=== PATIENT | female | born 1955 | race Two or more races ===

== ENCOUNTER 2016-11-02 00:50 | Inpatient (IN) | payer MEDICARE ==
[~2016-11-02] VITALS: Ht 157.5 cm; Wt 78.9 kg
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
[2016-11-02] MEDS ORDERED: MAGNESIUM HYDROXIDE 30 ML UDC PO PRN (03:00)
[2016-11-02] MEDS ORDERED: ACETAMINOPHEN 325 MG TABLET PO PRN (03:00)
[2016-11-02] MEDS ORDERED: TEMAZEPAM 7.5 MG CAPSULE PO PRN (03:00)
[2016-11-02] MEDS ORDERED: LORAZEPAM 0.5 MG TABLET PO PRN (03:00)
[2016-11-02] MEDS ORDERED: MAG HYDROX/AL HYDROX/SIMETH 30 ML UDC PO PRN (03:00)
[2016-11-02 03:45] VITALS: BP 105/84
[2016-11-02 04:28] VITALS: BP 105/84
[2016-11-02] MEDS ORDERED: FENO160T PO (04:47)
[2016-11-02] MEDS ORDERED: ESCI20TA PO (04:47)
[2016-11-02] MEDS ORDERED: LEVO100T9 PO (04:47)
[2016-11-02] MEDS ORDERED: HALO2TAB PO (04:47)
--- NOTE | 2016-11-02 06:13 | NUR ---
GPS RN: CALLED ARABELLA KNOTT [phone] TO INFORM THE ADMISSION. OF ARABELLA KNOTT ANSWERED THE PHONE. ASKED IF THE PATIENT HAS ANY MEDICAL PROBLEMS THAT HEALTH CARE TEAM NEEDS TO KNOW, RESPONDER ANSWERED, "YOU NEED TO CALL MY REGARDING THAT."
[2016-11-02 08:00] VITALS: BP 112/83
[2016-11-02 08:25] LABS: ALBUMIN 3.7 g/dL (3.4-5.0); BILIRUBIN,TOTAL 0.6 mg/dL (0.2-1.0); CALCIUM, SERUM 9.1 mg/dL (8.5-10.1); CREATININE 1.2 mg/dL (0.6-1.3); POTASSIUM 3.6 mmol/L (3.5-5.1); TOTAL PROTEIN, SERUM 7.1 g/dL (6.4-8.2)
[2016-11-02] MEDS ORDERED: Z GUARD REMEDY 2 OZ OINT TP SCH (09:00)
--- NOTE | 2016-11-02 09:31 | NUR ---
[id number]: NOTIFIED DR. MONTE ABOUT LAB RESULTS FOR 11/02/16: ANION GAP= 19, BUN=33, ALKALINE PHOSPHATASE= 41. NO NEW ORDERS GIVEN AT THIS TIME.
[2016-11-02 16:00] VITALS: BP 108/82
[2016-11-02 22:28] VITALS: BP 108/88
[2016-11-02] MEDS: HALOPERIDOL 5 MG TABLET PO SCH (22:51)
[2016-11-03 08:18] VITALS: BP 125/78
[2016-11-03] MEDS ORDERED: HALOPERIDOL DECANOATE IM 100 MG/ML AMPUL IM ONE (09:00)
[2016-11-03] MEDS: FENOFIBRATE NANOCRYS (145 MG) 145 MG TABLET PO SCH (09:09)
[2016-11-03] MEDS: ESCITALOPRAM OXALATE (10 MG) 10 MG TABLET PO SCH (09:09)
[2016-11-03] MEDS: HALOPERIDOL 5 MG TABLET PO SCH ×3 (09:10→17:08)
[2016-11-03] MEDS: LEVOTHYROXINE SODIUM 100 MCG TABLET PO SCH (09:10)
--- NOTE | 2016-11-03 15:51 | NUR ---
SW attempted several times a day to see the patient for psychosocial assessment, but pt. continues to be asleep ( or pretends to be asleep ) and despite attempts to wake her up, refuses to speak or open her eyes. SW will follow up
[2016-11-03 16:34] VITALS: BP 103/76
[2016-11-03 20:00] VITALS: BP 120/69
[2016-11-04] MEDS: LEVOTHYROXINE SODIUM 100 MCG TABLET PO SCH (07:30)
[2016-11-04 08:00] VITALS: BP 116/74
--- NOTE | 2016-11-04 08:23 | NUR ---
WOUND CARE CONSULT PATIENT SEEN AND SKIN INTEGRITY ASSESSMENT DONE. PATIENT WITH AMAURI AT 11. PATIENT NOT MOVING OR SPEAKING OR OPENING EYES. NOT EATING PER NURSING. PLEASE SEE SOLUTIONS DEVELOPER ASSESSMENT IN PCS FOR TODAY. RECOMMEND TURNING SCHED Q 2 HOURS AND BILATERAL HEEL FLOATING. RECOMMEND USE OF Z GUARD FOR SKIN/MOISTURE MANAGEMENT. PATIENT ON FOAM/GEL PRESSURE REDUCTING MATTRESS AT THIS TIME. ALL SKIN MANAGEMENT DISCUSSED WITH NURSING AT THIS TIME. MD IN AGREEMENT WITH PLAN OF CARE. Addendum: 11/04/16 at 0825 by СВЕТЛАНА KAMU Amended: Links added. Addendum: 11/04/16 at 0844 by СВЕТЛАНА KAMU SOLUTIONS DEVELOPER ADDENDUM RECOMMEND PODIATRY CONSULT FOR THE LEFT HEEL CALLUS/DTI AND LEFT 3RD NAIL BED.
[2016-11-04] MEDS: HALOPERIDOL 5 MG TABLET PO SCH ×2 (09:00→17:00)
[2016-11-04] MEDS: ESCITALOPRAM OXALATE (10 MG) 10 MG TABLET PO SCH (09:00)
[2016-11-04] MEDS: FENOFIBRATE NANOCRYS (145 MG) 145 MG TABLET PO SCH (09:00)
--- NOTE | 2016-11-04 11:33 | NUR ---
Initial discharge plan: pt. is catatonic and does not speak when asked questions and does not open her eyes. Appears that pt. may need placement. VIANEY left a voicemail for Sonu, contact center associate for pt. [phone] and he has not returned the call. vianey will follow up with MD and pt. again and will help form safe and proper discharge.
[2016-11-04 16:00] VITALS: BP 139/76
--- NOTE | 2016-11-04 16:08 | NUR ---
NOTIFIED DR. MONTE THAT PT. ATE 10% FOR BREAKFAST AND NOT EATING LUNCH AND NOT DRINKING. DIAPER IS DRY SINCE MORNING, BLADDER SCAN DONE AND RETAINING 693 ML OF URINE. V/S TAKEN: BP 139/96, NE 109, RR 18, TEMP 98.6, OXYGEN SAT 94%. ORDERED STRAIGHT CATH NOW AND BLADDER SCAN Q SHIFT AND STRAIGHT CATH PRN Q SHIFT IF RETAINING URINE >300.
--- NOTE | 2016-11-04 16:52 | NUR ---
STRAIGHT CATH DONE ASEPTICALLY WITH 500 CC URINE OUTPUT OF YELLOW COLOR URINE. PT. TOLERATED WELL. WILL CONTINUE TO MONITOR .
--- NOTE | 2016-11-04 19:50 | NUR ---
GPS/RN NOTE: PATIENT RESTING IN BED, NO RESPONSE WHEN ENGAGED, RESPIRATION EVEN, BREATHING PATTERN NON-LABORED, NO ACUTE DISTRESS NOTED.
[2016-11-04 20:00] VITALS: BP 137/76
--- NOTE | 2016-11-05 07:15 | NUR ---
GPS/RN NOTE: BLADDER SCAN DONE, 555 ML URINE NOTED. IN AND OUT CATH DONE, OBTAINED 400 ML CLOUDY, CONCENTRATED URINE, SPECIMEN SENT FOR URINALYSIS
[2016-11-05] MEDS: LEVOTHYROXINE SODIUM 100 MCG TABLET PO SCH (07:30)
[2016-11-05 08:00] VITALS: BP 138/69
[2016-11-05] MEDS: HALOPERIDOL 5 MG TABLET PO SCH ×2 (09:00→16:55)
[2016-11-05] MEDS: ESCITALOPRAM OXALATE (10 MG) 10 MG TABLET PO SCH (09:00)
[2016-11-05] MEDS: FENOFIBRATE NANOCRYS (145 MG) 145 MG TABLET PO SCH (09:00)
--- NOTE | 2016-11-05 09:01 | NUR ---
GPS/RN PT IS RESTING COMFORTABLY IN THE BED WITH RESPIRATION EVEN UNLABORED, VSS , DOES NOT RESPOND TO NURSES. REFUSED TO EAT IN AM. NO MEDS GIVEN, AWARE
[2016-11-05] MEDS ORDERED: IV NS 0.9% 1,000 ML BAG IV ONE (13:00)
[2016-11-05] MEDS ORDERED: IV SET PRIMARY PUMP SET 1 EA INFUS.SET MC ONE (15:08)
[2016-11-05] MEDS ORDERED: IV NS 0.9% 1,000 ML ONE (15:09)
[2016-11-05 16:00] VITALS: BP 108/82
--- NOTE | 2016-11-05 16:56 | NUR ---
GPS/RN IVF INFUSING WELL. NO ACUTE DISTRESS NOTED. US SAMPLE COLLECTED AND LAB CALLED FOR PRINTING PRESS OPERATOR.PT TRANSFERRED TO ROOM 218 AND OBSERVED BY THE SITTER FOR SAFETY.
[2016-11-05 17:54] LABS: APPEARANCE,URINE CLEAR (CLEAR); BILIRUBIN,URINE 1+ (NEGATIVE); BLOOD, URINE TRACE Ery/uL (NEGATIVE); COLOR,URINE YELLOW (YELLOW); KETONES,URINE TRACE (NEGATIVE); LEUKOCYTE ESTERASE ,URINE NEGATIVE (NEGATIVE); NITRITE, URINE NEGATIVE (NEGATIVE); PROTEIN,URINE TRACE mg/dl (NEGATIVE); UGLUCOSE NEGATIVE (NEGATIVE)
[2016-11-05 18:16] LABS: CALCIUM, SERUM 8.7 mg/dL (8.5-10.1); POTASSIUM 3.6 mmol/L (3.5-5.1)
[2016-11-05 19:12] LABS: BASOPHILS % (AUTO) 0.1 % (0.0-2.0); EOSINOPHILS # (AUTO) 0.1 /CMM (0.0-0.7); EOSINOPHILS % (AUTO) 1.2 % (0.0-6.0); HEMATOCRIT 41 % (33-45); HEMOGLOBIN 13.5 g/dL (11.5-14.8); LYMPHOCYTES # (AUTO) 1.4 /CMM (0.8-4.8); LYMPHOCYTES % (AUTO) 14.6 % (20.0-44.0); MEAN CORPUSCULAR HEMOGLOBIN 30 PG (26.0-33.0); MEAN CORPUSCULAR HGB CONC 33 g/dl (31.0-36.0); MEAN CORPUSCULAR VOLUME 89 fL (82-100); MONOCYTES # (AUTO) 0.9 /CMM (0.1-1.30); MONOCYTES % (AUTO) 9.9 % (2.0-12.0); NEUTROPHILS % (AUTO) 74.2 % (43.0-81.0); PLATELET COUNT (AUTO) 228 /CMM (150-450); RDW COEFFICIENT OF VARIATION 13.5 (11.5-15.0); RED BLOOD CELL COUNT(AUTO) 4.55 MIL/uL (4.0-5.2); WHITE BLOOD COUNT (AUTO) 9.5 K/uL (4.3-11.0)
--- NOTE | 2016-11-05 19:18 | NUR ---
GPS/RN ENDORSED TO PRESCHOOL TEACHER AIDE AIME TO REPORT TO MD WITH UNUSUAL LAB FINDINGS.
[2016-11-05 19:24] LABS: BACTERIA,URINE None seen /HPF (None Seen); RBC,URINE NONE SEEN /HPF (0-2); SQUAMOUS EPITHELIAL CELL,UR Few /HPF (None Seen); WBC,URINE 0-2 /HPF (0-3)
--- NOTE | 2016-11-05 19:30 | NUR ---
GPS/DEPUTY CHIEF MAGISTRATE; RECEIVED PT IN BED SUPINE POSITION SLEEPING. BREATHING NON LABORED AND EVEN. IVF ON PROGRESS ON LT HAND OF NS AT 75 ML/ HOUR NO SIGNS OF INFILTRATION. SITTER PRESENT IN THE ROOM. CONTINUE TO MONITOR. BED ON LOWER POSITION AND LOCKED FOR SAFETY.
[2016-11-05 20:00] VITALS: BP 111/89
[2016-11-05 21:15] VITALS: BP 129/75
--- NOTE | 2016-11-06 07:00 | NUR ---
SLEPT FOR 10 HOURS. FC INTACT WITH CLEAR YELLOW URINE WITH 250 ML OUTPUT. WILL ENDORSE TO THE DAY SHIFT NURSE.
[2016-11-06] MEDS: LEVOTHYROXINE SODIUM 100 MCG TABLET PO SCH (07:30)
[2016-11-06] MEDS: HALOPERIDOL 5 MG TABLET PO SCH (08:34)
[2016-11-06] MEDS: FENOFIBRATE NANOCRYS (145 MG) 145 MG TABLET PO SCH (08:35)
[2016-11-06] MEDS: ESCITALOPRAM OXALATE (10 MG) 10 MG TABLET PO SCH (08:35)
--- NOTE | 2016-11-06 10:13 | NUR ---
GPS RN NOTE: PATIENT LYING IN BED WITH HER EYES CLOSED 1:1 SITTER AT THE SIDE FOR SAFETY WITH GANNON CATH IN PLACED,PT CATATONIC AND NON VERBAL WHEN ENGAGED, PT BREATHING EVEN NON LABORED VS STABLE, TURNED REPOSITION Q 2 HR , PT CLEAN AND Z GUARD APPLIED. PT REFUSING TO EAT AND DRINK REFUSED MEDICATIONS, EXPLAIN RISK AND BENEFIT PT NON REACTING KEEPING HER EYES CLOSED FOR ALL TIME WILL CONTINUE MONITORING
[2016-11-06] MEDS ORDERED: IV NS 0.9% 1,000 ML BAG IV ONE (14:30)
[2016-11-06] MEDS ORDERED: IV D5/ 0.9% NACL 1,000 ML IV PRN (14:30)
[2016-11-06] MEDS ORDERED: PANTOPRAZOLE 40 MG VIAL IV SCH (14:30)
--- NOTE | 2016-11-06 14:35 | NUR ---
GPS RN NOTE: CALLED DR SOTELO REGARDING PT D/C TO TELE PER N.P CAREY MESSAGE LEFT TO CALL BACK
--- NOTE | 2016-11-06 15:52 | NUR ---
GPS RN NOTE: DUE TO FAST TRANSFER PER DR PATINO START IV FLUIDS IN TELE
--- NOTE | 2016-11-06 15:53 | NUR ---
GPS DIRECTOR WORKERS COMPENSATION NOTE: PATIENT DISCHARGE FROM GPS AND TRANSFER TO TELE ROOM 202 PER Asha DEE PT DX ACUTE INCREPHALOPATHY WITH CATATONIA DR SOTELO NOTIFIED WITH CONTINUE HOLD AND D/C PSYCH MEDICATIONS,CAREY T.O. ORDER NPO FOR NOW. MEDICATIONS RECONCILIATION,EXIT CARE, BELONGINGS DONE , SKIN CHECKED AND PICTURES PLACED IN THE CHART
[2016-11-06] MEDS ORDERED: [UNRECOGNIZED DRUG - CODE] IV (16:52)
[2016-11-06] MEDS ORDERED: FENO145T20 PO (16:52)
[2016-11-06] MEDS ORDERED: ALLA266C2 TP (16:52)
[2016-11-06] MEDS ORDERED: PANT40VI IV (16:52)
[2016-11-06] MEDS ORDERED: MAGN400O6 PO (16:52)
[2016-11-06] MEDS ORDERED: ACET-868 PO (16:52)
[2016-11-06] MEDS ORDERED: MAG30ORA PO (16:52)
[2016-11-07] MEDS ORDERED: ESCITALOPRAM OXALATE (10 MG) 10 MG TABLET PO SCH (09:00)
== END 2016-11-06 15:53 | disposition short-term general hospital (02) | DRG 885 ==
LOC: GPS 02:26
PROVIDERS: ADMIT Psychiatry & Neurology Psychiatry; ATTEND Nurse Practitioner Acute Care
DX: F20.0 Paranoid schizophrenia (principal); Z73.6 Limitation of activities due to disability; E03.9 Hypothyroidism, unspecified; E78.5 Hyperlipidemia, unspecified; F32.9 Major depressive disorder, single episode, unspecified; K21.9 Gastro-esophageal reflux disease without esophagitis; F29 Unspecified psychosis not due to a substance or known physiological condition; E86.0 Dehydration; R79.89 Other specified abnormal findings of blood chemistry
CPT/HCPCS: 36415; 70450-TC; 80048-TC; 80053-TC; 80061-TC; 81000-TC; 85025-TC; 87081-TC; 97001-TC; 97530-TC; C9113; J1631; J7030

== ENCOUNTER 2016-11-06 15:58 | Inpatient (IN) | payer MEDICARE ==
[~2016-11-06] VITALS: Ht 157.5 cm; Wt 69.4 kg
[~2016-11-06 15:58] MED LIST: ESCI20TA PO; FENO160T PO; HALO2TAB PO; LEVO100T9 PO
[2016-11-06] MEDS ORDERED: [UNRECOGNIZED DRUG - CODE] IV (16:52)
[2016-11-06] MEDS ORDERED: MAG30ORA PO (16:52)
[2016-11-06] MEDS ORDERED: FENO145T20 PO (16:52)
[2016-11-06] MEDS ORDERED: ACET-868 PO (16:52)
[2016-11-06] MEDS ORDERED: PANT40VI IV (16:52)
[2016-11-06] MEDS ORDERED: MAGN400O6 PO (16:52)
[2016-11-06] MEDS ORDERED: ALLA266C2 TP (16:52)
[2016-11-06 17:00] VITALS: BP 133/87
--- NOTE | 2016-11-06 17:00 | NUR ---
MS RN NOTES PATIENT BROUGHT IN PATIENT VIA WHEELCHAIR FROM GPS UNIT FOR ADMISSION. SAFELY TRANSFERRED PATIENT TO BED, MADE COMFORTABLE, V/S TAKEN AND RECORDED. ON ROOM AIR, BREATHING EVEN AND NON LABORED. EYES CLOSED, RESPONSIVE TO TACTILE STIMULI, NON VERBAL. NOTIFIED DR. MAYURI LUKE FOR ADMISSION. PATIENT IS ON 5250 HOLD, 1:1 SITTER AT THE BED SIDE.
--- NOTE | 2016-11-06 17:40 | NUR ---
PATIENT IS SEEN BY DR. MESSINA, CT HEAD RESULTED, PER MD, TRANSFER PATIENT TO TELEMETRY UNIT.
[2016-11-06] MEDS ORDERED: IV NS 0.9% 1,000 ML IV PRN (17:41)
[2016-11-06] MEDS ORDERED: MAG HYDROX/AL HYDROX/SIMETH 30 ML UDC PO PRN (18:00)
[2016-11-06] MEDS ORDERED: BLOOD SUGAR DIAGNOSTIC 1 EACH STRIP IN SCH (18:00)
[2016-11-06] MEDS ORDERED: MAGNESIUM HYDROXIDE 30 ML UDC PO PRN (18:00)
[2016-11-06] MEDS ORDERED: NACL IV PRN (18:00)
[2016-11-06] MEDS ORDERED: ACETAMINOPHEN 325 MG TABLET PO PRN (18:00)
[2016-11-06] MEDS ORDERED: Z GUARD REMEDY 2 OZ OINT TP PRN (18:00)
[2016-11-06] MEDS ORDERED: D5 IV PRN (18:00)
--- NOTE | 2016-11-06 18:00 | NUR ---
ECO CARDIO THERAPY AIDE AT BEDSIDE, PT INDORSED TO NEXT SHIFT FOR HENRY
--- NOTE | 2016-11-06 18:00 | NUR ---
REPORT GIVEN TO INDU MEIER FOR CONTINUITY OF CARE.
[2016-11-06 18:22] LABS: BASOPHILS % (AUTO) 0.1 % (0.0-2.0); EOSINOPHILS % (AUTO) 0.7 % (0.0-6.0); HEMATOCRIT 37 % (33-45); HEMOGLOBIN 12.5 g/dL (11.5-14.8); MEAN CORPUSCULAR HEMOGLOBIN 30 PG (26.0-33.0); MEAN CORPUSCULAR HGB CONC 34 g/dl (31.0-36.0); MEAN CORPUSCULAR VOLUME 89 fL (82-100); NEUTROPHILS % (AUTO) 74.2 % (43.0-81.0); PLATELET COUNT (AUTO) 204 /CMM (150-450); RDW COEFFICIENT OF VARIATION 13.6 (11.5-15.0); RED BLOOD CELL COUNT(AUTO) 4.19 MIL/uL (4.0-5.2); WHITE BLOOD COUNT (AUTO) 9.1 K/uL (4.3-11.0)
[2016-11-06 18:23] LABS: EOSINOPHILS # (AUTO) 0.1 /CMM (0.0-0.7); LYMPHOCYTES # (AUTO) 1.4 /CMM (0.8-4.8); MONOCYTES # (AUTO) 0.9 /CMM (0.1-1.30); NEUTROPHILS # (AUTO) 6.7 /CMM (1.8-8.9)
[2016-11-06 18:35] LABS: CALCIUM, SERUM 8.5 mg/dL (8.5-10.1); CREATININE 0.9 mg/dL (0.6-1.3); POTASSIUM 3.7 mmol/L (3.5-5.1)
[2016-11-06] MEDS ORDERED: IV SET PRIMARY PUMP SET 1 EA INFUS.SET MC ONE (18:35)
--- NOTE | 2016-11-06 18:40 | NUR ---
RECEIVED PT FOR MS2, VIA BED WITH EYES CLOSED, RESPONSIVE TO TACTILE STIMULI, NON VERBAL, NO SOB OR DISTRESS NOTED, NO S/S OF PAIN , SITTER AT BEDSIDE FOR SAFETY, WILL MONITOR AND INDORSE PT TO NEXT SHIFT FOR ADMISSION.
[2016-11-06 18:45] VITALS: BP 135/80
[2016-11-06 18:50] LABS: ALBUMIN 3.2 g/dL (3.4-5.0); BILIRUBIN,TOTAL 0.7 mg/dL (0.2-1.0); MAGNESIUM 1.9 mg/dL (1.8-2.4); TOTAL PROTEIN, SERUM 6.5 g/dL (6.4-8.2)
[2016-11-06 18:51] LABS: THYROID STIMULATING HORMONE 10.027 uIU/mL (0.358-3.74)
[2016-11-06 18:53] LABS: INR 1.08 (0.87-1.13); PROTHROMBIN TIME 11.6 SECS (9.5-12.7)
--- NOTE | 2016-11-06 19:45 | NUR ---
RN OPENING NOTES RECEIVED REPORT FROM DAYSHIFT INDU MEIER. Pt WAS A LATE ADMIT TO THE FLOOR. FOUND Pt ASLEEP IN BED, WAS TOLD FROM INDU MEIER THAT Pt CAME FROM GPS AND IS CURRENTLY ON A 5250 HOLD. Pt WITH 1:1 SITTER AT BEDSIDE. NO S/S OF ACUTE DISTRESS OR SOB NOTED. EQUAL CHEST RISE AND FALL. Pt IS BEING NON-RESPONSIVE TO HER NAME BEING CALLED. WAS TOLD FROM INDU MEIER THAT SHE DOES NOT OPEN HER EYES; EVEN WHEN TRYING TO OPEN HER EYELIDS, SHE KEEPS THEM CLOSED FORCEFULLY. BUT WAS SEEN SCRATCHING HER HEAD. IV ACCESS ON [facility] #22G. IVF NS @80ML/HR. SAFETY MEASURES IN PLACE. BED LOW, LOCKED, HOB ELEVATED, & SIDE RAILS UP. WILL CONTINUE TO MONITOR Pt THROUGHOUT THE NIGHT FOR SAFETY.
[2016-11-06 20:00] VITALS: BP 144/72
[2016-11-06] MEDS: BLOOD SUGAR DIAGNOSTIC 1 EACH STRIP IN SCH (21:23)
[2016-11-06] MEDS: HEPARIN SODIUM, PORCINE 5000 UNITS/1 ML VIAL SQ SCH (21:24)
[2016-11-06] MEDS: SIMVASTATIN 10 MG TABLET PO SCH (21:25)
[2016-11-06] MEDS: ACETAMINOPHEN 325 MG TABLET PO SCH (21:25)
[2016-11-06] MEDS: IV D5/ 0.9% NACL 1,000 ML IV PRN (21:36)
[2016-11-06 22:00] VITALS: BP 144/72
--- NOTE | 2016-11-06 22:00 | NUR ---
BG 76 NO INSULIN COVERAGE NEEDED.
--- NOTE | 2016-11-06 22:00 | NUR ---
RN NOTES DID NOT ADMINISTER 2200 TYLENOL 650MG AND ZOCOR 10MG MED. Pt WAS BEING UNRESPONSIVE AND SEEMED TO INTENTIONALLY NOT WAKE UP AND OPEN HER EYES. TRIED TO OPEN Pt's EYELIDS BUT Pt SEEMED TO BE FORCEFULLY KEEPING THEM SHUT. ALL VS ARE NORMAL AND TELE READING SR. Pt IS WITH SITTER.
[2016-11-07] VITALS (8 sets, daily range): BP systolic 68–134; BP diastolic 60–86
[2016-11-07] MEDS: HEPARIN SODIUM, PORCINE 5000 UNITS/1 ML VIAL SQ SCH ×3 (05:00→21:44)
--- NOTE | 2016-11-07 06:30 | NUR ---
BG 111. NO INSULIN COVERAGE NEEDED.
--- NOTE | 2016-11-07 06:45 | NUR ---
RN CLOSING NOTES NO SIGNIFICANT CHANGES DURING THE SHIFT. ALL NEEDS MET AND ATTENDED TO. SAFETY MEASURES IN PLACE. WILL ENDORSE TO DAYSHIFT RN FOR Pt's HENRY.
[2016-11-07] MEDS: BLOOD SUGAR DIAGNOSTIC 1 EACH STRIP IN SCH ×4 (06:54→21:45)
[2016-11-07 07:14] LABS: BASOPHILS % (AUTO) 0.2 % (0.0-2.0); EOSINOPHILS # (AUTO) 0.1 /CMM (0.0-0.7); EOSINOPHILS % (AUTO) 1.5 % (0.0-6.0); HEMATOCRIT 35 % (33-45); LYMPHOCYTES # (AUTO) 1.6 /CMM (0.8-4.8); LYMPHOCYTES % (AUTO) 20.4 % (20.0-44.0); MEAN CORPUSCULAR HEMOGLOBIN 31 PG (26.0-33.0); MEAN CORPUSCULAR HGB CONC 34 g/dl (31.0-36.0); MEAN CORPUSCULAR VOLUME 89 fL (82-100); MONOCYTES # (AUTO) 0.9 /CMM (0.1-1.30); MONOCYTES % (AUTO) 11.2 % (2.0-12.0); NEUTROPHILS # (AUTO) 5.2 /CMM (1.8-8.9); NEUTROPHILS % (AUTO) 66.7 % (43.0-81.0); PLATELET COUNT (AUTO) 191 /CMM (150-450); RDW COEFFICIENT OF VARIATION 13.2 (11.5-15.0); RED BLOOD CELL COUNT(AUTO) 3.93 MIL/uL (4.0-5.2); WHITE BLOOD COUNT (AUTO) 7.9 K/uL (4.3-11.0)
--- NOTE | 2016-11-07 07:15 | NUR ---
installment account checker initial notes Received patient in bed, sitter at bedside, asleep, head of bed elevated. No SOB or distress noted. On room air and tolerated well. On tele monitor SB heart rate of 57. No signs and symptoms of pain or discomfort noted. IV intact and patent with IVF infusing well. Moore in placed attached to drainage bag. Kept patient clean and comfortable in bed, call light with in patient reach, will continue to monitor accordingly.
[2016-11-07] MEDS ORDERED: PANTOPRAZOLE 40 MG TABLET.DR PO SCH (07:30)
[2016-11-07] MEDS ORDERED: LEVOTHYROXINE SODIUM 100 MCG TABLET PO SCH (07:30)
[2016-11-07 07:58] LABS: CALCIUM, SERUM 8.2 mg/dL (8.5-10.1); CREATININE 0.9 mg/dL (0.6-1.3); POTASSIUM 3.2 mmol/L (3.5-5.1)
[2016-11-07 08:11] LABS: INR 1.06 (0.87-1.13); PROTHROMBIN TIME 11.4 SECS (9.5-12.7)
[2016-11-07] MEDS: FENOFIBRATE NANOCRYS (145 MG) 145 MG TABLET PO SCH (08:27)
[2016-11-07] MEDS: PANTOPRAZOLE 40 MG VIAL IV SCH (08:27)
[2016-11-07] MEDS: ASPIRIN EC 325 MG TABLET.DR PO SCH (08:28)
[2016-11-07 09:50] LABS: APPEARANCE,URINE SL CLOUDY (CLEAR); BILIRUBIN,URINE 1+ (NEGATIVE); BLOOD, URINE 3+ Ery/uL (NEGATIVE); COLOR,URINE YELLOW (YELLOW); KETONES,URINE TRACE (NEGATIVE); LEUKOCYTE ESTERASE ,URINE NEGATIVE (NEGATIVE); NITRITE, URINE NEGATIVE (NEGATIVE); PROTEIN,URINE 1+ mg/dl (NEGATIVE); UGLUCOSE NEGATIVE (NEGATIVE)
[2016-11-07] MEDS ORDERED: IV NS 0.9% 1,000 ML ONE (09:50)
[2016-11-07] MEDS ORDERED: IV SET PRIMARY PUMP SET 1 EA INFUS.SET MC ONE ×2 (09:53→12:14)
[2016-11-07] MEDS ORDERED: SECONDARY IV SET 1 EA INFUS.SET MC ONE (09:55)
[2016-11-07] MEDS: POTASSIUM CL. PREMIX PERIPHER. 50 ML IV SCH ×4 (09:59→13:44)
[2016-11-07] MEDS: IV D5/ 0.9% NACL 1,000 ML IV PRN (09:59)
[2016-11-07] MEDS ORDERED: IV NS 0.9% 500 ML IV ONE (10:00)
[2016-11-07] MEDS ORDERED: IV NS 0.9% 500 ML BAG IV ONE (10:00)
[2016-11-07] MEDS ORDERED: LEVOTHYROXINE INJ 500 MCG VIAL IV SCH (10:30)
[2016-11-07 10:36] LABS: BACTERIA,URINE Rare /HPF (None Seen); RBC,URINE 21-50 /HPF (0-2); WBC,URINE 0-2 /HPF (0-3)
[2016-11-07 10:37] LABS: SQUAMOUS EPITHELIAL CELL,UR Rare /HPF (None Seen)
[2016-11-07 10:49] LABS: SALICYLATE 2.3 mg/dL (2.8-20.0)
--- NOTE | 2016-11-07 11:41 | NUR ---
sales agent financial report service notes Dwight HYDRAULIC DREDGE OPERATOR came seen and examined the patient and ordered UA with CS, physician consult with Dr. Ovalles. All orders carried out and noted. Will continue to monitor accordingly
[2016-11-07 16:14] LABS: APPEARANCE,URINE SL CLOUDY (CLEAR); BILIRUBIN,URINE 1+ (NEGATIVE); BLOOD, URINE 3+ Ery/uL (NEGATIVE); COLOR,URINE YELLOW (YELLOW); KETONES,URINE TRACE (NEGATIVE); LEUKOCYTE ESTERASE ,URINE NEGATIVE (NEGATIVE); NITRITE, URINE NEGATIVE (NEGATIVE); PROTEIN,URINE NEGATIVE (NEGATIVE); UGLUCOSE NEGATIVE (NEGATIVE)
[2016-11-07 16:30] LABS: BACTERIA,URINE Few /HPF (None Seen); SQUAMOUS EPITHELIAL CELL,UR Few /HPF (None Seen)
[2016-11-07 16:32] LABS: YEAST,URINE Rare /HPF (None Seen)
--- NOTE | 2016-11-07 19:15 | NUR ---
television repairman closing notes All needs provided, attended, and anticipated. Kept patient clean and comfortable in bed, call light with in patient reach, will continue to monitor accordingly. Endorsed to next shift RN to continue care. SR heart rate of 62.
--- NOTE | 2016-11-07 19:45 | NUR ---
RN OPENING NOTES RECEIVED REPORT FROM [facility] RENEA WOOD. Pt IS ON 5250 HOLD. Pt IS NON-VERBAL, BUT MOVES AND REACTS TO PAIN/STIMULI. WITH SITTER AT BEDSIDE. ON TELE SR 60'S. NO S/S OF ACUTE DISTRESS OR SOB NOTED. EQUAL CHEST RISE AND FALL. IV ACCESS ON AND #22G IVF D5NS@75ML/HR. SAFETY MEASURES IN PLACE. BED LOW, LOCKED, HOB ELEVATED, SIDE RAILS UP. WILL CONTINUE TO MONITOR Pt THROUGHOUT THE SHIFT.
[2016-11-07] MEDS: ACETAMINOPHEN 325 MG TABLET PO SCH (21:54)
[2016-11-07] MEDS: SIMVASTATIN 10 MG TABLET PO SCH (21:55)
--- NOTE | 2016-11-07 22:00 | NUR ---
BG 91. NO INSULIN COVERAGE NEEDED. WILL CONTINUE TO MONITOR Pt's LEVELS.
--- NOTE | 2016-11-07 22:00 | NUR ---
RN NOTES UNABLE TO GIVE PO MEDS @2200 (TYLENOL & ZOCOR) DUE TO Pt'S CONDITION. Pt IS NON-VERBAL AND NOT RESPONDING TO QUESTIONS. Pt WILL NOT OPEN EYES AND FORCEFULLY KEEPS MOUTH SHOUT.
[2016-11-08] VITALS (8 sets, daily range): BP systolic 113–153; BP diastolic 58–74
[2016-11-08] MEDS: HEPARIN SODIUM, PORCINE 5000 UNITS/1 ML VIAL SQ SCH (06:09)
--- NOTE | 2016-11-08 06:30 | NUR ---
BG 107. NO INSULIN COVERAGE NEEDED.
[2016-11-08] MEDS: BLOOD SUGAR DIAGNOSTIC 1 EACH STRIP IN SCH (06:41)
--- NOTE | 2016-11-08 06:53 | NUR ---
RN CLOSING NOTES NO SIGNIFICANT CHANGES DURING THE NIGHT. NO S/S OF ACUTE DISTRESS OR SOB. SITTER AT BEDSIDE. ALL NEEDS MET AND ATTENDED TO. SAFETY MEASURES CARRIED OUT. TELE READING SR 60's. WILL ENDORSE TO DAYSHIFT RN FOR Pt's HENRY.
[2016-11-08] MEDS: IV D5/ 0.9% NACL 1,000 ML IV PRN (07:07)
--- NOTE | 2016-11-08 07:16 | NUR ---
chief telephone operator initial notes Received patient in bed, asleep, head of bed elevated, no SOB or distress noted, on room air and tolerated well. IV intact and patent with IVF infusing well. Moore in placed attached to drainage bag. Patient react to pain. Sitter at bedside for constant monitoring. On tele monitor SB heart rate of 57 no pain or discomfort noted. Kept patient clean and comfortable in bed, call light with in patient reach, will continue to monitor accordingly.
[2016-11-08] MEDS: LEVOTHYROXINE INJ 100 MCG VIAL IV SCH (08:50)
[2016-11-08] MEDS: ASPIRIN EC 325 MG TABLET.DR PO SCH (08:50)
[2016-11-08] MEDS: PANTOPRAZOLE 40 MG VIAL IV SCH (08:50)
[2016-11-08] MEDS: FENOFIBRATE NANOCRYS (145 MG) 145 MG TABLET PO SCH (08:51)
[2016-11-08 09:31] LABS: BASOPHILS % (AUTO) 0.3 % (0.0-2.0); EOSINOPHILS # (AUTO) 0.2 /CMM (0.0-0.7); EOSINOPHILS % (AUTO) 2.1 % (0.0-6.0); HEMATOCRIT 36 % (33-45); HEMOGLOBIN 12.1 g/dL (11.5-14.8); LYMPHOCYTES # (AUTO) 1.9 /CMM (0.8-4.8); LYMPHOCYTES % (AUTO) 20.8 % (20.0-44.0); MEAN CORPUSCULAR HEMOGLOBIN 30 PG (26.0-33.0); MEAN CORPUSCULAR HGB CONC 34 g/dl (31.0-36.0); MEAN CORPUSCULAR VOLUME 89 fL (82-100); MONOCYTES # (AUTO) 0.9 /CMM (0.1-1.30); MONOCYTES % (AUTO) 9.5 % (2.0-12.0); NEUTROPHILS # (AUTO) 6.2 /CMM (1.8-8.9); NEUTROPHILS % (AUTO) 67.3 % (43.0-81.0); PLATELET COUNT (AUTO) 197 /CMM (150-450); RDW COEFFICIENT OF VARIATION 13.4 (11.5-15.0); RED BLOOD CELL COUNT(AUTO) 4.02 MIL/uL (4.0-5.2); WHITE BLOOD COUNT (AUTO) 9.2 K/uL (4.3-11.0)
[2016-11-08 09:48] LABS: CALCIUM, SERUM 8.1 mg/dL (8.5-10.1); CREATININE 0.8 mg/dL (0.6-1.3); POTASSIUM 3.4 mmol/L (3.5-5.1)
--- NOTE | 2016-11-08 11:34 | NUR ---
EFRAIN received a call from Sonu, friend of the patient, , who verified pt's address. Pt. lives at [address] [place] [address]. Per Sonu, pt was doing very well a month ago, she visited her cousin in [place] and was doing great, but after not taking her medications (Haldol) she started to decompensate. Per Sonu, pt will be able to return home if she is back to her usual self, which she described as being able to take care of herself with some help from her as a friend. She mentioned that pt. has two sons, but they are not involved and have no contact with the patient due to her long history of psychiatric issues. Per Sonu, pt. hears voices and when psychiatrically unstable goes into catatonia and does not speak with anyone as she thinks everyone is against her. She is involved, so if any more information is needed, she asks to be contacted.
[2016-11-08] MEDS: Potassium Chloride 20 MEQ in IV NS 0.9% 1,000 ML IV PRN (13:58)
[2016-11-08] MEDS ORDERED: FEE PK DOSING 1 MIN EA MC ONE (17:17)
[2016-11-08 17:38] LABS: ABG BASE EXCESS -1.1 mmol/L; ABG OXYGEN SATURATION 95.8 % (92.0-98.5); ABG PCO2 31.3 mmHg (35.0-45.0); ABG PH 7.462 (7.350-7.450); ABG PO2 81.6 mmHg (75.0-100.0); AaDO2 30.7 mmHg; COHb 0.8 % (0.5-1.5); MetHb 0.8 % (0.0-1.5); O2Hb 94.3 % (94.0-97.0); SITE, ABG Left Radial; VENT MODE, BG ROOM AIR
[2016-11-08] MEDS ORDERED: SECONDARY IV SET 1 EA INFUS.SET MC ONE (18:12)
[2016-11-08] MEDS: VANCOMYCIN 1 GM in IV D5W 250 ML IV SCH (18:16)
--- NOTE | 2016-11-08 19:23 | NUR ---
poultry barn manager closing notes All needs provided, attended, and anticipated. kept patient clean and comfortable in bed, call light with in patient reach, will continue to monitor accordingly. Endorsed to next shift RN to continue care. Sitter at bedside for constant monitoring. On tele monitor SB heart rate of 57. No facial grimace or discomfort noted.
--- NOTE | 2016-11-08 19:30 | NUR ---
DIRECTOR GLOBAL SALES OPENING NOTES: PATIENT IN BED, ASLEEP, NON VERBAL. AROUSABLE TO PAINFUL STIMULI. PIV OVER L HAND G 22 INTACT AND INFUSING WELL WITH NS 1L+20 MEQS KCL RUNNING AT 70 ML/HR. GANNON CATHETER IN PLACE DRAINING CLEAR YELLOW URINE. PROVIDED FOR COMFORT AND SAFETY. HOB ELEVATED, BED IN LOWEST AND LOCKED POSITION, SIDERAILS UP X3. SITTER AT BEDSIDE. WILL CONT TO MONITOR.
[2016-11-09] VITALS: BP 150/71
--- NOTE | 2016-11-09 00:30 | NUR ---
RN NOTES: PATIENT APPEARS ASLEEP. PLACE COOL COMPRESS ON PATIENT'S FOREHEAD AND TRIED TO ELICIT RESPONSE FROM HER. PATIENT YELLED "LEAVE ME ALONE!" WITHOUT OPENING EYES. THEN PATIENT WENT BACK TO CATATONIC STATE. WILL CONT TO MONITOR.
[2016-11-09] MEDS ORDERED: IV PREMIX NS +20MEQ KCL 1 L IV ONE (02:57)
[2016-11-09 04:00] VITALS: BP 139/77
[2016-11-09] MEDS: VANCOMYCIN 1 GM in IV D5W 250 ML IV SCH ×2 (06:00→17:14)
[2016-11-09] MEDS: Potassium Chloride 20 MEQ in IV NS 0.9% 1,000 ML IV PRN (06:02)
--- NOTE | 2016-11-09 06:44 | NUR ---
BOILER HOUSE INSPECTOR CLOSING NOTES: PATIENT IN BED, STILL CATATONIC, RESPONDS TO TOUCH, ON ROOM AIR, BREATHING EVEN AND UNLABORED. ON TELE MONITORING WITH SINUS RHYTHM AT 70S WITH BBB.BREATHING EVEN AND UNLABORED. GANNON CATHETER IN PLACE, DRAINING CLEAR YELLOW URINE, DRAINED TOTAL OF 1100 CC THROUGH SHIFT. PIV OVER L HAND G22 INTACT AND PATENT, INFUSING WELL WITH IVF OF NS 1 L + 20 MEQS KCL RUNNING AT 70 ML/HR. PROVIDED FOR COMFORT AND SAFETY. NO ACUTE CHANGE IN CONDITION NOTED THROUGH SHIFT. WILL ENDORSE TO AM RN FOR HENRY.
--- NOTE | 2016-11-09 07:00 | NUR ---
CLERICAL ASSIGNER INITIAL NOTE REPORT RECEIVED AT THE BEDSIDE. PATIENT IS SLEEPING NO SOB OR DISTRESS NOTED AT THIS TIME. PATIENT DOES NOT APPEAR TO BE IN PAIN, NO FACIAL GRIMACE NOTED. PATIENT RESPONDS ONLY TO STERNAL RUB BY WITHDRAWING FROM PAIN. HEART RATE IS SR 77 ON THE MONITOR. BED IN A LOW POSITION, SITTER AT THE BEDSIDE. WILL CONTINUE TO MONITOR.
[2016-11-09] MEDS: LEVOTHYROXINE INJ 100 MCG VIAL IV SCH ×2 (07:30→08:20)
[2016-11-09 08:00] VITALS: BP 127/81
[2016-11-09] MEDS: PANTOPRAZOLE 40 MG VIAL IV SCH ×2 (08:20→08:52)
--- NOTE | 2016-11-09 08:20 | NUR ---
RN NOTES WHEN IT WAS EXPLAINED TO THE PATIENT THAT SYNTHROID AND PROTONIX WERE TO BE GIVEN THE PATIENT STATED, "MY STOMACH AND MY THYROID ARE FINE, I WISH TO REFUSE THE MEDICATIONS." EXPLAINED THE IMPORTANCE OF THE MEDICATIONS TO THE PATIENT, BUT THE PATIENT STILL REFUSES. PATIENT IS ALSO REFUSING TO TURN AT THIS TIME. WILL ATTEMPT AGAIN LATER.
[2016-11-09 08:21] LABS: BASOPHILS % (AUTO) 0.2 % (0.0-2.0); EOSINOPHILS # (AUTO) 0.1 /CMM (0.0-0.7); EOSINOPHILS % (AUTO) 0.9 % (0.0-6.0); HEMATOCRIT 38 % (33-45); LYMPHOCYTES # (AUTO) 1.3 /CMM (0.8-4.8); LYMPHOCYTES % (AUTO) 13.7 % (20.0-44.0); MEAN CORPUSCULAR HEMOGLOBIN 30 PG (26.0-33.0); MEAN CORPUSCULAR HGB CONC 34 g/dl (31.0-36.0); MEAN CORPUSCULAR VOLUME 88 fL (82-100); MONOCYTES % (AUTO) 9.9 % (2.0-12.0); NEUTROPHILS # (AUTO) 7.2 /CMM (1.8-8.9); NEUTROPHILS % (AUTO) 75.3 % (43.0-81.0); PLATELET COUNT (AUTO) 216 /CMM (150-450); RDW COEFFICIENT OF VARIATION 12.8 (11.5-15.0); WHITE BLOOD COUNT (AUTO) 9.6 K/uL (4.3-11.0)
[2016-11-09 08:52] LABS: ALBUMIN 3.1 g/dL (3.4-5.0); BILIRUBIN,TOTAL 0.9 mg/dL (0.2-1.0); CALCIUM, SERUM 8.3 mg/dL (8.5-10.1); CREATININE 0.7 mg/dL (0.6-1.3); MAGNESIUM 1.3 mg/dL (1.8-2.4); PHOSPHORUS 2.5 mg/dL (2.5-4.9); TOTAL PROTEIN, SERUM 6.5 g/dL (6.4-8.2)
[2016-11-09] MEDS ORDERED: SECONDARY IV SET 1 EA INFUS.SET MC ONE ×2 (09:44→22:02)
[2016-11-09] MEDS: Magnesium 1GM/D5W 100ML PREMIX 100 ML IV SCH ×2 (09:49→11:20)
[2016-11-09] MEDS ORDERED: IV SET PRIMARY PUMP SET 1 EA INFUS.SET MC ONE ×2 (10:16→20:03)
[2016-11-09] MEDS: POTASSIUM CL. PREMIX PERIPHER. 50 ML IV SCH ×6 (10:22→20:12)
--- NOTE | 2016-11-09 10:59 | NUR ---
RN NOTES RECEIVED A CALL FROM CHEMO POSEY, THAT DR WARE ORDERED A DISCONTINUE TO THE PATIENT'S 5250 HOLD. PLACED AN ORDER IN THE COMPUTER TO DC THE HOLD. PATIENT WILL STILL HAVE A SITTER SHE IS ALTERED AND ATTEMPTING TO REMOVE IV LINES. PATIENT HAS MULTIPLE MAGNESIUM AND POTASSIUM DOSES WELL ANTIBIOTICS TO DELIVER TODAY.
--- NOTE | 2016-11-09 11:21 | NUR ---
RN NOTES SLOWED POTASSIUM INFUSION BETWEEN 20-30ML PER HOUR ALONG WITH NS PATIENT IS COMPLAINING OF PAIN WITH THE INFUSION. NEXT POTASSIUM INFUSIONS ARE LATE FOR THIS REASON.
[2016-11-09 13:50] VITALS: BP 130/76
--- NOTE | 2016-11-09 19:09 | NUR ---
MS RN CLOSING NOTES PATIENT IS RESTING COMFORTABLY IN BED. NOW RESPONDING TO VERBAL COMMANDS. NO SOB OR DISTRESS NOTED AT THIS TIME. PATIENT DENIES PAIN. BED IN A LOW POSITION, SITTER IS AT THE BEDSIDE. WILL ENDORSE FOR HENRY.
[2016-11-09 20:00] VITALS: BP 100/67
--- NOTE | 2016-11-09 20:00 | NUR ---
MS CONDITIONING ROOM WORKER INITIAL NOTES RECEIVED REPORT FROM AM NURSE JERAMY. SHE'S IN BED WITH POTASSIUM IVP BAG STILL INFUSING ON HER LEFT HAND NO REDNESS NOTED . PT CALMED AND QUIET AT THIS TIME. NOT IN ANY DISCOMFORT NOTED. KEPT HER WARM AND COMFORTABLE AT ALL TIMES. WILL CONTINUE TO MONITOR. PLACE CALL LIGHT AT REACH.
[2016-11-09] MEDS: AMPICILLIN 1 GM in IV NS 0.9% 50 ML IV SCH (22:08)
--- NOTE | 2016-11-10 | NUR ---
DUNGEON MASTER/NOTES PT RESTING AT THIS TIME NOT IN ANY ACUTE DISTRESS NOTED, SLEPT AT THIS TIME. IVF STILL INFUSING ON HER LEFT HAND. KEPT HER WARM AND COMFORTABLE AT ALL TIMES. WILL CONTINUE TO MONITOR.
[2016-11-10] MEDS: Potassium Chloride 20 MEQ in IV NS 0.9% 1,000 ML IV PRN (01:12)
[2016-11-10] MEDS: AMPICILLIN 1 GM in IV NS 0.9% 50 ML IV SCH ×2 (05:13→13:22)
[2016-11-10 06:58] LABS: CALCIUM, SERUM 8.2 mg/dL (8.5-10.1); CREATININE 0.8 mg/dL (0.6-1.3); POTASSIUM 3.6 mmol/L (3.5-5.1)
--- NOTE | 2016-11-10 07:21 | NUR ---
SUPERVISOR BLOOD DONOR RECRUITERS/CLOSING NOTES PT AWAKE AT THIS TIME WITH IVF STILL INFUSING , ALL DUE MEDS GIVEN AND ALL NEEDS MET. NO AGITATION NOTED ALL NIGHT. CALMED AND QUIET.ENDORSE TO AM NURSE FOR CONTINUITY OF CARE. PLACE CALL LIGHT AT REACH.
[2016-11-10 08:00] VITALS: BP 126/61
--- NOTE | 2016-11-10 08:00 | NUR ---
AM RN NOTES RECEIVED PT IN STABLE CONDITION, AWAKE, NO SOB OR DISTRESS NOTED, NO PAIN OR DISCOMFORT, WILL MONITOR.
[2016-11-10] MEDS: LEVOTHYROXINE INJ 100 MCG VIAL IV SCH (08:57)
[2016-11-10] MEDS: PANTOPRAZOLE 40 MG VIAL IV SCH (08:58)
--- NOTE | 2016-11-10 19:30 | NUR ---
PT IN STABLE CONDITION, EXIT CARE DONE, REPORT GIVEN TO [facility], PROJECT MANAGEMENT ANALYST TIME AT 1999, PT INDORSED TO NEXT SHIFT.
--- NOTE | 2016-11-10 19:45 | NUR ---
RN NOTE RECEIVED REPORT. PT RESTING IN BED WITH EYES CLOSED. EYE OPENING TO NAME CALL. TO BE DISCHARGED TO [facility] PER ENDORSING RN. AMBULANCE ARRIVED TO TRANSPORT PT. ALL PAPER WORK COMPLETE. PT IN NO DISTRESS AT THIS TIME, IV D/C'ED. LEFT WITH ALL BELONGINGS IN STABLE CONDITION.
[2016-11-10 20:00] VITALS: BP 107/66
== END 2016-11-10 20:15 | DRG 92 ==
LOC: TELE2 15:58 → MEDSG2 16:51 → TELE 18:15 → MED 11-09 21:49
PROVIDERS: ADMIT Internal Medicine; ATTEND Internal Medicine
DX: G92 Toxic encephalopathy (principal); N39.0 Urinary tract infection, site not specified; I38 Endocarditis, valve unspecified; F20.0 Paranoid schizophrenia; T43.4X5A Adverse effect of butyrophenone and thiothixene neuroleptics, initial encounter; B95.2 Enterococcus as the cause of diseases classified elsewhere; Y92.238 Other place in hospital as the place of occurrence of the external cause; E87.6 Hypokalemia; Z86.73 Personal history of transient ischemic attack (TIA), and cerebral infarction without residual deficits; E03.9 Hypothyroidism, unspecified; E78.5 Hyperlipidemia, unspecified; Z91.14 Patient's other noncompliance with medication regimen; E83.42 Hypomagnesemia; F44.2 Dissociative stupor; F06.1 Catatonic disorder due to known physiological condition; R79.89 Other specified abnormal findings of blood chemistry; F32.9 Major depressive disorder, single episode, unspecified
CPT/HCPCS: 36415; 36600; 71010-TC; 80048-TC; 80053-TC; 80061-TC; 80202-TC; 80305; 81000-TC; 82140-TC; 82550-TC; 82728-TC; 82803-TC; 82962-TC; 83540-TC; 83735-TC; 83880; 84100-TC; 84439-TC; 84443-TC; 84484-TC; 85025-TC; 85652-TC; 85730-TC; 87081-TC; 87086-TC; 87186-TC; 92611-TC; 93307-TC; 95819-TC; 97001-TC; 97116-TC; 97530-TC; A4216; C9113; G0480; J0290; J1644; J3370; J3475; J3480; J3490; J7030; J7040; J7042; J7060; Z7610

== ENCOUNTER 2017-01-14 21:04 | Inpatient (IN) | payer MEDICARE, MEDICAID ==
[~2017-01-14] VITALS: Ht 172.7 cm; Wt 65.3 kg
[~2017-01-14 21:04] MED LIST changes: +ACET-868 PO; +ALLA266C2 TP; -ESCI20TA PO; +FENO145T20 PO; -FENO160T PO; -HALO2TAB PO; +MAG30ORA PO; +MAGN400O6 PO; +PANT40VI IV; +[UNRECOGNIZED DRUG - CODE] IV
--- NOTE | 2017-01-14 21:15 | NUR ---
TO BED 2 A 61 YO FEMALE BB AMBULANCE; PER EMS PT I REFUSING TO TAKE MEDICATIONS WITH POOR ORAL INTAKE X5 DAYS. PATIENT IS AAOX2, NOTED WITH PERIODS OF CONFUSION. VSS, NAD NOTED, NONDIAPHORETIC. AWAITING FOR ER MD KEITH.
--- NOTE | 2017-01-14 21:36 | NUR ---
MOULDER OPERATOR AT BEDSIDE TO DRAW BLOOD.
[2017-01-14 21:54] LABS: BASOPHILS % (AUTO) 0.3 % (0.0-2.0); EOSINOPHILS % (AUTO) 0.5 % (0.0-6.0); HEMATOCRIT 44 % (33-45); HEMOGLOBIN 14.6 g/dL (11.5-14.8); LYMPHOCYTES # (AUTO) 1.4 /CMM (0.8-4.8); LYMPHOCYTES % (AUTO) 17.9 % (20.0-44.0); MEAN CORPUSCULAR HEMOGLOBIN 30 PG (26.0-33.0); MEAN CORPUSCULAR HGB CONC 33 g/dl (31.0-36.0); MEAN CORPUSCULAR VOLUME 89 fL (82-100); MONOCYTES # (AUTO) 0.7 /CMM (0.1-1.30); MONOCYTES % (AUTO) 8.3 % (2.0-12.0); NEUTROPHILS # (AUTO) 5.7 /CMM (1.8-8.9); PLATELET COUNT (AUTO) 288 /CMM (150-450); RDW COEFFICIENT OF VARIATION 13.8 (11.5-15.0); RED BLOOD CELL COUNT(AUTO) 4.94 MIL/uL (4.0-5.2); WHITE BLOOD COUNT (AUTO) 7.9 K/uL (4.3-11.0)
[2017-01-14 21:56] LABS: APPEARANCE,URINE CLOUDY (CLEAR); BILIRUBIN,URINE 2+ (NEGATIVE); BLOOD, URINE TRACE-INTA Ery/uL (NEGATIVE); COLOR,URINE YELLOW (YELLOW); KETONES,URINE 3+ (NEGATIVE); LEUKOCYTE ESTERASE ,URINE NEGATIVE (NEGATIVE); NITRITE, URINE NEGATIVE (NEGATIVE); PROTEIN,URINE 1+ mg/dl (NEGATIVE); UGLUCOSE NEGATIVE (NEGATIVE)
[2017-01-14 21:56] LABS: CALCIUM, SERUM 9.2 mg/dL (8.5-10.1); CARBON DIOXIDE 15 mmol/L (21-32); CHLORIDE 100 mmol/L (98-107); CREATININE 1.2 mg/dL (0.6-1.3); GLUCOSE 85 mg/dL (74-106); POTASSIUM 3.4 mmol/L (3.5-5.1); SODIUM SERUM 139 mmol/L (136-145); UREA NITROGEN, BLOOD 25 mg/dL (7-18)
[2017-01-14 22:02] LABS: ALANINE AMINOTRANSFERASE 20 U/L (12-78); ALBUMIN 4.2 g/dL (3.4-5.0); ALCOHOL, BLOOD < 3 mg/dL (0-0); ALKALINE PHOSPHATASE 76 U/L (46-116); ASPARTATE AMINOTRANSFERASE 19 U/L (15-37); BILIRUBIN,DIRECT 0.2 mg/dL (0.0-0.2); BILIRUBIN,TOTAL 1.1 mg/dL (0.2-1.0); SALICYLATE 2.8 mg/dL (2.8-20.0); TOTAL PROTEIN, SERUM 7.9 g/dL (6.4-8.2)
[2017-01-14 22:03] LABS: BACTERIA,URINE Few /HPF (None Seen)
[2017-01-14 22:04] LABS: SQUAMOUS EPITHELIAL CELL,UR Moderate /HPF (None Seen)
[2017-01-14 22:10] LABS: ACETAMINOPHEN 0 ug/ml (10-30)
[2017-01-14] MEDS ORDERED: CEFTRIAXONE 1 G in IV D5W 50 ML IV ONE (22:30)
[2017-01-14] MEDS ORDERED: POTASSIUM CHLORIDE 20 MEQ TAB.PRT.SR PO ONE ×2 (22:30→22:37)
[2017-01-14] MEDS ORDERED: IV NS 0.9% 1,000 ML BAG IV ONE (22:30)
[2017-01-14] MEDS ORDERED: CEFTRIAXONE 1GM BAG (ER ONLY) 50 ML IV ONE (22:37)
--- NOTE | 2017-01-14 22:51 | NUR ---
started a saline lock on the lac g20.
[2017-01-14 23:31] LABS: THYROID STIMULATING HORMONE 9.622 uIU/mL (0.358-3.74)
--- NOTE | 2017-01-14 23:45 | NUR ---
patient refused kcl 20meq and said, "I dont want to take any pill cause that will make me choke." Patient refused to take any po food at this time as well.
--- NOTE | 2017-01-14 23:56 | NUR ---
Report given to Gayle MEIER for admission and aston.
--- NOTE | 2017-01-15 00:13 | NUR ---
Transferred patient to 3rd floor [facility], no incident noted.
[2017-01-15 00:16] VITALS: BP 117/57
[2017-01-15 00:20] VITALS: BP 117/57
--- NOTE | 2017-01-15 01:15 | NUR ---
RN OPENING NOTES RECEIVED PATIENT IN THE FLOOR VIA CAITLINRVINNY FROM [place]ilah AT 0016 VIA ACLS PROTOCOL , A/O X 1, TOLERATING ROOM AIR 02 SAT AT 98% RESPIRATION EVEN AND UNLABORED, NO S/S OF DISTRESS. HEAD TO TOE ASSESSMENT IS DONE SKIN IS INTACT, SAFETY PRECAUTIONS IN PLACE, BED LOW LOCKED, CALL LIGHT IN REACH. WILL CONTINUE TO MONITOR. KEPT CLEAN AND DRY AND COMFORTABLE.
[2017-01-15] MEDS ORDERED: Z GUARD REMEDY 2 OZ OINT TP PRN (02:30)
[2017-01-15] MEDS ORDERED: MAG HYDROX/AL HYDROX/SIMETH 30 ML UDC PO PRN (02:30)
[2017-01-15] MEDS ORDERED: ACETAMINOPHEN 325 MG TABLET PO PRN (02:30)
[2017-01-15] MEDS ORDERED: MAGNESIUM HYDROXIDE 30 ML UDC PO PRN (02:30)
[2017-01-15] MEDS ORDERED: HYDROCODONE/APAP 5/325MG 1 EACH TABLET PO PRN (02:30)
[2017-01-15] MEDS ORDERED: ONDANSETRON HCL/PF 4 MG/2 ML VIAL IVP PRN (02:30)
[2017-01-15] MEDS: IV NS 0.9% 1,000 ML IV PRN (03:36)
--- NOTE | 2017-01-15 06:29 | NUR ---
MS RN CLOSING NOTES PATIENT COMFORTABLY ASLEEP AND EASILY AWAKEN, HEAD OF BED ELEVATED FOR BETTER LUNG EXPANSION. TOLERATING ROOM AIR 02 SAT 98% IV SITE NO S/S OF INFILTRATED, RESPIRATIONS EVEN AND UNLABORED. NO S/S OF ACUTE DISTRESS, NO SOB, SKIN WARM AND DRY TO TOUCH, AFEBRILE, ALL NURSING CARE NEEDS PROVIDED AND RENDERED, NEEDS ATTENDED AND ANTICIPATED, KEPT CLEAN AND DRY AND COMFORTABLE, GOOD SKIN CARE PROVIDED. FREQUENT VISUAL CHECK DONE FOR SAFETY EVERY 2 HOURS. SAFE HAZARD FREE ENVIRONMENT PROVIDED. CALL LIGHT WITHIN EASY TO REACH, ON LOW BED AT ALL TIMES TO ENSURE SAFETY, WILL ENDORSE TO THE NEXT SHIFT CONTINUE PLAN OF CARE.
[2017-01-15] MEDS: PANTOPRAZOLE 40 MG TABLET.DR PO SCH (07:30)
[2017-01-15] MEDS: LEVOTHYROXINE SODIUM 100 MCG TABLET PO SCH (07:30)
--- NOTE | 2017-01-15 07:30 | NUR ---
MS RN NOTES RECEIVED REPORT WITH PATIENT RESTING COMFORTABLY IN BED. NO S/S OF SOB OR DISTRESS NOTED. A/OX1. IV IS PATENT AND INTACT. BED IN LOWEST, LOCKED POSITION. CALL LIGHT WITHIN REACH. WILL CONTINUE TO MONITOR THROUGHOUT SHIFT.
[2017-01-15 08:00] VITALS: BP 130/64
--- NOTE | 2017-01-15 08:56 | NUR ---
MS RN NOTES PATIENT REFUSING TO TAKE MEDICATIONS. PATIENT STATES THAT SHE WILL CHOKE ON THEM. PATIENT REFUSING ANY ORAL INTAKE SUCH FOOD AND WATER.
[2017-01-15] MEDS: FENOFIBRATE NANOCRYS (145 MG) 145 MG TABLET PO SCH (08:59)
[2017-01-15] MEDS ORDERED: PANTOPRAZOLE 40 MG VIAL IV SCH (09:00)
[2017-01-15] MEDS: POTASSIUM CL. PREMIX PERIPHER. 50 ML IV SCH ×2 (09:55→12:40)
[2017-01-15] MEDS: ENOXAPARIN SODIUM 40 MG/0.4 ML DISP.SYRIN SQ SCH (10:06)
[2017-01-15] MEDS: HALOPERIDOL 1 MG TABLET PO SCH ×2 (10:30→17:00)
[2017-01-15 16:00] VITALS: BP 114/50
--- NOTE | 2017-01-15 19:05 | NUR ---
MS RN NOTES PATIENT IS A/OX2. NO S/S OF SOB OR DISTRESS. ALL PATIENT NEEDS HAVE BEEN MET. IV IS PATENT AND INTACT. CALL LIGHT WITHIN REACH. BED IS IN LOWEST, LOCKED POSITION. WILL ENDORSE TO PM SHIFT.
--- NOTE | 2017-01-15 19:20 | NUR ---
MS/RN OPENING NOTES PT AWAKE, RESTING COMFORTABLY IN BED. A/OX2. ON ROOM AIR, NO SOB OR S/S OF RESPIRATORY DISTRESS NOTED. DENIES PAIN AT THIS TIME. IV TO LAC PATENT AND INTACT RUNNING IVF ORDERED. BED IN LOW/LOCKED POSITION WITH CALL LIGHT IN REACH. SIDE RAILS UPX2. BED ALARM ON FOR SAFETY. WILL CONTINUE TO MONITOR
[2017-01-15 20:00] VITALS: BP 110/69
[2017-01-15 20:25] VITALS: BP 110/69
[2017-01-15] MEDS: CEFTRIAXONE 1 G in IV D5W 50 ML IV SCH (21:40)
[2017-01-15] MEDS: MIRTAZAPINE 15 MG TABLET PO SCH (21:43)
--- NOTE | 2017-01-15 21:44 | NUR ---
MS/RN NOTES PT REFUSED SCHEDULED REMERON. INFORMED PT THAT WE COULD CRUSH MEDICATION WITH A SMALL AMOUNT OF APPLESAUCE AND EXPLAINED RISKS/BENEFITS TO MEDICATION. PT STRONGLY REFUSED AND SAID THAT SHE CANNOT TAKE ANYTHING BY MOUTH. ENCOURAGED STAFF TO CONTACT HER PRIMARY DOCTOR
[2017-01-16] MEDS: IV NS 0.9% 1,000 ML IV PRN ×2 (02:57→17:20)
--- NOTE | 2017-01-16 06:59 | NUR ---
MS/RN CLOSING NOTES PT ASLEEP, EASILY AROUSABLE TO NAME/TOUCH. ON ROOM AIR, NO SOB OR DISTRESS NOTED. BREATHING EVEN AND UNLABORED. NO COMPLAINTS OF PAIN AT THIS TIME. IV TO LAC PATENT AND INTACT RUNNING IVF ORDERED. NO S/S OF INFILTRATION NOTED. ENCOURAGED PO INTAKE PERIODICALLY THROUGHOUT SHIFT HOWEVER PT CONTINUED TO ADAMANTLY REFUSED. BED REMAINS IN LOW/LOCKED POSITION, CALL LIGHT IN REACH. SIDE RAILS UPX3 AND BED ALARM ON FOR SAFETY. TURNED/REPOSITIONED Q2H, EXTREMITIES OFFLOADED. WILL ENDORSE TO AM SHIFT HENRY.
--- NOTE | 2017-01-16 07:25 | NUR ---
leather goods ii assembler Initial Notes: Received patient resting in bed. Patient alert oriented X3. Non-labored breathing noted. Patient on 2 L nasal cannula. No signs of distress. Heart rate 51, bradycardia. IV patent and intact. Call light within reach. Will continue to monitor.
[2017-01-16 08:00] VITALS: BP 120/54
[2017-01-16] MEDS: ENOXAPARIN SODIUM 40 MG/0.4 ML DISP.SYRIN SQ SCH (08:47)
[2017-01-16] MEDS: LEVOTHYROXINE SODIUM 100 MCG TABLET PO SCH (08:48)
[2017-01-16] MEDS: HALOPERIDOL 1 MG TABLET PO SCH ×2 (08:48→17:00)
[2017-01-16] MEDS: FENOFIBRATE NANOCRYS (145 MG) 145 MG TABLET PO SCH (08:48)
[2017-01-16] MEDS: PANTOPRAZOLE 40 MG TABLET.DR PO SCH (08:48)
--- NOTE | 2017-01-16 09:27 | NUR ---
telephonic rn notes Dr. England on site and informed regarding patient refusing medication and food and made aware. Per MD he will talk to Dr. Dawson psych doctor. Will continue to monitor accordingly.
[2017-01-16 16:00] VITALS: BP 117/52
--- NOTE | 2017-01-16 17:21 | NUR ---
MS RN Notes: Haldol not administered. Patient refused. aware
--- NOTE | 2017-01-16 19:20 | NUR ---
ms rn closing notes All needs provided, attended, and anticipated. kept patient clean and comfortable in bed, call light with in patient reach, Endorsed to next shift RN to continue care.
--- NOTE | 2017-01-16 19:31 | NUR ---
ms/rn opening notes patient in bed, alertx2. able to respond and verbalize needs. Verbalize needs but requiring more interaction as patient withdrawn.Has good eye contact. no s/s of discomfort. inform to use call lights for assistance.Provide fluids. on iv fluids at 75cc/hr.resting comfortably. skin intact and dry. willl continue to monitor.
[2017-01-16 20:00] VITALS: BP 118/66
--- NOTE | 2017-01-16 21:00 | NUR ---
MS/RN NOTES MD CONTACTED AND INFORMED REGARDING PATIENT REFUSAL TO EAT AND LAST LAB DRAWN 01/14/17. MD ORDER TO RECHECK BLOOD SUGAR AND IF PATIENT REFUSED TO HAVE LAB BE DRAWN STAT. PATIENT REFUSES AND NON COOPERATIVE. WILL HAVE LAB DRAW BLOOD. AND WILL INFORM MD REGARDING LATEST LAB RESULT.
--- NOTE | 2017-01-16 21:10 | NUR ---
ms/rn notes patient was able to have blood drawn. able to inform the need and verbalized understanding.
[2017-01-16] MEDS: CEFTRIAXONE 1 G in IV D5W 50 ML IV SCH (21:31)
[2017-01-16 21:36] LABS: CALCIUM, SERUM 8.2 mg/dL (8.5-10.1); CREATININE 0.9 mg/dL (0.6-1.3)
[2017-01-16] MEDS: MIRTAZAPINE 15 MG TABLET PO SCH (21:36)
--- NOTE | 2017-01-16 21:42 | NUR ---
ms/rn notes patient refuse to have po med Remeron and verbalize"I do not need it" but able to have iv atb .will monitor for any s/s adverse reaction.
--- NOTE | 2017-01-16 21:49 | NUR ---
ms/rn notes stat lab BMP result communicated to md with potassium level 3.0L and Glucose level at 53L.will f/u new md order.
[2017-01-16] MEDS ORDERED: IV D5/ 0.9% NACL 1,000 ML IV PRN (22:30)
[2017-01-16] MEDS ORDERED: DEXTROSE 50%-WATER 50 ML DISP.SYRIN IV PRN (22:30)
[2017-01-16] MEDS ORDERED: INSULIN REGULAR, HUMAN 100 UNIT/ML 3 ML VIAL SQ PRN (22:30)
--- NOTE | 2017-01-16 22:33 | NUR ---
ms/rn notes new order received to replace potassium due to 3.0L with 4bags, to start D5NS 1000ml at 75ml/hr.and give dextrose injection
[2017-01-16] MEDS ORDERED: POTASSIUM CL. PREMIX PERIPHER. 200 ML ONE (22:42)
[2017-01-16] MEDS ORDERED: DEXTROSE 50%-WATER 50 ML DISP.SYRIN ONE (22:42)
[2017-01-16] MEDS: POTASSIUM CL. PREMIX PERIPHER. 50 ML IV SCH (22:55)
[2017-01-17] MEDS: BLOOD SUGAR DIAGNOSTIC 1 EACH STRIP IN SCH ×3 (00:03→12:00)
[2017-01-17] MEDS: POTASSIUM CL. PREMIX PERIPHER. 50 ML IV SCH ×3 (00:18→02:26)
--- NOTE | 2017-01-17 06:08 | NUR ---
Ms/RN closing notes Patient awake, able to cooperate w/care, blood sugar check and lab drawn, no s/s of discomfort. Have good eye contact. Potassium replaced iv, no s/s of adverse effect.Able to ambulate w/ walker and assist from chair to bed.on d5 1/2NS iv fluids. latest blood test at 96. Refuse to take po meds and meals. INform and educate importance of proper nutrition. will endorse to am rn regarding continuity of care.
[2017-01-17 06:33] LABS: BASOPHILS % (AUTO) 0.5 % (0.0-2.0); EOSINOPHILS # (AUTO) 0.3 /CMM (0.0-0.7); EOSINOPHILS % (AUTO) 5.2 % (0.0-6.0); HEMATOCRIT 38 % (33-45); HEMOGLOBIN 12.8 g/dL (11.5-14.8); LYMPHOCYTES # (AUTO) 1.9 /CMM (0.8-4.8); MEAN CORPUSCULAR HEMOGLOBIN 30 PG (26.0-33.0); MEAN CORPUSCULAR HGB CONC 34 g/dl (31.0-36.0); MEAN CORPUSCULAR VOLUME 89 fL (82-100); MONOCYTES # (AUTO) 0.6 /CMM (0.1-1.30); MONOCYTES % (AUTO) 10.1 % (2.0-12.0); NEUTROPHILS # (AUTO) 2.9 /CMM (1.8-8.9); NEUTROPHILS % (AUTO) 51.2 % (43.0-81.0); PLATELET COUNT (AUTO) 210 /CMM (150-450); RDW COEFFICIENT OF VARIATION 13.5 (11.5-15.0); RED BLOOD CELL COUNT(AUTO) 4.24 MIL/uL (4.0-5.2); WHITE BLOOD COUNT (AUTO) 5.7 K/uL (4.3-11.0)
[2017-01-17 06:43] LABS: CALCIUM, SERUM 8.2 mg/dL (8.5-10.1); CREATININE 0.9 mg/dL (0.6-1.3); MAGNESIUM 1.4 mg/dL (1.8-2.4); POTASSIUM 3.4 mmol/L (3.5-5.1)
--- NOTE | 2017-01-17 07:14 | NUR ---
ms rn initial notes Received patient in bed, asleep, head of bed elevated, no SOB or distress noted, on room air and tolerated well. Patient is refusing meds and food as endorsed by overnight cashier nurse. IV intact and patent with IVF infusing well. BRP. Kept patient clean and comfortable in bed, call light with in patient reach, will continue to monitor accordingly.
[2017-01-17] MEDS: PANTOPRAZOLE 40 MG TABLET.DR PO SCH (07:49)
[2017-01-17] MEDS: LEVOTHYROXINE SODIUM 100 MCG TABLET PO SCH (07:49)
[2017-01-17 08:00] VITALS: BP_SYST 121; BP_SYST 154; BP_DIAS 51; BP_DIAS 61
[2017-01-17] MEDS: HALOPERIDOL 1 MG TABLET PO SCH (08:29)
[2017-01-17] MEDS: FENOFIBRATE NANOCRYS (145 MG) 145 MG TABLET PO SCH (08:29)
[2017-01-17] MEDS: ENOXAPARIN SODIUM 40 MG/0.4 ML DISP.SYRIN SQ SCH (08:30)
[2017-01-17] MEDS ORDERED: CEFT1FRO2 IV ×2 (10:48→18:33)
[2017-01-17] MEDS ORDERED: HALO1TAB5 PO (10:53)
[2017-01-17] MEDS ORDERED: MIRT15TA PO ×2 (10:53→18:12)
[2017-01-17] MEDS ORDERED: Sodium Phosphate 7.5 MMOL in IV D5W 100 ML IV ONE (11:00)
[2017-01-17] MEDS ORDERED: POTASSIUM PHOSPHATE MM 5 MMOL in IV D5W 100 ML IV SCH (11:00)
[2017-01-17] MEDS: Magnesium 1GM/D5W 100ML PREMIX 100 ML IV SCH ×4 (11:16→14:39)
--- NOTE | 2017-01-17 12:00 | NUR ---
ms rn notes Blood sugar checked 92 no coverage given. Will continue to monitor accordingly.
[2017-01-17 15:56] VITALS: BP 121/61
--- NOTE | 2017-01-17 17:30 | NUR ---
MS discharge notes discharge instructions given to GPS RN. IV intact and patent, kept as MD ordered. Patient is unable to sign discharge paper and belonging list. Co signed by other RN. Patient discharge to GPS via wheelchair accompanied by RN assigned. No complaint of pain or discomfort noted. Flu vaccine not given due to out of season and pneumonia vaccine is not given due to <65 years old. Skin is intact. Vital signs checked and recorded. MD and charge nurse aware.
[2017-01-17] MEDS ORDERED: HALO2TAB7 PO (18:12)
[2017-01-17] MEDS ORDERED: ENOX40DI SQ (18:12)
[2017-01-17] MEDS ORDERED: ONDA4VIA30 IV (18:12)
[2017-01-17] MEDS ORDERED: HYDR-552 PO (18:12)
[2017-01-17] MEDS ORDERED: PANT40TA2 PO (18:12)
[2017-01-17] MEDS ORDERED: [UNRECOGNIZED DRUG - CODE] IV (18:29)
[2017-01-17] MEDS ORDERED: BLOO-668 IN (18:36)
== END 2017-01-17 17:04 | DRG 682 ==
LOC: ER 21:06 → MED 23:56
PROVIDERS: ADMIT Internal Medicine; ATTEND Internal Medicine
DX: N17.0 Acute kidney failure with tubular necrosis (principal); G92 Toxic encephalopathy; N39.0 Urinary tract infection, site not specified; E46 Unspecified protein-calorie malnutrition; E86.0 Dehydration; E03.9 Hypothyroidism, unspecified; E87.6 Hypokalemia; F32.9 Major depressive disorder, single episode, unspecified; F41.9 Anxiety disorder, unspecified; Z79.899 Other long term (current) drug therapy; Z86.73 Personal history of transient ischemic attack (TIA), and cerebral infarction without residual deficits; Z87.440 Personal history of urinary (tract) infections; F25.9 Schizoaffective disorder, unspecified; F06.8 Other specified mental disorders due to known physiological condition; E83.39 Other disorders of phosphorus metabolism
CPT/HCPCS: 36415; 80048-TC; 80076-TC; 80305; 81000-TC; 82962-TC; 83735-TC; 84100-TC; 84439-TC; 84443-TC; 84484-TC; 85025-TC; 87081-TC; 87086-TC; 92611-TC; 97001-TC; A4606; A9563; G0480; J0696; J1650; J1815; J3475; J3480; J3490; J7030; J7042; J7060; Z7610

== ENCOUNTER 2017-01-17 17:41 | Inpatient (IN) | payer MEDICARE, MEDICAID ==
[~2017-01-17] VITALS: Ht 162.6 cm; Wt 67.1 kg
[~2017-01-17 17:41] MED LIST changes: +CEFT1FRO2 IV; +HALO1TAB5 PO; +MIRT15TA PO
[2017-01-17] MEDS ORDERED: PANT40TA2 PO (18:12)
[2017-01-17] MEDS ORDERED: HALO2TAB7 PO (18:12)
[2017-01-17] MEDS ORDERED: MIRT15TA PO (18:12)
[2017-01-17] MEDS ORDERED: ONDA4VIA30 IV (18:12)
[2017-01-17] MEDS ORDERED: HYDR-552 PO (18:12)
[2017-01-17] MEDS ORDERED: ENOX40DI SQ (18:12)
[2017-01-17] MEDS ORDERED: [UNRECOGNIZED DRUG - CODE] IV (18:29)
[2017-01-17] MEDS ORDERED: MAGNESIUM HYDROXIDE 30 ML UDC PO PRN ×2 (18:30→20:00)
[2017-01-17] MEDS ORDERED: clonazePAM 0.5 MG TABLET PO PRN (18:30)
[2017-01-17] MEDS ORDERED: MAG HYDROX/AL HYDROX/SIMETH 30 ML UDC PO PRN ×2 (18:30→20:00)
[2017-01-17] MEDS ORDERED: TEMAZEPAM 7.5 MG CAPSULE PO PRN (18:30)
[2017-01-17] MEDS ORDERED: ACETAMINOPHEN 325 MG TABLET PO PRN ×2 (18:30→20:00)
[2017-01-17] MEDS ORDERED: CEFT1FRO2 IV (18:33)
[2017-01-17] MEDS ORDERED: BLOO-668 IN (18:36)
--- NOTE | 2017-01-17 19:08 | NUR ---
PACKAGE CRIMPER DR. PRESTON WAS CALLED FOR CLERIFICATION OF MEDICATIONS AND NEW ORDERS. AWAITING FOR CALL BACK.
[2017-01-17] MEDS ORDERED: IV D5/ 0.9% NACL 1,000 ML IV ONE (19:30)
--- NOTE | 2017-01-17 19:30 | NUR ---
GPS RN INITIAL NURSING NOTES: RECEIVED PATIENT FROM THE CARE OF RENEA ARNDT. PER RN, PATIENT CAME WITH IVF ON RIGHT FOREARM IV CATH G22 WITH IVF FLOWING- D5 NS 1L AT 75CC/HR. SITE CHECKED. NO REDNESS, NO PHLEBITIS, NO INFECTION NOTED ON SITE, INFUSING WELL. MED RECONCILIATION FAXED TO PHARMACY. YRIS RN, SPOKE WITH DR. PRESTON FOR MED RECONCILIATION. PATIENT HAS AN IVF WHILE AT THE LOCKED UNIT, SITTER PROVIDED PATIENT HAS AN IV WHICH IS CONSIDERED A CONTRABAND. 1:1 SITTER IN CLOSE PROXIMITY WITH PATIENT WHILE PATIENT IS ON IV. PER DR. PRESTON, PATIENT WILL BE ON IVF FOR ONE MORE BAG OF D5 NS 1L AND WILL CHECK LABS IN THE MORNING. PATIENT IS ON 5150 HOLD FOR DTS AND GD. UPON FACE TO FACE ASSESSMENT, PATIENT APPEARS UNKEMPT, CONFUSED AT TIMES. ALERT AND ORIENTED X2-3. REALITY ORIENTATION DONE. RE-ORIENTED TO UNIT, STAFF DOCTORS AND CARE PLAN TO BE USED. 1999- SPOKE WITH PHARMACY PERSONNEL, [facility], REGARDING PATIENT'S MED RECON- PATIENT HAS AN IV DOSE OF ROCEPHIN 1GM DUE AT 2200. 2229- INFORMED PATIENT THAT BLOOD GLUCOSE LEVEL WILL BE CHECKED AROUND MIDNIGHT. PER PATIENT SHE IS NOT DIABETIC AND SHE WAS NEVER CHECKED FOR BLOOD GLUCOSE AT . RE-CHECKED PATIENTS OLD LAB RESULTS HGB A1C -5.2 ACCUCHECK-92MG/DL. 2254- SPOKE WITH DR. PRESTON AND RELAYED THE PATIENTS CONCERN. PER DR. PRESTON, BLOOD GLUCOSE LEVEL TO BE CHECKED AT MIDNIGHT FOR BASELINE PURPOSES UNLESS OTHERWISE PATIENT WILL REFUSED. WILL CARRY OUT ORDERS FOR PATIENT.
[2017-01-17] MEDS ORDERED: ONDANSETRON HCL/PF 4 MG/2 ML VIAL IV PRN (20:00)
[2017-01-17] MEDS ORDERED: HYDROCODONE/APAP 5/325MG 1 EACH TABLET PO PRN (20:00)
[2017-01-17] MEDS ORDERED: D5 IV SCH (20:00)
[2017-01-17] MEDS ORDERED: NACL IV SCH (20:00)
[2017-01-17 20:02] VITALS: BP 109/54
[2017-01-17] MEDS ORDERED: CEFTRIAXONE 1 G in IV D5W 50 ML IV SCH (22:00)
[2017-01-18] MEDS: BLOOD SUGAR DIAGNOSTIC 1 EACH STRIP IN SCH ×3 (00:31→06:57)
[2017-01-18] MEDS: LEVOTHYROXINE SODIUM 100 MCG TABLET PO SCH (07:30)
[2017-01-18] MEDS: PANTOPRAZOLE 40 MG TABLET.DR PO SCH (07:30)
[2017-01-18 07:46] LABS: ALBUMIN 3.4 g/dL (3.4-5.0); BILIRUBIN,TOTAL 0.5 mg/dL (0.2-1.0); CALCIUM, SERUM 8.1 mg/dL (8.5-10.1); CREATININE 0.9 mg/dL (0.6-1.3); POTASSIUM 2.9 mmol/L (3.5-5.1); TOTAL PROTEIN, SERUM 6.6 g/dL (6.4-8.2)
[2017-01-18 08:00] VITALS: BP 152/85
[2017-01-18] MEDS: ENOXAPARIN SODIUM 40 MG/0.4 ML DISP.SYRIN SQ SCH (08:25)
[2017-01-18] MEDS: FENOFIBRATE NANOCRYS (145 MG) 145 MG TABLET PO SCH (08:25)
[2017-01-18] MEDS ORDERED: Medication Not On Formulary EA (Ceftriaxone Na/Dextrose,Iso (Ceftriaxone 1 Gm Piggyback) IV SCH (09:00)
[2017-01-18] MEDS: HALOPERIDOL 5 MG TABLET PO SCH ×2 (11:00→16:41)
[2017-01-18] MEDS: POTASSIUM CHLORIDE 10 MEQ TABLET.SA PO SCH ×2 (12:00→13:12)
--- NOTE | 2017-01-18 12:12 | NUR ---
PRECISION LENS GENERATOR PT REFUSING PO POTASSIUM CHLORIDE, PO MEDS AND FOOD MD MARSH AWARE ABOUT THIS SINCE MORNING THAT THE PT REFUSES ALL PO MEDS AND FOOD.
[2017-01-18] MEDS ORDERED: Potassium Chloride 60 MEQ in IV D5W 1,000 ML IV ONE (14:00)
[2017-01-18 16:00] VITALS: BP 115/65
[2017-01-18 20:16] VITALS: BP 113/50
[2017-01-18] MEDS: MIRTAZAPINE 15 MG TABLET PO SCH (22:00)
--- NOTE | 2017-01-18 23:03 | NUR ---
GPS RN NOTES PATIENT REFUSED TO TAKE HS MEDICATION MIRTAZAPINE. MEDICATION OFFERED 3X. EXPLAINED MEDICATION BENEFITS TO PATIENT. PATIENT STILL REFUSED.
[2017-01-19] MEDS: PANTOPRAZOLE 40 MG TABLET.DR PO SCH (07:30)
[2017-01-19] MEDS: LEVOTHYROXINE SODIUM 100 MCG TABLET PO SCH (07:30)
[2017-01-19 08:00] VITALS: BP 99/71
[2017-01-19] MEDS: ENOXAPARIN SODIUM 40 MG/0.4 ML DISP.SYRIN SQ SCH (09:00)
[2017-01-19] MEDS: HALOPERIDOL 5 MG TABLET PO SCH ×2 (09:00→16:56)
[2017-01-19] MEDS: FENOFIBRATE NANOCRYS (145 MG) 145 MG TABLET PO SCH (09:00)
--- NOTE | 2017-01-19 12:45 | NUR ---
GPS RN NOTE: RECEIVED PATIENT RESTING IN BED AND EASILY AWAKEN BY NAME. PT IS ISOLATIVE, SUSPICIOUS OF CARE PLAN AND HAS A FLAT AFFECT. REFUSED TO HAVE RFA G22 CHECKED. 1:1 SITTER AT BEDSIDE FOR SAFETY. DENIES PAIN. DENIES SI/HI AT THIS TIME. WILL CONT TO MONITOR FOR SAFETY AND BEHAVIOR.
--- NOTE | 2017-01-19 13:12 | NUR ---
GPS RN NOTE: PT REFUSED LABS. PER CHARTER BUS DRIVER, WILL RETURN LATER FOR ANOTHER ATTEMPT. WILL CONT TO MONITOR.
--- NOTE | 2017-01-19 13:55 | NUR ---
GPS RN NOTE: PER RESIDENTIAL SUPERVISOR, ELECTRIC MOTOR ASSEMBLER AND TESTER PARKER INFORMED OF REFUSAL OF REPEAT LABS AND WILL PUT ORDER FOR IV FLUIDS. WILL CONT TO MONITOR.
--- NOTE | 2017-01-19 14:50 | NUR ---
GPS RN NOTE: PATIENT REFUSED MRSA SWAB. EDUCATED PATIENT OF MRSA SWAB, BUT PATIENT STILL REFUSED. PER PATIENT, "I DON'T NEED THAT." WILL CONT TO MONITOR.
--- NOTE | 2017-01-19 15:27 | NUR ---
GPS RN NOTE: CENTRAL SUPPLY CONTACTED FOR IV D5 1/2 NS 1000ML BAG WITH IV PUMP.
[2017-01-19] MEDS ORDERED: IV D5/0.45 NACL 1,000 ML IV PRN (15:30)
--- NOTE | 2017-01-19 15:31 | NUR ---
Initial discharge plan: Pt. is a resident at [facility] [address] [place] [address] and will return back per September from admission. EFRAIN will follow up with Sonu Stanton, , Nitesh [phone] and will discuss discharge plan. SW will help arrange for a safe and proper discharge.
[2017-01-19 16:00] VITALS: BP 120/62
--- NOTE | 2017-01-19 16:56 | NUR ---
GPS RN NOTE: PATIENT REFUSED HALDOL 2MG PO TAB. EDUCATED PT ON RISKS AND BENEFITS, BUT PT STILL REFUSED. 1:1 SITTER AT BEDSIDE. WILL CONT TO MONITOR FOR SAFETY AND BEHAVIOR.
--- NOTE | 2017-01-19 19:31 | NUR ---
GPS RN NOTE: PATIENT REFUSED LAB DRAW. EDUCATED PATIENT ON PURPOSE, BUT PATIENT STILL REFUSED. PER PULP REFINER OPERATOR, WILL RETURN TOMORROW MORNING FOR ANOTHER ATTEMPT.
--- NOTE | 2017-01-19 19:44 | NUR ---
RN GPS NOTES PT RESTING COMFORTABLY IN BED. NO ACUTE CHANGES DURING SHIFT. IV D5 1/2NS RUNNING ON RFA. ALL NEEDS ATTENDED TO. WILL ENDORSE TO TREASURY ASSOCIATE NURSE FOR HENRY.
[2017-01-19 20:00] VITALS: BP 123/50
[2017-01-19] MEDS: MIRTAZAPINE 15 MG TABLET PO SCH (21:10)
--- NOTE | 2017-01-19 21:11 | NUR ---
GPS/MANAGER STONE NOTES: PT. REFUSED HS MIRTAZAPINE 15MG PO ORDERED. OFFERED 3X. EXPLAINED RISK AND BENEFITS. PT. STILL REFUSED. WILL CONTINUE TO MONITOR.
[2017-01-20] MEDS: LEVOTHYROXINE SODIUM 100 MCG TABLET PO SCH (07:30)
[2017-01-20] MEDS: PANTOPRAZOLE 40 MG TABLET.DR PO SCH (07:30)
[2017-01-20 08:00] VITALS: BP 118/65
[2017-01-20] MEDS: HALOPERIDOL 5 MG TABLET PO SCH ×2 (08:10→16:35)
[2017-01-20] MEDS: FENOFIBRATE NANOCRYS (145 MG) 145 MG TABLET PO SCH (08:10)
[2017-01-20] MEDS: ENOXAPARIN SODIUM 40 MG/0.4 ML DISP.SYRIN SQ SCH (08:11)
--- NOTE | 2017-01-20 08:11 | NUR ---
RN GPS FLOAT NOTES PT. REFUSED ALL MORNING MEDICATIONS. MEDICATION EDUCATION WAS PROVIDED TO PT. RISKS AND BENEFITS OF EACH MEDICATION WAS DISCUSSED WITH PT. SITTER AT BEDSIDE WITNESSED PT.S REFUSAL.
[2017-01-20] MEDS ORDERED: IV D5/0.45 NACL 1,000 ML IV PRN (16:00)
[2017-01-20 20:43] VITALS: BP 121/73
[2017-01-20] MEDS: MIRTAZAPINE 15 MG TABLET PO SCH (22:00)
--- NOTE | 2017-01-21 06:57 | NUR ---
RN NOTES PATIENT RESTING IN BED. NO SIGNS OF DISTRESS OR DISCOMFORT. IV ACCESS IN RFA WITH D5 1/2 NS INFUSING, PATENT AND INTACT, NO SIGNS OF REDNESS OR INFILTRATION. NO SIGNIFICANT CHANGES THROUGH THE NIGHT. WILL ENDORSE TO AM SHIFT HENRY. Addendum: 01/21/17 at 0658 by AMERICA CANDELARIO RN SITTER AT BEDSIDE
[2017-01-21] MEDS: LEVOTHYROXINE SODIUM 100 MCG TABLET PO SCH (07:30)
[2017-01-21] MEDS: PANTOPRAZOLE 40 MG TABLET.DR PO SCH (07:30)
[2017-01-21] MEDS: FENOFIBRATE NANOCRYS (145 MG) 145 MG TABLET PO SCH (08:30)
[2017-01-21] MEDS: ENOXAPARIN SODIUM 40 MG/0.4 ML DISP.SYRIN SQ SCH (08:30)
[2017-01-21] MEDS: HALOPERIDOL 5 MG TABLET PO SCH ×2 (08:30→17:00)
--- NOTE | 2017-01-21 08:31 | NUR ---
PT. REFUSED ALL AM MEDS.IV STILL INFUSING.SITTER AT BEDSIDE.
--- NOTE | 2017-01-21 15:50 | NUR ---
DR. ZHENG, IN TO SEE PT.MADE AWARE PT. NOT EATING,TAKING FLUIDS,TO HAVE IV FLUID.
[2017-01-21 16:00] VITALS: BP 108/56
[2017-01-21] MEDS: IV D5/0.45 NACL 1,000 ML IV PRN (16:00)
--- NOTE | 2017-01-21 16:00 | NUR ---
IV FLUID HUNG,SITTER AGAIN AT BEDSIDE.
--- NOTE | 2017-01-21 17:14 | NUR ---
REFUSED EVENING HALDOL,STATES SHE DOES NOT CARE WHAT MED IS FOR.
--- NOTE | 2017-01-21 18:08 | NUR ---
IV CONTINUES TO INFUSE,PT. STILL REFUSING FOOD AND FLUIDS.
[2017-01-21 20:00] VITALS: BP 130/91
[2017-01-21] MEDS: MIRTAZAPINE 15 MG TABLET PO SCH (22:00)
[2017-01-22] MEDS: LEVOTHYROXINE SODIUM 100 MCG TABLET PO SCH (07:30)
[2017-01-22] MEDS: PANTOPRAZOLE 40 MG TABLET.DR PO SCH (07:30)
[2017-01-22 08:00] VITALS: BP 132/75
[2017-01-22] MEDS: HALOPERIDOL 5 MG TABLET PO SCH ×2 (08:46→17:00)
[2017-01-22] MEDS: FENOFIBRATE NANOCRYS (145 MG) 145 MG TABLET PO SCH (08:47)
[2017-01-22] MEDS: ENOXAPARIN SODIUM 40 MG/0.4 ML DISP.SYRIN SQ SCH (09:00)
--- NOTE | 2017-01-22 09:00 | NUR ---
patient a/o x1/2, lying in the bed, refused medication, and breakfast, patient state, " i do not needed, ask dr Wine". hep lock on right forearm, intact, 1;1 sitter next to the bed for safety, continued monitoring.
[2017-01-22] MEDS ORDERED: IV D5/0.45 NACL 1,000 ML IV ONE (15:00)
[2017-01-22 16:00] VITALS: BP 118/66
[2017-01-22] MEDS: IV D5/0.45 NACL 1,000 ML IV PRN (16:32)
[2017-01-22] MEDS: BOOST PLUS FOOD-CHOCLATE 237 ML BOX PO SCH (17:00)
[2017-01-22 20:04] VITALS: BP 122/42
[2017-01-22] MEDS: MIRTAZAPINE 15 MG TABLET PO SCH (22:00)
--- NOTE | 2017-01-23 00:20 | NUR ---
Pt has been selectively mute, with flat affect, refusing care, & unmotivated. Her mood is depressed. She refused her noc po meds last night.
[2017-01-23] MEDS: PANTOPRAZOLE 40 MG TABLET.DR PO SCH (07:30)
[2017-01-23] MEDS: LEVOTHYROXINE SODIUM 100 MCG TABLET PO SCH (07:30)
[2017-01-23 08:00] VITALS: BP 96/47
[2017-01-23] MEDS: BOOST PLUS FOOD-CHOCLATE 237 ML BOX PO SCH (08:00)
[2017-01-23] MEDS: FENOFIBRATE NANOCRYS (145 MG) 145 MG TABLET PO SCH (09:00)
[2017-01-23] MEDS: ENOXAPARIN SODIUM 40 MG/0.4 ML DISP.SYRIN SQ SCH (09:00)
[2017-01-23] MEDS: HALOPERIDOL 5 MG TABLET PO SCH (09:00)
[2017-01-23 16:00] VITALS: BP 131/68
[2017-01-23] MEDS ORDERED: IV D5/0.45 NACL 1,000 ML IV ONE (16:00)
--- NOTE | 2017-01-23 16:56 | NUR ---
DISCHARGE NOTES PATIENT D/C AT THIS TIME WITH 5250 HOLD, GOING MED SURGE UNIT FOR FAILURE TO THRIVE CONTINUATION OF CARE. PATIENT A/O X2/3, REFUSED MEDICATION, REFUSED CARE, AND RESISTANCE TO CARE. PT ON IV RIGHT FOREARM D5 1/2 NS 1000 ML @60 ML/HR. PATIENT DENIED SI/HI/AVH AT THIS TIME . MED RECONCILIATION, AND DISCHARGE ORDER REVIEWED AND EXPLAINED TO . NO RESPIRATORY DISTRESS. PT AMBULATORY, CONTINENT. REPORT GIVEN MED/SURGE RENEA ARZOLA. RN VERBALIZED UNDERSTANDING. BELONGING RETURNED BACK TO THE PATIENT. ESCORTED PATIENT TO THE ROOM 309 BED B. FAMILY NOTIFIED NAME ARABELLA PHONE #[phone].
== END 2017-01-23 16:30 | disposition short-term general hospital (02) | DRG 885 ==
LOC: GPS 17:41
PROVIDERS: ADMIT Psychiatry & Neurology Psychiatry; ATTEND Psychiatry & Neurology Psychiatry
DX: F25.1 Schizoaffective disorder, depressive type (principal); N17.0 Acute kidney failure with tubular necrosis; N39.0 Urinary tract infection, site not specified; E03.9 Hypothyroidism, unspecified; E87.6 Hypokalemia; F94.0 Selective mutism; Z86.73 Personal history of transient ischemic attack (TIA), and cerebral infarction without residual deficits; Z98.890 Other specified postprocedural states
CPT/HCPCS: 36415; 80048-TC; 80053-TC; 80061-TC; 82565-TC; 82962-TC; J0696; J1650; J3480; J3490; J7042; J7060; J7070; Z7610

== ENCOUNTER 2017-01-23 16:28 | Inpatient (IN) | payer MEDICARE, MEDICAID ==
[~2017-01-23] VITALS: Ht 162.6 cm; Wt 66.7 kg
[~2017-01-23 16:28] MED LIST changes: +BLOO-668 IN; +ENOX40DI SQ; -HALO1TAB5 PO; +HYDR-552 PO; -MIRT15TA PO; +ONDA4VIA30 IV; +PANT40TA2 PO; -PANT40VI IV
--- NOTE | 2017-01-23 17:00 | NUR ---
RN MS NOTES PATIENT ARRIVED ON A GURNEY, ABLE TO AMBULATE FROM GURNEY TO BED. NO APPARENT DISTRESS NOTED. PATIENT A/OX 2/3, VERBALLY RESPONSIVE, PATIENT IS SELECTIVE MUTE. ONLY RESPONDS TO CERTAIN QUESTIONS. PATIENT DENIES PAIN, RESPIRATIONS EVEN AND UNLABORED, DENIES SOB, VITALS STABLE. SKIN CLEAR AND INTACT. IV ON RFA PATENT AND INTACT. PATIENT ORIENTED TO ROOM AND UNIT, ALL NEEDS MET, CALL LIGHT WITHIN REACH. AWAITING ADMISSION ORDERS.
--- NOTE | 2017-01-23 17:51 | NUR ---
RN MS NOTES PATIENT REFUSED TO ANSWER ANY QUESTIONS.
[2017-01-23 17:52] VITALS: BP 126/71
[2017-01-23] MEDS ORDERED: MAGNESIUM HYDROXIDE 30 ML UDC PO PRN (18:30)
[2017-01-23] MEDS ORDERED: ONDANSETRON HCL/PF 4 MG/2 ML VIAL IVP PRN (18:30)
[2017-01-23] MEDS ORDERED: HYDROCODONE/APAP 5/325MG 1 EACH TABLET PO PRN (18:30)
[2017-01-23] MEDS ORDERED: ACETAMINOPHEN 325 MG TABLET PO PRN (18:30)
[2017-01-23] MEDS ORDERED: MAG HYDROX/AL HYDROX/SIMETH 30 ML UDC PO PRN (18:30)
[2017-01-23] MEDS ORDERED: Z GUARD REMEDY 2 OZ OINT TP PRN (18:30)
[2017-01-23] MEDS: IV D5/0.45 NACL 1,000 ML IV PRN (18:52)
--- NOTE | 2017-01-23 18:59 | NUR ---
RN MS CLOSING NOTES PATIENT IN BED,A/0 X2-3 IN NO APPARENT DISTRESS. PATIENT DENIES PAIN DENIES SOB. PATIENT IS REFUSING CARE, REFUSED LABS MD AWARE. IV LINE ON RIGHT FOREARM PATENT AND INTACT. ALL NEEDS MET, CALL LIGHT WITHIN REACH. WILL ENDORSE CARE TO PM SHIFT.
--- NOTE | 2017-01-23 19:15 | NUR ---
RN NOTES RECEIVED PT AWAKE, NO SOB, NOT IN DISTRESS, ON ROOM AIR AND TOLERATED WELL. SPOKE TO THE PT AND ASKS QUESTIONS, PT JUST STARING, NO ANSWER RECEIVED, FLAT AFFECT. IV ACCESS ON RIGHT FORE ARM PATENT AND INTACT WITH ONGOING IV FLUIDS INFUSING WELL, NO SIGNS OF INFILTRATE NOTED. KEPT COMFORTABLE AND ATTENDED. SITTER AT BEDSIDE. WILL CONTINUE TO MONITOR PT.
--- NOTE | 2017-01-23 20:15 | NUR ---
JAVA ANDROID DEVELOPER/INITIAL NOTES RECEIVED REPORT FROM ANOTHER NURSE OMA FOR CONTINUITY OF CARE. PT SEEN IN BED RESTING WITH EYES CLOSED BUT AROUSES TO TOUCH, OPEN HER EYES ONLY NOT TALKING BUT CALMED AND NO AGITATED NOTED. IVF D61/2 NS AT 60ML/HR INFUSING, BREATHING EVEN AND NON-LABORED SKIN WARM AND DRY TO TOUCH. KEPT HER WARM AND COMFORTABLE AT ALL TIMES. ON 5150HOLD. WILL CONTINUE TO MONITOR.
[2017-01-23 20:58] VITALS: BP 120/60
[2017-01-23] MEDS: Z GUARD REMEDY 2 OZ OINT TP SCH (21:00)
--- NOTE | 2017-01-24 00:20 | NUR ---
MS LAND LAW EXAMINER NOTES PT BACK TO BED AFTER USING THE RESTROOM, SPOKE TO HER REGARDING BLOOD SUGAR CHECKED SHE STATES"NO" EVEN I EXPLAINED TO HER WHY NEEDS TO CHECKED HER BLOOD SUGAR , OFFERED ALSO SOMETHING TO EAT BUT SHES STILL SAYING "NO, I'M NOT HUNGRY. NO SIGNS OF HYPO/HYPER GLYCEMIA NOTED. WILL CONTINUE CLOSELY MONITORING.
[2017-01-24] MEDS: BLOOD SUGAR DIAGNOSTIC 1 EACH STRIP IN SCH ×4 (06:00→17:19)
[2017-01-24] MEDS: IV D5/0.45 NACL 1,000 ML IV PRN ×2 (06:41→23:45)
--- NOTE | 2017-01-24 06:45 | NUR ---
MS COUNTER INTELLIGENCE AGENT NOTES PT WOKE UP AND SPOKE TO HER REGARDING HER BLOOD TEST , BLOOD SUGAR CHECKED . AFTER I EXPLAINED TO HER IN SIMPLE WORD SHE STILL INSISTING AND SAYING " I HAVE THE RIGHT TO REFUSED". THEN NOTICED SHE SEEMS SO MAD . SHE BACK TO BED BUT LET ME TO RE-CONNECT HER IVF D51/2 NS AT 60ML/HR. NO SIGNS OF ANY DISCOMFORT NOTED. REFUSED TO HAVE SPONGE BATH BUT SHE ONLY WANTS TO CHANGED HER GOWN. KEPT HER WARM AND COMFORTABLE AT ALL TIMES. WILL CONTINUE TO MONITOR.
--- NOTE | 2017-01-24 07:26 | NUR ---
MS RAG BALER CLOSING NOTES PT REMAIN IN BED RESTING WITH EYES CLOSED BUT AROUSES TO TOUCH AND TO HER NAME. IVF STILL INFUSING. NO SIGNS OF ANY ACUTE DISTRESS NOTED. SITTER AT THE BEDSIDE. ENDORSE TO AM NURSE CARO FOR CONTINUITY OF CARE.
[2017-01-24] MEDS: LEVOTHYROXINE SODIUM 100 MCG TABLET PO SCH (07:30)
[2017-01-24] MEDS: PANTOPRAZOLE 40 MG TABLET.DR PO SCH (07:30)
--- NOTE | 2017-01-24 07:30 | NUR ---
MS RN AM NOTES PT IN BED, EYES CLOSED, RESPONDS TO NAME AND TOUCH, SITTER AT BEDSIDE, AO X 2, ON 5250 EXP 02/06/17. ON RA, NAD NO SOB, DENIES ANY PAIN, D5 1/2 NS AT 60 ML/HR INFUSING WELL TO RFA G22. SITE CLEAR. AMBULATORY WITH ASSIST,REGULAR DIET, SKIN WARM AND DRY TO TOUCH. BED LOW LOCKED, SAFETY MEASURES IN PLACE, CALL IGHT WITHIN REACH. WILL CONTINUE TO MONITOR.
[2017-01-24 08:00] VITALS: BP 117/69
[2017-01-24 08:07] VITALS: BP 117/68
[2017-01-24] MEDS: FENOFIBRATE NANOCRYS (145 MG) 145 MG TABLET PO SCH (08:34)
[2017-01-24] MEDS: Z GUARD REMEDY 2 OZ OINT TP SCH ×2 (08:36→17:18)
--- NOTE | 2017-01-24 09:30 | NUR ---
MS RN NOTES REFUSED ALL MEDICATIONS. "JUST WRITE DOWN, I DONT WANT TO TAKE ANYTHING."
--- NOTE | 2017-01-24 11:07 | NUR ---
MS RN NOTES ACCUCHECK REFUSED.
[2017-01-24 12:21] LABS: BASOPHILS % (AUTO) 0.5 % (0.0-2.0); EOSINOPHILS # (AUTO) 0.3 /CMM (0.0-0.7); HEMATOCRIT 43 % (33-45); HEMOGLOBIN 14.4 g/dL (11.5-14.8); LYMPHOCYTES # (AUTO) 1.7 /CMM (0.8-4.8); MEAN CORPUSCULAR HEMOGLOBIN 30 PG (26.0-33.0); MEAN CORPUSCULAR HGB CONC 33 g/dl (31.0-36.0); MEAN CORPUSCULAR VOLUME 89 fL (82-100); MONOCYTES # (AUTO) 0.6 /CMM (0.1-1.30); MONOCYTES % (AUTO) 9.1 % (2.0-12.0); NEUTROPHILS # (AUTO) 3.8 /CMM (1.8-8.9); NEUTROPHILS % (AUTO) 59.4 % (43.0-81.0); PLATELET COUNT (AUTO) 191 /CMM (150-450); RDW COEFFICIENT OF VARIATION 13.8 (11.5-15.0); WHITE BLOOD COUNT (AUTO) 6.4 K/uL (4.3-11.0)
[2017-01-24 12:58] LABS: CALCIUM, SERUM 8.7 mg/dL (8.5-10.1); CREATININE 0.8 mg/dL (0.6-1.3); MAGNESIUM 1.6 mg/dL (1.8-2.4); PHOSPHORUS 3.6 mg/dL (2.5-4.9)
[2017-01-24 13:13] LABS: THYROID STIMULATING HORMONE 28.435 uIU/mL (0.358-3.74)
[2017-01-24] MEDS: ENOXAPARIN SODIUM 40 MG/0.4 ML DISP.SYRIN SQ SCH (13:19)
[2017-01-24] MEDS ORDERED: OLANZAPINE 10 MG VIAL IM ONE (14:30)
[2017-01-24] MEDS ORDERED: OLANZAPINE 10 MG VIAL IM SCH (15:00)
[2017-01-24 16:00] VITALS: BP 127/52
[2017-01-24 16:02] VITALS: BP 127/52
--- NOTE | 2017-01-24 17:19 | NUR ---
MS RN NOTES ACCUCHECK REFUSED.
[2017-01-24 18:00] VITALS: BP 127/52
--- NOTE | 2017-01-24 18:55 | NUR ---
MS RN NOTES PATIENT RESTING, SITTER AT BEDSIDE. NOT IN ANY DISTRESS, NO OTHER SIGNIFICANT CHANGE IN CONDITION. WILL ENDORSE TO NEXT SHIFT FOR HENRY.
--- NOTE | 2017-01-24 19:30 | NUR ---
MS HAND CANDLE MOLDER INITIAL NOTES PT SEEN IN BED RESTING AT THIS TIME BUT WITH EYES CLOSED, BUT AROUSES TO TOUCH, DENIES ANY PAIN OR ANY DISCOMFORT.IVF STILL INFUSING ON HER RIGHT FOREARM PATENT AND INTACT. BREATHING EVEN AND NON-LABORED AND NO SOB NOTED. KEPT HER WARM AND COMFORTABLE AT ALL TIMES. PT STILL ON HOLD 5250 02/06/17. SITTER AT THE BEDSIDE FOR SAFETY.
[2017-01-24 20:00] VITALS: BP 126/53
[2017-01-25] MEDS: BLOOD SUGAR DIAGNOSTIC 1 EACH STRIP IN SCH ×4 (06:00→18:00)
[2017-01-25] MEDS: PANTOPRAZOLE 40 MG TABLET.DR PO SCH (07:30)
[2017-01-25] MEDS: LEVOTHYROXINE INJ 100 MCG VIAL IV SCH (07:30)
[2017-01-25] MEDS: LEVOTHYROXINE SODIUM 100 MCG TABLET PO SCH (07:30)
--- NOTE | 2017-01-25 07:30 | NUR ---
MS RN Notes; - Received patient on bed , easily aroused , verbally responsive , stated : "why do you wake me up" ; explained that a physical assessment needs to be done & offered breakfast , but patient answered " No, I don't eat nor drink anything here, noted IV infusing & had the IV site at right FA , . Allowed patient to rest , sitter at bedside taking vital signs, with patient quiet .
--- NOTE | 2017-01-25 07:45 | NUR ---
PSYCHIATRIC CLINICAL NURSE SPECIALIST/CLOSING NOTES PT REMAINS IN BED WITHOUT ANY ACUTE DISTRESS NOTED, STILL REFUSING HER BLOOD SUGAR CHECKED EVEN I EXPLAINED TO HER WHY WE NEED IT AND THE PURPOSE OF IT. SHE ALWAYS STATED"I DON'T CARE , I HAVE THE RIGHT TO REFUSED". CALMED AND QUIET LAST NIGHT. IVF STILL INFUSING ON HER LEFT FOREARM NO REDNESS NOTED . SITTER AT THE BEDSIDE. ENDORSE TO AM NURSE.
[2017-01-25 07:59] VITALS: BP 105/49
[2017-01-25] MEDS: OLANZAPINE 10 MG VIAL IM SCH ×2 (09:00→17:00)
[2017-01-25] MEDS: FENOFIBRATE NANOCRYS (145 MG) 145 MG TABLET PO SCH (09:00)
[2017-01-25] MEDS: Z GUARD REMEDY 2 OZ OINT TP SCH ×2 (09:00→17:00)
[2017-01-25] MEDS: ENOXAPARIN SODIUM 40 MG/0.4 ML DISP.SYRIN SQ SCH (09:00)
[2017-01-25] MEDS: OLANZAPINE 5 MG/TAB.RAPDIS PO SCH ×2 (10:00→17:00)
--- NOTE | 2017-01-25 11:36 | NUR ---
MS RN Notes - - patient refused accucheck when asked , patient answered " I am not diabetic, I don't need that". Patient refused too re: coming lunch n 30 mins. , but patient answered " No , I will not eat."
[2017-01-25 12:26] LABS: BASOPHILS % (AUTO) 0.5 % (0.0-2.0); EOSINOPHILS # (AUTO) 0.3 /CMM (0.0-0.7); EOSINOPHILS % (AUTO) 5.3 % (0.0-6.0); HEMATOCRIT 42 % (33-45); HEMOGLOBIN 14.3 g/dL (11.5-14.8); LYMPHOCYTES # (AUTO) 1.9 /CMM (0.8-4.8); LYMPHOCYTES % (AUTO) 33.8 % (20.0-44.0); MEAN CORPUSCULAR HEMOGLOBIN 30 PG (26.0-33.0); MEAN CORPUSCULAR HGB CONC 34 g/dl (31.0-36.0); MEAN CORPUSCULAR VOLUME 88 fL (82-100); MONOCYTES # (AUTO) 0.6 /CMM (0.1-1.30); MONOCYTES % (AUTO) 10.8 % (2.0-12.0); NEUTROPHILS # (AUTO) 2.8 /CMM (1.8-8.9); NEUTROPHILS % (AUTO) 49.6 % (43.0-81.0); PLATELET COUNT (AUTO) 186 /CMM (150-450); RDW COEFFICIENT OF VARIATION 13.7 (11.5-15.0); RED BLOOD CELL COUNT(AUTO) 4.77 MIL/uL (4.0-5.2); WHITE BLOOD COUNT (AUTO) 5.7 K/uL (4.3-11.0)
[2017-01-25 12:44] LABS: CALCIUM, SERUM 8.7 mg/dL (8.5-10.1); CREATININE 0.8 mg/dL (0.6-1.3); MAGNESIUM 1.5 mg/dL (1.8-2.4); PHOSPHORUS 3.8 mg/dL (2.5-4.9); POTASSIUM 3.6 mmol/L (3.5-5.1)
--- NOTE | 2017-01-25 18:34 | NUR ---
ms rn patient on bed, no distress noted, still refusing care,everything that was due was no done at all, patient sometimes verbally abusive.md and charge nurse is aware.
--- NOTE | 2017-01-25 19:18 | NUR ---
MS RN NOTES: - PATIENT REMAINED ALERT, VERBALLY RESPONSIVE BUT REFUSING TO TAKE DINNER & MEDS, BUT PATIENT VERY CAREFUL OF IV SITE, IV PATENT, SITTER AT BEDSIDE.
--- NOTE | 2017-01-25 19:20 | NUR ---
MS/RN NOTES RECEIVED PT. LYING IN BED. AWAKE, ALERT AND ORIENTED X2. BREATHING EVEN AND UNLABORED ON ROOM AIR. NO SOB, RESPIRATORY DISTRESS OR COMPLAINTS OF PAIN NOTED AT THIS TIME. PT. WITH RIGHT FOREARM 22 GAUGE PERIPHERAL IV PRESENT, PATENT AND INTACT ADMINISTERING TO PT. D5 1/2 NS @ 60 ML/HR. PT. WITH 1:1 SITTER PRESENT AT BEDSIDE. BED IN LOWEST POSITION, CALL LIGHT WITHIN REACH, WILL CONTINUE TO MONITOR.
[2017-01-25 20:00] VITALS: BP 105/58
[2017-01-25] MEDS: IV D5/0.45 NACL 1,000 ML IV PRN (21:06)
[2017-01-26] MEDS: BLOOD SUGAR DIAGNOSTIC 1 EACH STRIP IN SCH ×5 (06:00→23:53)
--- NOTE | 2017-01-26 06:50 | NUR ---
MS/RN NOTES PT. IS LYING IN BED RESTING. BREATHING EVEN AND UNLABORED ON ROOM AIR. NO SOB, RESPIRATORY DISTRESS OR COMPLAINTS OF PAIN NOTED AT THIS TIME. PT. WITH RIGHT FOREARM 22 GAUGE PERIPHERAL IV PRESENT, PATENT AND INTACT ADMINISTERING TO PT. D5 1/2 NS @ 60 ML/HR. PT. WITH 1:1 SITTER PRESENT AT BEDSIDE. ALL PT. NEEDS MET. PT. IS NONCOMPLIANT AND REFUSED ALL DUE MEDICATIONS. EDUCATED PT. ON IMPORTANCE OF CHECKING HER BLOOD SUGAR LEVELS AND ADMINISTERING INSULIN COVERAGE NEEDED. PT. CONTINUES TO REFUSE. BED IN LOWEST POSITION, CALL LIGHT WITHIN REACH, WILL ENDORSE TO DAYSHIFT NURSE FOR CONTINUITY OF CARE.
[2017-01-26 07:04] VITALS: BP 105/58
--- NOTE | 2017-01-26 07:21 | NUR ---
MS RN OPENING NOTES RECEIVED PT ASLEEP IN BED, EASILY AWAKENS. 1:1 SITTER AT BEDSIDE. A/O X2, NO COMPLAINTS OF PAIN OR DISCOMFORTS VOICED AT THIS TIME. ON ROOM AIR, BREATHING EVEN AND UNLABORED ON ROOM AIR. IV ACCESS ON RIGHT FA G#22 PATENT AND INTACT WITH D5 1/2 NS @ 60 ML/HR INFUSING. BED IN LOWEST POSITION AND LOCKED, CALL LIGHT WITHIN REACH. WILL MAINTAIN ALL SAFETY MEASURES AND WILL CONTINUE TO MONITOR PT ACCORDINGLY.
[2017-01-26] MEDS: PANTOPRAZOLE 40 MG TABLET.DR PO SCH (07:30)
[2017-01-26] MEDS: LEVOTHYROXINE SODIUM 100 MCG TABLET PO SCH (07:30)
[2017-01-26 08:00] VITALS: BP 132/69
[2017-01-26] MEDS: LEVOTHYROXINE INJ 100 MCG VIAL IV SCH (08:10)
[2017-01-26] MEDS: ENOXAPARIN SODIUM 40 MG/0.4 ML DISP.SYRIN SQ SCH (08:47)
[2017-01-26] MEDS: FENOFIBRATE NANOCRYS (145 MG) 145 MG TABLET PO SCH (08:47)
[2017-01-26] MEDS: OLANZAPINE 5 MG/TAB.RAPDIS PO SCH ×2 (08:47→17:00)
[2017-01-26] MEDS: Z GUARD REMEDY 2 OZ OINT TP SCH ×2 (08:48→17:30)
[2017-01-26] MEDS: OLANZAPINE 10 MG VIAL IM SCH ×2 (09:00→17:00)
--- NOTE | 2017-01-26 09:28 | NUR ---
RN NOTES PATIENT REFUSED ALL P.O., IM AND SUB-Q MEDS THIS MORNING DESPITE ENCOURAGEMENT AND EXPLAINING THE BENEFITS OF TAKING THEM. WILL CONTINUE TO MONITOR.
--- NOTE | 2017-01-26 11:34 | NUR ---
RN NOTES PATIENT SEEN BY PSYCHIATRIST DOCTOR DEEPAK AND ORDERED 5250 HOLD DISCONTINUED, WILL CONTINUE TO MONITOR.
--- NOTE | 2017-01-26 12:11 | NUR ---
RN NOTES PT REFUSED BLOOD SUGAR MONITORING AND REFUSED MEDS. PARVIN PERALES MADE AWARE. WILL CONTINUE TO MONITOR.
[2017-01-26] MEDS: IV D5/0.45 NACL 1,000 ML IV PRN (14:03)
--- NOTE | 2017-01-26 15:57 | NUR ---
RN NOTES PATIENT REFUSED TO EAT AT BREAKFAST AND LUNCH DESPITE ENCOURAGEMENT. WATER WAS OFFERED AND DRANK ABOUT 200CC THIS AFTERNOON. URINE SPECIMEN COLLECTED FOR URINALYSIS PROFILE AND CALLED LAB TO PICK -IT UP. WILL CONTINUE TO MONITOR..
[2017-01-26 16:00] VITALS: BP 114/65
--- NOTE | 2017-01-26 18:47 | NUR ---
MS RN CLOSING NOTES PATIENT RESTING IN BED AT MODERATE HIGH BACKREST. A/O X2-3, REFUSED MOST OF HER MEDS TODAY DESPITE EXPLAINING THE BENEFITS OF TAKING THEM. MORAL SUPPORT GIVEN. ON ROOM AIR, BREATHING EVEN AND UNLABORED WITH NO SOB NOTED. IVF OF D5 1/2 NS @ 60 ML/HR INFUSING WELL TO RIGHT FA, NO S/S OF INFILTRATION NOTED. KEPT BED IN LOWEST POSITION AND LOCKED, CALL LIGHT WITHIN REACH. ALL SAFETY MEASURES MAINTAINED. WILL ENDORSED TO GROCERY ASSOCIATE NURSE FOR HENRY.
--- NOTE | 2017-01-26 19:43 | NUR ---
ms/rn opening notes Patient tin bed, resting in bed, can open eyes. Received report from am rn regarding plan of care.On IV d5 1/2 ns @ 60cc/hr patent. Bed alarm on. will continue to monitor.
[2017-01-26 20:00] VITALS: BP 127/56
[2017-01-26 20:24] LABS: APPEARANCE,URINE CLEAR (CLEAR); BILIRUBIN,URINE NEGATIVE (NEGATIVE); BLOOD, URINE NEGATIVE Ery/uL (NEGATIVE); COLOR,URINE YELLOW (YELLOW); KETONES,URINE TRACE (NEGATIVE); LEUKOCYTE ESTERASE ,URINE 1+ (NEGATIVE); NITRITE, URINE NEGATIVE (NEGATIVE); PH,URINE 6.5 (5.0-8.0); PROTEIN,URINE NEGATIVE (NEGATIVE); UGLUCOSE NEGATIVE (NEGATIVE); UROBILINOGEN,URINE 0.2 EU/dL (0.2)
[2017-01-26 20:31] LABS: BACTERIA,URINE Few /HPF (None Seen); RBC,URINE 0-2 /HPF (0-2); SQUAMOUS EPITHELIAL CELL,UR Moderate /HPF (None Seen)
--- NOTE | 2017-01-26 23:54 | NUR ---
ms/rn notes patient refused to have blood sugar check informed the pros and cons
[2017-01-27] MEDS: IV D5/0.45 NACL 1,000 ML IV PRN ×2 (02:34→17:32)
[2017-01-27] MEDS: BLOOD SUGAR DIAGNOSTIC 1 EACH STRIP IN SCH ×3 (05:18→18:00)
--- NOTE | 2017-01-27 06:53 | NUR ---
ms/rn closing notes Patient in bed, alert, oriented x2. Able to sleep 6 to 7 hours during the night. No pain reported and observed. Iv running and check for patency. No infiltration. Offered fluids Patient refused to have blood sugar check but allowed blood draw. will continue to monitor. Patient assisted to bathroom. Bed in lock position. Will endorse to am rn for continuity of care.
--- NOTE | 2017-01-27 07:13 | NUR ---
MS RN OPENING NOTES PATIENT RECEIVED AWAKE IN BED IN NO ACUTE SIGNS OF DISTRESS. A/O X2, NO COMPLAINTS OF PAIN OR DISCOMFORTS VOICED AT THIS TIME. ON ROOM AIR, BREATHING EVEN AND UNLABORED. PERIPHERAL IV ON RIGHT FA G#22 PATENT AND INTACT WITH D5 1/2 NS @ 60 ML/HR INFUSING. BED IN LOWEST POSITION AND LOCKED, CALL LIGHT WITHIN REACH WITH SIDE-RAILS UP X2. WILL MAINTAIN ALL SAFETY MEASURES AND WILL CONTINUE TO MONITOR PT ACCORDINGLY.
[2017-01-27] MEDS: LEVOTHYROXINE SODIUM 100 MCG TABLET PO SCH (07:30)
[2017-01-27] MEDS: PANTOPRAZOLE 40 MG TABLET.DR PO SCH (07:30)
[2017-01-27 08:00] VITALS: BP 147/68
[2017-01-27] MEDS: LEVOTHYROXINE INJ 100 MCG VIAL IV SCH (08:43)
[2017-01-27] MEDS: FENOFIBRATE NANOCRYS (145 MG) 145 MG TABLET PO SCH (08:47)
[2017-01-27] MEDS: Z GUARD REMEDY 2 OZ OINT TP SCH ×2 (08:48→17:29)
[2017-01-27] MEDS: OLANZAPINE 5 MG/TAB.RAPDIS PO SCH ×2 (08:49→17:00)
[2017-01-27] MEDS: OLANZAPINE 10 MG VIAL IM SCH ×2 (08:50→17:00)
[2017-01-27] MEDS: ENOXAPARIN SODIUM 40 MG/0.4 ML DISP.SYRIN SQ SCH (08:50)
--- NOTE | 2017-01-27 08:51 | NUR ---
RN NOTES PATIENT ONLY ALLOWED SYNTHROID IV TO BE GIVEN AND REFUSED ALL P.O. MEDS, ZYPREXA IM AN LOVENOX SUB Q THIS MORNING, STATED I DON'T WANT IT AND I HAVE THE RIGHT TO REFUSED. WILL CONTINUE TO MONITOR.
--- NOTE | 2017-01-27 09:01 | NUR ---
RN NOTES CALLED AND SPOKE TO PT'S MOTHER NORMAN REGARDING CONSENT FOR PEG INSERTION AND SAID THAT SHE HADN'T SPOKEN TO PT FOR 4-5 YRS AND THAT PT CAN DECIDE ON HERSELF. ENERGY CONSERVATION TECHNICIAN ANGELLA MADE AWARE AND SAID THAT SHE WILL CALL PT'S MOTHER.
--- NOTE | 2017-01-27 09:39 | NUR ---
RN NOTES PATIENT REFUSED BLOOD WORKS TO BE TAKEN THIS MORNING. BLOOD TECH SAID THAT SHE CAME ALSO EARLY THIS MORNING FROM PREVIOUS SHIFT TO DO IT BUT PT REFUSED. PARVIN PERALES MADE AWARE. WILL CONTINUE TO MONITOR.
[2017-01-27] MEDS: CEFTRIAXONE 1 G in IV D5W 50 ML IV SCH (10:36)
[2017-01-27 16:00] VITALS: BP 137/66
--- NOTE | 2017-01-27 18:30 | NUR ---
MS RN CLOSING NOTES PATIENT AWAKE AND RESTING IN BED. A/O X2-3, DIDN'T ANYTHING AT ALL TODAY DESPITE ENCOURAGEMENT BUT DRINKING WATER IN SMALL AMOUNTS. MORAL SUPPORT GIVEN. ON ROOM AIR, BREATHING EVEN AND UNLABORED WITH NO SOB NOTED. IVF OF D5 1/2 NS @ 60 ML/HR INFUSING WELL TO RIGHT FA, NO S/S OF INFILTRATION NOTED. KEPT BED IN LOWEST POSITION AND LOCKED, CALL LIGHT WITHIN REACH. ALL SAFETY MEASURES MAINTAINED. WILL ENDORSED TO LUCERNE FARMER NURSE FOR HENRY.
--- NOTE | 2017-01-27 19:30 | NUR ---
MSRN FULLY AWAKE, IV SITE WITH REDNESS, PER PATIENT , IS HURTING. REMOVE HL, RESTARTED 22 GAUGE BY OUTGOING RN ON LEFT WRIST WITH GOOD BLOOD RETURN. PRESENT IVF CONTINUED.
[2017-01-27 20:00] VITALS: BP 121/75
--- NOTE | 2017-01-27 21:35 | NUR ---
MSRN RESTING QUIETLY NO NEEDS MADE. CLOSELY WATCHED.
--- NOTE | 2017-01-28 00:11 | NUR ---
MSRN REFUSED ACCUCHECKS OF THIS TIME.
[2017-01-28] MEDS: BLOOD SUGAR DIAGNOSTIC 1 EACH STRIP IN SCH ×4 (06:00→17:26)
--- NOTE | 2017-01-28 06:23 | NUR ---
MSRN REFUSED ACCUCHECK AGAIN THIS TME.
--- NOTE | 2017-01-28 06:30 | NUR ---
MSRN NO ORAL INTAKE, NO URINE OUTPUT. REFUSED TO GET OOB AND WHEN ASKED PATIENT DID NOT OPEN HER EYES. PATIENT JUST NODDS. REFUSED ANYTHING DONE TO HER.PRESENT IVF INFUSING WELL.
--- NOTE | 2017-01-28 07:20 | NUR ---
MS RN INITIAL NOTES REPORT RECEIVED AT THE BEDSIDE. PATIENT IS RESTING COMFORTABLY IN BED. NO SOB OR DISTRESS NOTED AT THIS TIME. PATIENT DENIES PAIN AT THIS TIME, NO FACIAL GRIMACE NOTED. INFORMED PATIENT THAT I WOULD BE COMING BACK WITH MEDICATIONS SHORTLY AND PATIENT STATES "ONLY IV MEDICATION, NOTHING ELSE. EXPLAINED THE IMPORTANCE OF THE REST OF THE PATIENT'S MEDICATIONS, BUT THE PATIENT REPLIES, "I DON'T WANT THEM." BED IN A LOW POSITION, IV FLUIDS INFUSING WELL, CALL LIGHT WITHIN PATIENT REACH. WILL CONTINUE TO MONITOR.
[2017-01-28] MEDS: PANTOPRAZOLE 40 MG TABLET.DR PO SCH (07:30)
[2017-01-28] MEDS: LEVOTHYROXINE SODIUM 100 MCG TABLET PO SCH (07:30)
[2017-01-28 08:00] VITALS: BP 113/65
--- NOTE | 2017-01-28 08:05 | NUR ---
RN NOTES AGAIN INFORMED PATIENT OF MEDICATIONS THAT ARE DUE TO GIVE. PATIENT STATES "NOPE". WILL ADMIN IV SYNTHROID ORDERED AND HOLD ORAL AND IM MEDICATIONS.
[2017-01-28] MEDS: FENOFIBRATE NANOCRYS (145 MG) 145 MG TABLET PO SCH (08:10)
[2017-01-28] MEDS: OLANZAPINE 10 MG VIAL IM SCH ×2 (08:10→16:07)
[2017-01-28] MEDS: OLANZAPINE 5 MG/TAB.RAPDIS PO SCH (08:10)
[2017-01-28] MEDS: LEVOTHYROXINE INJ 100 MCG VIAL IV SCH (08:10)
[2017-01-28] MEDS: ENOXAPARIN SODIUM 40 MG/0.4 ML DISP.SYRIN SQ SCH (08:10)
[2017-01-28] MEDS: Z GUARD REMEDY 2 OZ OINT TP SCH ×2 (08:11→16:08)
[2017-01-28] MEDS: IV D5/0.45 NACL 1,000 ML IV PRN (10:16)
[2017-01-28] MEDS: CEFTRIAXONE 1 G in IV D5W 50 ML IV SCH (10:16)
[2017-01-28 16:00] VITALS: BP 119/74
--- NOTE | 2017-01-28 16:24 | NUR ---
RN NOTES WAS ABLE TO CONVINCE PATIENT TO TAKE IM ZYPREXA. INFORMED PATIENT THAT SHE WILL BE GETTING THE INJECTION TWICE A DAY. PATIENT STATES "I STILL DO NOT WANT PILLS OR FINGER POKES." WILL CONTINUE TO MONITOR.
--- NOTE | 2017-01-28 18:59 | NUR ---
MS RN CLOSING NOTES NO SIGNIFICANT CHANGES IN PATIENT CONDITION. PATIENT REMAINS IN BED AND DENIES PAIN. BED IN A LOW POSITION, CALL LIGHT WITHIN PATIENT REACH, SITTER IS AT THE BEDSIDE. WILL ENDORSE FOR HENRY.
--- NOTE | 2017-01-28 19:35 | NUR ---
MS RN NOTE RECEIVED PATIENT FROM DAY SHIFT, SLEEPING AT THIS TIME. NO S/S OF RESPIRATORY DISTRESS OR FACIAL GRIMACE NOTED. IV ON LEFT WRIST IS PATENT AND INTACT, FLUID IS RUNNING. SRX2, BED IN LOW POSITION, CALL LIGHT WITHIN REACH, WILL CONTINUE TO MONITOR PATIENT.
[2017-01-28 20:00] VITALS: BP 119/50
[2017-01-29] MEDS: IV D5/0.45 NACL 1,000 ML IV PRN (03:27)
[2017-01-29] MEDS: BLOOD SUGAR DIAGNOSTIC 1 EACH STRIP IN SCH ×3 (06:00→11:57)
--- NOTE | 2017-01-29 06:44 | NUR ---
MS RN NOTE PATIENT IS SLEEPING IN BED, BREATHING NON-LABORED, NO S/S OF FACIAL GRIMACE NOTED. IV ON LEFT WRIST IS PATENT AND INTACT, FLUID IS RUNNING. WILL ENDORSE TO DAY SHIFT NURSE FOR HENRY.
--- NOTE | 2017-01-29 07:22 | NUR ---
RN OPEN NOTES RECEIVED REPORT FROM SUCTION DREDGE DUMPING SUPERVISOR NURSE. WILL CONTINUE TO MONITOR AND ASSESS PATIENT THROUGH OUT MY SHIFT
[2017-01-29] MEDS: PANTOPRAZOLE 40 MG TABLET.DR PO SCH (07:30)
[2017-01-29] MEDS: LEVOTHYROXINE SODIUM 100 MCG TABLET PO SCH (07:30)
[2017-01-29] MEDS: LEVOTHYROXINE INJ 100 MCG VIAL IV SCH (08:17)
[2017-01-29] MEDS: FENOFIBRATE NANOCRYS (145 MG) 145 MG TABLET PO SCH (08:18)
[2017-01-29] MEDS: Z GUARD REMEDY 2 OZ OINT TP SCH (08:18)
[2017-01-29] MEDS: OLANZAPINE 10 MG VIAL IM SCH (08:22)
[2017-01-29] MEDS: ENOXAPARIN SODIUM 40 MG/0.4 ML DISP.SYRIN SQ SCH (08:26)
[2017-01-29 08:34] VITALS: BP 110/54
[2017-01-29] MEDS: CEFTRIAXONE 1 G in IV D5W 50 ML IV SCH (11:02)
[2017-01-29] MEDS ORDERED: OLAN10VI IM (11:31)
--- NOTE | 2017-01-29 14:10 | NUR ---
RUBBER STAMP MAKER NOTES PATIENT'S DISCHARGE ORDER RECEIVED AND CARRIED OUT. PATIENT IS ALERT AND ORIENTED TO NAME AND PLACE WITH PERIOD OF CONFUSION. PATIENT REFUSED TO SIGNS DISCHARGE PAPERWORK OR BELONGING FORM; TWO RN SIGNED. NO SIGNS AND SYMPTOMS OF DISTRESS DURING DISCHARGE. DENIED PAIN. SKIN IS INTACT. IV SITE REMOVED. ID BAND REMOVED. PATIENT IS UNABLE TO COMPREHEND DISCHARGE INFORMATION; GAVE REPORT TO RENEA SADLER AT [facility] REGARDING PATIENT MEDICATIONS AND DISCHARGE INFORMATION. PATIENT WAS TRANSPORTED TO [facility] VIA AMBULANCE AND TWO crop adjuster.
== END 2017-01-29 14:15 | DRG 640 ==
LOC: MED 16:28
PROVIDERS: ADMIT Nurse Practitioner Acute Care; ATTEND Nurse Practitioner Acute Care
DX: R62.7 Adult failure to thrive (principal); G93.40 Encephalopathy, unspecified; F25.0 Schizoaffective disorder, bipolar type; F25.9 Schizoaffective disorder, unspecified; F29 Unspecified psychosis not due to a substance or known physiological condition; F03.90 Unspecified dementia, unspecified severity, without behavioral disturbance, psychotic disturbance, mood disturbance, and anxiety; E87.6 Hypokalemia; E86.0 Dehydration; E03.9 Hypothyroidism, unspecified; F41.9 Anxiety disorder, unspecified; F94.0 Selective mutism; Z79.899 Other long term (current) drug therapy; Z86.73 Personal history of transient ischemic attack (TIA), and cerebral infarction without residual deficits; Z87.440 Personal history of urinary (tract) infections; Z91.14 Patient's other noncompliance with medication regimen; Z91.19 Patient's noncompliance with other medical treatment and regimen; F32.9 Major depressive disorder, single episode, unspecified
CPT/HCPCS: 36415; 80048-TC; 80061-TC; 81000-TC; 83735-TC; 84100-TC; 84443-TC; 85025-TC; 87086-TC; J0696; J1650; J3490; J7060; Z7610

== ENCOUNTER 2017-02-02 12:25 | Inpatient (IN) | payer MEDICARE, MEDICAID ==
[~2017-02-02] VITALS: Ht 160 cm; Wt 64.4 kg
[~2017-02-02 12:25] MED LIST changes: -CEFT1FRO2 IV; -HYDR-552 PO; -MAG30ORA PO; -MAGN400O6 PO; +OLAN10VI IM
--- NOTE | 2017-02-02 12:30 | NUR ---
PATIENT BIB EMT FROM SNF D/T POOR ORAL INTAKE X 4 DAYS AND REFUSAL OF CARE. PATIENT IS BREATHING EVEN AND UNLABORED ON ROOM AIR. NO SOB. NO DISTRESS. PATIENT HAS IV ON LEFT HAND, 20 G. SAFETY AND COMFORT MEASURES IN PLACE. AWAITING MD ORDERS.
[2017-02-02] MEDS ORDERED: IV NS 0.9% 1,000 ML BAG IV ONE ×2 (13:00→15:00)
--- NOTE | 2017-02-02 13:00 | NUR ---
PATIENT REFUSING BLOOD DRAW AT THIS TIME. ALSO REFUSING EKG. MADE AWARE.
--- NOTE | 2017-02-02 13:05 | NUR ---
MD AT BEDSIDE TALKING TO PATIENT, NOW ABLE TO PERFORM EKG AND ALLOWING BLOOD DRAW.
--- NOTE | 2017-02-02 13:08 | NUR ---
BLOOD DRAWN AND SENT TO LAB.
--- NOTE | 2017-02-02 13:14 | NUR ---
DISTRICT MANAGER PRIMARY CARE SALES AT BEDSIDE.
--- NOTE | 2017-02-02 13:20 | NUR ---
DR ZACH SANDHU PAGED AT [phone] CM, PCP ACCORDING TO PATIENT
[2017-02-02 13:21] LABS: BASOPHILS # (AUTO) 0.1 /CMM (0.0-0.2); BASOPHILS % (AUTO) 1.7 % (0.0-2.0); EOSINOPHILS # (AUTO) 0.2 /CMM (0.0-0.7); EOSINOPHILS % (AUTO) 4.3 % (0.0-6.0); HEMATOCRIT 40 % (33-45); HEMOGLOBIN 13.4 g/dL (11.5-14.8); LYMPHOCYTES # (AUTO) 1.6 /CMM (0.8-4.8); LYMPHOCYTES % (AUTO) 39.2 % (20.0-44.0); MEAN CORPUSCULAR HEMOGLOBIN 29 PG (26.0-33.0); MEAN CORPUSCULAR HGB CONC 34 g/dl (31.0-36.0); MEAN CORPUSCULAR VOLUME 87 fL (82-100); MONOCYTES # (AUTO) 0.3 /CMM (0.1-1.30); MONOCYTES % (AUTO) 7.6 % (2.0-12.0); NEUTROPHILS # (AUTO) 1.8 /CMM (1.8-8.9); NEUTROPHILS % (AUTO) 47.2 % (43.0-81.0); PLATELET COUNT (AUTO) 178 /CMM (150-450); RDW COEFFICIENT OF VARIATION 12.6 (11.5-15.0); RED BLOOD CELL COUNT(AUTO) 4.55 MIL/uL (4.0-5.2)
[2017-02-02] MEDS ORDERED: MAGN400O6 PO (13:22)
[2017-02-02] MEDS ORDERED: BISA10SU8 RC (13:22)
[2017-02-02] MEDS ORDERED: DOCU-25 PO (13:22)
[2017-02-02] MEDS ORDERED: NA P133E RC (13:22)
[2017-02-02] MEDS ORDERED: BLOO-668 IN (13:22)
[2017-02-02 13:26] LABS: CALCIUM, SERUM 8.7 mg/dL (8.5-10.1); CARBON DIOXIDE 27 mmol/L (21-32); CHLORIDE 109 mmol/L (98-107); CREATININE 0.9 mg/dL (0.6-1.3); GLUCOSE 90 mg/dL (74-106); SODIUM SERUM 145 mmol/L (136-145); UREA NITROGEN, BLOOD 2 mg/dL (7-18)
[2017-02-02 13:31] LABS: INR 1.11 (0.87-1.13); PROTHROMBIN TIME 11.6 SECS (9.5-12.7)
[2017-02-02 13:32] LABS: ALANINE AMINOTRANSFERASE 10 U/L (12-78); ALBUMIN 3.3 g/dL (3.4-5.0); ALKALINE PHOSPHATASE 63 U/L (46-116); ASPARTATE AMINOTRANSFERASE 22 U/L (15-37); BILIRUBIN,DIRECT 0.2 mg/dL (0.0-0.2); BILIRUBIN,TOTAL 0.9 mg/dL (0.2-1.0); LIPASE 149 U/L (73-393); TOTAL PROTEIN, SERUM 6.4 g/dL (6.4-8.2)
[2017-02-02 13:35] LABS: TROPONIN I < 0.017 ng/mL (0.00-0.056)
--- NOTE | 2017-02-02 13:35 | NUR ---
URINE OBTAINED AND SENT TO LAB.
[2017-02-02 13:36] LABS: APPEARANCE,URINE Clear (CLEAR); BILIRUBIN,URINE Negative (NEGATIVE); BLOOD, URINE Negative Ery/uL (NEGATIVE); COLOR,URINE Yellow (YELLOW); KETONES,URINE Negative (NEGATIVE); LEUKOCYTE ESTERASE ,URINE Negative (NEGATIVE); NITRITE, URINE Negative (NEGATIVE); PROTEIN,URINE Negative (NEGATIVE); UGLUCOSE Negative (NEGATIVE); UROBILINOGEN,URINE 0.2 EU/dL (0.2)
[2017-02-02] MEDS ORDERED: POTASSIUM CHLORIDE 20 MEQ TAB.PRT.SR PO ONE (14:00)
[2017-02-02] MEDS ORDERED: HALOPERIDOL LACTATE INJ 5 MG/ML VIAL ONE (14:21)
[2017-02-02] MEDS ORDERED: POTASSIUM CL. PREMIX PERIPHER. 50 ML ONE ×2 (14:21→15:04)
[2017-02-02] MEDS ORDERED: HALOPERIDOL LACTATE INJ 5 MG/ML VIAL IV ONE (14:30)
[2017-02-02] MEDS ORDERED: POTASSIUM CHLORIDE 10 MEQ/50 ML PREMIXED IVPB FOR PERIPHERAL LINE IV ONE (14:30)
--- NOTE | 2017-02-02 14:35 | NUR ---
REPORT GIVEN TO RENEA GRIGGS FOR ADMISSION.
--- NOTE | 2017-02-02 15:06 | NUR ---
SECOND BAG OF POTASSIUM STARTED.
[2017-02-02] MEDS ORDERED: ACETAMINOPHEN 325 MG TABLET PO PRN (15:30)
[2017-02-02] MEDS ORDERED: NACL IV SCH (15:30)
[2017-02-02] MEDS ORDERED: MAG HYDROX/AL HYDROX/SIMETH 30 ML UDC PO PRN (15:30)
[2017-02-02] MEDS ORDERED: Z GUARD REMEDY 2 OZ OINT TP PRN (15:30)
[2017-02-02] MEDS ORDERED: ZOLPIDEM TARTRATE 5 MG TABLET PO PRN (15:30)
[2017-02-02] MEDS ORDERED: NA PHOS,M-B/NA PHOS,DI-BA 1 EA ENEMA RC PRN (15:30)
[2017-02-02] MEDS ORDERED: ONDANSETRON HCL/PF 4 MG/2 ML VIAL IVP PRN (15:30)
[2017-02-02] MEDS ORDERED: MAGNESIUM HYDROXIDE 30 ML UDC PO PRN ×2 (15:30)
[2017-02-02] MEDS ORDERED: BISACODYL SUPP (10 MG) 10 MG/SUPP.RECT SUPP.RECT RC PRN (15:30)
[2017-02-02] MEDS ORDERED: HYDROCODONE/APAP 5/325MG 1 EACH TABLET PO PRN (15:30)
[2017-02-02] MEDS ORDERED: D5 IV SCH (15:30)
--- NOTE | 2017-02-02 16:13 | NUR ---
PATIENT TRANSPORTED TO [facility] BY EMT VIA STRETCHER FOR ADMISSION. RNINDU TO PROVIDE HENRY.
--- NOTE | 2017-02-02 16:30 | NUR ---
[facility] SURGE RN: ADMISSION NOTE PT TRANSFERRED FROM ER TO [facility] ROOM 324-1. ALERT AND ORIENTED X3. NO DISTRESS NOTED. NO SOB NOTED. VS STABLE. UPON ASSESSMENT, PT SKIN INTACT. IV SITE ON LEFT HAND #20 VENECIA RUNNING NS AT 75ML/HR. CHANGE OF ORDER TO D5 NS RUNNING AT 75ML/HR. SITE PATENT, NO REDNESS, NO INFILTRATION NOTED. ORIENTED TO ROOM AND CALL LIGHT. FALL PRECAUTIONS IN PLACE. CALL LIGHT WITHIN REACH. RESTING COMFORTABLY IN BED.
[2017-02-02] MEDS: IV D5/ 0.9% NACL 1,000 ML IV PRN (16:35)
[2017-02-02] MEDS: OLANZAPINE 10 MG VIAL IM SCH (16:39)
[2017-02-02] MEDS: DOCUSATE SODIUM 100 MG CAPSULE PO SCH (16:39)
--- NOTE | 2017-02-02 17:38 | NUR ---
CHIQUITA DE LEÓN RN: NOTE EXAMINED BY DR. HEIN. ACCORDING TO PT, SHE IS UNABLE TO SWALLOW. DR. HEIN ORDERED NPO UNTIL ST EVALUATION.
--- NOTE | 2017-02-02 18:42 | NUR ---
MED SURGE RN: CLOSING NOTE PT ALERT AND ORIENTED X3. REFUSED EVENING MEDICATIONS. ALL RISKS AND BENEFITS EXPLAINED. PT NEW ORDER OF NPO DUE TO STATING INABILITY TO SWALLOW. CAUSING POOR NUTRITIONAL INTAKE. ST EVALUATION ORDERED. IV IN LEFT HAND RUNNING D5 NS AT 75ML/HR. SITE CLEAR AND PATENT. PT CALMLY SLEEPING IN BED, COOPERATIVE AND NOT COMPLAINING. RESTING COMFORTABLY IN BED. CALL LIGHT WITHIN REACH.
--- NOTE | 2017-02-02 19:15 | NUR ---
MS/RN OPENING NOTES PT AWAKE, RESTING COMFORTABLY IN BED. A/OX3, ON RA, BREATHING EVEN AND UNLABORED. NO S/S OF DISTRESS, BREATHING EVEN AND UNLABORED. DENIES PAIN. IV TO LEFT HAND RUNNING IVF ORDERED. BED IN LOW/LOCKED POSITION WITH CALL LIGHT IN REACH. SIDE RAILS UPX3 AND BED ALARM ON. WILL CONTINUE TO MONITOR
[2017-02-02 20:00] VITALS: BP 134/62
[2017-02-02] MEDS: BLOOD SUGAR DIAGNOSTIC 1 EACH STRIP IN SCH (23:05)
--- NOTE | 2017-02-02 23:15 | NUR ---
MS/RN NOTES BLOOD SUGAR=91. NO SLIDING SCALE ORDERED. IV RUNNING D5NS@ 75 ML/HR. MRSA SPECIMEN COLLECTED AND PLACED IN THE FRIDGE
--- NOTE | 2017-02-02 23:24 | NUR ---
MS/RN NOTES PT REFUSED LAB DRAW. EDUCATED PT AND PT INSISTED THAT SHE DOES NOT WANT ANYMORE BLOOD DRAWN FROM HER. SHE SAID SHE ALREADY GAVE 6 TUBES WORTH OF BLOOD EARLIER TODAY. PT BECAME AGITATED AND STARTED RAISING HER VOICE. GLASS TECHNICIAN AWARE.
[2017-02-03] MEDS: IV D5/ 0.9% NACL 1,000 ML IV PRN ×2 (06:57→20:33)
[2017-02-03] MEDS: PANTOPRAZOLE 40 MG TABLET.DR PO SCH (07:30)
[2017-02-03] MEDS: LEVOTHYROXINE SODIUM 100 MCG TABLET PO SCH (07:30)
--- NOTE | 2017-02-03 07:30 | NUR ---
RN MS NOTES PT IN BED, ASLEEP, EASY TO AROUSE, ALERT, NO SIGN OF PAIN OR DISTRESS, IV FLUIDS INFUSING WELL, CALL LIGHT WITHIN REACH, SAFETY PRECAUTIONS OBSERVED.
--- NOTE | 2017-02-03 07:40 | NUR ---
MS/RN CLOSING NOTES PT ASLEEP, EASILY AROUSABLE TO NAME/TOUCH. ON RA, BREATHING EVEN AND UNLABORED. NO S/S OF DISTRESS OR PAIN NOTED. A/OX2, PARANOID. IV TO LEFT HAND RUNNING IVF ORDERED. MADE PT COMFORTABLE DURING SHIFT. ALL NEEDS MET AND ATTENDED. REORIENTED PT PRN AND PROVIDED EMOTIONAL SUPPORT. BED IN LOW/LOCKED POSITION WITH CALL LIGHT IN REACH. SIDE RAILS UPX2. ENDORSED TO AM SHIFT HENRY.
[2017-02-03 08:00] VITALS: BP 108/59
[2017-02-03] MEDS: OLANZAPINE 10 MG VIAL IM SCH ×2 (09:00→17:00)
[2017-02-03] MEDS: FENOFIBRATE NANOCRYS (145 MG) 145 MG TABLET PO SCH (09:00)
[2017-02-03] MEDS: DOCUSATE SODIUM 100 MG CAPSULE PO SCH ×2 (09:00→17:00)
[2017-02-03] MEDS: ENOXAPARIN SODIUM 40 MG/0.4 ML DISP.SYRIN SQ SCH (09:00)
--- NOTE | 2017-02-03 09:52 | NUR ---
RN MS NOTES PT SEEN BY DR. PRESTON, PT ASLEEP, EASY TO AROUSE, REFUSING TO SPEAK WITH THE DOCTOR OR NURSE, PT REFUSED BLOOD DRAW THIS MORNING, AWARE.
--- NOTE | 2017-02-03 13:41 | NUR ---
RN MS NOTES PT IN BED, ASLEEP, EASY TO AROUSE, IV FLUIDS INFUSING WELL, CALL LIGHT WITHIN REACH, SAFETY PRECAUTIONS OBSERVED.
[2017-02-03 16:00] VITALS: BP 123/68
--- NOTE | 2017-02-03 18:33 | NUR ---
RN MS NOTES PT IN BED, ASLEEP, EASY TO AROUSE, ALERT AND VERBALLY RESPONSIVE, NO COMPLAINT OF PAIN, IV FLUIDS INFUSING WELL, PT REFUSED ZYPREXA IM, PM CARE RENDERED, ASSISTED TO BATHROOM NEEDED, KEPT WARM AND COMFORTABLE IN BED, SAFETY PRECAUTIONS OBSERVED, ALL NEEDS ATTENDED.
[2017-02-03 20:00] VITALS: BP 122/57
--- NOTE | 2017-02-03 20:00 | NUR ---
ms/rn opening notes Patient hob elevated, family at bedside, observe participating w/ game of scrabble. In good mood and able to smile. Received endorsement form am rn regarding continuity of care and will monitor and provide care. Safety measures provided. bed in lock position. Will continue to monitor. No s/s of discomfort.
[2017-02-03] MEDS: BLOOD SUGAR DIAGNOSTIC 1 EACH STRIP IN SCH (21:15)
--- NOTE | 2017-02-03 21:16 | NUR ---
ms/rn notes Patient refuse to have blood sugar check, will monitor for any hypo/hyperglycemia. d5 ns being infused. Patient alertm, oriented. skin warm to touch.
--- NOTE | 2017-02-04 06:40 | NUR ---
ms/rn closing notes Patient resting in bed. Able to sleep 5-6 hours. Iv reinserted and patent on left arm. Iv fluids running. refuse to have blood sugar check and refuse to take food. Call lights within reach. Bed in lock position. will endorse to am rn for aston.
[2017-02-04] MEDS: PANTOPRAZOLE 40 MG TABLET.DR PO SCH (07:30)
[2017-02-04] MEDS: LEVOTHYROXINE SODIUM 100 MCG TABLET PO SCH (07:30)
--- NOTE | 2017-02-04 07:30 | NUR ---
RN NOTES RECEIVED PATIENT IN BED RESTING, RESPIRATIONS EVEN AND UNLABORED, NO ACUTE DISTRESS, NO SOB,. IV SITE INTACT AND PATENT. BED IN LOW POSITION, LOCKED, SIDERAILS UP X2, CALL LIGHT WITHIN REACH. WILL CONTINUE TO MONITOR ACCORDINGLY.
[2017-02-04 08:00] VITALS: BP_SYST 147; BP_SYST 152; BP_SYST 154; BP_DIAS 76; BP_DIAS 79; BP_DIAS 81
[2017-02-04] MEDS: DOCUSATE SODIUM 100 MG CAPSULE PO SCH ×2 (08:56→17:00)
[2017-02-04] MEDS: OLANZAPINE 10 MG VIAL IM SCH ×2 (08:56→17:00)
[2017-02-04] MEDS: FENOFIBRATE NANOCRYS (145 MG) 145 MG TABLET PO SCH (08:57)
[2017-02-04] MEDS: ENOXAPARIN SODIUM 40 MG/0.4 ML DISP.SYRIN SQ SCH (08:59)
--- NOTE | 2017-02-04 09:28 | NUR ---
RN NOTES PATIENT REFUSED AM MD LACY AWARE. WILL MONITOR ACCORDINGLY.
--- NOTE | 2017-02-04 11:00 | NUR ---
RN NOTES PATIENT REFUSED BLOOD DRAW, AWARE
--- NOTE | 2017-02-04 11:29 | NUR ---
RN NOTES MD, ONCOLOGY PHYSICIAN ASSISTANT, CAD ADMINISTRATOR TALKED TO THE PATIENT REGARDING NUTRITION AND DIET, PATIENT AGREED TO EAT. WILL CONTINUE TO MONITOR ACCORDINGLY.
--- NOTE | 2017-02-04 12:30 | NUR ---
RN NOTES PATIENT ATE 60% OF HER LUNCH. WILL CONTINUE TO MONITOR ACCORDINGLY
[2017-02-04 16:00] VITALS: BP 115/59
[2017-02-04] MEDS: IV D5/ 0.9% NACL 1,000 ML IV PRN (16:56)
--- NOTE | 2017-02-04 18:25 | NUR ---
RN NOTES CALLED [facility] AND GAVE REPORT TO RENEA HERNANDEZ, REQUESTED NOT TO DC IV SITE.
--- NOTE | 2017-02-04 18:26 | NUR ---
RN NOTES PATIENT ATE 70% DINNER. AWAITING FOR DISCHARGE
--- NOTE | 2017-02-04 19:06 | NUR ---
RN NOTES DISCHARGE PATIENT IN STABLE CONDITION ACCOMPANIED BY 2 SALES REPRESENTATIVE ADVERTISING VIA DANYELLE. DISCHARGE INSTRUCTION/EXITCARE DONE. DISCHARGE PAPERWORK GIVEN TO SALES REPRESENTATIVE ADVERTISING.
== END 2017-02-04 19:00 | DRG 640 ==
LOC: ER 12:27 → MED 13:50
PROVIDERS: ADMIT Family Medicine; ATTEND Family Medicine
DX: R62.7 Adult failure to thrive (principal); G93.40 Encephalopathy, unspecified; E87.2 Acidosis; E44.1 Mild protein-calorie malnutrition; F25.9 Schizoaffective disorder, unspecified; R13.10 Dysphagia, unspecified; E78.5 Hyperlipidemia, unspecified; E87.6 Hypokalemia; Z91.14 Patient's other noncompliance with medication regimen; Z87.891 Personal history of nicotine dependence; Z86.73 Personal history of transient ischemic attack (TIA), and cerebral infarction without residual deficits; Z79.899 Other long term (current) drug therapy; K59.00 Constipation, unspecified; F41.9 Anxiety disorder, unspecified; F32.9 Major depressive disorder, single episode, unspecified; E03.9 Hypothyroidism, unspecified; F22 Delusional disorders
CPT/HCPCS: 36415; 71010-TC; 80048-TC; 80076-TC; 81000-TC; 82962-TC; 83605-TC; 83690-TC; 84484-TC; 85025-TC; 85730-TC; 86850-TC; 87081-TC; A4606; A6402; J1630; J1650; J3480; J3490; J7030; J7042; Z7610

== ENCOUNTER 2017-07-07 15:42 | Inpatient (IN) | payer MEDICARE, OTHER ==
[~2017-07-07] VITALS: Ht 152.4 cm; Wt 66.7 kg
[~2017-07-07 15:42] MED LIST changes: +BISA10SU8 RC; +DOCU-141 PO; +MAGN400O6 PO; +NA P133E RC; -ONDA4VIA30 IV
[2017-07-07 16:53] LABS: BASOPHILS % (AUTO) 0.4 % (0.0-2.0); EOSINOPHILS # (AUTO) 0.2 /CMM (0.0-0.7); EOSINOPHILS % (AUTO) 2.1 % (0.0-6.0); HEMATOCRIT 38 % (33-45); HEMOGLOBIN 12.8 g/dL (11.5-14.8); LYMPHOCYTES # (AUTO) 1.7 /CMM (0.8-4.8); LYMPHOCYTES % (AUTO) 20.9 % (20.0-44.0); MEAN CORPUSCULAR HEMOGLOBIN 29 PG (26.0-33.0); MEAN CORPUSCULAR HGB CONC 34 g/dl (31.0-36.0); MEAN CORPUSCULAR VOLUME 86 fL (82-100); MONOCYTES # (AUTO) 0.7 /CMM (0.1-1.30); MONOCYTES % (AUTO) 8.3 % (2.0-12.0); NEUTROPHILS # (AUTO) 5.4 /CMM (1.8-8.9); NEUTROPHILS % (AUTO) 68.3 % (43.0-81.0); PLATELET COUNT (AUTO) 226 /CMM (150-450); RDW COEFFICIENT OF VARIATION 14.8 (11.5-15.0); RED BLOOD CELL COUNT(AUTO) 4.36 MIL/uL (4.0-5.2); WHITE BLOOD COUNT (AUTO) 7.9 K/uL (4.3-11.0)
[2017-07-07] MEDS ORDERED: MIRT7.5T10 PO (16:57)
[2017-07-07] MEDS ORDERED: LIOT25TA2 PO (16:57)
[2017-07-07] MEDS ORDERED: RISP0.5T8 SL (16:57)
[2017-07-07 17:06] LABS: CALCIUM, SERUM 8.3 mg/dL (8.5-10.1); CARBON DIOXIDE 28 mmol/L (21-32); CHLORIDE 106 mmol/L (98-107); CREATININE 1.1 mg/dL (0.6-1.3); GLUCOSE 85 mg/dL (74-106); POTASSIUM 3.2 mmol/L (3.5-5.1); SODIUM SERUM 146 mmol/L (136-145); UREA NITROGEN, BLOOD 27 mg/dL (7-18)
[2017-07-07 17:12] LABS: ALANINE AMINOTRANSFERASE 12 U/L (12-78); ALBUMIN 3.1 g/dL (3.4-5.0); ALKALINE PHOSPHATASE 61 U/L (46-116); ASPARTATE AMINOTRANSFERASE 14 U/L (15-37); BILIRUBIN,DIRECT 0.1 mg/dL (0.0-0.2); BILIRUBIN,TOTAL 0.8 mg/dL (0.2-1.0); TOTAL PROTEIN, SERUM 6.7 g/dL (6.4-8.2)
[2017-07-07 17:13] LABS: ACETAMINOPHEN 0 ug/ml (10-30); SALICYLATE 1.3 mg/dL (2.8-20.0)
[2017-07-07 17:51] LABS: ALCOHOL, BLOOD < 3 mg/dL (0-0)
--- NOTE | 2017-07-07 17:56 | NUR ---
PINKY CALLED ETA 1HR.
[2017-07-07] MEDS ORDERED: IV NS 0.9% 1,000 ML BAG IV ONE (18:00)
[2017-07-07] MEDS ORDERED: POTASSIUM CHLORIDE 20 MEQ TAB.PRT.SR PO ONE ×2 (18:00→18:10)
[2017-07-07 18:24] LABS: APPEARANCE,URINE Clear (CLEAR); BILIRUBIN,URINE MODERATE (NEGATIVE); BLOOD, URINE Negative Ery/uL (NEGATIVE); COLOR,URINE Dark (YELLOW); KETONES,URINE 15 (NEGATIVE); LEUKOCYTE ESTERASE ,URINE Negative (NEGATIVE); NITRITE, URINE Negative (NEGATIVE); PH,URINE 5.5 (5.0-8.0); PROTEIN,URINE Trace mg/dl (NEGATIVE); UGLUCOSE Negative (NEGATIVE); UROBILINOGEN,URINE 0.2 EU/dL (0.2)
[2017-07-07 18:35] LABS: BACTERIA,URINE Rare /HPF (None Seen); RBC,URINE 0-2 /HPF (0-2); SQUAMOUS EPITHELIAL CELL,UR Few /HPF (None Seen); WBC,URINE 0-2 /HPF (0-3)
--- NOTE | 2017-07-07 19:15 | NUR ---
RECEIVED REPORT FROM RENEA JULIO FOR HENRY.
--- NOTE | 2017-07-07 19:33 | NUR ---
BED 213B
--- NOTE | 2017-07-07 19:38 | NUR ---
REPORT GIVEN TO RENEA GRIMALDO FOR MIRYAM FRANKLIN 213
--- NOTE | 2017-07-07 19:57 | NUR ---
DR. MATTSON SPEAKING TO DR. PARKINSON REGARDING ADMISSION
--- NOTE | 2017-07-07 20:05 | NUR ---
PT TRANSFERRED VIA D[facility]ELLE [facility]
[2017-07-07] MEDS ORDERED: BISACODYL SUPP (10 MG) 10 MG/SUPP.RECT SUPP.RECT RC PRN (20:30)
[2017-07-07] MEDS ORDERED: ACETAMINOPHEN 325 MG TABLET PO PRN ×2 (20:30→21:00)
[2017-07-07] MEDS ORDERED: Z GUARD REMEDY 2 OZ OINT TP PRN (20:30)
--- NOTE | 2017-07-07 20:30 | NUR ---
ADMISSION NOTES ADMITTED THIS 62 Y/O FEMALE PATIENT ADMITTED FROM ER. PT CAME FROM [facility] . PT IS ON 5150 HOLD FOR GD. PER HOLD PT HAS BEEN REFUSING TO EAT, REFUSING ALL HER MEDICATION, REFUSING TREATMENT. PT IS DELUSIONAL PATIENT THINK SHE DON'T HAVE STOMACH AND SHE DON'T HAVE COLON. REFUSING TO TAKE A SHOWER. PT HAS PREVIOUS INPATIENT PSYCHIATRIC TREATMENT IN THE PAST. HISTORY OF SCHIZOPRENIA. UPON FACE TO FACE ASSESSMENT PATIENT IS A&OX2-3, UNCOOPERATIVE, IRRITABLE, EASILY AGITATED, PARANOID. V/S WNL. NO COMPLAIN OF PAIN/DISCOMFORT. NO ACUTE DISTRESS NOTED. MEDICAL HX OF CVA, DM, MUSCLE WEAKNESS, HYPOTHYROIDISM, HYPERLIPIDEMIA. PSYCH DX OF SCHIZOPRENIA, ANXIETY. AWARE AND NOTIFIED OF THE ADMISSION. PT REFUSED SKIN/BODY ASSESSMENT. ALL NEEDS ATTENDED AND ANTICIPATED. BED IN LOW AND LOCKED POSITION. SIDERAILS UPX2. CALL CASTILLO WITHIN REACH. WILL CONTINUE TO MONITOR FOR SAFETY AND BEHAVIOR [id number].
[2017-07-07] MEDS ORDERED: TEMAZEPAM 7.5 MG CAPSULE PO PRN (21:00)
[2017-07-07] MEDS ORDERED: LORAZEPAM 0.5 MG TABLET PO PRN (21:00)
[2017-07-07] MEDS ORDERED: MAGNESIUM HYDROXIDE 30 ML UDC PO PRN (21:00)
[2017-07-07] MEDS ORDERED: MAG HYDROX/AL HYDROX/SIMETH 30 ML UDC PO PRN (21:00)
[2017-07-08 00:32] VITALS: BP 131/70
--- NOTE | 2017-07-08 06:15 | NUR ---
PAGED DR. PARKINSON FOR MED RECON. AWAITING TO CALLBACK. WILL ENDORSE TO NEXT SHIFT NURSE FOR FOLLOW UP.
[2017-07-08 06:35] LABS: BASOPHILS % (AUTO) 0.4 % (0.0-2.0); EOSINOPHILS # (AUTO) 0.2 /CMM (0.0-0.7); EOSINOPHILS % (AUTO) 2.5 % (0.0-6.0); HEMATOCRIT 34 % (33-45); HEMOGLOBIN 11.8 g/dL (11.5-14.8); LYMPHOCYTES # (AUTO) 1.5 /CMM (0.8-4.8); LYMPHOCYTES % (AUTO) 22.4 % (20.0-44.0); MEAN CORPUSCULAR HEMOGLOBIN 30 PG (26.0-33.0); MEAN CORPUSCULAR HGB CONC 35 g/dl (31.0-36.0); MEAN CORPUSCULAR VOLUME 86 fL (82-100); MONOCYTES # (AUTO) 0.6 /CMM (0.1-1.30); NEUTROPHILS # (AUTO) 4.4 /CMM (1.8-8.9); NEUTROPHILS % (AUTO) 65.7 % (43.0-81.0); PLATELET COUNT (AUTO) 190 /CMM (150-450); RDW COEFFICIENT OF VARIATION 14.9 (11.5-15.0); RED BLOOD CELL COUNT(AUTO) 3.97 MIL/uL (4.0-5.2); WHITE BLOOD COUNT (AUTO) 6.7 K/uL (4.3-11.0)
[2017-07-08 06:45] LABS: ALBUMIN 2.7 g/dL (3.4-5.0); BILIRUBIN,TOTAL 0.8 mg/dL (0.2-1.0); CALCIUM, SERUM 8.3 mg/dL (8.5-10.1); CREATININE 0.8 mg/dL (0.6-1.3); POTASSIUM 2.9 mmol/L (3.5-5.1); TOTAL PROTEIN, SERUM 5.9 g/dL (6.4-8.2)
[2017-07-08 06:46] LABS: CHOLESTEROL 146 mg/dL (<200); HDL CHOLESTEROL 34 mg/dL (40-60); LDL 99 mg/dL (0-99); TRIGLYCERIDES 77 mg/dL (30-150)
[2017-07-08] MEDS: LEVOTHYROXINE SODIUM 100 MCG TABLET PO SCH (07:31)
[2017-07-08] MEDS: PANTOPRAZOLE 40 MG TABLET.DR PO SCH (07:31)
[2017-07-08 08:00] VITALS: BP 113/58
[2017-07-08] MEDS: FENOFIBRATE NANOCRYS (145 MG) 145 MG TABLET PO SCH (09:28)
[2017-07-08] MEDS: DOCUSATE SODIUM 100 MG CAPSULE PO SCH ×2 (09:28→16:34)
[2017-07-08] MEDS: POTASSIUM CHLORIDE 20 MEQ TAB.PRT.SR PO SCH ×3 (10:14→12:31)
[2017-07-08] MEDS ORDERED: POTASSIUM CHLORIDE 20 MEQ TAB.PRT.SR PO ONE (16:00)
[2017-07-08 16:29] VITALS: BP 115/55
[2017-07-08 20:00] VITALS: BP 132/66
--- NOTE | 2017-07-08 20:20 | NUR ---
REPORT GIVEN TO RN NOVEM FOR CONTINUITY OF CARE.
[2017-07-08] MEDS: risperiDONE-M 0.5 MG TAB.RAPDIS PO SCH (20:47)
[2017-07-09 07:21] LABS: BASOPHILS % (AUTO) 0.4 % (0.0-2.0); EOSINOPHILS # (AUTO) 0.1 /CMM (0.0-0.7); EOSINOPHILS % (AUTO) 2.1 % (0.0-6.0); HEMATOCRIT 36 % (33-45); HEMOGLOBIN 12.2 g/dL (11.5-14.8); LYMPHOCYTES # (AUTO) 1.2 /CMM (0.8-4.8); LYMPHOCYTES % (AUTO) 20.3 % (20.0-44.0); MEAN CORPUSCULAR HEMOGLOBIN 30 PG (26.0-33.0); MEAN CORPUSCULAR HGB CONC 34 g/dl (31.0-36.0); MEAN CORPUSCULAR VOLUME 86 fL (82-100); MONOCYTES # (AUTO) 0.6 /CMM (0.1-1.30); MONOCYTES % (AUTO) 9.8 % (2.0-12.0); NEUTROPHILS # (AUTO) 4.1 /CMM (1.8-8.9); NEUTROPHILS % (AUTO) 67.4 % (43.0-81.0); PLATELET COUNT (AUTO) 206 /CMM (150-450); RDW COEFFICIENT OF VARIATION 14.8 (11.5-15.0); RED BLOOD CELL COUNT(AUTO) 4.14 MIL/uL (4.0-5.2); WHITE BLOOD COUNT (AUTO) 6.1 K/uL (4.3-11.0)
[2017-07-09] MEDS: LEVOTHYROXINE SODIUM 100 MCG TABLET PO SCH (07:30)
[2017-07-09] MEDS: PANTOPRAZOLE 40 MG TABLET.DR PO SCH (07:30)
[2017-07-09 07:31] LABS: CREATININE 0.9 mg/dL (0.6-1.3); MAGNESIUM 1.7 mg/dL (1.8-2.4); PHOSPHORUS 3.3 mg/dL (2.5-4.9); POTASSIUM 3.6 mmol/L (3.5-5.1)
[2017-07-09 07:44] LABS: IRON, SERUM 44 ug/dl (50-175); TOTAL IRON BINDING CAPACITY 228 ug/dl (250-450)
[2017-07-09 08:00] VITALS: BP 108/51
[2017-07-09] MEDS: FENOFIBRATE NANOCRYS (145 MG) 145 MG TABLET PO SCH (09:00)
[2017-07-09] MEDS: risperiDONE-M 0.5 MG TAB.RAPDIS PO SCH ×3 (09:00→16:32)
[2017-07-09] MEDS: DOCUSATE SODIUM 100 MG CAPSULE PO SCH ×2 (09:00→16:32)
[2017-07-09] MEDS ORDERED: MAGNESIUM OXIDE 400 MG TABLET PO ONE (10:00)
[2017-07-09 16:01] VITALS: BP 101/67
[2017-07-09 19:49] VITALS: BP 99/48
--- NOTE | 2017-07-10 02:10 | NUR ---
Pt has been withdrawn, isolative, anxious, paranoid, easily irritable on approach, & refusing care.
[2017-07-10] MEDS: LEVOTHYROXINE SODIUM 100 MCG TABLET PO SCH (07:30)
[2017-07-10] MEDS: PANTOPRAZOLE 40 MG TABLET.DR PO SCH (07:30)
[2017-07-10 08:00] VITALS: BP 101/51
[2017-07-10] MEDS: DOCUSATE SODIUM 100 MG CAPSULE PO SCH ×2 (09:00→16:51)
[2017-07-10] MEDS: risperiDONE-M 0.5 MG TAB.RAPDIS PO SCH ×3 (09:00→16:51)
[2017-07-10] MEDS: FENOFIBRATE NANOCRYS (145 MG) 145 MG TABLET PO SCH (09:00)
--- NOTE | 2017-07-10 12:51 | NUR ---
SW attempted to complete pts assessment on this date however pt was pretending to be asleep. SW called out pts name several times, at which time pt yelled asking SW to leave the room. Pt was non cooperative and unwilling to complete assessment. SW will attempt to complete assessment later on in the day. In addition, EFRAIN spoke to Refugio from [facility] who agreed that pt can return to the facility once she is ready for discharge. EFRAIN will follow up to ensure pt is properly and safely discharged.
--- NOTE | 2017-07-10 15:11 | NUR ---
Initial Discharge Plan: [facility] [address] [place] [address] . EFRAIN spoke to Julia from [facility] who agreed that pt can return to facility once she is ready to discharge. EFRAIN attempted to contact pts daughter, Deb at however voicemail recording stated the following, "the number you are trying to call is not reachable [phone]." EFRAIN also contacted next of kin, found on the face sheet, Nitesh Lorenz however was unable to speak to him. SW left a detailed message asking for a callback. EFRAIN will follow up to ensure pt is safely and properly discharged.
[2017-07-10 16:00] VITALS: BP 100/61
--- NOTE | 2017-07-10 16:49 | NUR ---
GPS/RN PATIENT REFUSED ALL MEDICATION THROUGHOUT SHIFT, OFFERED X 3 EACH TIME HOWEVER PATIENT ADAMANTLY REFUSED EACH TIME AND BECAME EXTREMELY AGITATED UPON APPROACH.
[2017-07-10 20:08] VITALS: BP 99/46
[2017-07-10] MEDS ORDERED: HALOPERIDOL LACTATE 10 MG/5 ML UDC PO SCH (22:00)
[2017-07-11] MEDS: LEVOTHYROXINE SODIUM 100 MCG TABLET PO SCH (07:30)
[2017-07-11] MEDS: PANTOPRAZOLE 40 MG TABLET.DR PO SCH (07:30)
[2017-07-11 08:00] VITALS: BP 124/56
[2017-07-11] MEDS: DOCUSATE SODIUM 100 MG CAPSULE PO SCH ×2 (08:24→16:36)
[2017-07-11] MEDS: FENOFIBRATE NANOCRYS (145 MG) 145 MG TABLET PO SCH (08:24)
[2017-07-11 10:24] LABS: CALCIUM, SERUM 8.5 mg/dL (8.5-10.1); CREATININE 0.9 mg/dL (0.6-1.3); POTASSIUM 3.3 mmol/L (3.5-5.1)
[2017-07-11] MEDS ORDERED: POTASSIUM CHLORIDE 20 MEQ TAB.PRT.SR PO ONE (12:00)
--- NOTE | 2017-07-11 13:50 | NUR ---
GPS/RN PATIENT ADAMANTLY REFUSED K-DUR 40 MEQ X 3, EXPLAINED RISKS AND BENEFITS, CONTINUES TO REFUSE, WILL CONTINUE TO ENCOURAGE TO COMPLY WITH MD REGIMEN.
[2017-07-11] MEDS: HALOPERIDOL LACTATE 10 MG/5 ML UDC PO SCH ×2 (14:00→21:19)
--- NOTE | 2017-07-11 14:28 | NUR ---
GPS/RN PATIENT ADAMANTLY REFUSED HALDOL LACTATE 5 MG, EXPLAINED RISKS AND BENEFITS, CONTINUES TO REFUSE, WILL CONTINUE TO ENCOURAGE TO COMPLY WITH MD REGIMEN.
[2017-07-11 16:00] VITALS: BP 103/50
[2017-07-11 20:01] VITALS: BP 118/67
--- NOTE | 2017-07-11 21:19 | NUR ---
GPS/RN NOTES PATIENT REFUSED HALDOL LACTATE 5 ML, EXPLAINED RISKS AND BENEFITS, CONTINUES TO REFUSE, WILL CONTINUE TO ENCOURAGE TO COMPLY WITH MD REGIMEN.
--- NOTE | 2017-07-11 21:22 | NUR ---
GPS/RN NOTES PATIENT REFUSED HALDOL LACTATE 5 MG, EXPLAINED RISKS AND BENEFITS, CONTINUES TO REFUSE, WILL CONTINUE TO ENCOURAGE TO COMPLY WITH MD REGIMEN.
--- NOTE | 2017-07-12 06:51 | NUR ---
GPS/RN NOTES PATIENT REFUSED AM LABS, EXPLAINED RISKS AND BENEFITS, CONTINUES TO REFUSE, WILL CONTINUE TO ENCOURAGE TO COMPLY WITH MD REGIMEN.
[2017-07-12] MEDS: LEVOTHYROXINE SODIUM 100 MCG TABLET PO SCH (07:30)
[2017-07-12] MEDS: PANTOPRAZOLE 40 MG TABLET.DR PO SCH (07:30)
[2017-07-12] MEDS: FENOFIBRATE NANOCRYS (145 MG) 145 MG TABLET PO SCH (09:00)
[2017-07-12] MEDS: DOCUSATE SODIUM 100 MG CAPSULE PO SCH ×2 (09:00→17:00)
[2017-07-12 11:23] VITALS: BP 94/61
[2017-07-12] MEDS ORDERED: HALOPERIDOL DECANOATE IM 100 MG/ML AMPUL IM ONE (12:30)
--- NOTE | 2017-07-12 13:28 | NUR ---
RN NOTE:PATIENT SEEN BY WITH NEW ORDER HALDOL DECANOATE IM 50MG GIVEN AT 1328 PATIENT TOLERATED WELL VS AT 1428 BP 130/80,P 80 ,R 18 ,TEMP 98.6 ,NO SOB WILL CONTINUE TO MONITOR .
[2017-07-12 16:00] VITALS: BP 104/60
[2017-07-12 20:56] VITALS: BP 125/65
[2017-07-12] MEDS: HALOPERIDOL LACTATE 10 MG/5 ML UDC PO SCH (21:23)
[2017-07-13] MEDS: LEVOTHYROXINE SODIUM 100 MCG TABLET PO SCH (07:30)
[2017-07-13] MEDS: PANTOPRAZOLE 40 MG TABLET.DR PO SCH (07:30)
[2017-07-13 08:24] VITALS: BP 110/70
[2017-07-13] MEDS: DOCUSATE SODIUM 100 MG CAPSULE PO SCH ×2 (08:31→17:00)
[2017-07-13] MEDS: FENOFIBRATE NANOCRYS (145 MG) 145 MG TABLET PO SCH (08:31)
[2017-07-13 15:09] LABS: CALCIUM, SERUM 8.4 mg/dL (8.5-10.1); CREATININE 0.8 mg/dL (0.6-1.3)
[2017-07-13 15:39] LABS: POTASSIUM 3.6 mmol/L (3.5-5.1)
[2017-07-13 16:43] VITALS: BP 108/60
[2017-07-13 19:50] VITALS: BP 131/74
[2017-07-13 20:00] VITALS: BP 131/74
[2017-07-13] MEDS: HALOPERIDOL LACTATE 10 MG/5 ML UDC PO SCH (21:02)
--- NOTE | 2017-07-13 21:02 | NUR ---
GPS/CHAIN TENDER NOTES: PT. REFUSED HS HALOPERIDOL 5MG PO ORDERED. OFFERED 3X. EXPLAINED RISK AND BENEFITS. PT. STILL REFUSED.
[2017-07-14] MEDS: PANTOPRAZOLE 40 MG TABLET.DR PO SCH (07:30)
[2017-07-14] MEDS: LEVOTHYROXINE SODIUM 100 MCG TABLET PO SCH (07:30)
[2017-07-14 08:00] VITALS: BP 112/58
[2017-07-14] MEDS: DOCUSATE SODIUM 100 MG CAPSULE PO SCH ×2 (08:49→17:00)
[2017-07-14] MEDS: FENOFIBRATE NANOCRYS (145 MG) 145 MG TABLET PO SCH (08:49)
--- NOTE | 2017-07-14 09:00 | NUR ---
GPS/RN pt refused am meds offered x3.
--- NOTE | 2017-07-14 10:28 | NUR ---
Discharge Planning: SW faxed an updated inquiry (face sheet, medical H&P, P&P, and medication list) to [facility], [address] [place] [address]. [place] [address]; and fax # to update the facility on pts progress. SW will follow up to ensure pt is safely and properly discharged.
[2017-07-14 15:42] VITALS: BP 111/84
[2017-07-14 20:00] VITALS: BP 138/90
[2017-07-14] MEDS: HALOPERIDOL LACTATE 10 MG/5 ML UDC PO SCH (22:00)
--- NOTE | 2017-07-14 22:21 | NUR ---
GPS RN NOTE: PATIENT REFUSED HALDOL, OFFERED X 3 ATTEMPTS, EXPLAINED THE RISK AND BENEFITS, PATIENT STILL REFUSED. WILL CONTINUE TO MONITOR
[2017-07-15] MEDS: PANTOPRAZOLE 40 MG TABLET.DR PO SCH (07:30)
[2017-07-15] MEDS: LEVOTHYROXINE SODIUM 100 MCG TABLET PO SCH (07:30)
[2017-07-15 08:25] VITALS: BP 100/63
[2017-07-15] MEDS: FENOFIBRATE NANOCRYS (145 MG) 145 MG TABLET PO SCH (09:00)
[2017-07-15] MEDS: DOCUSATE SODIUM 100 MG CAPSULE PO SCH ×2 (09:00→17:00)
--- NOTE | 2017-07-15 10:00 | NUR ---
GPS/RN PT REFUSED ALL AM MEDS OFFERED X3. DR SOTELO WHO IS COVERING TODAY FOR DR WARE MADE AWARE
[2017-07-15 16:00] VITALS: BP_SYST 108; BP_SYST 180; BP_DIAS 46; BP_DIAS 87
[2017-07-15 20:00] VITALS: BP 101/64
[2017-07-15] MEDS: HALOPERIDOL LACTATE 10 MG/5 ML UDC PO SCH (22:00)
--- NOTE | 2017-07-15 22:00 | NUR ---
GPS RN NOTE: PATIENT REFUSED HALDOL, OFFERED X 3 ATTEMPTS, EXPLAINED THE RISK AND BENEFITS, PATIENT STILL REFUSED. WILL CONTINUE TO MONITOR
[2017-07-16] MEDS: LEVOTHYROXINE SODIUM 100 MCG TABLET PO SCH (07:30)
[2017-07-16] MEDS: PANTOPRAZOLE 40 MG TABLET.DR PO SCH (07:30)
[2017-07-16] MEDS: FENOFIBRATE NANOCRYS (145 MG) 145 MG TABLET PO SCH (09:00)
[2017-07-16] MEDS: DOCUSATE SODIUM 100 MG CAPSULE PO SCH ×2 (09:00→17:00)
--- NOTE | 2017-07-16 10:15 | NUR ---
GPS/RN-NOTES PATIENT STRONGLY REFUSED ALL 0800 AND 0900AM MEDICATIONS DESPITE EXPLANATIONS RISK AND BENEFITS.PATIENT GETS ANGRY WITH THE COSTUME SHOP COORDINATOR. ORDERED X3 STILL REFUSED.
[2017-07-16 16:00] VITALS: BP 98/65
[2017-07-16 20:07] VITALS: BP 110/57
[2017-07-16] MEDS: HALOPERIDOL LACTATE 10 MG/5 ML UDC PO SCH (22:00)
[2017-07-17] MEDS: PANTOPRAZOLE 40 MG TABLET.DR PO SCH (07:30)
[2017-07-17] MEDS: LEVOTHYROXINE SODIUM 100 MCG TABLET PO SCH (07:30)
[2017-07-17 08:00] VITALS: BP 106/67
[2017-07-17] MEDS: FENOFIBRATE NANOCRYS (145 MG) 145 MG TABLET PO SCH (08:18)
[2017-07-17] MEDS: DOCUSATE SODIUM 100 MG CAPSULE PO SCH (08:18)
--- NOTE | 2017-07-17 08:30 | NUR ---
RN NOTE PATIENT REFUSED 0730 AND 0900 MEDICATIONS. EXPLAINED RISK AND BENEFITS x3. PATIENT STILL REFUSED MEDICATIONS AND SAID " I DONT WANT THEM".
--- NOTE | 2017-07-17 15:00 | NUR ---
CABLE TELEVISION PROGRAM DIRECTOR NOTE PATIENT IS ALERT AND ORIENTED x1-2. NO FACIAL GRIMACING NOTED FOR PAIN. ALL BELONGINGS TAKEN WITH PATIENT UPON DISCHARGE. PATIENT REFUSED ALL MEDICATIONS TODAY. ALL DISCHARGE INSTRUCTIONS GIVEN TO RN BEATER TENDER AT [facility], [place] . ALL NURSING CARE INSTRUCTIONS RECEIVED BACK FROM RN. ALL MEDICATIONS GIVEN TO RN AT [facility]. LEFT VIA AMBULANCE WITH TWO BARROW WORKER HELPER. Addendum: 07/17/17 at 1655 by YESSY DALY RN PATIENT IS 62 YEAR OLD FEMALE DISCHSRGE TO [facility] IN STABLE CONDITION. COMPLIANT WITH MEDICATIONS, COOPERATIVE WITH TREATMENT PLANS. PATIENT DENIES SI/HI AND INSTRUCTED TO GO TO NEAREST ER IF DEVELOPING SI/HI. BEHAVIOR IMPROVED, PSYCHIATRIC TX PLANS MET, MEDICAL TX PLANNS DEFFERED FOR CONTINUAL MONITORING.. EDUCATED PATIENT ABOUT AFTER CARE PLAN (EXIT CARE) AND COPY PROVIDED. RETURNED PERSONAL BELONGINGS TO PATIENT. -MEDICATIONS RECONCILED WITH /DR. WARE -REPORT GIVEN TO RENEA NOBLES BEATER TENDER AT [facility] FOR CONTINUITY OF CARE -PT REFUSED TO SIGN DISCHARGED PAPERWORK -WOUND PICTURES WERE REFUSED BY PATIENT. PATIENT LEFT THE UNIT AT 1500 VIA AMBULANCE
[2017-08-02] MEDS ORDERED: HALOPERIDOL DECANOATE IM 100 MG/ML AMPUL IM ONE (09:00)
== END 2017-07-17 16:59 | DRG 885 ==
LOC: ER 15:43 → GPS 19:41
PROVIDERS: ADMIT Psychiatry & Neurology Psychiatry; ATTEND Psychiatry & Neurology Psychiatry
DX: F20.9 Schizophrenia, unspecified (principal); F01.50 Vascular dementia, unspecified severity, without behavioral disturbance, psychotic disturbance, mood disturbance, and anxiety; N17.0 Acute kidney failure with tubular necrosis; E87.0 Hyperosmolality and hypernatremia; E44.0 Moderate protein-calorie malnutrition; E11.9 Type 2 diabetes mellitus without complications; E86.0 Dehydration; F32.9 Major depressive disorder, single episode, unspecified; K21.9 Gastro-esophageal reflux disease without esophagitis; R62.7 Adult failure to thrive; Z87.891 Personal history of nicotine dependence; E03.9 Hypothyroidism, unspecified; F41.9 Anxiety disorder, unspecified; E87.6 Hypokalemia; Z79.899 Other long term (current) drug therapy; Z73.6 Limitation of activities due to disability
CPT/HCPCS: 36415; 80048-TC; 80053-TC; 80061-TC; 80076-TC; 80305; 81000-TC; 82746; 83540-TC; 83735-TC; 84100-TC; 84443-TC; 85025-TC; 87081-TC; A4606; G0480; J1631; J7030; Z7610

== ENCOUNTER 2017-10-22 14:58 | Inpatient (IN) | payer MEDICARE, OTHER ==
[~2017-10-22] VITALS: Ht 152.4 cm; Wt 64.9 kg
[~2017-10-22 14:58] MED LIST changes: -BLOO-668 IN; -ENOX40DI SQ; -FENO145T20 PO; +FENO145T35 PO; +LIOT25TA2 PO; -NA P133E RC; -OLAN10VI IM; -[UNRECOGNIZED DRUG - CODE] IV
--- NOTE | 2017-10-22 15:16 | NUR ---
received patient to ed bed 13. Pt was bb private ambulance from [facility] for psych evaluation for increased agiattion. Pt is a/ox3. slightly agitated but can be redirected attention. No aggressive behavior at this time. NAD vss rr even and unlabored. pending er md evaluation
[2017-10-22 15:47] LABS: CALCIUM, SERUM 8.9 mg/dL (8.5-10.1); CARBON DIOXIDE 27 mmol/L (21-32); CHLORIDE 105 mmol/L (98-107); CREATININE 1.3 mg/dL (0.6-1.3); GLUCOSE 97 mg/dL (74-106); SODIUM SERUM 140 mmol/L (136-145); UREA NITROGEN, BLOOD 23 mg/dL (7-18)
--- NOTE | 2017-10-22 15:52 | NUR ---
PATIENT ASSIGNED TO [facility] 213 ONCE MEDICALLY CLEARED AND EVALAUTED ADMITTING PSYCH DR WARE AND HOSPITALIST WILL BE ADULT BASIC EDUCATION TEACHER PANEL
[2017-10-22 15:53] LABS: ALANINE AMINOTRANSFERASE 17 U/L (12-78); ALBUMIN 3.6 g/dL (3.4-5.0); ALKALINE PHOSPHATASE 63 U/L (46-116); ASPARTATE AMINOTRANSFERASE 18 U/L (15-37); BILIRUBIN,DIRECT 0.1 mg/dL (0.0-0.2); BILIRUBIN,TOTAL 0.9 mg/dL (0.2-1.0); TOTAL PROTEIN, SERUM 7.3 g/dL (6.4-8.2)
[2017-10-22 15:54] LABS: ACETAMINOPHEN 0 ug/ml (10-30); ALCOHOL, BLOOD < 3 mg/dL (0-0); SALICYLATE 0.4 mg/dL (2.8-20.0)
[2017-10-22 15:56] LABS: BASOPHILS # (AUTO) 0.1 /CMM (0.0-0.2); BASOPHILS % (AUTO) 0.9 % (0.0-2.0); EOSINOPHILS % (AUTO) 4.1 % (0.0-6.0); HEMATOCRIT 38 % (33-45); LYMPHOCYTES # (AUTO) 1.7 /CMM (0.8-4.8); LYMPHOCYTES % (AUTO) 28.3 % (20.0-44.0); MEAN CORPUSCULAR HGB CONC 34 g/dl (31.0-36.0); MEAN CORPUSCULAR VOLUME 87 fL (82-100); MONOCYTES # (AUTO) 0.6 /CMM (0.1-1.30); MONOCYTES % (AUTO) 9.5 % (2.0-12.0); NEUTROPHILS # (AUTO) 3.4 /CMM (1.8-8.9); NEUTROPHILS % (AUTO) 57.2 % (43.0-81.0); PLATELET COUNT (AUTO) 209 /CMM (150-450); RDW COEFFICIENT OF VARIATION 14.6 (11.5-15.0); WHITE BLOOD COUNT (AUTO) 5.9 K/uL (4.3-11.0)
[2017-10-22] MEDS ORDERED: ASPI-1152 PO (15:57)
[2017-10-22] MEDS ORDERED: NA P133E RC (15:57)
[2017-10-22 16:13] LABS: APPEARANCE,URINE Clear (CLEAR); BILIRUBIN,URINE Negative (NEGATIVE); BLOOD, URINE Negative Ery/uL (NEGATIVE); COLOR,URINE Yellow (YELLOW); KETONES,URINE Negative (NEGATIVE); LEUKOCYTE ESTERASE ,URINE Negative (NEGATIVE); NITRITE, URINE Negative (NEGATIVE); PROTEIN,URINE Negative (NEGATIVE); UGLUCOSE Negative (NEGATIVE); UROBILINOGEN,URINE 0.2 EU/dL (0.2)
--- NOTE | 2017-10-22 16:58 | NUR ---
CALLED [facility] FOR PSYCH EVAL
--- NOTE | 2017-10-22 18:35 | NUR ---
PER ARIEL PT PLACED ON 5150 HOLD FOR GD AND DANGER TO OTHERS.
--- NOTE | 2017-10-22 19:19 | NUR ---
REPORT RECEIVED FROM RENEA CHRISTIAN FOR HENRY.
--- NOTE | 2017-10-22 19:29 | NUR ---
REPORT GIVEN TO DANUTA MEIER FOR CONT OF CARE
[2017-10-22] MEDS ORDERED: BISACODYL SUPP (10 MG) 10 MG/SUPP.RECT SUPP.RECT RC PRN (19:30)
[2017-10-22] MEDS ORDERED: MAGNESIUM HYDROXIDE 30 ML UDC PO PRN ×2 (19:30→20:30)
[2017-10-22] MEDS ORDERED: ACETAMINOPHEN 325 MG TABLET PO PRN ×2 (19:30→20:30)
[2017-10-22] MEDS ORDERED: NA PHOS,M-B/NA PHOS,DI-BA 1 EA ENEMA RC PRN (19:30)
[2017-10-22 20:22] VITALS: BP 148/68
[2017-10-22] MEDS ORDERED: MAG HYDROX/AL HYDROX/SIMETH 30 ML UDC PO PRN (20:30)
[2017-10-22] MEDS ORDERED: HALO100A2 IM (21:03)
[2017-10-22 22:19] VITALS: BP 135/78
--- NOTE | 2017-10-22 23:21 | NUR ---
ADMISSION NOTES ADMITTED THIS 62 Y/O FEMALE PATIENT ADMIT FROM [facility] ER/ , PT. INTIALLY CAME FROM [facility]. PT IS ON 5150 HOLD FOR GD ,DTO , PER HOLD PT. IS AGRESSIVE ,INCREASED AGITATION, THREATING STAFF AND ROOM MATES, YELLING SCREAMING ,NON COMPLIANT WITH MEDS , UPON FACE TO FACE ASSESSMENT PATIENT IS A&O X2,3 AGRESSIVE UNCOOPERTIVE, DISORGNIZED , PT. IS POOR HISTORIAN, POOR INSIGHT ,POOR JUDGEMENT , V/S WNL, NO ACUTE DISTRESS NOTED, PT. REFUSED TO SIGN ALL ADMISSION PAPERS AND REFUSED TO TAKE PICTURES FOR CHART,PT. REFUESED SKIN ASSESSMENT PER PT. MY SKIN IS INTACT, AWARE AND NOTIFIED OF THE ADMISSION, ENCOURAGED PT. VERBALIZED ANY FEELING CONCERN TO STAFF, ORIENT TO UNIT POLICY, WILL CONTINUE TO MONITOR FOR Q15 SAFETY AND BEHAVIOR.
--- NOTE | 2017-10-22 23:38 | NUR ---
RN GPS NOTES PT. REFUSED TO CHECK BLOOD SUGAR FOR ADMISSION PROCESS , PT.WAS UNCOOPERATIVE AND PT.STATED MY BLOOD SUGAR IS NORMAL IDONT WANT CHECK IT. ENCOURAGED EXPLAIN RISKS AND BENEFITS , STILL REFUSED.
[2017-10-23] MEDS: LEVOTHYROXINE SODIUM 100 MCG TABLET PO SCH (07:30)
[2017-10-23] MEDS: PANTOPRAZOLE 40 MG TABLET.DR PO SCH (07:30)
[2017-10-23] MEDS: DOCUSATE SODIUM 100 MG CAPSULE PO SCH ×2 (08:57→17:00)
[2017-10-23] MEDS: FENOFIBRATE NANOCRYS (145 MG) 145 MG TABLET PO SCH (08:57)
[2017-10-23] MEDS: ASPIRIN EC 81 MG TABLET.DR PO SCH (08:57)
[2017-10-23 09:05] VITALS: BP 123/56
[2017-10-23] MEDS ORDERED: HALOPERIDOL DECANOATE IM 100 MG/ML AMPUL IM ONE (15:30)
[2017-10-23 16:00] VITALS: BP 120/69
[2017-10-23] MEDS: OLANZAPINE 5 MG/TAB.RAPDIS PO SCH (17:00)
[2017-10-23 19:56] VITALS: BP 121/62
[2017-10-23 20:00] VITALS: BP 121/62
[2017-10-24] MEDS: PANTOPRAZOLE 40 MG TABLET.DR PO SCH (07:30)
[2017-10-24] MEDS: LEVOTHYROXINE SODIUM 100 MCG TABLET PO SCH (07:30)
[2017-10-24 08:17] VITALS: BP 101/66
[2017-10-24] MEDS: OLANZAPINE 5 MG/TAB.RAPDIS PO SCH ×2 (09:00→17:05)
[2017-10-24] MEDS: ASPIRIN EC 81 MG TABLET.DR PO SCH (09:00)
[2017-10-24] MEDS: FENOFIBRATE NANOCRYS (145 MG) 145 MG TABLET PO SCH (09:00)
[2017-10-24] MEDS: DOCUSATE SODIUM 100 MG CAPSULE PO SCH ×2 (09:00→17:00)
[2017-10-24 16:00] VITALS: BP 108/55
[2017-10-24 20:09] VITALS: BP 106/58
[2017-10-25 07:21] LABS: BASOPHILS % (AUTO) 0.5 % (0.0-2.0); EOSINOPHILS % (AUTO) 4.1 % (0.0-6.0); HEMATOCRIT 38 % (33-45); LYMPHOCYTES # (AUTO) 2.2 /CMM (0.8-4.8); LYMPHOCYTES % (AUTO) 33.5 % (20.0-44.0); MEAN CORPUSCULAR HGB CONC 34 g/dl (31.0-36.0); MEAN CORPUSCULAR VOLUME 87 fL (82-100); MONOCYTES # (AUTO) 0.6 /CMM (0.1-1.30); MONOCYTES % (AUTO) 9.7 % (2.0-12.0); NEUTROPHILS # (AUTO) 3.4 /CMM (1.8-8.9); NEUTROPHILS % (AUTO) 52.2 % (43.0-81.0); PLATELET COUNT (AUTO) 201 /CMM (150-450); RDW COEFFICIENT OF VARIATION 14.5 (11.5-15.0); RED BLOOD CELL COUNT(AUTO) 4.33 MIL/uL (4.0-5.2); WHITE BLOOD COUNT (AUTO) 6.6 K/uL (4.3-11.0)
[2017-10-25 07:47] LABS: ALBUMIN 3.4 g/dL (3.4-5.0); BILIRUBIN,TOTAL 0.6 mg/dL (0.2-1.0); CALCIUM, SERUM 8.9 mg/dL (8.5-10.1); CREATININE 1.1 mg/dL (0.6-1.3); POTASSIUM 3.7 mmol/L (3.5-5.1); TOTAL PROTEIN, SERUM 6.9 g/dL (6.4-8.2)
[2017-10-25 07:54] LABS: THYROID STIMULATING HORMONE 62.088 uIU/mL (0.358-3.74)
[2017-10-25 08:00] VITALS: BP 100/50
[2017-10-25] MEDS: LEVOTHYROXINE SODIUM 100 MCG TABLET PO SCH (08:29)
[2017-10-25] MEDS: DOCUSATE SODIUM 100 MG CAPSULE PO SCH ×2 (08:29→16:49)
[2017-10-25] MEDS: PANTOPRAZOLE 40 MG TABLET.DR PO SCH (08:29)
[2017-10-25] MEDS: FENOFIBRATE NANOCRYS (145 MG) 145 MG TABLET PO SCH (08:29)
[2017-10-25] MEDS: OLANZAPINE 5 MG/TAB.RAPDIS PO SCH ×2 (08:29→16:48)
[2017-10-25] MEDS: ASPIRIN EC 81 MG TABLET.DR PO SCH (08:30)
[2017-10-25] MEDS: LORAZEPAM 0.5 MG TABLET PO PRN (09:09)
--- NOTE | 2017-10-25 14:09 | NUR ---
Initial Discharge Plan: Pt resides at [address] [facility]. [facility] [address]; , [facility]. SW contacted facility to inquire about pts return however was unable to reach anyone. SW will follow up to ensue pt is safely and appropriately discharged.
[2017-10-25 16:00] VITALS: BP 99/55
[2017-10-25 20:21] VITALS: BP 104/75
[2017-10-25] MEDS: TEMAZEPAM 7.5 MG CAPSULE PO PRN (21:49)
[2017-10-26 08:00] VITALS: BP 93/60
[2017-10-26] MEDS: FENOFIBRATE NANOCRYS (145 MG) 145 MG TABLET PO SCH (08:11)
[2017-10-26] MEDS: LEVOTHYROXINE SODIUM 100 MCG TABLET PO SCH (08:11)
[2017-10-26] MEDS: PANTOPRAZOLE 40 MG TABLET.DR PO SCH (08:11)
[2017-10-26] MEDS: ASPIRIN EC 81 MG TABLET.DR PO SCH (08:11)
[2017-10-26] MEDS: DOCUSATE SODIUM 100 MG CAPSULE PO SCH ×2 (08:12→16:25)
[2017-10-26] MEDS: OLANZAPINE 5 MG/TAB.RAPDIS PO SCH ×2 (08:12→16:25)
[2017-10-26 16:00] VITALS: BP 97/67
--- NOTE | 2017-10-26 16:27 | NUR ---
GPS/RN PATIENT REFUSED ZYPREXA 5 MG X 3, EXPLAINED RISKS AND BENEFITS, WILL CONTINUE TO ENCOURAGE TO COMPLY WITH MD REGIMEN. Addendum: 10/26/17 at 1628 by ADELAIDA LUTHER RN REFUSED 0900 DOSE
[2017-10-26 20:00] VITALS: BP 118/70
[2017-10-26] MEDS: TEMAZEPAM 7.5 MG CAPSULE PO PRN (22:07)
[2017-10-27] MEDS: OLANZAPINE 5 MG/TAB.RAPDIS PO SCH ×2 (08:45→17:15)
[2017-10-27] MEDS: PANTOPRAZOLE 40 MG TABLET.DR PO SCH (08:45)
[2017-10-27] MEDS: ASPIRIN EC 81 MG TABLET.DR PO SCH (08:45)
[2017-10-27] MEDS: FENOFIBRATE NANOCRYS (145 MG) 145 MG TABLET PO SCH (08:45)
[2017-10-27] MEDS: LEVOTHYROXINE SODIUM 100 MCG TABLET PO SCH (08:45)
[2017-10-27] MEDS: DOCUSATE SODIUM 100 MG CAPSULE PO SCH ×2 (08:55→17:00)
[2017-10-27 15:42] VITALS: BP 102/58
[2017-10-27 20:00] VITALS: BP 106/58
[2017-10-28 07:14] LABS: CREATININE 1.1 mg/dL (0.6-1.3); POTASSIUM 3.6 mmol/L (3.5-5.1)
[2017-10-28 07:27] LABS: THYROID STIMULATING HORMONE 31.141 uIU/mL (0.358-3.74)
[2017-10-28 08:00] VITALS: BP 126/68
[2017-10-28] MEDS: LEVOTHYROXINE SODIUM 100 MCG TABLET PO SCH (08:55)
[2017-10-28] MEDS: OLANZAPINE 5 MG/TAB.RAPDIS PO SCH ×2 (08:55→17:19)
[2017-10-28] MEDS: PANTOPRAZOLE 40 MG TABLET.DR PO SCH (08:55)
[2017-10-28] MEDS: FENOFIBRATE NANOCRYS (145 MG) 145 MG TABLET PO SCH (08:55)
[2017-10-28] MEDS: ASPIRIN EC 81 MG TABLET.DR PO SCH (08:55)
[2017-10-28] MEDS: DOCUSATE SODIUM 100 MG CAPSULE PO SCH ×2 (08:59→17:00)
[2017-10-28 16:06] VITALS: BP 100/58
--- NOTE | 2017-10-28 17:27 | NUR ---
GPS/RN PT TOOK ZYPREXA PO BID TODAY, HOWEVER PT REFUSED HALDOL DECANOATE INJECTABLE TODAY X3. EXPLAINED THE BENEFITS BUT PT REFUSED ANYWAY. PT STATES: " I WILL TAKE THIS FROM REAL PSYCHIATRIST, NOT THE FAKE ONE..."
[2017-10-28 20:00] VITALS: BP 136/57
--- NOTE | 2017-10-28 21:00 | NUR ---
GPS RN NOTE: ATTEMPTED TO OFFER THE HALOPERIDOL DECANOATE 50MG IM ORDERED. PATIENT NOTED TO BE AGREEABLE AND COOPERATIVE. HALOPERIDOL DECANOATE 50MG IM GIVEN ORDERED. NO COMPLICATION NOTED. PATIENT TOLERATED THE PROCEDURE. WILL CONTINUE TO MONITOR [id number] FOR SAFETY
[2017-10-28] MEDS: TEMAZEPAM 7.5 MG CAPSULE PO PRN (22:05)
[2017-10-28] MEDS: LORAZEPAM 0.5 MG TABLET PO PRN (23:23)
[2017-10-29 08:00] VITALS: BP 130/68
[2017-10-29] MEDS: PANTOPRAZOLE 40 MG TABLET.DR PO SCH (08:30)
[2017-10-29] MEDS: OLANZAPINE 5 MG/TAB.RAPDIS PO SCH ×2 (08:30→16:19)
[2017-10-29] MEDS: LEVOTHYROXINE SODIUM 100 MCG TABLET PO SCH (08:31)
[2017-10-29] MEDS: ASPIRIN EC 81 MG TABLET.DR PO SCH (08:31)
[2017-10-29] MEDS: FENOFIBRATE NANOCRYS (145 MG) 145 MG TABLET PO SCH (08:31)
[2017-10-29] MEDS: DOCUSATE SODIUM 100 MG CAPSULE PO SCH ×2 (08:32→16:19)
[2017-10-29 16:17] VITALS: BP 121/66
[2017-10-29 20:03] VITALS: BP 136/71
--- NOTE | 2017-10-29 23:00 | NUR ---
GPS RN NOTE, PATIENT HAS HALDOL DECANOATE 50MG IM ONCE ORDERED FOR 11/06/17 @0900. PATIENT RECEIVED ONE DOSE ON 10/28/17 @ 2100. PATIENT RECEIVES HALDOL DECANOATE 50MG IM EVERY TWO WEEKS AND PATIENTS HALDOL DECANOATE 50 MG IM ONCE ORDER IS STILL ACTIVE FOR 11/06/17 @0900. PAGED DR WARE AND INFORMED HIM OF FINDINGS. DR WARE GAVE NO NEW ORDERS AT THIS TIME AND SAID, " KEEP IT THE WAY IT IS ". ALL ORDERS NOTED AND CARRIED OUT WILL CONTINUE TO MONITOR THIS PATIENT.
[2017-10-30 08:00] VITALS: BP 104/58
[2017-10-30] MEDS: DOCUSATE SODIUM 100 MG CAPSULE PO SCH ×2 (08:48→16:35)
[2017-10-30] MEDS: OLANZAPINE 5 MG/TAB.RAPDIS PO SCH ×2 (08:48→16:36)
[2017-10-30] MEDS: PANTOPRAZOLE 40 MG TABLET.DR PO SCH (08:48)
[2017-10-30] MEDS: LEVOTHYROXINE SODIUM 100 MCG TABLET PO SCH (08:49)
[2017-10-30] MEDS: ASPIRIN EC 81 MG TABLET.DR PO SCH (08:49)
[2017-10-30] MEDS: FENOFIBRATE NANOCRYS (145 MG) 145 MG TABLET PO SCH (08:49)
--- NOTE | 2017-10-30 14:13 | NUR ---
SW [facility]25/2017[facility] [address] [address] [address] [place] [address]; and fax # agreeing to accept pt back to the facility once she is ready to discharge.
[2017-10-30 16:00] VITALS: BP 111/71
[2017-10-30 19:32] VITALS: BP 94/35
[2017-10-31 08:00] VITALS: BP 112/57
[2017-10-31] MEDS: DOCUSATE SODIUM 100 MG CAPSULE PO SCH ×2 (09:00→17:00)
[2017-10-31] MEDS: ASPIRIN EC 81 MG TABLET.DR PO SCH (09:09)
[2017-10-31] MEDS: OLANZAPINE 5 MG/TAB.RAPDIS PO SCH ×2 (09:10→17:13)
[2017-10-31] MEDS: LEVOTHYROXINE SODIUM 100 MCG TABLET PO SCH (09:10)
[2017-10-31] MEDS: FENOFIBRATE NANOCRYS (145 MG) 145 MG TABLET PO SCH (09:10)
[2017-10-31] MEDS: PANTOPRAZOLE 40 MG TABLET.DR PO SCH (09:12)
[2017-10-31 16:00] VITALS: BP 102/64
--- NOTE | 2017-10-31 19:25 | NUR ---
GPS/RN OPENING NOTES PATIENT ABLE TO VERBALIZE NEEDS REQUESTED FOR A SANDWICH, WILL MONITOR AND MONITOR BEHAVIOR AND ON FINGER STICK AT 2200. AMBULATORY AND WALKING STEADILY, FOR SUPERVISION AND ENDORSE RECEIVED PATIENT ABLE TO COOPERATE AND COMPLIANT TO MEDICATION REGIMEN.
[2017-10-31 20:00] VITALS: BP 118/60
--- NOTE | 2017-10-31 23:29 | NUR ---
COOPERATIVEW TO CARE Addendum: 10/31/17 at 2331 by VIKTOR LIANG RN Amended: Links added.
[2017-11-01 08:00] VITALS: BP 106/53
[2017-11-01] MEDS: LEVOTHYROXINE SODIUM 100 MCG TABLET PO SCH (09:08)
[2017-11-01] MEDS: ASPIRIN EC 81 MG TABLET.DR PO SCH (09:08)
[2017-11-01] MEDS: OLANZAPINE 5 MG/TAB.RAPDIS PO SCH ×2 (09:08→17:07)
[2017-11-01] MEDS: FENOFIBRATE NANOCRYS (145 MG) 145 MG TABLET PO SCH (09:08)
[2017-11-01] MEDS: DOCUSATE SODIUM 100 MG CAPSULE PO SCH ×2 (09:08→17:00)
[2017-11-01] MEDS: PANTOPRAZOLE 40 MG TABLET.DR PO SCH (09:08)
--- NOTE | 2017-11-01 14:16 | NUR ---
EFRAIN contacted Julia from [facility], [address] [address] [place] [address]; to confirm that pt would be discharging tomorrow. SW will make arrangements to ensure pt is safely discharged and notify appropriate family/friends.
[2017-11-01 16:00] VITALS: BP 95/52
[2017-11-01 21:28] VITALS: BP 118/78
[2017-11-02 08:00] VITALS: BP 116/59
[2017-11-02] MEDS: ASPIRIN EC 81 MG TABLET.DR PO SCH (08:34)
[2017-11-02] MEDS: PANTOPRAZOLE 40 MG TABLET.DR PO SCH (08:34)
[2017-11-02] MEDS: DOCUSATE SODIUM 100 MG CAPSULE PO SCH ×2 (08:34→16:35)
[2017-11-02] MEDS: LEVOTHYROXINE SODIUM 100 MCG TABLET PO SCH (08:34)
[2017-11-02] MEDS: OLANZAPINE 5 MG/TAB.RAPDIS PO SCH ×2 (08:34→16:33)
[2017-11-02] MEDS: FENOFIBRATE NANOCRYS (145 MG) 145 MG TABLET PO SCH (08:34)
[2017-11-02 16:00] VITALS: BP 129/76
--- NOTE | 2017-11-02 19:30 | NUR ---
GPS RN NOTE, RECEIVED PATIENT AWAKE AND IN BED, NO S/S OR COMPLAINTS OF PAIN AT THIS TIME. PATIENT DISPLAYING NO S/S OF APPARENT DISTRESS AT THIS TIME. PATIENT BREATHING IS UNLABORED WITH EQUAL RISE AND FALL OF THE CHEST. PATIENT ALERT AND ORIENTED X 3 WITH A SPO2 95%. PATIENT IS MED COMPLIANT, DISORGANIZED, CALM, COOPERATIVE, ANXIOUS AT TIMES, GUARDED, NEEDS REORIENTATION. PATIENT DENIES SUICIDE IDEATIONS AND HOMICIDAL IDEATIONS AT THIS TIME. PATIENT ASSISTED WITH TURNING AND REPOSITIONING Q2HR AND PRN FOR COMFORT AND CIRCULATION. PATIENT HAS NO NEEDS AT THIS TIME. PATIENT EDUCATED ON THE USE OF THE CALL CASTILLO. PATIENT BED SIDE RAILS UP X2 FOR SAFETY, BED IS LOCKED AND LOW WILL CONTINUE TO MONITOR AND MAINTAIN AND MAINTAIN SAFETY.
[2017-11-02 20:00] VITALS: BP 124/73
[2017-11-03 08:00] VITALS: BP 106/63
--- NOTE | 2017-11-03 08:00 | NUR ---
RN-CO: DR WARE ORDERED TO DISCONTINUE HOLD AND DISCHARGE PATIENT, NOTED.
[2017-11-03] MEDS: FENOFIBRATE NANOCRYS (145 MG) 145 MG TABLET PO SCH (08:34)
[2017-11-03] MEDS: PANTOPRAZOLE 40 MG TABLET.DR PO SCH (08:34)
[2017-11-03] MEDS: LEVOTHYROXINE SODIUM 100 MCG TABLET PO SCH (08:34)
[2017-11-03] MEDS: ASPIRIN EC 81 MG TABLET.DR PO SCH (08:34)
[2017-11-03] MEDS: DOCUSATE SODIUM 100 MG CAPSULE PO SCH (08:35)
[2017-11-03] MEDS: OLANZAPINE 5 MG/TAB.RAPDIS PO SCH (08:35)
--- NOTE | 2017-11-03 11:30 | NUR ---
EFRAIN contacted Kelechi Boyd, pts daughter at and was not able to leave a message; voicemail message stated the following, # is not reachable.
--- NOTE | 2017-11-03 11:34 | NUR ---
DISCHARGE NOTE: Patient will discharge to [facility], [address] [address] [place] [address]; and fax # via ambulance (trip # [id number]) at 11:00 am. Pt has been notified and is in agreement. SW contacted Kelechi Boyd, pts daughter at and was not able to leave a message; voicemail message stated the following, # is not reachable. Pt denied suicidal/homicidal ideations and denied visual/auditory hallucinations. Pt will be under the medical care of Tube Cutter Dr. Sabino Farrell Address: [address] [place] [address] [id number] Rhett Awad [phone] [address]. The multidisciplinary exitcare form was done, printed, signed, and given to the patient.
--- NOTE | 2017-11-03 13:00 | NUR ---
GPS/RN PT DISCHARGE TO [facility] WITH REPORT GIVEN TO YOUNG MEIER. NO SI OR HI AT THE TIME OF D/C. AMBULATORY, VSS, MEDS COMPLIANT. REFUSED TO SIGN D/C PAPERWORK. PROPERTY RETURNED. LEFT TO [facility] VIA AMBULANCE.
[2017-11-06] MEDS ORDERED: HALOPERIDOL DECANOATE IM 100 MG/ML AMPUL IM ONE (09:30)
== END 2017-11-03 13:00 | DRG 885 ==
LOC: ER 15:03 → GPS 19:18
PROVIDERS: ADMIT Psychiatry & Neurology Psychiatry; ATTEND Internal Medicine
DX: F20.0 Paranoid schizophrenia (principal); N17.0 Acute kidney failure with tubular necrosis; E03.9 Hypothyroidism, unspecified; K21.9 Gastro-esophageal reflux disease without esophagitis; E11.9 Type 2 diabetes mellitus without complications; Z91.14 Patient's other noncompliance with medication regimen; F41.9 Anxiety disorder, unspecified; F32.9 Major depressive disorder, single episode, unspecified; Z86.73 Personal history of transient ischemic attack (TIA), and cerebral infarction without residual deficits; Z87.891 Personal history of nicotine dependence
CPT/HCPCS: 36415; 80048-TC; 80053-TC; 80061-TC; 80076-TC; 80305; 81000-TC; 84443-TC; 85025-TC; 87081-TC; A4606; G0480; J1631; Z7610

== ENCOUNTER 2018-07-30 12:33 | Inpatient (IN) | payer MEDICARE, OTHER ==
[~2018-07-30] VITALS: Ht 177.8 cm; Wt 61.7 kg
[~2018-07-30 12:33] MED LIST changes: -ALLA266C2 TP; +ASPI-1152 PO; -LIOT25TA2 PO; +NA P133E RC
[2018-07-30] MEDS ORDERED: BLOO-668 IN (12:58)
[2018-07-30] MEDS ORDERED: OLAN5TAB3 PO (12:58)
[2018-07-30] MEDS ORDERED: HALO50AM2 IM (12:58)
[2018-07-30] MEDS ORDERED: IV NS 0.9% 500 ML BAG IV ONE (13:00)
[2018-07-30 13:13] LABS: BASOPHILS % (AUTO) 0.4 % (0.0-2.0); EOSINOPHILS % (AUTO) 1.2 % (0.0-6.0); HEMATOCRIT 49 % (33-45); HEMOGLOBIN 16.5 g/dL (11.5-14.8); LYMPHOCYTES # (AUTO) 2.3 /CMM (0.8-4.8); LYMPHOCYTES % (AUTO) 23.5 % (20.0-44.0); MEAN CORPUSCULAR HGB CONC 34 g/dl (31.0-36.0); MEAN CORPUSCULAR VOLUME 93 fL (82-100); MONOCYTES # (AUTO) 0.8 /CMM (0.1-1.30); MONOCYTES % (AUTO) 7.8 % (2.0-12.0); NEUTROPHILS # (AUTO) 6.7 /CMM (1.8-8.9); NEUTROPHILS % (AUTO) 67.1 % (43.0-81.0); PLATELET COUNT (AUTO) 309 /CMM (150-450); RED BLOOD CELL COUNT(AUTO) 5.31 MIL/uL (4.0-5.2); WHITE BLOOD COUNT (AUTO) 9.9 K/uL (4.3-11.0)
[2018-07-30 13:16] LABS: APPEARANCE,URINE Clear (CLEAR); BILIRUBIN,URINE SMALL (NEGATIVE); BLOOD, URINE Trace-intact Ery/uL (NEGATIVE); COLOR,URINE Yellow (YELLOW); KETONES,URINE 15 (NEGATIVE); LEUKOCYTE ESTERASE ,URINE Trace (NEGATIVE); NITRITE, URINE Positive (NEGATIVE); PROTEIN,URINE Trace mg/dl (NEGATIVE); UGLUCOSE Negative (NEGATIVE)
[2018-07-30 13:23] LABS: CALCIUM, SERUM 9.8 mg/dL (8.5-10.1); CARBON DIOXIDE 23 mmol/L (21-32); CHLORIDE 103 mmol/L (98-107); CREATININE 1.1 mg/dL (0.6-1.3); GLUCOSE 111 mg/dL (74-106); POTASSIUM 3.5 mmol/L (3.5-5.1); SODIUM SERUM 141 mmol/L (136-145); UREA NITROGEN, BLOOD 23 mg/dL (7-18)
[2018-07-30] MEDS ORDERED: PIPERACILLIN /TAZOBACTAM 3.375 G in IV D5W 50 ML IV ONE (13:30)
[2018-07-30 13:36] LABS: ALBUMIN 4.4 g/dL (3.4-5.0); ALKALINE PHOSPHATASE 77 U/L (46-116); ASPARTATE AMINOTRANSFERASE 18 U/L (15-37); BILIRUBIN,DIRECT 0.2 mg/dL (0.0-0.2); BILIRUBIN,TOTAL 1.4 mg/dL (0.2-1.0); TOTAL PROTEIN, SERUM 8.4 g/dL (6.4-8.2)
--- NOTE | 2018-07-30 13:41 | NUR ---
ANGELIQUE BATISTA [phone] WILL COME AFTER LUNCH
--- NOTE | 2018-07-30 13:45 | NUR ---
patient presented to the ER d/t refusing medication. on room air, breathing evenly and unlabored. connected tot he monitor and pulse ox. kept comfortable. will continue to monitor accordingly.
[2018-07-30 13:56] LABS: ALANINE AMINOTRANSFERASE 14 U/L (12-78)
[2018-07-30 14:13] LABS: BACTERIA,URINE Many /HPF (None Seen); SQUAMOUS EPITHELIAL CELL,UR Few /HPF (None Seen)
[2018-07-30] MEDS ORDERED: MAGNESIUM HYDROXIDE 30 ML UDC PO PRN ×2 (15:30)
[2018-07-30] MEDS ORDERED: Z GUARD REMEDY 2 OZ OINT TP PRN (15:30)
[2018-07-30] MEDS ORDERED: MAG HYDROX/AL HYDROX/SIMETH 30 ML UDC PO PRN (15:30)
[2018-07-30] MEDS ORDERED: ZOLPIDEM TARTRATE 5 MG TABLET PO PRN (15:30)
[2018-07-30] MEDS ORDERED: ONDANSETRON HCL/PF 4 MG/2 ML VIAL IVP PRN (15:30)
[2018-07-30] MEDS ORDERED: BISACODYL SUPP (10 MG) 10 MG/SUPP.RECT SUPP.RECT RC PRN (15:30)
[2018-07-30] MEDS ORDERED: HYDROCODONE/APAP 5/325MG 1 EACH TABLET PO PRN (15:30)
[2018-07-30] MEDS ORDERED: ACETAMINOPHEN 325 MG TABLET PO PRN ×2 (15:30)
[2018-07-30] MEDS ORDERED: NA PHOS,M-B/NA PHOS,DI-BA 1 EA ENEMA RC PRN (15:30)
--- NOTE | 2018-07-30 16:50 | NUR ---
transferred patient via gurney to room 311 in no apparent distress noted.
[2018-07-30 17:00] VITALS: BP 139/85
--- NOTE | 2018-07-30 17:00 | NUR ---
MS EXTENSION SERVICE AGENT NOTE PT ARRIVED TO [place] UNIT VIA GURNEY IN STABLE CONDITION ACCOMPANIED BY ER STAFF. PT IS A/O X3, AFEBRILE. RESPIRATIONS ARE EVEN AND UNLABORED, NOT IN ANY ACUTE DISTRESS NOTED. PT DENIES ANY PAIN AT THIS TIME. NO C/O CHEST PAIN, N/V, SOB. PUPILS ARE REACTIVE TO LIGHT, BILATERAL HAND SHOVEL ENGINEER ARE STRONG AND EQUAL. PT NOTED WITH RED EYES WITH SWOLLEN EYELIDS, MORE PROMINENT ON RIGHT. PT ALSO NOTED WITH REDNESS TO BUE. DR. WELDON MADE AWARE. ABDOMEN IS SOFT AND NONDISTENDED, BOWEL SOUNDS ARE PRESENT IN ALL QUADRANTS UPON AUSCULTATION. PT ABLE TO HAVE A BM ONCE IN ROOM. IV SITE TO RAC INTACT, NO INFILTRATION NOTED. STARTED PT ON IV FLUIDS AND ABX ONCE AVAILABLE. PT IS CURRENTLY ON A HOLD WITH A 1:1 SITTER. SAFETY MEASURES ARE IN PLACE. INSTRUCTED PT TO USE CALL LIGHT WHEN ASSISTANCE IS NEEDED, CALL LIGHT IS LEFT WITHIN REACH. WILL MONITOR THROUGHOUT SHIFT FOR CONTINUITY OF CARE.
[2018-07-30] MEDS: IV NS 0.9% 1,000 ML IV PRN (17:40)
[2018-07-30] MEDS: OLANZAPINE 5 MG TABLET PO SCH (17:40)
[2018-07-30] MEDS: DOCUSATE SODIUM 100 MG CAPSULE PO SCH (17:40)
[2018-07-30] MEDS: CEFTRIAXONE 1 G in IV D5W 50 ML IV SCH (17:50)
--- NOTE | 2018-07-30 18:32 | NUR ---
MS RN CLOSING NOTES DUE MEDS GIVEN, NEEDS ANTICIPATED. PT REMAINS A/O X3, AFEBRILE. RESPIRATIONS ARE EVEN AND UNLABORED, NOT IN ANY ACUTE DISTRESS NOTED. DENIES ANY PAIN AT THIS TIME, NO C/O SOB, N/V. IV SITE TO RAC INTACT, NO INFILTRATION NOTED. DRESSING KEPT CLEAN AND DRY. IV FLUIDS RUNNING AND TOLERATING WELL. PT IS COOPERATIVE AND COMPLIANT AT THIS TIME. SAFETY MEASURES ARE IN PLACE. REMINDED PT TO USE CALL LIGHT WHEN ASSISTANCE IS NEEDED. CALL LIGHT IS LEFT WITHIN REACH. WILL ENDORSE TO NEXT SHIFT FOR CONTINUITY OF CARE.
[2018-07-30 20:00] VITALS: BP 128/70
[2018-07-30 20:39] VITALS: BP 128/70
--- NOTE | 2018-07-30 21:04 | NUR ---
RECIEVED AWAKE AND SMILING. SITTER AT THE BEDSIDE
--- NOTE | 2018-07-31 05:36 | NUR ---
ENDING NOTES : EYES OPEN WHEN SPOKEN TO [facility] CONTACT. ASSISTED UP TO THE BATHROOM X3 TOTAL VOID 800ML THIS 12 HOURS. WILL DRINK WHEN OFFERED FLUIDS, NOT REACHING FOR A DRINK INDEPENDENTLY. SWALLOW W/O PROBLEMS ASPIRATION PRECAUTIONS TAKEN . WILL SPEAK AT TIMES CLEARLY. SITTER AT THE BEDSIDE
[2018-07-31] MEDS: IV NS 0.9% 1,000 ML IV PRN (06:12)
[2018-07-31] MEDS: BLOOD SUGAR DIAGNOSTIC 1 EACH STRIP IN SCH (06:38)
--- NOTE | 2018-07-31 07:40 | NUR ---
ms rn received on bed, awake,alert,oriented x2,not in any form of distress, respirations even and unlabored,no sob noted, lungs are clear,abdomen soft,positive bowel sounds, denies pain at this time, will monitor patient.
[2018-07-31 08:00] VITALS: BP 120/67
[2018-07-31 08:12] LABS: BASOPHILS % (AUTO) 0.4 % (0.0-2.0); HEMATOCRIT 40 % (33-45); HEMOGLOBIN 13.8 g/dL (11.5-14.8); LYMPHOCYTES # (AUTO) 1.6 /CMM (0.8-4.8); LYMPHOCYTES % (AUTO) 28.7 % (20.0-44.0); MEAN CORPUSCULAR HGB CONC 34 g/dl (31.0-36.0); MEAN CORPUSCULAR VOLUME 90 fL (82-100); MONOCYTES # (AUTO) 0.6 /CMM (0.1-1.30); MONOCYTES % (AUTO) 11.3 % (2.0-12.0); NEUTROPHILS # (AUTO) 3.1 /CMM (1.8-8.9); NEUTROPHILS % (AUTO) 56.6 % (43.0-81.0); PLATELET COUNT (AUTO) 202 /CMM (150-450); RED BLOOD CELL COUNT(AUTO) 4.47 MIL/uL (4.0-5.2); WHITE BLOOD COUNT (AUTO) 5.5 K/uL (4.3-11.0)
[2018-07-31 08:36] LABS: CALCIUM, SERUM 8.6 mg/dL (8.5-10.1); CREATININE 0.8 mg/dL (0.6-1.3); MAGNESIUM 1.7 mg/dL (1.8-2.4); PHOSPHORUS 3.9 mg/dL (2.5-4.9); POTASSIUM 3.4 mmol/L (3.5-5.1)
[2018-07-31 08:42] LABS: THYROID STIMULATING HORMONE 57.115 uIU/mL (0.358-3.74)
--- NOTE | 2018-07-31 09:20 | NUR ---
ms idnh breakfast served,due meds given,tolerated well.
[2018-07-31] MEDS: OLANZAPINE 5 MG TABLET PO SCH ×2 (09:49→17:20)
[2018-07-31] MEDS: ASPIRIN EC 81 MG TABLET.DR PO SCH (09:50)
[2018-07-31] MEDS: DOCUSATE SODIUM 100 MG CAPSULE PO SCH ×2 (09:50→17:20)
[2018-07-31] MEDS: FENOFIBRATE NANOCRYS (145 MG) 145 MG TABLET PO SCH (09:50)
[2018-07-31] MEDS: PANTOPRAZOLE 40 MG TABLET.DR PO SCH (09:51)
--- NOTE | 2018-07-31 10:00 | NUR ---
ms fabrizio was seen by edgardo grewal w/ orders made and carried out.
[2018-07-31] MEDS ORDERED: POTASSIUM CHLORIDE 20 MEQ TAB.PRT.SR PO SCH (11:30)
[2018-07-31] MEDS: Magnesium 1GM/D5W 100ML PREMIX 100 ML IV SCH ×2 (12:00→12:52)
[2018-07-31 16:00] VITALS: BP 114/50
[2018-07-31] MEDS: CEFTRIAXONE 1 G in IV D5W 50 ML IV SCH (17:20)
--- NOTE | 2018-07-31 17:43 | NUR ---
ms rn on bed, no distress noted,all needs attended.
--- NOTE | 2018-07-31 19:45 | NUR ---
ms rn received on bed, awake,alert,oriented x2,not in any form of distress, respirations even and unlabored,no sob noted, lungs are clear,abdomen soft,positive bowel sounds, denies pain at this time, will monitor patient. RN NOTES RECEIVED ASLEEP IN BED, NO SIGNS OF ACUTE DISTRESS NOTED, ASPIRATION PRECAUTION MAINTAINED, ALL SAFETY MEASURES IN PLACED, SITTER AT BEDSIDE. WILL MONITOR ACCORDINGLY.
[2018-07-31 20:00] VITALS: BP 102/55
[2018-07-31 23:00] VITALS: BP 102/55
--- NOTE | 2018-08-01 02:23 | NUR ---
RN NOTES FAXED PATIENT'S FACE SHEET TO [facility], [facility] CHARGE NURSE AWARE TO BE ADMITTED TO [facility].
--- NOTE | 2018-08-01 07:22 | NUR ---
MS RN OPENING NOTE RECEIVED PT LAYING IN BED. PT IS ALERT AND ORIENTED X1-2. NO ACUTE DISTRESS NOTED AT THIS TIME. BREATHING IS EVEN AND UNLABORED ON ROOM AIR. PT DENIES SI AND VISUAL/AUDITORY HALLUCINATIONS AT THIS TIME. RIGHT AC #20G IV IS INFUSING NS @NS @ 75ML/HR WITHOUT REDNESS OR SWELLING. ASPIRATION PRECAUTIONS MAINTAINED. ALL NEEDS ATTENDED TO. PT IS ON A 5150 HOLD THAT EXPIRES 08/02/18 WITH PLANS FOR TRANSFER FOR GPS LATER TODAY. 1:1 SITTER NOTED AT THE BEDSIDE FOR SAFETY. BED IS LOCKED AND IN LOWEST POSITION, SIDE RAILS UP X2, CALL LIGHT AND POSSESSIONS WITHIN REACH.
[2018-08-01] MEDS: BLOOD SUGAR DIAGNOSTIC 1 EACH STRIP IN SCH (07:25)
--- NOTE | 2018-08-01 07:30 | NUR ---
RN NOTES ALL NEEDS ATTENDED AND MET, ENDORSED FOR CONTINUITY OF CARE.
[2018-08-01 08:17] LABS: CALCIUM, SERUM 8.6 mg/dL (8.5-10.1); MAGNESIUM 2.3 mg/dL (1.8-2.4); POTASSIUM 4.1 mmol/L (3.5-5.1)
[2018-08-01] MEDS: PANTOPRAZOLE 40 MG TABLET.DR PO SCH (08:22)
[2018-08-01] MEDS: OLANZAPINE 5 MG TABLET PO SCH ×2 (08:22→17:52)
[2018-08-01] MEDS: DOCUSATE SODIUM 100 MG CAPSULE PO SCH ×3 (08:22→17:52)
[2018-08-01] MEDS: ASPIRIN EC 81 MG TABLET.DR PO SCH (08:22)
[2018-08-01] MEDS: FENOFIBRATE NANOCRYS (145 MG) 145 MG TABLET PO SCH (08:22)
--- NOTE | 2018-08-01 10:15 | NUR ---
MS RN NOTE INFORMED PJ PERALES NP REGARDING PT URINE CX POSITIVE FOR E.COLI ESBL. PER MACEY PT IS NO LONGER GOING TO GPS AND SHE WILL REVIEW ABX. INFORMED CHARGE NURSE KAMERON REGARDING URINE CX RESULT AND WILL INITIATE CONTACT PRECAUTIONS PER PROTOCOL.
[2018-08-01] MEDS: IV NS 0.9% 1,000 ML IV PRN (10:21)
[2018-08-01] MEDS ORDERED: MEROPENEM 500 MG in IV NS 0.9% 50 ML IV ONE (12:00)
[2018-08-01 16:00] VITALS: BP 100/55
--- NOTE | 2018-08-01 18:35 | NUR ---
MS RN CLOSING NOTE PT LAYING IN BED. PT IS ALERT AND ORIENTED X1-2. NO ACUTE DISTRESS NOTED AT THIS TIME. BREATHING IS EVEN AND UNLABORED ON ROOM AIR. PT DENIES SI AND VISUAL/AUDITORY HALLUCINATIONS AT THIS TIME. RIGHT AC #20G IV IS INFUSING NS @NS @ 75ML/HR WITHOUT REDNESS OR SWELLING. ASPIRATION AND CONTACT PRECAUTIONS MAINTAINED. ADLS PROVIDED AND PT ASSISTED TO TURN AND REPOSITION Q2H FOR THE DURATION OF THE SHIFT. ALL NEEDS ATTENDED TO. 1:1 SITTER NOTED AT THE BEDSIDE FOR SAFETY. BED IS LOCKED AND IN LOWEST POSITION, SIDE RAILS UP X2, CALL LIGHT AND POSSESSIONS WITHIN REACH. WILL ENDORSE TO GROUP DYNAMICS INSTRUCTOR NURSE FOR CONTINUITY OF CARE.
--- NOTE | 2018-08-01 19:45 | NUR ---
MS RN NOTES RECEIVED ON BED A/O X1-2,BREATHING REGULAR,NOT IN ANY FORM OF DISTRESS.ISOLATION PRECAUTION FOR ESBL URINE.CONFUSED WITH SITTER AT BEDSIDE.IVF NS AT 75ML/HR RATE IN PROGRESS ON RIGHT AC VIA IV PUMP.INSTRUCTED TO TURN FORM SIDE TO SIDE TO AVOID REDNESS ON BUTTOCKS AREA.CALL LIGHT IN REACH,NEEDS ANTICIPATED.
[2018-08-01 20:00] VITALS: BP 124/54
--- NOTE | 2018-08-02 02:00 | NUR ---
MS RN NOTES SLEEPING,KEPT WARM AND COMFORTABLE.
[2018-08-02] MEDS: IV NS 0.9% 1,000 ML IV PRN (03:09)
--- NOTE | 2018-08-02 05:30 | NUR ---
MS RN NOTES REFUSED BLOOD SUGAR CHECK,CLAIMED SHE'S NOT DIABETIC
[2018-08-02] MEDS: BLOOD SUGAR DIAGNOSTIC 1 EACH STRIP IN SCH (06:38)
[2018-08-02 07:30] LABS: BASOPHILS % (AUTO) 0.5 % (0.0-2.0); EOSINOPHILS % (AUTO) 3.8 % (0.0-6.0); HEMATOCRIT 33 % (33-45); HEMOGLOBIN 11.5 g/dL (11.5-14.8); LYMPHOCYTES % (AUTO) 19.8 % (20.0-44.0); MEAN CORPUSCULAR HGB CONC 35 g/dl (31.0-36.0); MEAN CORPUSCULAR VOLUME 90 fL (82-100); MONOCYTES # (AUTO) 0.5 /CMM (0.1-1.30); MONOCYTES % (AUTO) 9.7 % (2.0-12.0); NEUTROPHILS # (AUTO) 3.4 /CMM (1.8-8.9); NEUTROPHILS % (AUTO) 66.2 % (43.0-81.0); PLATELET COUNT (AUTO) 163 /CMM (150-450); RED BLOOD CELL COUNT(AUTO) 3.67 MIL/uL (4.0-5.2); WHITE BLOOD COUNT (AUTO) 5.2 K/uL (4.3-11.0)
--- NOTE | 2018-08-02 07:30 | NUR ---
RN NOTES RECEIVED PATIENT IN BED SLEEPING, AROUSABLE TO VERBAL STIMULI, ALERT AND ORIENTED 1-2, ABLE TO MAKE NEEDS KNOW, DENIES ANY PAIN AT THIS TIME. ON ROOM AIR, NO SOB NOTED. WITH IV LINE ON THE RAC G 20: IN PLACE AND INTACT, PATENT ON FLUSHING. WITH NS AT 75ML/HR RATE. . PATIENT ABLE TO MOVE ABOUT IN BED. SAFETY MEASURES OBSERVED AND MAINTAINED. CALL LIGHT PLACED WITHIN EASY REACH, WILL ANTICIPATE NEEDS AND MONITOR PATIENT CLOSELY.
[2018-08-02 07:37] LABS: CALCIUM, SERUM 8.6 mg/dL (8.5-10.1); CREATININE 1.1 mg/dL (0.6-1.3); MAGNESIUM 1.8 mg/dL (1.8-2.4); PHOSPHORUS 4.3 mg/dL (2.5-4.9); POTASSIUM 3.9 mmol/L (3.5-5.1)
[2018-08-02 08:00] VITALS: BP_SYST 111; BP_SYST 119; BP_DIAS 54; BP_DIAS 61
[2018-08-02] MEDS: PANTOPRAZOLE 40 MG TABLET.DR PO SCH (08:43)
[2018-08-02] MEDS: DOCUSATE SODIUM 100 MG CAPSULE PO SCH ×2 (08:43→16:37)
[2018-08-02] MEDS: ASPIRIN EC 81 MG TABLET.DR PO SCH (08:43)
[2018-08-02] MEDS: FENOFIBRATE NANOCRYS (145 MG) 145 MG TABLET PO SCH (08:43)
[2018-08-02] MEDS: OLANZAPINE 5 MG TABLET PO SCH ×2 (08:43→16:37)
[2018-08-02] MEDS ORDERED: MERO500V IV (09:51)
--- NOTE | 2018-08-02 12:00 | NUR ---
RN NOTES [facility]. SPOKE TO RENEA NOBLES.
[2018-08-02] MEDS: MEROPENEM 500 MG in IV NS 0.9% 100 ML IV SCH ×4 (12:04→23:58)
--- NOTE | 2018-08-02 13:30 | NUR ---
RN NOTES PATIENT REFUSED TO GO TO [facility] DESPITE ARRANGEMENTS. TRANSPORT TEAM AT BEDSIDE AT THIS TIME. "ALL THEY HAVE THERE ARE CRAPS AND SHITS. THE ONLY THING THEY HAVE THERE IS MEDICINE FOR YOUR POOP". PATIENT GIVEN TIME TO TALKED TO SIGNIFICANT OTHER. PRESIDENT CEO & FOUNDER INFORMED AND IS AT BEDSIDE TOO. BUT FAILED TO PERSUADE PATIENT TO BE DISCHARGE.
--- NOTE | 2018-08-02 14:30 | NUR ---
RN NOTES PER CHARGE NURSE, SHE CALLED [facility]. OBTAINED PHONE NUMBER TO PAGE DR. SOTELO IN HOPE TO OF TRANSFERRING PATIENT TO [facility]. AWAITING RESPONSE
--- NOTE | 2018-08-02 15:20 | NUR ---
RN NOTES CALLED DR RAMÍREZ AND INFORMED ABOUT DR SOTELO. PER DR. RAMÍREZ, " I CANNOT DO ANYTHING ABOUT IT. I DONT KNOW THE PATIENT YOU SHOULD CALL DR. SOTELO.
[2018-08-02 16:00] VITALS: BP 146/54
[2018-08-02 16:49] VITALS: BP 146/54
--- NOTE | 2018-08-02 19:32 | NUR ---
RN NOTES PATIENT ENDORSED FOR CONTINUITY OF CARE. ALL NURSING NEEDS ATTENDED AND MET. SAFETY MEASURES IN PLACE AT ALL TIMES. CALL LIGHT WITHIN REACH AT ALL TIMES
--- NOTE | 2018-08-02 19:45 | NUR ---
MS RN NOTES RECEIVED ON BED SLEEPING,AROUSABLE TO VERBAL STIMULI,BREATHING REGULAR,NOT IN ANY FORM OF DISTRESS.ISOLATION PRECAUTION FOR ESBL URINE.IVF NS AT 75 ML/HR RATE IN PROGRESS VIA IV PUMP ON RIGHT AC,SITE PATENT.CALL LIGHT IN REACH,NEEDS ANTICIPATED.
[2018-08-02 20:00] VITALS: BP 116/68
[2018-08-03] MEDS: IV NS 0.9% 1,000 ML IV PRN
--- NOTE | 2018-08-03 01:00 | NUR ---
MS RN NOTES IV SITE LEAKING,NEW SALINE LOCK PLACE ON RIGHT HAND #22,SAME IVF INFUSING AT THIS TIME.
--- NOTE | 2018-08-03 06:17 | NUR ---
MS RN NOTES NO SIGNIFICANT CHANGE IN STATUS.ABLE TO AMBULATE,,IVF INFUSING,IN NO ACUTE DISTRESS.WILL ENDORSE TO DAY NURSE FOR HENRY
[2018-08-03] MEDS: BLOOD SUGAR DIAGNOSTIC 1 EACH STRIP IN SCH (06:41)
[2018-08-03 08:00] VITALS: BP 133/58
--- NOTE | 2018-08-03 08:00 | NUR ---
m/s resident care associate: initial assessment received pt in bed awake, a/ox2-3; easily gets irritated and agitated, but no aggression noted. reality orientation provided prn. pt still refuses to go to snf. pt for d'c planning. will continue to monitor.
[2018-08-03] MEDS: PANTOPRAZOLE 40 MG TABLET.DR PO SCH (08:21)
[2018-08-03] MEDS: ASPIRIN EC 81 MG TABLET.DR PO SCH (08:21)
[2018-08-03] MEDS: FENOFIBRATE NANOCRYS (145 MG) 145 MG TABLET PO SCH (08:21)
[2018-08-03] MEDS: DOCUSATE SODIUM 100 MG CAPSULE PO SCH (08:21)
[2018-08-03] MEDS: OLANZAPINE 5 MG TABLET PO SCH (08:22)
[2018-08-03] MEDS ORDERED: LEVO500T75 PO ×2 (09:27→15:16)
[2018-08-03] MEDS ORDERED: LEVO25TA7 PO (09:31)
--- NOTE | 2018-08-03 09:45 | NUR ---
m/s entry operator: md visit seen and examined by henna (acnp) with order to discharge pt to gps. order acknowledged. cn aware. dr. esposito notified and made aware, stated, "let dr. barr know and she will write the hold and will be covering me today."
--- NOTE | 2018-08-03 09:58 | NUR ---
m/s bakery manager: notes dr. barr (psychiatrist) notified and made aware re: gps admission per dr. esposito, and will be here in a couple of hours and to let the intake know as stated. intake notified and made aware.
--- NOTE | 2018-08-03 10:27 | NUR ---
m/s weathercaster: notes bella (intake) called and informed that crisis team already saw her and the psychiatrist need to put her on hold. dr. barr made aware.
--- NOTE | 2018-08-03 12:45 | NUR ---
m/s informatics coordinator: psych f/u seen by dr. barr and place pt on 14 day hold. pt verbally aggressive to dr. barr when explaining to her about treatment plan. will continue to monitor.
[2018-08-03] MEDS: MEROPENEM 500 MG in IV NS 0.9% 100 ML IV SCH (12:49)
--- NOTE | 2018-08-03 12:53 | NUR ---
m/s solid state tester: notes place a call sara [phone] (family), but no answer, voice mail is not set up yet.
[2018-08-03] MEDS ORDERED: OLANZAPINE 5 MG TABLET PO SCH (13:00)
--- NOTE | 2018-08-03 13:30 | NUR ---
m/s digital communications manager: notes pt refused skin photos and assessment, stated, "it was done yesterday." pt easily agitated and irritated. 1:1 intervention provided prn. will continue to monitor.
--- NOTE | 2018-08-03 13:52 | NUR ---
m/s concrete carpenter: notes report given to mehreen (rn) for continuity of care.
--- NOTE | 2018-08-03 14:00 | NUR ---
m/s entry level project engineer: notes pt unable to sign d'c instructions due to cognitive impairment. 2 license staff signed all d'c papers. admitting notified re: admission to gps and faxed all necessary papers.
--- NOTE | 2018-08-03 14:39 | NUR ---
m/s records management manager: notes place a call sara [phone] (daughter), but no answer, voice mail is not set up yet.
--- NOTE | 2018-08-03 14:40 | NUR ---
m/s saddle stitcher: notes h/l removed with tip intact with no bleeding, no redness, and no swelling noted.
--- NOTE | 2018-08-03 14:45 | NUR ---
m/s business services sales agent: discharged discharged to gps via w/c with all d'c papers and belongings in stable condition.
[2018-08-03] MEDS ORDERED: LEVO25TA9 PO (15:16)
[2018-08-03] MEDS ORDERED: ZOLP5TAB8 PO (15:16)
[2018-08-03] MEDS ORDERED: HYDR-4384 PO (15:16)
[2018-08-03] MEDS ORDERED: ALLA266C2 TP (15:16)
[2018-08-03] MEDS ORDERED: MAG30ORA PO (15:16)
[2018-08-03] MEDS ORDERED: ONDA4TAB5 PO (15:16)
== END 2018-08-03 14:53 | DRG 689 ==
LOC: ER 12:48 → MED 16:16
PROVIDERS: ATTEND Nurse Practitioner Acute Care
DX: N39.0 Urinary tract infection, site not specified (principal); G93.41 Metabolic encephalopathy; E87.2 Acidosis; R62.7 Adult failure to thrive; E03.9 Hypothyroidism, unspecified; E11.9 Type 2 diabetes mellitus without complications; E87.6 Hypokalemia; F41.9 Anxiety disorder, unspecified; Z86.73 Personal history of transient ischemic attack (TIA), and cerebral infarction without residual deficits; Z87.891 Personal history of nicotine dependence; F31.9 Bipolar disorder, unspecified; F25.9 Schizoaffective disorder, unspecified; R53.1 Weakness; B96.20 Unspecified Escherichia coli [E. coli] as the cause of diseases classified elsewhere; Z16.12 Extended spectrum beta lactamase (ESBL) resistance; F29 Unspecified psychosis not due to a substance or known physiological condition
CPT/HCPCS: 36415; 71045-TC; 80048-TC; 80061-TC; 80076-TC; 81000-TC; 82962-TC; 83605-TC; 83735-TC; 84100-TC; 84439-TC; 84443-TC; 84484-TC; 85025-TC; 85730-TC; 87040-TC; 87081-TC; 87086-TC; 87186-TC; A4216; G0378; J0696; J2185; J2543; J3475; J7030; J7040; J7050; J7060

== ENCOUNTER 2018-08-03 14:20 | Inpatient (IN) | payer MEDICARE, OTHER ==
[~2018-08-03] VITALS: Ht 152.4 cm; Wt 64.4 kg
[~2018-08-03 14:20] MED LIST changes: +BISA10SU11 RC; -BISA10SU8 RC; +BLOO-668 IN; +HALO50AM2 IM; -LEVO100T9 PO; +LEVO25TA7 PO; +LEVO500T75 PO; +MERO500V IV; +OLAN5TAB3 PO
[2018-08-03] MEDS ORDERED: MAGNESIUM HYDROXIDE 30 ML UDC PO PRN ×2 (15:00→16:30)
[2018-08-03] MEDS ORDERED: MAG HYDROX/AL HYDROX/SIMETH 30 ML UDC PO PRN ×2 (15:00→16:30)
[2018-08-03] MEDS ORDERED: TEMAZEPAM 7.5 MG CAPSULE PO PRN (15:00)
[2018-08-03] MEDS ORDERED: LORAZEPAM 0.5 MG TABLET PO PRN (15:00)
[2018-08-03] MEDS ORDERED: ACETAMINOPHEN 325 MG TABLET PO PRN ×2 (15:00→16:30)
[2018-08-03] MEDS ORDERED: LEVO25TA9 PO (15:16)
[2018-08-03] MEDS ORDERED: ALLA266C2 TP (15:16)
[2018-08-03] MEDS ORDERED: ZOLP5TAB8 PO (15:16)
[2018-08-03] MEDS ORDERED: HYDR-4384 PO (15:16)
[2018-08-03] MEDS ORDERED: LEVO500T75 PO (15:16)
[2018-08-03] MEDS ORDERED: MAG30ORA PO (15:16)
[2018-08-03] MEDS ORDERED: ONDA4TAB5 PO (15:16)
--- NOTE | 2018-08-03 15:30 | NUR ---
GPS/RN RECEIVED PT DIRECT ADMISSION FROM [facility] ON 075 . ADMITTING ORDERS FROM DR ZHENG RECEIVED AND CARRIED OUT, LENNY MEDICAL CASH POSTER MADE AWARE OF ADMISSION. PT IS POOR HISTORIAN AND REFUSED TO PROVIDE INFORMATION. INFO TAKEN FROM MEDICAL RECORDS. VSS NO ACUTE DISTRESS NOTED. SKIN NOTED CLEAR ON ADMISSION. PT REFUSED MRSN NARES SWAB AND SIGN ADMITTING PAPERWORK.
[2018-08-03 16:00] VITALS: BP 114/49
[2018-08-03] MEDS ORDERED: NA PHOS,M-B/NA PHOS,DI-BA 1 EA ENEMA RC PRN (16:30)
[2018-08-03] MEDS ORDERED: BISACODYL SUPP (10 MG) 10 MG/SUPP.RECT SUPP.RECT RC PRN (16:30)
[2018-08-03] MEDS ORDERED: HYDROCODONE/APAP 5/325MG 1 EACH TABLET PO PRN (16:30)
[2018-08-03] MEDS ORDERED: Z GUARD REMEDY 2 OZ OINT TP PRN (16:30)
[2018-08-03] MEDS ORDERED: ONDANSETRON 4 MG TAB.RAPDIS PO PRN (17:30)
[2018-08-03] MEDS: DOCUSATE SODIUM 100 MG CAPSULE PO SCH (18:13)
[2018-08-03] MEDS: LEVOFLOXACIN (500MG) 500 MG TABLET PO SCH (18:13)
--- NOTE | 2018-08-03 19:50 | NUR ---
RN OPENING NOTES RECEIVED REPORT FROM DAYSHIFT RN. FOUND Pt ASLEEP, RESTING IN BED. NO S/S OF ACUTE DISTRESS OR SOB NOTED. RESPIRATIONS EVEN AND UNLABORED. SAFETY MEASURES IN PLACE. BED LOW, LOCKED, HOB SLIGHTLY ELEVATED, & SIDE RAILS UP. WILL CONTINUE TO MONITOR Pt's CONDITION AND SAFETY THROUGHOUT THE NIGHT.
--- NOTE | 2018-08-03 19:51 | NUR ---
RN NOTES PER DAYSHIFT RN REPORT Pt REFUSED MRSA SWAB UPON ADMISSION.
[2018-08-03 20:00] VITALS: BP 115/76
[2018-08-03 21:00] VITALS: BP 115/76
--- NOTE | 2018-08-04 05:36 | NUR ---
PT REFUSED AM LAB BLOOD DRAW
[2018-08-04] MEDS: PANTOPRAZOLE 40 MG TABLET.DR PO SCH ×2 (07:30→09:43)
[2018-08-04] MEDS: BLOOD SUGAR DIAGNOSTIC 1 EACH STRIP IN SCH (07:30)
[2018-08-04] MEDS: LEVOTHYROXINE SODIUM 25 MCG TABLET PO SCH ×2 (07:30→09:43)
--- NOTE | 2018-08-04 07:34 | NUR ---
RN LUCIANO NOTES NO SIGNIFICANT CHANGES IN Pt's CONDITION. Pt REMAINS STABLE PER BASELINE. NO S/S OF ACUTE DISTRESS OR SOB NOTED DURING THE NIGHT. ALL NEEDS MET AND ATTENDED. SAFETY MEASURES IN PLACE. ENDORSED TO RENEA RAIN FOR Pt's HENRY.
[2018-08-04 08:00] VITALS: BP 119/63
[2018-08-04] MEDS: DOCUSATE SODIUM 100 MG CAPSULE PO SCH ×4 (09:00→17:02)
[2018-08-04] MEDS: ASPIRIN EC 81 MG TABLET.DR PO SCH ×2 (09:00→09:43)
[2018-08-04] MEDS: FENOFIBRATE NANOCRYS (145 MG) 145 MG TABLET PO SCH ×2 (09:00→09:43)
--- NOTE | 2018-08-04 10:44 | NUR ---
refused am meds as well as accu-check.
--- NOTE | 2018-08-04 12:27 | NUR ---
refusing am labs x2.
--- NOTE | 2018-08-04 15:30 | NUR ---
no change in status.
[2018-08-04] MEDS: OLANZAPINE 2.5 MG TABLET PO SCH ×2 (15:52→20:25)
[2018-08-04 16:00] VITALS: BP 116/65
[2018-08-04 16:24] LABS: ALBUMIN 3.2 g/dL (3.4-5.0); BILIRUBIN,TOTAL 0.5 mg/dL (0.2-1.0); CALCIUM, SERUM 8.7 mg/dL (8.5-10.1); CREATININE 1.2 mg/dL (0.6-1.3); POTASSIUM 3.8 mmol/L (3.5-5.1); TOTAL PROTEIN, SERUM 6.2 g/dL (6.4-8.2)
[2018-08-04 16:25] LABS: CHOLESTEROL 148 mg/dL (<200); HDL CHOLESTEROL 41 mg/dL (40-60); LDL 98 mg/dL (0-99); TRIGLYCERIDES 65 mg/dL (30-150)
[2018-08-04] MEDS: LEVOFLOXACIN (500MG) 500 MG TABLET PO SCH (17:02)
[2018-08-04 20:00] VITALS: BP 110/71
[2018-08-05] MEDS: PANTOPRAZOLE 40 MG TABLET.DR PO SCH (07:30)
[2018-08-05] MEDS: BLOOD SUGAR DIAGNOSTIC 1 EACH STRIP IN SCH (07:30)
[2018-08-05] MEDS: LEVOTHYROXINE SODIUM 25 MCG TABLET PO SCH (07:30)
[2018-08-05 08:00] VITALS: BP 117/55
[2018-08-05] MEDS: OLANZAPINE 2.5 MG TABLET PO SCH ×3 (08:00→20:53)
[2018-08-05] MEDS: DOCUSATE SODIUM 100 MG CAPSULE PO SCH ×2 (09:00→17:00)
[2018-08-05] MEDS: FENOFIBRATE NANOCRYS (145 MG) 145 MG TABLET PO SCH (09:00)
[2018-08-05] MEDS: ASPIRIN EC 81 MG TABLET.DR PO SCH (09:00)
[2018-08-05 16:00] VITALS: BP 100/64
[2018-08-05] MEDS: LEVOFLOXACIN (500MG) 500 MG TABLET PO SCH (18:16)
--- NOTE | 2018-08-05 19:30 | NUR ---
GPS RN NOTE, RECEIVED PATIENT AWAKE AND IN BED NO S/S OR COMPLAINTS OF PAIN AT THIS TIME. PATIENT IS DISPLAYING NO S/S OF APPARENT DISTRESS AT THIS TIME. PATIENT BREATHING IS UNLABORED WITH EQUAL RISE AND FALL OF THE CHEST. PATIENT IS ALERT AND ORIENTED X 1-2 ON ROOM AIR WITH A SPO2 OF 94%. PATIENT IS MED SELECTIVE, DISORGANIZED, DEPRESSED, COOPERATIVE, CONFUSED AT TIME, AND NEEDS REORIENTATION. PATIENT DENIES SUICIDE AND HOMICIDAL IDEATIONS AT THIS TIME. PATIENT ASSISTED WITH TURNING AND REPOSITIONING Q2HR AND PRN FOR COMFORT AND CIRCULATION. PATIENT HAS NO NEEDS AT THIS TIME. PATIENT EDUCATED ON THE USE OF THE CALL CASTILLO. PATIENT BED SIDE RAILS ARE UP X 2 FOR SAFETY, BED IS LOCKED AND LOW. WILL CONTINUE TO MONITOR AND MAINTAIN SAFETY Q15 MIN WITH THE HELP OF STAFF.
[2018-08-05 20:28] VITALS: BP 99/55
[2018-08-05] MEDS ORDERED: OLANZAPINE 2.5 MG TABLET PO SCH (22:00)
[2018-08-06] MEDS: PANTOPRAZOLE 40 MG TABLET.DR PO SCH (07:30)
[2018-08-06] MEDS: LEVOTHYROXINE SODIUM 25 MCG TABLET PO SCH (07:30)
[2018-08-06] MEDS: BLOOD SUGAR DIAGNOSTIC 1 EACH STRIP IN SCH (07:30)
[2018-08-06 08:00] VITALS: BP 116/52
[2018-08-06] MEDS: OLANZAPINE 2.5 MG TABLET PO SCH ×3 (08:00→20:09)
[2018-08-06] MEDS: FENOFIBRATE NANOCRYS (145 MG) 145 MG TABLET PO SCH (09:16)
[2018-08-06] MEDS: ASPIRIN EC 81 MG TABLET.DR PO SCH (09:16)
[2018-08-06] MEDS: DOCUSATE SODIUM 100 MG CAPSULE PO SCH ×2 (09:16→18:47)
--- NOTE | 2018-08-06 14:18 | NUR ---
SW called the pt's daughter, Deb ([phone]), was unable to leave a message on her voicemail because her voicemail is full.
--- NOTE | 2018-08-06 14:19 | NUR ---
SW called the pt's mother, Jessica ([phone]), and left a message on her voicemail stating that the SW would like to discuss the pt's discharge plan and treatment.
--- NOTE | 2018-08-06 14:20 | NUR ---
Initial Discharge Plan: Pt currently resides at [facility] located at [address] [place] [address]; ([phone]). Per pt, she is unsure about her discharge plan at this moment. EFRAIN contacted Julia ([phone]) from [facility] who stated that the pt can return. EFRAIN will work with the pt and the MD regarding appropriate discharge planning. EFRAIN will form a safe and proper discharge.
[2018-08-06 16:00] VITALS: BP 112/67
[2018-08-06] MEDS: LEVOFLOXACIN (500MG) 500 MG TABLET PO SCH (18:47)
[2018-08-06 20:12] VITALS: BP 118/72
[2018-08-07] MEDS: BLOOD SUGAR DIAGNOSTIC 1 EACH STRIP IN SCH (07:30)
[2018-08-07 08:00] VITALS: BP 124/64
[2018-08-07] MEDS: OLANZAPINE 2.5 MG TABLET PO SCH ×3 (08:36→19:45)
[2018-08-07] MEDS: PANTOPRAZOLE 40 MG TABLET.DR PO SCH (08:36)
[2018-08-07] MEDS: LEVOTHYROXINE SODIUM 25 MCG TABLET PO SCH (08:37)
[2018-08-07] MEDS: FENOFIBRATE NANOCRYS (145 MG) 145 MG TABLET PO SCH (08:37)
[2018-08-07] MEDS: ASPIRIN EC 81 MG TABLET.DR PO SCH (08:37)
[2018-08-07] MEDS: DOCUSATE SODIUM 100 MG CAPSULE PO SCH ×2 (08:42→17:00)
[2018-08-07 16:00] VITALS: BP 111/60
[2018-08-07] MEDS: LEVOFLOXACIN (500MG) 500 MG TABLET PO SCH (17:50)
[2018-08-07 21:54] VITALS: BP 104/51
[2018-08-08] MEDS: LEVOTHYROXINE SODIUM 25 MCG TABLET PO SCH (07:30)
[2018-08-08] MEDS: PANTOPRAZOLE 40 MG TABLET.DR PO SCH (07:30)
[2018-08-08 08:00] VITALS: BP 123/65
[2018-08-08] MEDS: ASPIRIN EC 81 MG TABLET.DR PO SCH (09:00)
[2018-08-08] MEDS: DOCUSATE SODIUM 100 MG CAPSULE PO SCH ×2 (09:00→17:28)
[2018-08-08] MEDS: FENOFIBRATE NANOCRYS (145 MG) 145 MG TABLET PO SCH (09:00)
[2018-08-08] MEDS: OLANZAPINE 2.5 MG TABLET PO SCH ×3 (10:07→17:28)
[2018-08-08 16:00] VITALS: BP 111/56
[2018-08-08] MEDS: LEVOFLOXACIN (500MG) 500 MG TABLET PO SCH (17:28)
--- NOTE | 2018-08-08 19:30 | NUR ---
RECIEVED PATIENT ALERT AND AMBULATING AROUND. ACKNOWLEDGED ME WHEN I INTRODUCED MYSELF. STEADY GAIT. PATIENT IS DISPLAYING NO S/S OF APPARENT DISTRESS AT THIS TIME. PATIENT'S BREATHING IS UNLABORED WITH EQUAL RISE AND FALL OF THE CHEST,
[2018-08-08 20:23] VITALS: BP 103/51
[2018-08-08] MEDS: OLANZAPINE 10 MG TABLET PO SCH (21:15)
--- NOTE | 2018-08-09 05:01 | NUR ---
ENDING NOTES: WAS IN BED ABOUT 8PM SLEPT ON HER STOMACH. COOPERATIVE ABOUT TAKING HER MEDICATIONS. SWALLOWS W/O PROBLEMS.REMINS IN CONTACT ISOLATION D/T ESBL OF THE URINE. GOOD HYGEINE AND HAND WASHING I INSTRUCCTED THE PATIENT ON. NO AGGRESSIVE BEHAVIOR SEEN.
[2018-08-09 08:00] VITALS: BP 110/69
[2018-08-09] MEDS: ASPIRIN EC 81 MG TABLET.DR PO SCH (08:16)
[2018-08-09] MEDS: DOCUSATE SODIUM 100 MG CAPSULE PO SCH ×3 (08:16→16:39)
[2018-08-09] MEDS: LEVOTHYROXINE SODIUM 25 MCG TABLET PO SCH (08:16)
[2018-08-09] MEDS: FENOFIBRATE NANOCRYS (145 MG) 145 MG TABLET PO SCH (08:16)
[2018-08-09] MEDS: OLANZAPINE 2.5 MG TABLET PO SCH ×3 (08:17→16:37)
[2018-08-09] MEDS: PANTOPRAZOLE 40 MG TABLET.DR PO SCH (08:17)
[2018-08-09 16:00] VITALS: BP 108/64
[2018-08-09] MEDS: LEVOFLOXACIN (500MG) 500 MG TABLET PO SCH (17:22)
[2018-08-09 20:00] VITALS: BP 109/52
[2018-08-09] MEDS: OLANZAPINE 10 MG TABLET PO SCH ×2 (22:00→22:44)
[2018-08-10 08:00] VITALS: BP 106/64
[2018-08-10] MEDS: OLANZAPINE 2.5 MG TABLET PO SCH ×2 (09:12→12:45)
[2018-08-10] MEDS: ASPIRIN EC 81 MG TABLET.DR PO SCH (09:12)
[2018-08-10] MEDS: LEVOTHYROXINE SODIUM 25 MCG TABLET PO SCH (09:12)
[2018-08-10] MEDS: PANTOPRAZOLE 40 MG TABLET.DR PO SCH (09:12)
[2018-08-10] MEDS: FENOFIBRATE NANOCRYS (145 MG) 145 MG TABLET PO SCH (09:12)
[2018-08-10] MEDS: DOCUSATE SODIUM 100 MG CAPSULE PO SCH ×2 (09:12→17:01)
--- NOTE | 2018-08-10 11:23 | NUR ---
GPS/RN-NOTES RECEIVED T.O ORDER FROM AUGUSTINA RICK TO D/C LEVAQUIN AND ISOLATION ,AND DO URINE CULTURE. NOTED AND CARRIED OUT.
--- NOTE | 2018-08-10 11:35 | NUR ---
EFRAIN contacted Julia ([phone]) from [facility] and verified that the pt is allowed to return. Julia stated that the pt can return when she is stable.
[2018-08-10 16:00] VITALS: BP 100/59
[2018-08-10 20:00] VITALS: BP 108/67
--- NOTE | 2018-08-10 20:00 | NUR ---
GPS RN NOTES RECEIVED PTS IN BED AWAKE AND RESPONSIVE ABLE TO MAKE NEEDS KNOWN , V/S STABLE AFEBRILE , DUE MEDS GIVEN ORDERED ALL NEEDS ATTENDED TOO NO HENRY NOTED AT THIS TIME KEPT PTS CLEAN DRY AND COMFORTABLE,WILL CONTINUE TO MONITOR PTS.
[2018-08-10] MEDS: OLANZAPINE 5 MG TABLET PO SCH (21:32)
[2018-08-11 08:00] VITALS: BP_SYST 127; BP_SYST 99; BP_DIAS 63; BP_DIAS 72
[2018-08-11] MEDS: OLANZAPINE 2.5 MG TABLET PO SCH ×3 (08:00→14:04)
[2018-08-11] MEDS: LEVOTHYROXINE SODIUM 25 MCG TABLET PO SCH (09:28)
[2018-08-11] MEDS: ASPIRIN EC 81 MG TABLET.DR PO SCH (09:28)
[2018-08-11] MEDS: PANTOPRAZOLE 40 MG TABLET.DR PO SCH (09:28)
[2018-08-11] MEDS: FENOFIBRATE NANOCRYS (145 MG) 145 MG TABLET PO SCH (09:28)
[2018-08-11] MEDS: DOCUSATE SODIUM 100 MG CAPSULE PO SCH ×3 (09:28→17:39)
--- NOTE | 2018-08-11 09:30 | NUR ---
becca held due low bp 99/63,heart rate 72.
[2018-08-11 13:30] VITALS: BP 100/63
--- NOTE | 2018-08-11 14:00 | NUR ---
afternoon zyprexa given as bp up,now 100/63.
[2018-08-11 16:00] VITALS: BP 100/52
[2018-08-11 20:00] VITALS: BP 113/61
[2018-08-11] MEDS: OLANZAPINE 5 MG TABLET PO SCH (21:24)
[2018-08-12 08:00] VITALS: BP 100/53
--- NOTE | 2018-08-12 08:45 | NUR ---
PT REFUSING ALL MEDICATIONS AND LABS STATING 'HER DR WOULD NOT PRESCRIBE THAT'. UNRESPONSIVE TO EDUCATION AND ENCOURAGEMENT. WILL NOT ENGAGE FURTHER WITH STAFF AT THIS TIME
[2018-08-12 10:30] LABS: BASOPHILS # (AUTO) 0.1 /CMM (0.0-0.2); EOSINOPHILS % (AUTO) 4.6 % (0.0-6.0); HEMATOCRIT 33 % (33-45); HEMOGLOBIN 11.3 g/dL (11.5-14.8); LYMPHOCYTES # (AUTO) 1.4 /CMM (0.8-4.8); LYMPHOCYTES % (AUTO) 25.7 % (20.0-44.0); MEAN CORPUSCULAR HGB CONC 35 g/dl (31.0-36.0); MEAN CORPUSCULAR VOLUME 90 fL (82-100); MONOCYTES # (AUTO) 0.5 /CMM (0.1-1.30); MONOCYTES % (AUTO) 9.6 % (2.0-12.0); NEUTROPHILS # (AUTO) 3.2 /CMM (1.8-8.9); NEUTROPHILS % (AUTO) 59.1 % (43.0-81.0); PLATELET COUNT (AUTO) 190 /CMM (150-450); RED BLOOD CELL COUNT(AUTO) 3.61 MIL/uL (4.0-5.2); WHITE BLOOD COUNT (AUTO) 5.4 K/uL (4.3-11.0)
--- NOTE | 2018-08-12 10:43 | NUR ---
PT REMAINS REFUSING ALL MEDICATIONS AND LABS AND IS UNRESPONSIVE TO EDUCATION AND ENCOURAGEMENT. AGAIN WILL NOT ENGAGE FURTHER WITH STAFF AT THIS TIME
[2018-08-12 10:47] LABS: CALCIUM, SERUM 8.6 mg/dL (8.5-10.1); CREATININE 1.2 mg/dL (0.6-1.3); MAGNESIUM 1.8 mg/dL (1.8-2.4); PHOSPHORUS 3.6 mg/dL (2.5-4.9)
[2018-08-12] MEDS: ASPIRIN EC 81 MG TABLET.DR PO SCH (10:57)
[2018-08-12] MEDS: DOCUSATE SODIUM 100 MG CAPSULE PO SCH ×2 (10:57→16:05)
[2018-08-12] MEDS: FENOFIBRATE NANOCRYS (145 MG) 145 MG TABLET PO SCH (10:57)
[2018-08-12] MEDS: PANTOPRAZOLE 40 MG TABLET.DR PO SCH (10:57)
[2018-08-12] MEDS: OLANZAPINE 2.5 MG TABLET PO SCH ×2 (10:57→12:29)
[2018-08-12] MEDS: LEVOTHYROXINE SODIUM 25 MCG TABLET PO SCH (10:57)
[2018-08-12 16:00] VITALS: BP 111/63
[2018-08-12 20:00] VITALS: BP 97/63
[2018-08-12] MEDS: OLANZAPINE 5 MG TABLET PO SCH (21:12)
[2018-08-13 07:06] LABS: APPEARANCE,URINE CLEAR (CLEAR); BILIRUBIN,URINE NEGATIVE (NEGATIVE); BLOOD, URINE NEGATIVE Ery/uL (NEGATIVE); COLOR,URINE YELLOW (YELLOW); KETONES,URINE NEGATIVE (NEGATIVE); LEUKOCYTE ESTERASE ,URINE TRACE (NEGATIVE); NITRITE, URINE NEGATIVE (NEGATIVE); PROTEIN,URINE NEGATIVE (NEGATIVE); UGLUCOSE NEGATIVE (NEGATIVE); UROBILINOGEN,URINE 0.2 EU/dL (0.2)
[2018-08-13 07:11] LABS: BACTERIA,URINE Few /HPF (None Seen); RBC,URINE 0-2 /HPF (0-2); SQUAMOUS EPITHELIAL CELL,UR Few /HPF (None Seen); WBC,URINE 21-50 /HPF (0-3)
[2018-08-13 08:00] VITALS: BP 134/70
[2018-08-13] MEDS: PANTOPRAZOLE 40 MG TABLET.DR PO SCH (09:36)
[2018-08-13] MEDS: ASPIRIN EC 81 MG TABLET.DR PO SCH (09:37)
[2018-08-13] MEDS: FENOFIBRATE NANOCRYS (145 MG) 145 MG TABLET PO SCH (09:37)
[2018-08-13] MEDS: OLANZAPINE 2.5 MG TABLET PO SCH ×2 (09:37→13:42)
[2018-08-13] MEDS: LEVOTHYROXINE SODIUM 25 MCG TABLET PO SCH (09:37)
[2018-08-13] MEDS: DOCUSATE SODIUM 100 MG CAPSULE PO SCH ×2 (09:37→16:31)
--- NOTE | 2018-08-13 13:10 | NUR ---
EFRAIN contacted Julia ([phone]) from [facility] and informed her that the pt will be returning to [facility] the following day on the condition that she does not refuse her medications.
[2018-08-13 16:00] VITALS: BP 128/54
[2018-08-13 20:16] VITALS: BP 102/72
[2018-08-13] MEDS ORDERED: OLANZAPINE 5 MG TABLET PO SCH (22:00)
--- NOTE | 2018-08-13 22:34 | NUR ---
gps rn notes: patient refused her zyprexa medication, per patient, "my doctor is payam, and that medication is too much for me!" patient advised that her psych dr is dr esposito. but patient still refuse. will continue to encourage patient.
[2018-08-14 08:00] VITALS: BP 113/59
[2018-08-14] MEDS: PANTOPRAZOLE 40 MG TABLET.DR PO SCH (08:24)
[2018-08-14] MEDS: FENOFIBRATE NANOCRYS (145 MG) 145 MG TABLET PO SCH (08:24)
[2018-08-14] MEDS: OLANZAPINE 2.5 MG TABLET PO SCH ×2 (08:24→13:14)
[2018-08-14] MEDS: ASPIRIN EC 81 MG TABLET.DR PO SCH (08:24)
[2018-08-14] MEDS: LEVOTHYROXINE SODIUM 25 MCG TABLET PO SCH (08:24)
[2018-08-14] MEDS: DOCUSATE SODIUM 100 MG CAPSULE PO SCH (08:24)
--- NOTE | 2018-08-14 10:00 | NUR ---
EFRAIN contacted Julia ([phone]) from [facility] and informed her that the pt will be discharged today back to their facility.
--- NOTE | 2018-08-14 10:11 | NUR ---
EFRAIN called the pt's mother, Jessica ([phone]), and informed her that the pt is being discharged back to [facility] today and that the pt has shown improvement since being admitted.
--- NOTE | 2018-08-14 14:22 | NUR ---
GPS VANSTONE MACHINE OPERATOR NOTE: PT [facility]CHARGE TO [facility] AT [address] [address] [facility] , [place] [address], PT IN STABLE CONDITION NO S/S DISTRESS NOTED , DENIES SI/HI, CALM COOPERATIVE. DR NORM Metzger. DC HOLD DC TO SNF. DR YOUNG SEEN AND EXAMINE THE PT WITH NEW MEDICATION BACTRIM 400 MG PO BID X5 DAYS , SKIN CLEAN AND INTACT, PT REFUSED TO SIGN DISCHARGE PAPERS, EXIT CARE DONE PRINTED GIVEN TO PT.
--- NOTE | 2018-08-14 15:43 | NUR ---
Discharge Note: Pt was discharged to [facility] ([facility]) located at [address] [place] [address]; ([phone]). Pt was transported via [facility] (Trip #[id number]) at 1:30PM. SW informed the pt�s mother, Jessica ([phone]), of this discharge. Upon discharge, the pt appeared to be in a depressed mood and presented with a flat affect. Pt appeared to be apathetic and was not cooperative. Pt denied both suicidal and homicidal ideation as well as auditory and visual hallucinations. Pt will continue to be under the care of his psychiatrist, Dr. Awad, located at [address] [place] [address]; and his swedish masseuse, Dr. Hunt, located at [address], [address] [place] [address]; .
== END 2018-08-14 14:30 | DRG 885 ==
LOC: GPS 14:20
PROVIDERS: ADMIT Psychiatry & Neurology Psychiatry; ATTEND Psychiatry & Neurology Psychiatry
DX: F29 Unspecified psychosis not due to a substance or known physiological condition (principal); G93.41 Metabolic encephalopathy; N39.0 Urinary tract infection, site not specified; F31.9 Bipolar disorder, unspecified; F20.9 Schizophrenia, unspecified; E11.9 Type 2 diabetes mellitus without complications; R62.7 Adult failure to thrive; F41.9 Anxiety disorder, unspecified; E03.9 Hypothyroidism, unspecified; Z86.73 Personal history of transient ischemic attack (TIA), and cerebral infarction without residual deficits; Z87.891 Personal history of nicotine dependence
CPT/HCPCS: 36415; 80048-TC; 80053-TC; 80061-TC; 81000-TC; 82962-TC; 83735-TC; 84100-TC; 85025-TC; 87086-TC

== ENCOUNTER 2019-02-02 20:01 | Inpatient (IN) | payer MEDICARE, OTHER ==
[~2019-02-02 20:01] MED LIST changes: +ALLA266C2 TP; -HALO50AM2 IM; +HYDR-4384 PO; -LEVO25TA7 PO; +LEVO25TA9 PO; +MAG30ORA PO; -MERO500V IV; -OLAN5TAB3 PO; +ONDA4TAB5 PO
[2019-02-02] MEDS ORDERED: CEPHALEXIN MONOHYDRATE 500 MG CAPSULE PO ONE ×2 (22:08→22:30)
[2019-02-02] MEDS ORDERED: ACETAMINOPHEN 325 MG TABLET PO PRN (23:30)
[2019-02-02] MEDS ORDERED: BLOOD SUGAR DIAGNOSTIC 1 EACH STRIP IN ONE (23:30)
[2019-02-02] MEDS ORDERED: LORAZEPAM 0.5 MG TABLET PO PRN (23:30)
[2019-02-02] MEDS ORDERED: MAG HYDROX/AL HYDROX/SIMETH 30 ML UDC PO PRN (23:30)
[2019-02-02] MEDS ORDERED: TEMAZEPAM 7.5 MG CAPSULE PO PRN (23:30)
[2019-02-02] MEDS ORDERED: MAGNESIUM HYDROXIDE 30 ML UDC PO PRN (23:30)
[2019-02-03] MEDS ORDERED: OLAN10TA3 PO (07:25)
[2019-02-03] MEDS ORDERED: OLAN5TAB3 PO (07:25)
[2019-02-03] MEDS ORDERED: BISACODYL SUPP (10 MG) 10 MG/SUPP.RECT SUPP.RECT RC PRN (10:30)
[2019-02-03] MEDS ORDERED: NA PHOS,M-B/NA PHOS,DI-BA 1 EA ENEMA RC PRN (10:30)
[2019-02-03] MEDS ORDERED: Z GUARD REMEDY 2 OZ OINT TP PRN (10:30)
[2019-02-03] MEDS ORDERED: MAGNESIUM HYDROXIDE 30 ML UDC PO PRN (10:30)
[2019-02-03] MEDS ORDERED: HYDROCODONE/APAP 5/325MG 1 EACH TABLET PO PRN (10:30)
[2019-02-03] MEDS ORDERED: POTASSIUM CHLORIDE 20 MEQ TAB.PRT.SR PO SCH (10:30)
[2019-02-03] MEDS: DOCUSATE SODIUM 100 MG CAPSULE PO SCH (16:24)
[2019-02-03] MEDS: CEPHALEXIN MONOHYDRATE 500 MG CAPSULE PO SCH (20:53)
[2019-02-04] MEDS: LEVOTHYROXINE SODIUM 25 MCG TABLET PO SCH (07:30)
[2019-02-04] MEDS: DOCUSATE SODIUM 100 MG CAPSULE PO SCH ×2 (09:00→17:00)
[2019-02-04] MEDS: CEPHALEXIN MONOHYDRATE 500 MG CAPSULE PO SCH ×2 (09:00→21:27)
[2019-02-04] MEDS: OLANZAPINE 5 MG/TAB.RAPDIS PO SCH ×2 (09:00→17:00)
[2019-02-04] MEDS: ASPIRIN EC 81 MG TABLET.DR PO SCH (09:00)
[2019-02-04] MEDS: DIVALPROEX SODIUM 250 MG TABLET.DR PO SCH ×3 (09:00→21:27)
[2019-02-04] MEDS: FENOFIBRATE NANOCRYS (145 MG) 145 MG TABLET PO SCH (09:00)
[2019-02-04] MEDS ORDERED: risperiDONE 1 MG TABLET PO SCH (21:00)
[2019-02-05] MEDS: LEVOTHYROXINE SODIUM 25 MCG TABLET PO SCH (07:30)
[2019-02-05] MEDS: DIVALPROEX SODIUM 250 MG TABLET.DR PO SCH ×3 (08:46→21:00)
[2019-02-05] MEDS: CEPHALEXIN MONOHYDRATE 500 MG CAPSULE PO SCH ×2 (08:46→20:11)
[2019-02-05] MEDS: ASPIRIN EC 81 MG TABLET.DR PO SCH (08:50)
[2019-02-05] MEDS: FENOFIBRATE NANOCRYS (145 MG) 145 MG TABLET PO SCH (08:50)
[2019-02-05] MEDS: DOCUSATE SODIUM 100 MG CAPSULE PO SCH ×2 (08:50→17:00)
[2019-02-05] MEDS: OLANZAPINE 5 MG/TAB.RAPDIS PO SCH ×2 (08:50→17:00)
[2019-02-06] MEDS: LEVOTHYROXINE SODIUM 25 MCG TABLET PO SCH (07:30)
[2019-02-06] MEDS: FENOFIBRATE NANOCRYS (145 MG) 145 MG TABLET PO SCH (08:15)
[2019-02-06] MEDS: ASPIRIN EC 81 MG TABLET.DR PO SCH (08:15)
[2019-02-06] MEDS: DOCUSATE SODIUM 100 MG CAPSULE PO SCH ×2 (08:16→16:10)
[2019-02-06] MEDS: CEPHALEXIN MONOHYDRATE 500 MG CAPSULE PO SCH (08:16)
[2019-02-06] MEDS: OLANZAPINE 5 MG/TAB.RAPDIS PO SCH ×2 (08:16→16:10)
[2019-02-06] MEDS: DIVALPROEX SODIUM 250 MG TABLET.DR PO SCH ×3 (08:16→19:54)
[2019-02-07] MEDS: LEVOTHYROXINE SODIUM 25 MCG TABLET PO SCH (07:30)
[2019-02-07] MEDS: DOCUSATE SODIUM 100 MG CAPSULE PO SCH ×2 (09:00→17:00)
[2019-02-07] MEDS: ASPIRIN EC 81 MG TABLET.DR PO SCH (09:00)
[2019-02-07] MEDS: OLANZAPINE 5 MG/TAB.RAPDIS PO SCH ×2 (09:00→17:00)
[2019-02-07] MEDS: FENOFIBRATE NANOCRYS (145 MG) 145 MG TABLET PO SCH (09:00)
[2019-02-07] MEDS: DIVALPROEX SODIUM 250 MG TABLET.DR PO SCH ×3 (09:00→21:00)
[2019-02-07] MEDS ORDERED: POTASSIUM CHLORIDE 20 MEQ TAB.PRT.SR PO ONE (17:30)
[2019-02-08] MEDS: LEVOTHYROXINE SODIUM 25 MCG TABLET PO SCH ×2 (07:30→07:54)
[2019-02-08] MEDS: DOCUSATE SODIUM 100 MG CAPSULE PO SCH ×2 (09:00→16:24)
[2019-02-08] MEDS: OLANZAPINE 5 MG/TAB.RAPDIS PO SCH (09:00)
[2019-02-08] MEDS: FENOFIBRATE NANOCRYS (145 MG) 145 MG TABLET PO SCH (09:00)
[2019-02-08] MEDS: ASPIRIN EC 81 MG TABLET.DR PO SCH (09:00)
[2019-02-08] MEDS: DIVALPROEX SODIUM 250 MG TABLET.DR PO SCH ×2 (09:00→13:00)
[2019-02-08] MEDS ORDERED: HALOPERIDOL DECANOATE IM 100 MG/ML AMPUL IM ONE (16:00)
[2019-02-09] MEDS: LEVOTHYROXINE SODIUM 25 MCG TABLET PO SCH (07:30)
[2019-02-09] MEDS: FENOFIBRATE NANOCRYS (145 MG) 145 MG TABLET PO SCH (07:43)
[2019-02-09] MEDS: ASPIRIN EC 81 MG TABLET.DR PO SCH (07:43)
[2019-02-09] MEDS: DOCUSATE SODIUM 100 MG CAPSULE PO SCH ×2 (07:43→16:36)
[2019-02-10] MEDS: LEVOTHYROXINE SODIUM 25 MCG TABLET PO SCH (07:30)
[2019-02-10] MEDS: FENOFIBRATE NANOCRYS (145 MG) 145 MG TABLET PO SCH (09:00)
[2019-02-10] MEDS: ASPIRIN EC 81 MG TABLET.DR PO SCH (09:00)
[2019-02-10] MEDS: DOCUSATE SODIUM 100 MG CAPSULE PO SCH ×2 (09:00→17:00)
[2019-02-11] MEDS: LEVOTHYROXINE SODIUM 25 MCG TABLET PO SCH (07:30)
[2019-02-11] MEDS: ASPIRIN EC 81 MG TABLET.DR PO SCH (09:00)
[2019-02-11] MEDS: DOCUSATE SODIUM 100 MG CAPSULE PO SCH ×2 (09:00→17:00)
[2019-02-11] MEDS: FENOFIBRATE NANOCRYS (145 MG) 145 MG TABLET PO SCH (09:00)
[2019-02-12] MEDS: LEVOTHYROXINE SODIUM 25 MCG TABLET PO SCH (07:30)
[2019-02-12] MEDS: DOCUSATE SODIUM 100 MG CAPSULE PO SCH (08:45)
[2019-02-12] MEDS: FENOFIBRATE NANOCRYS (145 MG) 145 MG TABLET PO SCH (08:45)
[2019-02-12] MEDS: ASPIRIN EC 81 MG TABLET.DR PO SCH (08:45)
[2019-03-03] MEDS ORDERED: HALOPERIDOL DECANOATE IM 100 MG/ML AMPUL IM SCH (09:00)
== END 2019-02-12 15:00 | DRG 885 ==
DX: F20.9 Schizophrenia, unspecified (principal); F29 Unspecified psychosis not due to a substance or known physiological condition; F41.9 Anxiety disorder, unspecified; F32.9 Major depressive disorder, single episode, unspecified; E03.9 Hypothyroidism, unspecified; Z86.73 Personal history of transient ischemic attack (TIA), and cerebral infarction without residual deficits; Z91.14 Patient's other noncompliance with medication regimen; E11.9 Type 2 diabetes mellitus without complications; Z87.891 Personal history of nicotine dependence; E86.0 Dehydration; R79.89 Other specified abnormal findings of blood chemistry; E87.6 Hypokalemia; E78.5 Hyperlipidemia, unspecified

== ENCOUNTER 2020-10-17 20:20 | Inpatient (IN) | payer MEDICARE, OTHER ==
[~2020-10-17] VITALS: Ht 157.5 cm; Wt 63.5 kg
[~2020-10-17 20:20] MED LIST changes: -ALLA266C2 TP; -ASPI-1152 PO; -BLOO-668 IN; +CLON0.5T PO; -DOCU-141 PO; -FENO145T35 PO; +HALO100A2 IM; -HYDR-4384 PO; -LEVO25TA9 PO; -LEVO500T75 PO; -MAG30ORA PO; -ONDA4TAB5 PO; -PANT40TA2 PO
--- NOTE | 2020-10-17 20:25 | NUR ---
Pt BIBPA for psych eval. Pt is alert and orientedX2. Respiration is normal. No SOB. Pt denies any pain or discomfort. Pt skin is intact. Pt is attached to monitor and pulse ox. Give a warm blanlet and call light.
[2020-10-17] MEDS ORDERED: HALOPERIDOL LACTATE INJ 5 MG/ML VIAL IM ONE (20:30)
[2020-10-17] MEDS ORDERED: HALOPERIDOL LACTATE INJ 5 MG/ML VIAL ONE (20:35)
[2020-10-17 20:47] LABS: BASOPHILS % (AUTO) 0.4 % (0.0-2.0); EOSINOPHILS % (AUTO) 4.6 % (0.0-6.0); HEMATOCRIT 38 % (33-45); HEMOGLOBIN 12.5 g/dL (11.5-14.8); LYMPHOCYTES % (AUTO) 34.4 % (20.0-44.0); MEAN CORPUSCULAR HGB CONC 33 g/dl (31.0-36.0); MEAN CORPUSCULAR VOLUME 93 fL (82-100); MONOCYTES # (AUTO) 0.6 /CMM (0.1-1.30); MONOCYTES % (AUTO) 10.7 % (2.0-12.0); NEUTROPHILS # (AUTO) 2.9 /CMM (1.8-8.9); NEUTROPHILS % (AUTO) 49.9 % (43.0-81.0); PLATELET COUNT (AUTO) 192 /CMM (150-450); RED BLOOD CELL COUNT(AUTO) 4.08 MIL/uL (4.0-5.2); WHITE BLOOD COUNT (AUTO) 5.8 K/uL (4.3-11.0)
[2020-10-17 20:55] LABS: CALCIUM, SERUM 8.9 mg/dL (8.5-10.1); CARBON DIOXIDE 25 mmol/L (21-32); CHLORIDE 108 mmol/L (98-107); CREATININE 0.9 mg/dL (0.6-1.3); GLUCOSE 101 mg/dL (74-106); POTASSIUM 3.5 mmol/L (3.5-5.1); SODIUM SERUM 141 mmol/L (136-145); UREA NITROGEN, BLOOD 36 mg/dL (7-18)
--- NOTE | 2020-10-17 20:55 | NUR ---
Called lab to get covid rapid test.
[2020-10-17] MEDS ORDERED: IV NS 0.9% 1,000 ML BAG IV ONE (21:00)
[2020-10-17 21:01] LABS: ACETAMINOPHEN 0 ug/ml (10-30); ALANINE AMINOTRANSFERASE 14 U/L (12-78); ALBUMIN 3.5 g/dL (3.4-5.0); ALCOHOL, BLOOD < 3 mg/dL (0-0); ALKALINE PHOSPHATASE 93 U/L (46-116); ASPARTATE AMINOTRANSFERASE 15 U/L (15-37); BILIRUBIN,DIRECT 0.1 mg/dL (0.0-0.2); BILIRUBIN,TOTAL 0.4 mg/dL (0.2-1.0); TOTAL PROTEIN, SERUM 6.9 g/dL (6.4-8.2)
--- NOTE | 2020-10-17 21:09 | NUR ---
CALLED [facility] ETA 1 HOUR
--- NOTE | 2020-10-17 21:35 | NUR ---
Sent johnathon farnsworth to lab.
--- NOTE | 2020-10-17 22:18 | NUR ---
COVID NEGATIVE PER LAB
--- NOTE | 2020-10-17 22:20 | NUR ---
Jovanna at the bedside for psych eval.
--- NOTE | 2020-10-17 22:50 | NUR ---
Sent urine specimen to lab.
--- NOTE | 2020-10-17 23:10 | NUR ---
Gave report to GPS nurse Linda RN.
--- NOTE | 2020-10-17 23:16 | NUR ---
IV site on R hand is removed. 4x4 dressing is applied.
--- NOTE | 2020-10-17 23:27 | NUR ---
EMT transferred Pt to room 220.
[2020-10-17 23:40] VITALS: BP 141/59
[2020-10-17] MEDS ORDERED: QUET50TA PO (23:45)
--- NOTE | 2020-10-17 23:55 | NUR ---
RN NOTE: PATIENT IS NON COMPLAINT & VERY UNCOOPERATIVE, REFUSED FACE PHOTO, BLOOD SUGAR CHECK, SKIN ASSESSMENT UPON ADMISSION, GETTING ANGRY, AGITATED, USING INAPPROPRIATE LANGUAGE TOWARDS STAFF & CONTINUED TO REFUSE SKIN ASSESSMENT.
[2020-10-18 00:06] LABS: BILIRUBIN,URINE NEGATIVE (NEGATIVE); COLOR,URINE YELLOW (YELLOW); LEUKOCYTE ESTERASE ,URINE NEGATIVE (NEGATIVE); NITRITE, URINE NEGATIVE (NEGATIVE); PROTEIN,URINE NEGATIVE (NEGATIVE); UGLUCOSE NEGATIVE (NEGATIVE); UROBILINOGEN,URINE 0.2 EU/dL (0.2)
[2020-10-18] MEDS ORDERED: ACETAMINOPHEN 325 MG TABLET PO PRN ×2 (00:30→01:00)
[2020-10-18] MEDS ORDERED: TEMAZEPAM 7.5 MG CAPSULE PO PRN (00:30)
[2020-10-18] MEDS ORDERED: MAGNESIUM HYDROXIDE 30 ML UDC PO PRN ×2 (00:30→01:00)
[2020-10-18] MEDS ORDERED: BLOOD SUGAR DIAGNOSTIC 1 EACH STRIP IN ONE (00:30)
[2020-10-18] MEDS ORDERED: MAG HYDROX/AL HYDROX/SIMETH 30 ML UDC PO PRN (00:30)
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
[2020-10-18] MEDS ORDERED: BISACODYL SUPP (10 MG) 10 MG/SUPP.RECT SUPP.RECT RC PRN (01:00)
--- NOTE | 2020-10-18 07:26 | NUR ---
RN NOTE: FAMILY NOTIFIED CALLED KARINA ENCARNACION AT [phone], SPOKE TO KARINA (PATIENT'S AUNT) & INFORMED HER ABOUT PATIENT'S ADMISSION TO GPS UNIT. PATIENT IS ASLEEP AT THIS TIME. WILL ENDORSE TO AM RN.
[2020-10-18 08:00] VITALS: BP 134/59
[2020-10-18 16:00] VITALS: BP 129/51
[2020-10-18] MEDS: QUETIAPINE FUMARATE 25 MG TABLET PO SCH (17:20)
--- NOTE | 2020-10-18 20:00 | NUR ---
GPS-RN NOTE: PATIENT REFUSED SKIN WEEKLY ASSESSMENT.
[2020-10-18 20:58] VITALS: BP 142/85
[2020-10-19 08:00] VITALS: BP 123/75
[2020-10-19] MEDS: QUETIAPINE FUMARATE 25 MG TABLET PO SCH ×3 (09:00→16:17)
--- NOTE | 2020-10-19 14:24 | NUR ---
PATIENT REFUSING PO SEROQUEL MEDICATION SCHEDULED. MACEY PERALES AWARE. PATIENT ALSO REFUSING BLOOD DRAWS FROM LAB
[2020-10-19 20:00] VITALS: BP 141/99
[2020-10-20 08:00] VITALS: BP 152/98
[2020-10-20] MEDS: QUETIAPINE FUMARATE 25 MG TABLET PO SCH ×3 (09:00→17:00)
--- NOTE | 2020-10-20 10:45 | NUR ---
SNF Contact: SW contacted Julia ([phone]) from [facility] and confirmed that the pt can return to the facility once she is stable for discharge.
--- NOTE | 2020-10-20 11:01 | NUR ---
Initial Discharge Plan: Pt currently resides at [facility] located at [address] [place] [address]; [phone]. EFRAIN contacted Julia from the [facility] who stated that the pt can return to the facility, upon discharge. EFRAIN will work with the pt and MD regarding appropriate discharge planning. EFRAIN will form a safe and proper discharge plan.
--- NOTE | 2020-10-20 12:33 | NUR ---
Family Contact: SW contacted pts aunt, Arcadio Mejia, to discuss discharge plan and notify her that the [facility] ([address] [facility], [place] [address]; ) is willing to accept the pt back. Arcadio stated that it would be best for the pt to return to this facility and endorsed that the facility has taken good care of her.
[2020-10-20 16:00] VITALS: BP 153/89
[2020-10-20 20:00] VITALS: BP 144/80
[2020-10-21 08:00] VITALS: BP 132/56
[2020-10-21] MEDS: QUETIAPINE FUMARATE 25 MG TABLET PO SCH ×3 (09:00→17:00)
--- NOTE | 2020-10-21 09:00 | NUR ---
RN NOTE- PT WANTS TO SLEEP, REFUSING ALL CARE RX AND ISOLATIVE
[2020-10-21 16:00] VITALS: BP 138/73
[2020-10-21 21:21] VITALS: BP 144/60
[2020-10-22 08:00] VITALS: BP 126/69
[2020-10-22] MEDS: QUETIAPINE FUMARATE 25 MG TABLET PO SCH ×3 (09:00→17:00)
--- NOTE | 2020-10-22 13:31 | NUR ---
Probable Cause Hearing: Pts [id number] hold was upheld for grave disability.
[2020-10-22 16:00] VITALS: BP 110/78
[2020-10-22 20:26] VITALS: BP 132/93
[2020-10-22 23:34] VITALS: BP 132/93
[2020-10-23 08:00] VITALS: BP 123/68
--- NOTE | 2020-10-23 08:00 | NUR ---
RN OPENING NOTE PATIENT AWAKE IN BED. A/OX2, PARANOID AND LABILE MOOD NOTED. PATIENT NOTED TO BE CURSING STAFF OCCASIONALLY. NO S/SX OF ACUTE RESPIRATORY DISTRESS NOTED. PATIENT REMAINS CONFUSED AND WANDERS HALLS OCCASIONALLY. DISHEVELED APPEARANCE NOTED. PATIENT NONCOMPLIANT WITH MED REGIMEN. MULTIPLE ATTEMPTS TO EDUCATE PATIENT UNSUCCESSFUL.NO SI/HI/VH/AH NOTED. SAFETY PRECAUTIONS IN PLACE. WILL CONTINUE TO MONITOR Q15MIN ROUNDS FOR SAFETY AND BEHAVIOR.
[2020-10-23] MEDS: QUETIAPINE FUMARATE 25 MG TABLET PO SCH ×4 (08:32→16:26)
[2020-10-23] MEDS: LORAZEPAM 1 MG TABLET PO PRN ×2 (08:37→08:40)
--- NOTE | 2020-10-23 08:41 | NUR ---
RN NOTE PATIENT REFUSED QUETIAPINE IN MORNING. ATIVAN PULLED FROM PYXIS DUE TO AGITATION, HOWEVER, PATIENT REFUSED MEDAS WELL. WILL CONTINUE TO MONITOR.
[2020-10-23] MEDS ORDERED: HALOPERIDOL LACTATE INJ 5 MG/ML VIAL IM STA (10:39)
[2020-10-23] MEDS ORDERED: diphenhydrAMINE HCL 50 MG/ML VIAL IM STA (10:39)
[2020-10-23] MEDS ORDERED: LORAZEPAM INJ 2 MG/ML VIAL IM STA (10:39)
--- NOTE | 2020-10-23 10:43 | NUR ---
GPS RN NOTE: PATIENT VERY AGITATED, YELLING SCREAMING, VERBALLY ABUSIVE, COMBATIVE TOWARDS STAFF REFUSING MEDICATIONS EXPLAIN PT IMPORTANCE OF MEDICATIONS PATIENT START YELLING . DR. SOTELO NOTIFIED NEW T.O. ORDER HALDOL 5 MG IM ONCE, BENADRYL 50 MG IM ONCE, ATIVAN 2 MG IM ONCE. ORDER PLACED AND CARED OUT WILL CONTINUE MONITORING.
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
[2020-10-23 16:00] VITALS: BP 108/64
--- NOTE | 2020-10-23 18:53 | NUR ---
RN CLOSING NOTE PATIENT AWAKE IN BED. A/OX2, PARANOID AND LABILE MOOD NOTED. PATIENT NOTED TO BE CURSING STAFF OCCASIONALLY. NO S/SX OF ACUTE RESPIRATORY DISTRESS NOTED. PATIENT REMAINS CONFUSED AND WANDERS HALLS OCCASIONALLY. DISHEVELED APPEARANCE NOTED. PATIENT NONCOMPLIANT WITH MED REGIMEN. MULTIPLE ATTEMPTS TO EDUCATE PATIENT UNSUCCESSFUL.NO SI/HI/VH/AH NOTED. SAFETY PRECAUTIONS IN PLACE. REPORT TO BE GIVEN TO NIGHT NURSE FOR HENRY
[2020-10-23 20:26] VITALS: BP 124/92
--- NOTE | 2020-10-24 04:22 | NUR ---
RN NOTE PATIENT HAS BEEN SLEEPING WELL, NO BEHAVIOR EPISODES NOTED AT THIS TIME.
[2020-10-24 08:00] VITALS: BP 122/56
[2020-10-24] MEDS: QUETIAPINE FUMARATE 25 MG TABLET PO SCH ×4 (08:58→17:00)
--- NOTE | 2020-10-24 08:59 | NUR ---
RN-CO: PT REFUSED ANTI PSYCHOTIC MEDS X 6 DAYS NOW. RISA FILED BY
[2020-10-24 16:00] VITALS: BP 124/53
--- NOTE | 2020-10-24 18:30 | NUR ---
RN CLOSING NOTE Patient in bed calm and relaxed. No signs of distress. On room air. Vital signs within normal limits. Refused all meds. No agitation today. Has minimal interaction. Stays in bed all day. Encouraged to come out of room. No co pain or discomfort. No suicidal or homicidal ideation at this time. Kept clean and dry. Will endorse to wink cutter operator nurse for aston.
[2020-10-24 20:50] VITALS: BP 118/52
[2020-10-24 20:55] VITALS: BP 118/52
--- NOTE | 2020-10-25 07:12 | NUR ---
RN NOTE PATIENT SLEPT THROUGH THE NIGHT, NOTED LAUGHING BY HERSELF, REDIRECTABLE, SNACKS OFFERED & TOLERATED WELL. ENDORSED TO AM RN.
[2020-10-25 08:00] VITALS: BP 124/90
[2020-10-25] MEDS: QUETIAPINE FUMARATE 25 MG TABLET PO SCH ×3 (08:01→16:18)
[2020-10-25 16:00] VITALS: BP 153/91
[2020-10-25 21:41] VITALS: BP 131/94
[2020-10-26 08:00] VITALS: BP 140/58
[2020-10-26] MEDS: QUETIAPINE FUMARATE 25 MG TABLET PO SCH (08:37)
--- NOTE | 2020-10-26 09:00 | NUR ---
RN NOTE- PT PSYCHOTIC GRANDIOSE STATES " I RUN THIS PLACE . I'M A DOCTOR" REFUSES RX, ISOLATIVE
[2020-10-26] MEDS: HALOPERIDOL 5 MG TABLET PO SCH ×2 (12:00→16:29)
[2020-10-26] MEDS: HALOPERIDOL LACTATE INJ 5 MG/ML VIAL IM PRN ×2 (14:43→16:29)
[2020-10-26 16:00] VITALS: BP 155/74
[2020-10-26 20:00] VITALS: BP 147/87
[2020-10-27 08:00] VITALS: BP 128/89
[2020-10-27] MEDS: HALOPERIDOL 5 MG TABLET PO SCH ×2 (08:53→16:37)
[2020-10-27] MEDS: HALOPERIDOL LACTATE INJ 5 MG/ML VIAL IM PRN ×2 (08:53→16:37)
--- NOTE | 2020-10-27 09:00 | NUR ---
RN NOTE- PSYCHOSIS CONTINUES, GRANDIOSITY, DELUSIONS, REFUSES RX. OPPOSITIONAL ISOLATIVE AND TALKING TO SELF
[2020-10-27 16:00] VITALS: BP 109/66
[2020-10-27 20:22] VITALS: BP 127/70
[2020-10-28 08:00] VITALS: BP 113/73
[2020-10-28] MEDS: HALOPERIDOL 5 MG TABLET PO SCH ×2 (09:00→17:00)
--- NOTE | 2020-10-28 10:30 | NUR ---
refused po haldol in am.given injection
[2020-10-28] MEDS: HALOPERIDOL LACTATE INJ 5 MG/ML VIAL IM PRN ×2 (10:35→18:02)
[2020-10-28 16:00] VITALS: BP 106/66
[2020-10-28] MEDS ORDERED: HALOPERIDOL DECANOATE IM 100 MG/ML AMPUL IM ONE (17:00)
--- NOTE | 2020-10-28 18:56 | NUR ---
received haldol decanoate injection.
[2020-10-28 20:00] VITALS: BP 158/73
[2020-10-28 20:57] VITALS: BP 124/66
[2020-10-29 08:00] VITALS: BP 123/68
[2020-10-29] MEDS: HALOPERIDOL 5 MG TABLET PO SCH ×2 (09:00→16:18)
[2020-10-29] MEDS: HALOPERIDOL LACTATE INJ 5 MG/ML VIAL IM PRN ×2 (09:41→16:19)
--- NOTE | 2020-10-29 09:42 | NUR ---
RN-NOTES PATIENT REFUSED HALDOL 5MG P.O STATED" NO, I'M NOT TAKING ANY PILLS". HALDOL 5MG IM GIVEN ORDERED. PATIENT IS RIESE.
[2020-10-29 16:00] VITALS: BP 115/64
--- NOTE | 2020-10-29 16:27 | NUR ---
RN-NOTES PATIENT REFUSED HALDOL 5MG P.O HALDOL 5MG IM GIVEN ORDERED. PATIENT IS RIESE.
--- NOTE | 2020-10-29 20:03 | NUR ---
GPS RN NOTES RECEIVED PT AWAKE AND IN BED NO S/S OR COMPLAINTS OF PAIN AT THIS TIME. PT IS DISPLAYING NO S/S OF APPARENT DISTRESS A THIS TIME.PT BREATHING IS UNLABORED WITH EQUAL RISE AND FALL OF THE CHEST. PT IS ALERT AND ORIENTED X 1-2 FORGETFUL AGITATED, RESTLESS, IMPULSIVE UNCOOPERATIVE. ON ROOM AIR TOLERATING WELL. DENIES AN SI OR HI AT THIS TIME. PT HELP ASSISTED WITH TURNING AND REPOSITIONING Q2HR AND PRN FOR COMFORT AND CIRCULATION. BED SIDE RAILS UP X2 FOR SAFETY. BED LOCKED AND LOW.ALL NURSING NEEDS MET AT THIS WILL CONTINUE TO MONITOR Q15 MIN WITH THE HELP OF STAFF TO MAINTAIN SAFETY TIME.
[2020-10-29 20:11] VITALS: BP 123/64
--- NOTE | 2020-10-29 21:55 | NUR ---
RN NOTES: INSOMNIA PT.C/O UNABLE TO SLEEP, RESTORIL 7.5 MG PO PRN GIVEN PER PT. REQUEST, WILL CONTINUE TO MONITOR.
[2020-10-30 08:00] VITALS: BP 119/68
[2020-10-30] MEDS: HALOPERIDOL 5 MG TABLET PO SCH ×2 (08:42→16:15)
[2020-10-30] MEDS: HALOPERIDOL LACTATE INJ 5 MG/ML VIAL IM PRN ×2 (08:42→16:15)
--- NOTE | 2020-10-30 08:49 | NUR ---
RN-NOTES PATIENT REFUSED HALDOL 5MG P.O STATED" PILLS DOES NOT WORK FOR ME". HALDOL 5MG IM GIVEN ORDERED. PATIENT IS RIESE.
[2020-10-30 16:00] VITALS: BP 120/62
--- NOTE | 2020-10-30 16:25 | NUR ---
RN-NOTES PATIENT STILL REFUSING HALDOL 5MG P.O HALDOL 5MG IM GIVEN ORDERED. PATIENT IS RIESE.
--- NOTE | 2020-10-30 19:20 | NUR ---
RECEIVED PATIENT IN BED, ASLEEP, EASILY AROUSABLE. ON ROOM AIR. BREATHING EVEN AND UNLABORED. NO S/S OF DISTRESS. NO C/O PAIN. PATIENT DENIES SUICIDE IDEATIONS AT THIS TIME. ALL NEEDS RENDERED. WILL CONTINUE TO MONITOR Q 15 MIN WITH THE HELP OF STAFF TO MAINTAIN SAFETY.
[2020-10-30 20:02] VITALS: BP 138/63
[2020-10-31 08:00] VITALS: BP 118/76
[2020-10-31] MEDS: HALOPERIDOL LACTATE INJ 5 MG/ML VIAL IM PRN ×2 (08:50→17:04)
[2020-10-31] MEDS: HALOPERIDOL 5 MG TABLET PO SCH ×2 (08:50→17:00)
[2020-10-31 16:00] VITALS: BP 132/68
--- NOTE | 2020-10-31 19:45 | NUR ---
RN NOTE RECEIVED PATIENT SLEEPING IN BED. A/O X 1 TO NAME. NO COMPLAINTS OF PAIN AT THIS TIME. RESPIRATIONS EVEN AND UNLABORED. NO S/SX OF DISTRESS OR AGITATION NOTED. ASPIRATION, FALL AND SAFETY PRECAUTIONS MAINTAINED. WILL CONTINUE TO MONITOR FOR SAFETY.
[2020-10-31 20:11] VITALS: BP 130/78
[2020-11-01 08:00] VITALS: BP 122/57
[2020-11-01] MEDS: HALOPERIDOL 5 MG TABLET PO SCH ×2 (09:00→16:53)
[2020-11-01] MEDS: HALOPERIDOL LACTATE INJ 5 MG/ML VIAL IM PRN ×2 (09:31→17:35)
[2020-11-01 16:00] VITALS: BP 134/58
[2020-11-01 20:00] VITALS: BP 125/67
--- NOTE | 2020-11-02 06:44 | NUR ---
GPS RN CLOSING NOTES: PATIENT IS CURRENTLY LAYING ON BED SLEEPING COMFORTABLY. PATIENT SLEPT 8HRS THIS SHIFT. PATIENT REFUSED WEEKLY SKIN ASSESSMENT. NO S/S OF DISTRESS. RESPIRATION EVEN AND UNLABORED WITH EQUAL RISE AND FALL OF THE CHEST, ON ROOM AIR. BED IN LOWEST POSITION AND LOCKED WITH SIDE RAILS UP X2. ALL PATIENT CARE NEEDS HAVE BEEN MET ANTICIPATED. WILL CONTINUE TO MONITOR FOR SAFETY, MOOD AND BEHAVIOR AND ENDORSE TO AM SHIFT.
[2020-11-02 08:00] VITALS: BP 140/75
[2020-11-02] MEDS: HALOPERIDOL 5 MG TABLET PO SCH ×2 (09:00→17:00)
[2020-11-02] MEDS: HALOPERIDOL LACTATE INJ 5 MG/ML VIAL IM PRN ×2 (09:11→17:41)
[2020-11-02 16:00] VITALS: BP 126/60
[2020-11-02 20:00] VITALS: BP_SYST 113; BP_SYST 120; BP_DIAS 66
--- NOTE | 2020-11-03 06:41 | NUR ---
GPS RN CLOSING NOTES: PATIENT IS CURRENTLY LAYING ON BED SLEEPING. PATIENT SLEPT 9HRS THIS SHIFT. NO S/S OF DISTRESS. RESPIRATION EVEN AND UNLABORED WITH EQUAL RISE AND FALL OF THE CHEST, ON ROOM AIR. BED IN LOWEST POSITION AND LOCKED WITH SIDE RAILS UP X2. CALL CASTILLO WITHIN REACH. ALL PATIENT CARE NEEDS HAVE BEEN MET ANTICIPATED. WILL CONTINUE TO MONITOR FOR SAFETY, MOOD AND BEHAVIOR AND ENDORSE TO AM SHIFT
[2020-11-03 08:00] VITALS: BP 113/69
[2020-11-03] MEDS: HALOPERIDOL 5 MG TABLET PO SCH ×2 (09:50→16:43)
[2020-11-03] MEDS ORDERED: HALOPERIDOL DECANOATE IM 100 MG/ML AMPUL IM ONE (14:30)
--- NOTE | 2020-11-03 15:35 | NUR ---
haldol decanoate inj. given.
--- NOTE | 2020-11-03 16:06 | NUR ---
GIVEN TYLENOL 650 MG PO FOR HEADACHE.
--- NOTE | 2020-11-03 17:29 | NUR ---
REFUSED EVE. MARX.HOLD EXTENDED TO 30 DAYS.
[2020-11-03 20:00] VITALS: BP 120/62
--- NOTE | 2020-11-04 06:37 | NUR ---
GPS RN CLOSING NOTES: PATIENT IS CURRENTLY LAYING ON BED SLEEPING. PATIENT SLEPT 10HRS THIS SHIFT. NO S/S OF DISTRESS. RESPIRATION EVEN AND UNLABORED WITH EQUAL RISE AND FALL OF THE CHEST, ON ROOM AIR. BED IN LOWEST POSITION AND LOCKED WITH SIDE RAILS UP X2. CALL CASTILLO WITHIN REACH. ALL PATIENT CARE NEEDS HAVE BEEN MET ANTICIPATED. WILL CONTINUE TO MONITOR Q15 FOR SAFETY, MOOD AND BEHAVIOR AND ENDORSE TO AM SHIFT
--- NOTE | 2020-11-04 07:30 | NUR ---
PT RECEIVED RESTING COMFORTABLY IN BED. NO S/S OR C/O PAIN OR DISTRESS NOTED. WILL CONTINUE PLAN OF CARE.
[2020-11-04 08:00] VITALS: BP 126/60
[2020-11-04] MEDS: HALOPERIDOL 5 MG TABLET PO SCH ×2 (08:38→17:00)
[2020-11-04 16:00] VITALS: BP 131/59
--- NOTE | 2020-11-04 16:22 | NUR ---
Family Contact: SW contacted pts aunt, Arcadio Mejia, , and informed her that the pt is going to be discharged back to [facility] tomorrow.
--- NOTE | 2020-11-04 16:23 | NUR ---
SNF Contact: SW contacted Julia ([phone]) from [facility] and informed her that the pt is going to be discharged back tomorrow.
--- NOTE | 2020-11-04 18:09 | NUR ---
CHANGE OF SHIFT REPORT PT RESTING COMFORTABLY IN BED. NO S/S OR C/O PAIN OR DISTRESS NOTED. PT KEPT CLEAN, AND COMFORTABLE. NO SIGNIFICANT CHANGES SINCE PREVIOUS SHIFT.
--- NOTE | 2020-11-04 19:30 | NUR ---
GPS RN NOTE, RECEIVED PATIENT AWAKE AND IN BED, NO S/S OR COMPLAINTS OF PAIN AT THIS TIME. PATIENT IS DISPLAYING NO S/S OF APPARENT DISTRESS AT THIS TIME. PATIENT BREATHING IS UNLABORED WITH EQUAL RISE AND FALL OF THE CHEST. PATIENT IS ALERT AND ORIENTED X 2 ON ROOM AIR WITH A SPO2 97%. PATIENT IS REFUSING MEDICATIONS, FORGETFUL, ANXIOUS, MAKES NEEDS KNOWN, AND NEEDS REDIRECTION. PATIENT DENIES SUICIDAL AND HOMICIDAL IDEATIONS AT THIS TIME. PATIENT ASSISTED WITH TURNING AND REPOSITIONING Q2HR AND PRN FOR COMFORT AND CIRCULATION. PATIENT HAS NO NEEDS AT THIS TIME. PATIENT EDUCATED ON THE USE OF THE CALL CASTILLO. PATIENT BED SIDE RAILS UP X 2 FOR SAFETY. PATIENT BED IS LOCKED, LOW, WITH BED ALARM ON. WILL CONTINUE TO MONITOR THIS PATIENT Q15 MINUTES WITH THE HELP OF STAFF TO MAINTAIN SAFETY.
[2020-11-04 20:00] VITALS: BP 113/76
[2020-11-04 21:02] VITALS: BP 113/76
--- NOTE | 2020-11-05 06:00 | NUR ---
GPS RN NOTES POSSIBLE DISCHARGE BACK TO [facility] TODAY, RAPID TEST SWAB FOR COVID DONE.
[2020-11-05 08:00] VITALS: BP 120/66
[2020-11-05] MEDS: HALOPERIDOL 5 MG TABLET PO SCH (09:00)
--- NOTE | 2020-11-05 09:12 | NUR ---
Dr. Dawson gave an order to D/C hold and D/C to [facility] and to follow up with the psych and medical doctors.
--- NOTE | 2020-11-05 10:00 | NUR ---
RN-NOTES PATIENT REFUSED HALDOL 5MG P.O. DESPITE EXPLANATION RISK AND BENEFITS. STATED " I WILL NOT TAKE ANY MEDICATIONS BECAUSE IT WITH DESTROY MY HEART". OFFERED X3.
--- NOTE | 2020-11-05 14:27 | NUR ---
Discharge Note: Pt will be discharged to [facility] (SNF) located at [address] [place] [address]; ([phone]). Pts aunt, Arcadio Mejia ([phone]), was made aware of the discharge. Pt will be transported via [facility] at 3PM. Upon discharge, the pt appears to be in a euthymic mood and presented with a congruent affect. Pt appears to be alert and oriented x4 (time, place, self and situation). Pt appears to be well groomed and appropriately dressed. Pt denies having any suicidal or homicidal ideation as well as auditory or visual hallucinations. Pt will be under the care of her psychiatrist, Dr. Awad, located at [address] [facility], [address] [place] [address]; and director athletic, Dr. Hunt, located at [address] [facility], [address] [address], . Pt refused to sign the Choice of Vendor form so the SW and the RN cosigned the form and the multidisciplinary exit care form was done, printed, signed, and given to the patient.
--- NOTE | 2020-11-05 16:23 | NUR ---
RN-DISCHARGE NOTES DR. SOTELO (COVERING FOR DR. WARE) GAVE T.O ORDER TO DISCHARGE PATIENT. AUGUSTINA PERALES ALSO MADE AWARE WITH ORDERS. PATIENT WAS DISCHARGE TO [facility] ( [facility]). PATIENT DID NOT VERBALIZE SI/HI,DENIES VISUAL/AUDITORY HALLUCINATIONS AT THE TIME OF DISCHARGE. REPORT WAS GIVEN TO SCAR ( HOBBI[employer] AND CRAFTS SALES REPRESENTATIVE). PER SW NOTE PT'S. AUNT KARINA RIZO WAS AWARE OF THE DISCHARGE. 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 PATIENT LEFT THE UNIT IN STABLE CONDITION A/O X3 AMBULATORY STEADY GAIT. MASK WAS PROVIDED AND ALL BELONGINGS WAS GIVEN BACK TO THE PATIENT.
== END 2020-11-05 16:25 | DRG 885 ==
LOC: ER 20:22 → GPS 22:58
PROVIDERS: ADMIT Psychiatry & Neurology Psychiatry; ATTEND Nurse Practitioner Acute Care
DX: F25.9 Schizoaffective disorder, unspecified (principal); F01.50 Vascular dementia, unspecified severity, without behavioral disturbance, psychotic disturbance, mood disturbance, and anxiety; F03.90 Unspecified dementia, unspecified severity, without behavioral disturbance, psychotic disturbance, mood disturbance, and anxiety; E11.9 Type 2 diabetes mellitus without complications; E03.9 Hypothyroidism, unspecified; E78.5 Hyperlipidemia, unspecified; I10 Essential (primary) hypertension; F41.9 Anxiety disorder, unspecified; I69.30 Unspecified sequelae of cerebral infarction; Z87.891 Personal history of nicotine dependence; F32.9 Major depressive disorder, single episode, unspecified; Z98.890 Other specified postprocedural states; Z79.899 Other long term (current) drug therapy; F29 Unspecified psychosis not due to a substance or known physiological condition; Z73.6 Limitation of activities due to disability; R79.89 Other specified abnormal findings of blood chemistry
CPT/HCPCS: 36415; 80048-TC; 80076-TC; 85025-TC; 87081-TC; 97116-TC; 97530-TC; A6403; C9803; G0480; J1200; J1630; J1631; J2060; J7030

== ENCOUNTER 2021-03-25 20:52 | Inpatient (IN) | payer MEDICARE, OTHER ==
[~2021-03-25] VITALS: Ht 152.4 cm; Wt 73.9 kg
[~2021-03-25 20:52] MED LIST changes: -CLON0.5T PO; -HALO100A2 IM
[2021-03-25 22:16] LABS: BASOPHILS % (AUTO) 0.3 % (0.0-2.0); EOSINOPHILS % (AUTO) 1.2 % (0.0-6.0); HEMATOCRIT 42 % (33-45); HEMOGLOBIN 14.1 g/dL (11.5-14.8); LYMPHOCYTES # (AUTO) 2.1 K/uL (0.8-4.8); LYMPHOCYTES % (AUTO) 22.6 % (20.0-44.0); MEAN CORPUSCULAR HGB CONC 34 g/dl (31.0-36.0); MEAN CORPUSCULAR VOLUME 91 fL (82-100); MONOCYTES # (AUTO) 0.8 K/uL (0.1-1.30); NEUTROPHILS # (AUTO) 6.1 K/uL (1.8-8.9); NEUTROPHILS % (AUTO) 66.9 % (43.0-81.0); PLATELET COUNT (AUTO) 239 K/uL (150-450); RED BLOOD CELL COUNT(AUTO) 4.63 MIL/uL (4.0-5.2); WHITE BLOOD COUNT (AUTO) 9.1 K/uL (4.3-11.0)
[2021-03-25 22:26] LABS: ALANINE AMINOTRANSFERASE 26 U/L (12-78); ALCOHOL, BLOOD < 3 mg/dL (0-0); ALKALINE PHOSPHATASE 95 U/L (46-116); ASPARTATE AMINOTRANSFERASE 21 U/L (15-37); BILIRUBIN,DIRECT 0.1 mg/dL (0.0-0.2); BILIRUBIN,TOTAL 0.6 mg/dL (0.2-1.0); CALCIUM, SERUM 9.3 mg/dL (8.5-10.1); CARBON DIOXIDE 27 mmol/L (21-32); CHLORIDE 104 mmol/L (98-107); CREATININE 1.9 mg/dL (0.6-1.3); GLUCOSE 103 mg/dL (74-106); POTASSIUM 3.5 mmol/L (3.5-5.1); SODIUM SERUM 142 mmol/L (136-145); TOTAL PROTEIN, SERUM 7.8 g/dL (6.4-8.2); UREA NITROGEN, BLOOD 29 mg/dL (7-18)
[2021-03-25 22:36] LABS: ACETAMINOPHEN < 10 ug/ml (10-30)
--- NOTE | 2021-03-25 22:39 | NUR ---
BELLE TUBE KNITTER PAGED FOR EVAL.
[2021-03-25 22:48] LABS: BILIRUBIN,URINE NEGATIVE (NEGATIVE); COLOR,URINE YELLOW (YELLOW); LEUKOCYTE ESTERASE ,URINE NEGATIVE (NEGATIVE); NITRITE, URINE NEGATIVE (NEGATIVE); PROTEIN,URINE NEGATIVE (NEGATIVE); UGLUCOSE NEGATIVE (NEGATIVE); UROBILINOGEN,URINE 0.2 EU/dL (0.2)
[2021-03-25 22:56] LABS: RBC,URINE 0-2 /HPF (0-2)
[2021-03-25 22:57] LABS: BACTERIA,URINE Few /HPF (None Seen); SQUAMOUS EPITHELIAL CELL,UR Few /HPF (None Seen)
[2021-03-25] MEDS ORDERED: hydrALAZINE HCL IV 20 MG VIAL IV ONE (23:00)
[2021-03-25] MEDS ORDERED: hydrALAZINE HCL IV 20 MG VIAL ONE (23:04)
[2021-03-25] MEDS: CEPHALEXIN MONOHYDRATE 500 MG CAPSULE PO SCH (23:30)
[2021-03-25] MEDS ORDERED: OLANZAPINE 10 MG VIAL IM ONE (23:57)
[2021-03-26] MEDS ORDERED: OLANZAPINE 10 MG VIAL IM ONE
--- NOTE | 2021-03-26 00:37 | NUR ---
REPORT GIVEN TO DANUTA MEIER FOR [facility]ENRY.
[2021-03-26] MEDS ORDERED: CEPHALEXIN MONOHYDRATE 500 MG CAPSULE PO ONE (00:45)
[2021-03-26] MEDS ORDERED: MAGNESIUM HYDROXIDE 30 ML UDC PO PRN ×2 (01:00→02:00)
[2021-03-26] MEDS ORDERED: BISACODYL SUPP (10 MG) 10 MG/SUPP.RECT SUPP.RECT RC PRN (01:00)
[2021-03-26] MEDS ORDERED: ACETAMINOPHEN 325 MG TABLET PO PRN ×2 (01:00→02:00)
[2021-03-26] MEDS ORDERED: NA PHOS,M-B/NA PHOS,DI-BA 1 EA ENEMA RC PRN (01:00)
[2021-03-26] MEDS ORDERED: HALO100V5 IM (01:46)
[2021-03-26] MEDS ORDERED: QUET50TA PO (01:47)
[2021-03-26] MEDS ORDERED: LEVO100T PO (01:48)
--- NOTE | 2021-03-26 01:52 | NUR ---
Patient arrived to unit at 0115 on gurney accompanied by ER staff member. Admitted from [facility]. Patient is being held on 5150 for GD. BOTH MDs aware of admission. Per hold patient is confused and disorganized. Has poor insight and impulse control. Paranoid and agitated. Not able to provide for herself long-term or clothing. Upon face to face assessment patient is A&Ox1. Anxious, restless, agitated, uncooperative, delusional, aggressive, paranoid. Patient advised of her hold. Belongings inventoried and checked for contraband. Patient refused skin assessment. Patient refused flu and PNA vaccine. Patient refused to sign admission consents/paperwork. Patient rights handbook given. Patient oriented to room light, call light, unit protocols, safety precautions. Will continue to monitor pt. Q15min rounds for safety and behavior. Addendum: 03/26/21 at 0225 by MARK GREEN RN Patient refused accuchek despite explanation given by nurse as to why it is important. Addendum: 03/26/21 at 0554 by MARK GREEN RN Patient also refused vital signs upon admission x3.
[2021-03-26] MEDS ORDERED: MAG HYDROX/AL HYDROX/SIMETH 30 ML UDC PO PRN (02:00)
[2021-03-26] MEDS ORDERED: clonazePAM 0.5 MG TABLET PO PRN (02:00)
[2021-03-26] MEDS ORDERED: BLOOD SUGAR DIAGNOSTIC 1 EACH STRIP IN ONE (02:00)
[2021-03-26 08:00] VITALS: BP 144/67
[2021-03-26] MEDS: CEPHALEXIN MONOHYDRATE 500 MG CAPSULE PO SCH ×2 (09:00→16:28)
--- NOTE | 2021-03-26 09:24 | NUR ---
EFRAIN Initial Discharge Plan: Pt currently resides at [facility] located at [address] [place] [address]; [phone]. EFRAIN contacted Julia from the [facility] who stated that the pt can return to the facility, upon discharge. EFRAIN will work with the pt and MD regarding appropriate discharge planning. EFRAIN will form a safe and proper discharge plan.
--- NOTE | 2021-03-26 09:32 | NUR ---
Treatment Plan: Pt refused to sign and was verbally aggressive.
--- NOTE | 2021-03-26 09:33 | NUR ---
EFRAIN Family Contact: EFRAIN contacted patient's aunt Arcadio ([phone]) and left a voicemail of pt's discharge/treatment plan.
[2021-03-26] MEDS ORDERED: hydrALAZINE HCL 10 MG TABLET PO PRN (10:30)
[2021-03-26] MEDS: QUETIAPINE FUMARATE 25 MG TABLET PO SCH ×2 (13:00→20:13)
[2021-03-26] MEDS: BENZTROPINE MESYLATE (1 MG) 1 MG TABLET PO SCH ×2 (13:30→16:27)
[2021-03-26] MEDS ORDERED: HALOPERIDOL DECANOATE IM 100 MG/ML AMPUL IM ONE (14:00)
--- NOTE | 2021-03-26 14:14 | NUR ---
GPS RN NOTE; PT REFUSED SKIN [id number] , REFUSED TO TAKE MEDICATIONS PATIENT STATED"I DONT NEED PSYCHIATRIC HELP" " DONT NEED ANY MEDICATIONS " EXPLAIN RISK AND BENEFIT x3 PT CONTINUE TO REFUSE AND GETTING ANGRY.
[2021-03-26] MEDS: HALOPERIDOL 5 MG TABLET PO SCH (16:27)
[2021-03-26] MEDS: TEMAZEPAM 7.5 MG CAPSULE PO PRN (20:13)
[2021-03-26 20:22] VITALS: BP 114/62
[2021-03-27] MEDS: LEVOTHYROXINE SODIUM 100 MCG TABLET PO SCH ×2 (07:30→08:34)
[2021-03-27 08:00] VITALS: BP 106/59
[2021-03-27] MEDS: HALOPERIDOL 5 MG TABLET PO SCH ×3 (08:34→17:00)
[2021-03-27] MEDS: QUETIAPINE FUMARATE 25 MG TABLET PO SCH ×4 (08:34→22:00)
[2021-03-27] MEDS: BENZTROPINE MESYLATE (1 MG) 1 MG TABLET PO SCH ×3 (08:34→17:00)
[2021-03-27] MEDS: CEPHALEXIN MONOHYDRATE 500 MG CAPSULE PO SCH ×2 (08:34→16:22)
--- NOTE | 2021-03-27 09:15 | NUR ---
Pt. took only the Keflex and refused the rest of the meds, offered 3x and explained on the importance and still refusing and said "I'll take Keflex only and I don't need those". Dr. Dawson made aware.
[2021-03-27 10:26] LABS: BASOPHILS % (AUTO) 0.7 % (0.0-2.0); EOSINOPHILS % (AUTO) 4.2 % (0.0-6.0); HEMATOCRIT 39 % (33-45); HEMOGLOBIN 13.2 g/dL (11.5-14.8); LYMPHOCYTES # (AUTO) 1.5 K/uL (0.8-4.8); LYMPHOCYTES % (AUTO) 27.1 % (20.0-44.0); MEAN CORPUSCULAR HGB CONC 34 g/dl (31.0-36.0); MEAN CORPUSCULAR VOLUME 89 fL (82-100); MONOCYTES # (AUTO) 0.5 K/uL (0.1-1.30); MONOCYTES % (AUTO) 9.1 % (2.0-12.0); NEUTROPHILS # (AUTO) 3.3 K/uL (1.8-8.9); NEUTROPHILS % (AUTO) 58.9 % (43.0-81.0); PLATELET COUNT (AUTO) 219 K/uL (150-450); RED BLOOD CELL COUNT(AUTO) 4.42 MIL/uL (4.0-5.2); WHITE BLOOD COUNT (AUTO) 5.6 K/uL (4.3-11.0)
[2021-03-27 11:01] LABS: ALBUMIN 3.5 g/dL (3.4-5.0); BILIRUBIN,TOTAL 0.7 mg/dL (0.2-1.0); CALCIUM, SERUM 8.6 mg/dL (8.5-10.1); CREATININE 1.2 mg/dL (0.6-1.3); POTASSIUM 3.2 mmol/L (3.5-5.1); TOTAL PROTEIN, SERUM 6.9 g/dL (6.4-8.2)
[2021-03-27 11:09] LABS: THYROID STIMULATING HORMONE 43.852 uIU/mL (0.358-3.74)
--- NOTE | 2021-03-27 13:31 | NUR ---
Pt. refused to take Seroquel med. Offered 3x and explained on the importance and still refusing and said "I don't take that med".
[2021-03-27 16:00] VITALS: BP 111/64
--- NOTE | 2021-03-27 17:18 | NUR ---
Received a call from Gen the pharmacist that he spoke to Dr. Tamayo about the Potassium and Cogentin reactions. Per pharmacist that Dr. Tamayo told him not to replace for now.
--- NOTE | 2021-03-27 17:22 | NUR ---
Pt. refused to take Haldol and Cogentin po, offered 3x and explained on the importance and still refusing and said 'I don't need it".
[2021-03-27 20:00] VITALS: BP 105/84
--- NOTE | 2021-03-27 22:07 | NUR ---
RN NOTE: MEDICATION REFUSAL PATIENT REFUSED SEROQUEL 50 MG A 2200 X3, NON COMPLAINT WITH MEDICATION DESPITE OF RISKS ANS BENEFITS EXPLANATIONS.
[2021-03-28] MEDS: LEVOTHYROXINE SODIUM 100 MCG TABLET PO SCH (07:30)
[2021-03-28 08:00] VITALS: BP 133/73
[2021-03-28] MEDS ORDERED: POTASSIUM CHLORIDE 20 MEQ TAB.PRT.SR PO ONE (08:00)
[2021-03-28] MEDS: CEPHALEXIN MONOHYDRATE 500 MG CAPSULE PO SCH ×2 (08:39→16:24)
[2021-03-28] MEDS: HALOPERIDOL 5 MG TABLET PO SCH ×2 (08:40→16:25)
[2021-03-28] MEDS: BENZTROPINE MESYLATE (1 MG) 1 MG TABLET PO SCH ×2 (08:40→16:25)
[2021-03-28] MEDS: QUETIAPINE FUMARATE 25 MG TABLET PO SCH ×3 (08:40→22:00)
[2021-03-28 16:00] VITALS: BP 100/64
[2021-03-28 19:55] VITALS: BP 105/58
[2021-03-28 20:02] VITALS: BP 105/58
--- NOTE | 2021-03-28 22:00 | NUR ---
RN NOTE PATIENT REFUSED WEEKLY SKIN ASSESSMENT X 3 DESPITE OF EXPLANATIONS, PATIENT IS UNCOOPERATIVE, DOES NOT WANT TO BE BOTHERED & WANTED TO SLEEP.
--- NOTE | 2021-03-28 22:04 | NUR ---
RN NOTE: MEDICATION REFUSAL PATIENT REFUSED SEROQUEL SCHEDULED AT 2200 X 3, NON COMPLAINT WITH MEDICATION DESPITE OF RISKS ANS BENEFITS EXPLANATIONS.
[2021-03-29] MEDS: LEVOTHYROXINE SODIUM 100 MCG TABLET PO SCH ×2 (07:30→08:01)
[2021-03-29 08:00] VITALS: BP_SYST 147
[2021-03-29] MEDS: QUETIAPINE FUMARATE 25 MG TABLET PO SCH ×4 (08:27→21:28)
[2021-03-29] MEDS: HALOPERIDOL 5 MG TABLET PO SCH ×3 (08:28→16:09)
[2021-03-29] MEDS: CEPHALEXIN MONOHYDRATE 500 MG CAPSULE PO SCH ×2 (08:28→16:15)
[2021-03-29] MEDS: BENZTROPINE MESYLATE (1 MG) 1 MG TABLET PO SCH ×3 (08:28→16:09)
--- NOTE | 2021-03-29 08:29 | NUR ---
RN NOTE- KEFLEX 500 MG ADMINISTERED. NOT SCANNABLE
--- NOTE | 2021-03-29 09:00 | NUR ---
RN NOTE- PATIENT A & O X 2 UNCOOPERATIVE WITH PLAN OF CARE. RESTRICTED, PASSIVE, ISOLATIVE, WITHDRAWN, EASILY AGITATED, ANXIOUS, RESTLESS. REFUSES MEDICATIONS. REISE SCHEDULED
[2021-03-29 16:00] VITALS: BP 149/90
--- NOTE | 2021-03-29 16:16 | NUR ---
RN NOTE- KEFLEX 500 MG ADMINISTERED. NOT SCANNABLE
[2021-03-29 19:54] VITALS: BP 120/49
[2021-03-29 20:00] VITALS: BP 120/49
--- NOTE | 2021-03-29 21:28 | NUR ---
RN GPS notes Pt refused seroquel. Explained risks and benefits. Pt keep refusing. Charge nurse is aware and informed. Will continue to monitor.
[2021-03-30] MEDS: LEVOTHYROXINE SODIUM 100 MCG TABLET PO SCH (07:30)
[2021-03-30 08:00] VITALS: BP 147/59
[2021-03-30] MEDS: QUETIAPINE FUMARATE 25 MG TABLET PO SCH ×4 (08:15→21:52)
[2021-03-30] MEDS: BENZTROPINE MESYLATE (1 MG) 1 MG TABLET PO SCH ×2 (08:15→16:40)
[2021-03-30] MEDS: HALOPERIDOL 5 MG TABLET PO SCH ×2 (08:15→16:40)
--- NOTE | 2021-03-30 09:00 | NUR ---
RN NOTE- PT UNCOOPERATIVE WITH PLAN OF CARE. RESTRICTED, PASSIVE, ISOLATIVE, WITHDRAWN, EASILY AGIATED, ANXIOUS, RESTLESS. REFUSES MEDICATIONS. REISE SCHEDULED
[2021-03-30] MEDS: CEPHALEXIN MONOHYDRATE 500 MG CAPSULE PO SCH ×2 (09:02→16:39)
--- NOTE | 2021-03-30 09:02 | NUR ---
RN NOTE- KEFLEX 500 MG ADMINISTERED. NOT SCANNABLE
[2021-03-30 16:10] VITALS: BP 143/77
[2021-03-30 20:01] VITALS: BP 147/99
--- NOTE | 2021-03-30 21:53 | NUR ---
RN NOTE MED REFUSAL PT WAS PREVIOUSLY IN AGREEMENT IN TAKING SEROQUEL, BY THE TIME OF ADMINISTRATION PT CHANGED HER MIND AND VERBALIZES SHE WILL ONLY TAKE OTC SEROTONIN MEDICATION. AFTER EXPLAINING IMPORTANCE OF SEROQUEL, RISK AND BENEFITS OF TAKING PT STILL REFUSED, BEGAN TO RETURN TO SLEEP. GAS AND OIL CHECKER NOTIFIED. WILL CONT TO MONITOR FOR SAFETY AND BEHAVIOR.
--- NOTE | 2021-03-31 06:30 | NUR ---
RN NOTE: REFUSED BLOOD DRAW PT REFUSED BLOOD DRAW AT THIS TIME, EXPLAINED RISK AND BENEFITS AND IMPORTANCE PT STILL REFUSED. ASKED IF LATER TIME WAS ACCEPTABLE, PT STILL REFUSED. BPM ARCHITECT MADE AWARE.
[2021-03-31] MEDS: LEVOTHYROXINE SODIUM 100 MCG TABLET PO SCH (07:30)
[2021-03-31 08:00] VITALS: BP 135/69
[2021-03-31] MEDS: QUETIAPINE FUMARATE 25 MG TABLET PO SCH ×3 (09:00→22:00)
[2021-03-31] MEDS: BENZTROPINE MESYLATE (1 MG) 1 MG TABLET PO SCH ×2 (09:00→17:00)
[2021-03-31] MEDS: HALOPERIDOL 5 MG TABLET PO SCH ×2 (09:00→17:00)
[2021-03-31] MEDS: CEPHALEXIN MONOHYDRATE 500 MG CAPSULE PO SCH ×2 (09:07→16:56)
--- NOTE | 2021-03-31 09:13 | NUR ---
PATIENT REFUSED BMP ,ENCOURAGED X3 STILL REFUSED ,WILL CONTINUE TO ENCOURAGE PATIENT , NOTIFIED .
[2021-03-31 16:00] VITALS: BP 150/92
[2021-03-31] MEDS: HALOPERIDOL LACTATE INJ 5 MG/ML VIAL IM PRN (16:56)
[2021-03-31] MEDS ORDERED: HALOPERIDOL LACTATE INJ 5 MG/ML VIAL IM SCH (17:00)
[2021-03-31 20:00] VITALS: BP 129/59
--- NOTE | 2021-03-31 22:05 | NUR ---
RN NOTE: MEDICATION REFUSAL PATIENT REFUSED SEROQUEL SCHEDULED AT 2200 X 3, NON COMPLAINT WITH MEDICATION DESPITE OF RISKS ANS BENEFITS EXPLANATIONS.
[2021-04-01] MEDS: LEVOTHYROXINE SODIUM 100 MCG TABLET PO SCH (07:30)
[2021-04-01] MEDS: QUETIAPINE FUMARATE 25 MG TABLET PO SCH ×3 (08:57→21:32)
[2021-04-01] MEDS: BENZTROPINE MESYLATE (1 MG) 1 MG TABLET PO SCH ×2 (08:57→17:00)
[2021-04-01] MEDS: CEPHALEXIN MONOHYDRATE 500 MG CAPSULE PO SCH ×2 (08:57→17:02)
[2021-04-01] MEDS: HALOPERIDOL 5 MG TABLET PO SCH ×2 (08:57→17:00)
[2021-04-01] MEDS: HALOPERIDOL LACTATE INJ 5 MG/ML VIAL IM PRN ×2 (08:58→17:03)
[2021-04-01 16:00] VITALS: BP 147/95
--- NOTE | 2021-04-01 19:30 | NUR ---
GPS RN NOTE, RECEIVED PATIENT AWAKE AND IN BED, NO S/S OR COMPLAINTS OF PAIN AT THIS TIME. PATIENT IS DISPLAYING NO S/S OF APPARENT DISTRESS AT THIS TIME. PATIENT BREATHING IS UNLABORED WITH EQUAL RISE AND FALL OF THE CHEST. PATIENT IS ALERT AND ORIENTED X 2-3 ON ROOM AIR WITH A SPO2 98%. PATIENT IS SELECTIVE WITH MEDICATIONS, ISOLATIVE, FORGETFUL, ANXIOUS AT TIMES, UNCOOPERATIVE AND NEEDS REDIRECTION. PATIENT DENIES SUICIDAL AND HOMICIDAL IDEATIONS AT THIS TIME. PATIENT ASSISTED WITH TURNING AND REPOSITIONING Q2HR AND PRN FOR COMFORT AND CIRCULATION. PATIENT HAS NO NEEDS AT THIS TIME. PATIENT EDUCATED ON THE USE OF THE CALL CASTILLO. PATIENT BED SIDE RAILS UP X 2 FOR SAFETY. PATIENT BED IS LOCKED, LOW, WITH BED ALARM ON. WILL CONTINUE TO MONITOR THIS PATIENT Q15 MINUTES WITH THE HELP OF STAFF TO MAINTAIN SAFETY.
[2021-04-01 19:44] VITALS: BP 128/82
--- NOTE | 2021-04-01 21:32 | NUR ---
GPS RN NOTE, PATIENT REFUSED SEROQUEL 50MG PO Q 2200. OFFERED THREE TIMES AND STILL PATIENT REFUSED BY SHAKING HER HEAD NO AND GAVE NO VERBAL ANSWER. EDUCATED PATIENT ON THE RISKS AND BENEFITS OF TAKING AND REFUSING SEROQUEL. WILL CONTINUE TO MONITOR THIS PATIENT WITH THE HELP OF STAFF.
[2021-04-02] MEDS: LEVOTHYROXINE SODIUM 100 MCG TABLET PO SCH (07:30)
[2021-04-02 08:00] VITALS: BP 145/68
[2021-04-02] MEDS: HALOPERIDOL 5 MG TABLET PO SCH ×2 (08:16→16:48)
[2021-04-02] MEDS: QUETIAPINE FUMARATE 25 MG TABLET PO SCH ×3 (08:16→21:47)
[2021-04-02] MEDS: BENZTROPINE MESYLATE (1 MG) 1 MG TABLET PO SCH ×2 (08:16→16:48)
[2021-04-02] MEDS: HALOPERIDOL LACTATE INJ 5 MG/ML VIAL IM PRN ×2 (08:17→16:49)
[2021-04-02] MEDS ORDERED: HALOPERIDOL DECANOATE IM 100 MG/ML AMPUL IM ONE (12:00)
[2021-04-02 16:00] VITALS: BP 143/79
[2021-04-02 19:53] VITALS: BP 131/67
[2021-04-03] MEDS: LEVOTHYROXINE SODIUM 100 MCG TABLET PO SCH (07:30)
[2021-04-03 08:00] VITALS: BP 122/65
[2021-04-03] MEDS: BENZTROPINE MESYLATE (1 MG) 1 MG TABLET PO SCH ×2 (08:11→16:47)
[2021-04-03] MEDS: HALOPERIDOL 5 MG TABLET PO SCH ×2 (08:11→16:47)
[2021-04-03] MEDS: QUETIAPINE FUMARATE 25 MG TABLET PO SCH ×3 (08:11→22:00)
[2021-04-03] MEDS: HALOPERIDOL LACTATE INJ 5 MG/ML VIAL IM PRN ×2 (08:30→17:53)
[2021-04-03 16:00] VITALS: BP 121/60
[2021-04-03 20:00] VITALS: BP 133/48
--- NOTE | 2021-04-03 22:06 | NUR ---
GPS-RN NOTES: MEDICATION REFUSAL PATIENT REFUSED SCHEDULED SEROQUEL FOR TONIGHT DESPITE OF EXPLANATION THE IMPORTANCE OF MEDICATION COMPLIANCE PT CONTINUED TO REFUSE. PT. STATED, I'M GOING TO SLEEP, LEAVE ME ALONE". WILL CONTINUE TO MONITOR.
[2021-04-04] MEDS: LEVOTHYROXINE SODIUM 100 MCG TABLET PO SCH (07:30)
[2021-04-04 08:00] VITALS: BP 119/63
[2021-04-04] MEDS: HALOPERIDOL 5 MG TABLET PO SCH ×2 (08:19→17:00)
[2021-04-04] MEDS: QUETIAPINE FUMARATE 25 MG TABLET PO SCH ×3 (08:19→22:00)
[2021-04-04] MEDS: BENZTROPINE MESYLATE (1 MG) 1 MG TABLET PO SCH ×2 (08:19→17:00)
[2021-04-04] MEDS: HALOPERIDOL LACTATE INJ 5 MG/ML VIAL IM PRN ×2 (08:30→17:43)
[2021-04-04 16:00] VITALS: BP 128/52
[2021-04-04 19:30] VITALS: BP 122/70
--- NOTE | 2021-04-04 22:23 | NUR ---
GPS RN NOTES: PATIENT REFUSED 2200 QUETIAPINE 50MG PO ORDERED.
--- NOTE | 2021-04-05 06:52 | NUR ---
GPS RN CLOSING NOTES: PATIENT IS CURRENTLY LAYING IN BED. PATIENT SLEPT 8HRS THIS SHIFT. PATIENT REFUSED WEEKLY SKIN ASSESSMENT, REFUSED PM PO MEDS THIS SHIFT. NO S/S OF DISTRESS. RESPIRATION EVEN AND UNLABORED WITH EQUAL RISE AND FALL OF THE CHEST, ON ROOM AIR. ALL PATIENT CARE NEEDS HAVE BEEN MET ANTICIPATED. BED IN LOWEST POSITION AND LOCKED, SIDE RAILS UP X2 FOR SAFETY. WILL CONTINUE TO MONITOR AND AND ENDORSE TO AM SHIFT.
[2021-04-05] MEDS: LEVOTHYROXINE SODIUM 100 MCG TABLET PO SCH (07:41)
[2021-04-05 08:00] VITALS: BP 108/52
[2021-04-05] MEDS: BENZTROPINE MESYLATE (1 MG) 1 MG TABLET PO SCH ×2 (08:20→16:48)
[2021-04-05] MEDS: HALOPERIDOL 5 MG TABLET PO SCH ×2 (08:20→16:48)
[2021-04-05] MEDS: QUETIAPINE FUMARATE 25 MG TABLET PO SCH ×3 (08:24→21:17)
[2021-04-05 16:00] VITALS: BP 144/54
[2021-04-05 19:46] VITALS: BP 128/70
[2021-04-05] MEDS: TEMAZEPAM 7.5 MG CAPSULE PO PRN (21:18)
[2021-04-06] MEDS: LEVOTHYROXINE SODIUM 100 MCG TABLET PO SCH (07:30)
[2021-04-06 08:00] VITALS: BP 141/69
[2021-04-06] MEDS: HALOPERIDOL 5 MG TABLET PO SCH ×2 (08:31→16:23)
[2021-04-06] MEDS: QUETIAPINE FUMARATE 25 MG TABLET PO SCH ×2 (08:31→16:23)
[2021-04-06] MEDS: BENZTROPINE MESYLATE (1 MG) 1 MG TABLET PO SCH ×2 (08:31→16:24)
[2021-04-06 16:00] VITALS: BP 125/85
[2021-04-06 20:00] VITALS: BP 127/67
[2021-04-06] MEDS: QUETIAPINE FUMARATE 100 MG TABLET PO SCH (21:36)
[2021-04-07 08:00] VITALS: BP 123/57
[2021-04-07] MEDS: LEVOTHYROXINE SODIUM 100 MCG TABLET PO SCH (08:27)
[2021-04-07] MEDS: QUETIAPINE FUMARATE 25 MG TABLET PO SCH ×2 (09:00→16:49)
[2021-04-07] MEDS: HALOPERIDOL 5 MG TABLET PO SCH ×2 (09:00→16:49)
[2021-04-07] MEDS: BENZTROPINE MESYLATE (1 MG) 1 MG TABLET PO SCH ×2 (09:00→16:49)
--- NOTE | 2021-04-07 09:48 | NUR ---
RN-CO: PT STILL ASLEEP AT THIS TIME. RESP EVEN AND UNLABORED.
--- NOTE | 2021-04-07 11:09 | NUR ---
RN-CO: PT REMAINS ASLEEP AT THIS TIME, RESPIRATION EVEN AND UNLABORED. SKIN WARM AND DRY TO TOUCH.
[2021-04-07 16:00] VITALS: BP 121/58
[2021-04-07] MEDS: QUETIAPINE FUMARATE 100 MG TABLET PO SCH (21:43)
[2021-04-08 06:24] VITALS: BP 113/46
[2021-04-08 08:00] VITALS: BP 131/69
[2021-04-08] MEDS ORDERED: HALOPERIDOL DECANOATE IM 100 MG/ML AMPUL IM ONE (08:00)
[2021-04-08] MEDS: LEVOTHYROXINE SODIUM 100 MCG TABLET PO SCH (08:19)
[2021-04-08] MEDS: BENZTROPINE MESYLATE (1 MG) 1 MG TABLET PO SCH ×2 (08:19→16:42)
[2021-04-08] MEDS: HALOPERIDOL 5 MG TABLET PO SCH ×2 (08:19→16:42)
[2021-04-08] MEDS: QUETIAPINE FUMARATE 25 MG TABLET PO SCH ×2 (08:20→16:42)
--- NOTE | 2021-04-08 08:53 | NUR ---
EFRAIN Family Contact: EFRAIN contacted patient's aunt Arcadio ([phone]) and left a voicemail that pt will be discharged back to [facility] 04/09/2021.
[2021-04-08 16:00] VITALS: BP 110/66
[2021-04-08 20:00] VITALS: BP 115/62
[2021-04-08] MEDS: QUETIAPINE FUMARATE 100 MG TABLET PO SCH (21:38)
[2021-04-08] MEDS: TEMAZEPAM 7.5 MG CAPSULE PO PRN (21:39)
--- NOTE | 2021-04-09 06:37 | NUR ---
04/08/212138 Temazepam 7.5mg given per patient requested. Effective. Vital signs WNL.
--- NOTE | 2021-04-09 07:58 | NUR ---
SW Discharge Note: Patient will be discharged to [facility] [address] [place] [address] ([phone]). Please arrange ambulance transportation. Spoke with Julia, Admin Coordinator at the facility who states they are ready to accept the patient today. Patient is alert and oriented x2, is unable to plan for self-care at this time, however, is willing to accept care at [facility]. Patient denies any suicidal or homicidal ideation.b Patients aunt Arcadio ([phone]) is aware and agreeable. Patient will continue to follow-up with her (Psychiatrist) Dr. Awad [place] [address] [place] [address]; ([phone]) and Visitor Use Assistant Dr. Hunt [address] [address]; ([phone]). Patient presents with euthymic mood and congruent affect.
[2021-04-09 08:00] VITALS: BP 122/71
[2021-04-09] MEDS: QUETIAPINE FUMARATE 25 MG TABLET PO SCH (08:21)
[2021-04-09] MEDS: LEVOTHYROXINE SODIUM 100 MCG TABLET PO SCH (08:21)
[2021-04-09] MEDS: BENZTROPINE MESYLATE (1 MG) 1 MG TABLET PO SCH (08:21)
[2021-04-09] MEDS: HALOPERIDOL 5 MG TABLET PO SCH (08:21)
--- NOTE | 2021-04-09 08:51 | NUR ---
Dr. Dawson gave an order to D/C hold and D/C to [facility], to follow up with psych and medical doctors. Dr. Dawson reconciled on meds to continue on the facility.
--- NOTE | 2021-04-09 13:20 | NUR ---
GPS/RN PT DISCHARGED TO [facility] VIA AMBULANCE. AMBULATORY,VSS, NO SI OR HI AT THE TIME OF D/C. PROPERTY RETURNED. EXIT CARE AND PRESCRIPTIONS PROVIDED. PT REFUSED TO SIGN D/C PAPERWORK. REPORT GIVEN TO THAO @ [facility].
== END 2021-04-09 13:20 | DRG 885 ==
LOC: ER 20:52 → GPS 03-26 00:40
PROVIDERS: ADMIT Psychiatry & Neurology Psychiatry; ATTEND Student in an Organized Health Care Education/Training Program
DX: F25.9 Schizoaffective disorder, unspecified (principal); N17.0 Acute kidney failure with tubular necrosis; E11.65 Type 2 diabetes mellitus with hyperglycemia; G93.41 Metabolic encephalopathy; N39.0 Urinary tract infection, site not specified; F03.90 Unspecified dementia, unspecified severity, without behavioral disturbance, psychotic disturbance, mood disturbance, and anxiety; E78.5 Hyperlipidemia, unspecified; E03.9 Hypothyroidism, unspecified; I10 Essential (primary) hypertension; Z20.822 Contact with and (suspected) exposure to COVID-19; I69.30 Unspecified sequelae of cerebral infarction; K21.9 Gastro-esophageal reflux disease without esophagitis; F41.9 Anxiety disorder, unspecified; Z79.899 Other long term (current) drug therapy; Z73.6 Limitation of activities due to disability; Z91.14 Patient's other noncompliance with medication regimen; Z87.891 Personal history of nicotine dependence; Z98.890 Other specified postprocedural states; F32.A Depression, unspecified; E86.0 Dehydration
CPT/HCPCS: 36415; 80048-TC; 80053-TC; 80061-TC; 80076-TC; 81001; 84439-TC; 84443-TC; 85025-TC; 87081-TC; 87086-TC; 97116-TC; 97530-TC; C9803; G0480; J0360; J1630; J1631; J3490

== ENCOUNTER 2021-12-10 17:53 | Inpatient (IN) | payer MEDICARE, OTHER ==
[~2021-12-10] VITALS: Ht 167.6 cm; Wt 77.6 kg
[~2021-12-10 17:53] MED LIST changes: +LEVO100T PO
--- NOTE | 2021-12-10 18:10 | NUR ---
RECEIVED PT 66YRS FEMALE CAME BY AMBLANCE EMT FROM [facility] FOR INCREASE AGGETATION AWAKE AND ALERT X2 RESPIRATION SPONT AND EASY
--- NOTE | 2021-12-10 18:30 | NUR ---
COVED SWAB DONE AND SENT TO LAB
--- NOTE | 2021-12-10 18:40 | NUR ---
HERE AT BED SIDE SEEN PT
--- NOTE | 2021-12-10 19:22 | NUR ---
HAND OFF ROSCOE MEIER
[2021-12-10 19:33] LABS: ALANINE AMINOTRANSFERASE 22 U/L (12-78); ALBUMIN 3.7 g/dL (3.4-5.0); ALKALINE PHOSPHATASE 109 U/L (46-116); ASPARTATE AMINOTRANSFERASE 26 U/L (15-37); BILIRUBIN,DIRECT 0.1 mg/dL (0.0-0.2); BILIRUBIN,TOTAL 0.7 mg/dL (0.2-1.0); CALCIUM, SERUM 8.9 mg/dL (8.5-10.1); CARBON DIOXIDE 29 mmol/L (21-32); CHLORIDE 104 mmol/L (98-107); CREATININE 1.2 mg/dL (0.6-1.3); GLUCOSE 101 mg/dL (74-106); POTASSIUM 3.5 mmol/L (3.5-5.1); SODIUM SERUM 140 mmol/L (136-145); TOTAL PROTEIN, SERUM 7.4 g/dL (6.4-8.2); UREA NITROGEN, BLOOD 30 mg/dL (7-18)
--- NOTE | 2021-12-10 19:37 | NUR ---
URINE SAMPLE COLLECTED
[2021-12-10 19:43] LABS: ACETAMINOPHEN < 10 ug/ml (10-30); ALCOHOL, BLOOD < 3 mg/dL (0-0)
[2021-12-10 20:03] LABS: BASOPHILS % (AUTO) 0.5 % (0.0-2.0); EOSINOPHILS % (AUTO) 3.8 % (0.0-6.0); HEMATOCRIT 38 % (33-45); HEMOGLOBIN 12.6 g/dL (11.5-14.8); LYMPHOCYTES % (AUTO) 32.1 % (20.0-44.0); MEAN CORPUSCULAR HGB CONC 34 g/dl (31.0-36.0); MEAN CORPUSCULAR VOLUME 88 fL (82-100); MONOCYTES # (AUTO) 0.6 K/uL (0.1-1.30); MONOCYTES % (AUTO) 9.4 % (2.0-12.0); NEUTROPHILS # (AUTO) 3.4 K/uL (1.8-8.9); NEUTROPHILS % (AUTO) 54.2 % (43.0-81.0); PLATELET COUNT (AUTO) 225 K/uL (150-450); RED BLOOD CELL COUNT(AUTO) 4.27 MIL/uL (4.0-5.2); WHITE BLOOD COUNT (AUTO) 6.3 K/uL (4.3-11.0)
[2021-12-10 20:35] LABS: BILIRUBIN,URINE NEGATIVE (NEGATIVE); COLOR,URINE YELLOW (YELLOW); LEUKOCYTE ESTERASE ,URINE NEGATIVE (NEGATIVE); NITRITE, URINE NEGATIVE (NEGATIVE); PROTEIN,URINE NEGATIVE (NEGATIVE); UGLUCOSE NEGATIVE (NEGATIVE); UROBILINOGEN,URINE 0.2 EU/dL (0.2)
[2021-12-10 20:42] LABS: BACTERIA,URINE None seen /HPF (None Seen); SQUAMOUS EPITHELIAL CELL,UR 0-2 /HPF (None Seen); WBC,URINE 0-2 /HPF (0-3)
--- NOTE | 2021-12-10 21:01 | NUR ---
KIM CRAIN CALLED FOR PSYCH EVAL
--- NOTE | 2021-12-10 23:09 | NUR ---
PARAS CRISIS EVAL AT BEDSIDE
--- NOTE | 2021-12-11 00:18 | NUR ---
REPORT GIVEN TO DANUTA MEIER FOR [facility]ENRY
[2021-12-11 00:40] VITALS: BP 149/78
--- NOTE | 2021-12-11 00:40 | NUR ---
GPS ADMISSION NOTE, RECEIVED PATIENT FROM [facility]. PATIENT ARRIVED ON THIS UNIT AT 0140 VIA STRETCHER WITH 2 SURVEYOR ROD HELPER ESCORTS. PATIENT ADMITTED ON A 5150 HOLD FOR DTO AND GD. PER HOLD PATIENT IS IRRITABLE, CONFUSED, AND BELIEVES THAT SHE IS A DOCTOR. PATIENT HAS BEEN STRIKING OUT AT STAFF AT HER FACILITY AND HER AGITATION HAS BEEN INCREASING. PATIENT IS UNABLE TO BE REDIRECTED AND HAS NO VIABLE PLAN FOR SELF CARE. THE 5150 WAS REVIEWED AND THE DOCUMENTATION IN THE 5150 HOLD APPEARS TO REFLECT THE PRESENTATION OF THE PATIENT. UPON FACE TO FACE ASSESSMENT PATIENT IS NOTED TO BEING DELUSIONAL, DISHEVELED, DISORGANIZED, COOPERATIVE, AND NEEDS REDIRECTION. PATIENT IS CURRENTLY LYING IN BED AWAKE, HAS A COMPLAINT OF RIGHT EYE PAIN AT 3 OUT 10 ON THE PAIN SCALE AT THIS TIME. PATIENT TAKES ORAL PAIN MEDICATION FOR THIS PAIN. PATIENT IS DISPLAYING NO S/S OF APPARENT DISTRESS. PATIENT BREATHING IS UNLABORED WITH EQUAL RISE AND FALL OF THE CHEST. PATIENT IS ALERT AND ORIENTATED X 2-3 ON ROOM AIR. PATIENT ASSISTED WITH TURING AND REPOSITIONING Q2HR AND PRN FOR COMFORT AND CIRCULATION. PATIENT HAS NO NEEDS AT THIS TIME. PATIENT DENIES SUICIDE IDEATIONS AND HOMICIDAL IDEATIONS AT THIS TIME. PATIENT REFUSED TO SIGNS ANY PAPER WORK. PATIENT ADVISED OF HER HOLD AND PATIENT RIGHTS BOOKLET GIVEN. PATIENT IS UNDER THE PSYCHIATRIC CARE OF DR. SOTELO AND THE MEDICAL CARE OF CAREY DEE DNP. PATIENT BELONGINGS WERE INVENTORIED AND CHECKED FOR CONTRABAND. ALL CONTRABAND REMOVED AND STORED IN PATIENT HALLWAY LOCKER. PATIENT ADVANCED DIRECTIVES PREFERENCE, IMMUNIZATIONS QUESTIONER, NECESSARY PAPERWORK COMPLETED. PATIENT SKIN ASSESSMENT COMPLETED. PATIENT ORIENTATED TO ROOM, FLOOR, AND STAFF WITH ALL QUESTIONS ANSWERED. PATIENT EDUCATED ON THE USE OF THE CALL LIGHT. PATIENT BED SIDE RAILS ARE UP X 2 FOR SAFETY. PATIENT BED IS LOCKED, LOW, AND I WILL CONTINUE TO MONITOR THIS PATIENT Q 15 MIN WITH THE HELP OF STAFF TO MAINTAIN SAFETY.
[2021-12-11 00:53] VITALS: BP 149/78
[2021-12-11] MEDS ORDERED: BENZ1TAB7 PO (00:59)
[2021-12-11] MEDS ORDERED: CRAN425C6 PO (01:00)
[2021-12-11] MEDS ORDERED: BLOOD SUGAR DIAGNOSTIC 1 EACH STRIP IN ONE (01:00)
[2021-12-11] MEDS ORDERED: TEMAZEPAM 7.5 MG CAPSULE PO PRN (01:00)
[2021-12-11] MEDS ORDERED: MAG HYDROX/AL HYDROX/SIMETH 30 ML UDC PO PRN (01:00)
[2021-12-11] MEDS ORDERED: clonazePAM 0.5 MG TABLET PO PRN (01:00)
[2021-12-11] MEDS ORDERED: MAGNESIUM HYDROXIDE 30 ML UDC PO PRN ×2 (01:00→22:00)
[2021-12-11] MEDS ORDERED: HALO50AM2 IM (01:04)
[2021-12-11] MEDS ORDERED: QUET50TA PO ×2 (01:05→01:08)
[2021-12-11] MEDS ORDERED: OMEP20CA15 PO (01:05)
--- NOTE | 2021-12-11 01:15 | NUR ---
GPS RN NOTE, PATIENT NEEDS A HER MEDICATION RECONCILIATION APPROVED. PAGED [facility] AND INFORMED CAREY DEE DNP OF MY FINDINGS. CAREY DEE DNP SAID HE RECONCILE THIS PATIENT MEDS SOON POSABLE. WILL CONTINUE TO MONITOR THIS PATIENT WITH THE HELP OF STAFF.
[2021-12-11] MEDS: ACETAMINOPHEN 325 MG TABLET PO PRN ×2 (01:18→10:18)
--- NOTE | 2021-12-11 01:20 | NUR ---
GPS RN NOTE, PATIENT HAS A COMPLAINT OF RIGHT EYE PAIN AT 3 OUT 10 ON THE PAIN SCALE AND IS REQUESTING TYLENOL AT THIS TIME. PATIENT VITAL SIGNS ARE STABLE. GAVE TYLENOL 65MG PO Q6HR PRN ORDERED. WILL REASSESS PAIN AND I WILL CONTINUE TO MONITOR THIS PATIENT WITH THE HELP OF STAFF.
--- NOTE | 2021-12-11 06:34 | NUR ---
GPS RN NOTE, LEFT MESSAGE OF NOTIFICATION OF ADMISSION WITH SHASHANK COLLINS PATIENT'S AUNT.
[2021-12-11 08:00] VITALS: BP 137/84
--- NOTE | 2021-12-11 08:26 | NUR ---
Dr. Woodward in the unit and seen pt. and told to reconcile meds.
--- NOTE | 2021-12-11 09:30 | NUR ---
RN Notes: Received pt. awake in bed,responsive to staffs, no distress and no agitation noted. Ate 100% for breakfast, was seen By Dr. Woodward. Encouraged to verbalize feelings and motivated to attend group activity. Needs attended and will continue to monitor for safety.
--- NOTE | 2021-12-11 10:20 | NUR ---
Pt. is complaining of headache, tylenol 2 tabs given and will continue to monitor.
--- NOTE | 2021-12-11 13:10 | NUR ---
Dr. Woodward reminded to reconcile the meds.
[2021-12-11 16:00] VITALS: BP 138/87
[2021-12-11] MEDS ORDERED: NA PHOS,M-B/NA PHOS,DI-BA 1 EA ENEMA RC PRN (17:00)
[2021-12-11] MEDS ORDERED: ACETAMINOPHEN 325 MG TABLET PO PRN (17:00)
[2021-12-11] MEDS ORDERED: BISACODYL SUPP (10 MG) 10 MG/SUPP.RECT SUPP.RECT RC PRN (17:00)
[2021-12-11 20:58] VITALS: BP 133/72
[2021-12-11] MEDS ORDERED: HALOPERIDOL 1 MG TABLET PO SCH (21:30)
[2021-12-11] MEDS: BENZTROPINE MESYLATE (1 MG) 1 MG TABLET PO SCH (22:08)
[2021-12-11] MEDS: HALOPERIDOL 5 MG TABLET PO SCH (22:08)
--- NOTE | 2021-12-12 06:40 | NUR ---
RN NOTE : PATIENT IN HER ROOM RESTING. PT.8 HOURS OF SLEEP, NO S/SX OF ACUTE DISTRESS NOTED.PT. NO BEHAVIOR PROBLEMS NOTED IN THIS SHIFT COOPERTIVE/UNCOOPERTIVE AT TIMES, MED COMPLIANT, EASILY AGITATED , BLUNTED AFFECT, FORGETFUL. NO VERBALIZATION OF THOUGHTS AND FEELINGS. SAFETY PRECAUTIONS IN PLACE. WILL CONTINUE TO MONITOR Q15MIN ROUNDS FOR SAFETY AND BEHAVIOR.
[2021-12-12 07:23] LABS: BASOPHILS % (AUTO) 0.2 % (0.0-2.0); EOSINOPHILS % (AUTO) 0.2 % (0.0-6.0); HEMATOCRIT 41 % (33-45); HEMOGLOBIN 13.8 g/dL (11.5-14.8); LYMPHOCYTES # (AUTO) 1.2 K/uL (0.8-4.8); LYMPHOCYTES % (AUTO) 12.8 % (20.0-44.0); MEAN CORPUSCULAR HGB CONC 34 g/dl (31.0-36.0); MEAN CORPUSCULAR VOLUME 89 fL (82-100); MONOCYTES # (AUTO) 0.6 K/uL (0.1-1.30); MONOCYTES % (AUTO) 6.8 % (2.0-12.0); NEUTROPHILS # (AUTO) 7.3 K/uL (1.8-8.9); PLATELET COUNT (AUTO) 219 K/uL (150-450); RED BLOOD CELL COUNT(AUTO) 4.61 MIL/uL (4.0-5.2); WHITE BLOOD COUNT (AUTO) 9.2 K/uL (4.3-11.0)
[2021-12-12 08:00] VITALS: BP 162/71
[2021-12-12] MEDS: PANTOPRAZOLE 40 MG TABLET.DR PO SCH (08:12)
[2021-12-12] MEDS: HALOPERIDOL 5 MG TABLET PO SCH ×3 (08:12→17:03)
[2021-12-12] MEDS: LEVOTHYROXINE SODIUM 50 MCG TABLET PO SCH (08:12)
[2021-12-12] MEDS: BENZTROPINE MESYLATE (1 MG) 1 MG TABLET PO SCH ×3 (08:12→17:03)
[2021-12-12] MEDS: ACETAMINOPHEN 325 MG TABLET PO PRN (08:13)
--- NOTE | 2021-12-12 08:15 | NUR ---
RN-NOTES PATIENT REQUESTING TYLENOL FOR HER HEAD ACHE, [id number] P.O GIVEN PRN ORDER. WILL CONT. MONITORING.
[2021-12-12 08:24] LABS: CALCIUM, SERUM 9.1 mg/dL (8.5-10.1); CREATININE 0.8 mg/dL (0.6-1.3); POTASSIUM 3.8 mmol/L (3.5-5.1)
[2021-12-12] MEDS ORDERED: OMEPRAZOLE 20 MG CAPSULE.DR PO SCH (09:00)
[2021-12-12] MEDS ORDERED: Medication Not On Formulary EA (Cranberry Extract (Cranberry) 425 MG) PO SCH (09:00)
--- NOTE | 2021-12-12 09:15 | NUR ---
RN-NOTES PATIENT LAYING IN BED CALM,LOOKS COMFORTABLE,NO ACUTE DISTRESS NOTED.
[2021-12-12 16:03] VITALS: BP 146/76
--- NOTE | 2021-12-12 18:18 | NUR ---
RN-NOTES PATIENT ISOLATIVE IN THE ROOM LAYING IN BED AWAKE,ALERT X2 GUARDED,NO ACUTE DISTRESS NOTED. NOTED PATIENT TALKING AND LAUGHING TO SELF. COMPLIANT WITH MEDICATIONS.ABLE TO AMBULATE TO THE BATHROOM WITH WALKER. WILL CONT. MONITORING FOR SAFETY AND BEHAVIOR.WILL ENDORSE TO INCOMING SHIFT FOR CONTINUITY OF CARE.
[2021-12-12 20:15] VITALS: BP 150/90
[2021-12-13] MEDS: PANTOPRAZOLE 40 MG TABLET.DR PO SCH (07:57)
[2021-12-13] MEDS: LEVOTHYROXINE SODIUM 50 MCG TABLET PO SCH (07:58)
[2021-12-13 08:00] VITALS: BP 135/77
[2021-12-13] MEDS: HALOPERIDOL 5 MG TABLET PO SCH ×3 (08:19→17:14)
[2021-12-13] MEDS: BENZTROPINE MESYLATE (1 MG) 1 MG TABLET PO SCH ×3 (08:19→17:14)
[2021-12-13 16:00] VITALS: BP 149/67
--- NOTE | 2021-12-13 19:20 | NUR ---
GPS RN NOTES RECEIVED PATIENT IN BED RESTING COMFORTABLY. ALERT AND ORIENTED X2. NO S/S OF ACUTE DISTRESS NOTED. PATIENT REMAINS DISORGANIZED, PARANOID AND SUSPICIOUS. NO VERBALIZATION OF THOUGHTS AND FEELINGS. SAFETY PRECAUTIONS MAINTAINED. WILL CONTINUE TO MONITOR Q15MIN ROUNDS FOR SAFETY AND BEHAVIOR.
[2021-12-13 19:51] VITALS: BP 139/63
[2021-12-14] MEDS: PANTOPRAZOLE 40 MG TABLET.DR PO SCH (07:30)
[2021-12-14] MEDS: LEVOTHYROXINE SODIUM 50 MCG TABLET PO SCH (07:30)
[2021-12-14 08:00] VITALS: BP 110/59
[2021-12-14] MEDS: HALOPERIDOL 5 MG TABLET PO SCH ×3 (08:57→17:59)
[2021-12-14] MEDS: BENZTROPINE MESYLATE (1 MG) 1 MG TABLET PO SCH ×3 (08:57→17:59)
--- NOTE | 2021-12-14 09:16 | NUR ---
EFRAIN Family Contact: EFRAIN attempted to contact pt's person to notify Jackie ([phone]) who is 94 and lives in [place]. EFRAIN left a detailed voicemail. EFRAIN attempted to contact next of kin Sonu ([phone]) to notify of pt's admission and to gather collateral. Sonu reported she is pt's friend and is involved in the care.
--- NOTE | 2021-12-14 09:16 | NUR ---
EFRAIN Initial Discharge Plan: Patient currently resides at [facility] [address] [place] [address] ([phone]). EFRAIN spoke with jason Martínez ([phone]) who stated pt is welcomed back upon dc. EFRAIN attempted to contact pt's person to notify Jackie ([phone]) who is 89 and lives in [place]. EFRAIN left a detailed voicemail. EFRAIN attempted to contact next of kin Sonu ([phone]) to notify of pt's admission and to gather collateral. Sonu reported she is pt's friend and is involved in the care. EFRAIN discussed treatment plan and discharge plan. EFRAIN will work with the MD, treatment team, and family to help coordinate appropriate discharge.
--- NOTE | 2021-12-14 09:16 | NUR ---
EFRAIN Clinical Note: Pt placed on a 5150 hold for GD and danger to others. Pt was striking out at staff at [facility] and was not taking her medications. Patient currently resides at [facility] [address] [address] ([phone]). EFRAIN spoke with jaosn Martínez ([phone]) who stated pt is welcomed back upon dc. EFRAIN attempted to contact pt's person to notify Jackie ([phone]) who is 89 and lives in [place]. EFRAIN left a detailed voicemail. EFRAIN attempted to contact next of kin oSnu ([phone]) to notify of pt's admission and to gather collateral. Sonu reported she is pt's friend and is involved in the care.
[2021-12-14 16:00] VITALS: BP 147/67
--- NOTE | 2021-12-14 19:15 | NUR ---
GPS RN NOTES RECEIVED PATIENT IN BED RESTING COMFORTABLY. ALERT AND ORIENTED X2, NO S/S OF ACUTE DISTRESS NOTED. PATIENT REMAINS DISORGANIZED, PARANOID AND SUSPICIOUS. NO VERBALIZATION OF THOUGHTS AND FEELINGS. SAFETY PRECAUTIONS MAINTAINED. WILL CONTINUE TO MONITOR Q15MIN ROUNDS FOR SAFETY AND BEHAVIOR.
[2021-12-14 19:51] VITALS: BP 110/75
[2021-12-15 08:00] VITALS: BP 128/66
[2021-12-15] MEDS ORDERED: HALOPERIDOL ORAL CONC 2 MG/ML BOTTLE PO SCH ×2 (09:00)
[2021-12-15] MEDS: LEVOTHYROXINE SODIUM 50 MCG TABLET PO SCH (09:09)
[2021-12-15] MEDS: PANTOPRAZOLE 40 MG TABLET.DR PO SCH (09:09)
[2021-12-15] MEDS: BENZTROPINE MESYLATE (1 MG) 1 MG TABLET PO SCH ×3 (09:09→16:19)
--- NOTE | 2021-12-15 10:00 | NUR ---
RN Notes: Received pt. awake in bed, suspicious, quiet and responsive to staffs. Pt. ate 50% for breakfast, compliant on meds. Pt. seen by the [facility] and with with orders. Encouraged to verbalize feelings and motivated to attend group activity. Needs attended and will continue to monitor for safety.
[2021-12-15] MEDS: HALOPERIDOL LACTATE 10 MG/5 ML UDC PO SCH ×2 (12:08→16:19)
[2021-12-15 16:00] VITALS: BP 129/57
[2021-12-15 20:00] VITALS: BP 129/73
[2021-12-15] MEDS: OLANZAPINE 2.5 MG TABLET PO SCH (21:27)
--- NOTE | 2021-12-15 21:30 | NUR ---
GPS RN NOTE PT UNABLE TO SLEEP, ASKING FOR SLEEPING MED. RESTORIL 7.5 GM PO GIVEN. CONTINUE TO MONITOR.
--- NOTE | 2021-12-15 22:30 | NUR ---
GPS RN NOTE PT FALL ASLEEP, NO DISTRESS NOTED.
[2021-12-16 08:00] VITALS: BP 126/86
[2021-12-16] MEDS: HALOPERIDOL LACTATE 10 MG/5 ML UDC PO SCH ×3 (08:03→16:23)
[2021-12-16] MEDS: BENZTROPINE MESYLATE (1 MG) 1 MG TABLET PO SCH ×3 (08:04→16:23)
[2021-12-16] MEDS: LEVOTHYROXINE SODIUM 50 MCG TABLET PO SCH (08:04)
[2021-12-16] MEDS: PANTOPRAZOLE 40 MG TABLET.DR PO SCH (08:04)
--- NOTE | 2021-12-16 09:20 | NUR ---
RN Notes: Received pt. awake in bed, suspicious, quiet and responsive to staffs. Pt. ate 100% for breakfast, compliant on meds. Pt. isolates in the room and talks to self. Encouraged to take shower, encouraged to verbalize feelings and motivated to attend group activity. Needs attended and will continue to monitor for safety.
[2021-12-16 16:00] VITALS: BP 146/59
--- NOTE | 2021-12-16 19:28 | NUR ---
GPS RN OPENING NOTES: RECEIVED PATIENT IN BED, AWAKE, A/O X2. PASSIVE, GUARDED, SUSPICIOUS, RESPONDING TO INTERNAL STIMULI/TALKING TO SELF. PATIENT REORIENTED TO PRESENT SITUATION. DENIES SI, HI AND PAIN AT THIS TIME. NO S/S OF DISTRESS. RESPIRATION EVEN AND UNLABORED WITH EQUAL RISE AND FALL OF THE CHEST, ON ROOM AIR. OFFERED FLUID AND SNACKS TOLERATED. WILL CONTINUE TO MONITOR Q15 FOR MOOD, SAFETY AND BEHAVIOR.
[2021-12-16 20:00] VITALS: BP 118/49
[2021-12-16] MEDS: OLANZAPINE 2.5 MG TABLET PO SCH (21:28)
--- NOTE | 2021-12-17 06:23 | NUR ---
GPS RN CLOSING NOTES: PATIENT IS CURRENTLY SLEEPING IN BED. PATIENT SLEPT 9HRS THIS SHIFT. NO S/S OF DISTRESS. RESPIRATION EVEN AND UNLABORED WITH EQUAL RISE AND FALL OF THE CHEST, ON ROOM AIR. ALL PATIENT CARE NEEDS HAVE BEEN MET ANTICIPATED. WILL CONTINUE TO MONITOR Q15 FOR SAFETY, MOOD AND BEHAVIOR AND ENDORSE TO AM SHIFT.
[2021-12-17] MEDS: LEVOTHYROXINE SODIUM 50 MCG TABLET PO SCH (07:30)
[2021-12-17] MEDS: PANTOPRAZOLE 40 MG TABLET.DR PO SCH (07:30)
[2021-12-17 08:00] VITALS: BP 145/59
[2021-12-17] MEDS: BENZTROPINE MESYLATE (1 MG) 1 MG TABLET PO SCH ×3 (08:51→17:20)
[2021-12-17] MEDS: HALOPERIDOL LACTATE 10 MG/5 ML UDC PO SCH ×3 (08:52→17:18)
--- NOTE | 2021-12-17 10:04 | NUR ---
Court Notification: SW attempted to contact pt's cousin Arcadio ([phone]) and left a voicemail of pt's [id number] hearing will be today.
--- NOTE | 2021-12-17 10:09 | NUR ---
Court Hearing: Patient's court hearing for [id number] was today and it was upheld for GD.
[2021-12-17 16:00] VITALS: BP 120/63
--- NOTE | 2021-12-17 19:30 | NUR ---
GPS RN OPENING NOTES: RECEIVED PATIENT IN BED, AWAKE, A/O X2. PASSIVE, WITHDRAWN, ISOLATIVE, DELUSIONAL, PARANOID. WHEN ENCOURAGED TO GO TO DAY ROOM AND WATCH TV OR MOVIE, PATIENT STATED, "I CAN'T GET UP MY BRAIN IS BLEEDING, THEY USE COMPUTER TO HIT MY BRAIN". EDUCATION PROVIDED THAT SHE IS SAFE TO GET UP AND GO WATCH TV BUT PATIENT REFUSED. DENIES SI, HI AND PAIN AT THIS TIME. NO S/S OF DISTRESS. RESPIRATION EVEN AND UNLABORED WITH EQUAL RISE AND FALL OF THE CHEST, ON ROOM AIR. OFFERED FLUID AND SNACKS TOLERATED. WILL CONTINUE TO MONITOR Q15 FOR MOOD, SAFETY AND BEHAVIOR.
[2021-12-17 20:03] VITALS: BP 146/70
[2021-12-17] MEDS: OLANZAPINE 2.5 MG TABLET PO SCH (21:26)
--- NOTE | 2021-12-18 07:04 | NUR ---
GPS RN OPENING NOTES: PATIENT IS CURRENTLY SLEEPING. PATIENT SLEPT 9HRS THIS SHIFT. NO S/S OF DISTRESS. RESPIRATION EVEN AND UNLABORED WITH EQUAL RISE AND FALL OF THE CHEST, ON ROOM AIR. ALL PATIENT CARE NEEDS HAVE BEEN MET ANTICIPATED. WILL CONTINUE TO MONITOR Q15 FOR MOOD, SAFETY AND BEHAVIOR.
[2021-12-18] MEDS: PANTOPRAZOLE 40 MG TABLET.DR PO SCH (07:30)
[2021-12-18] MEDS: LEVOTHYROXINE SODIUM 50 MCG TABLET PO SCH (07:30)
[2021-12-18 08:00] VITALS: BP 146/71
[2021-12-18] MEDS: BENZTROPINE MESYLATE (1 MG) 1 MG TABLET PO SCH ×3 (08:34→16:49)
[2021-12-18] MEDS: HALOPERIDOL LACTATE 10 MG/5 ML UDC PO SCH ×3 (08:35→16:49)
[2021-12-18 16:00] VITALS: BP 116/86
[2021-12-18 20:28] VITALS: BP 123/67
[2021-12-18] MEDS: OLANZAPINE 2.5 MG TABLET PO SCH (21:33)
--- NOTE | 2021-12-19 06:48 | NUR ---
RN NOTE : PATIENT IN HER ROOM RESTING. PT. 9 HOURS OF SLEEP, NO S/SX OF ACUTE DISTRESS NOTED.PT. NO BEHAVIOR PROBLEMS NOTED IN THIS SHIFT , MED COMPLIANT, EASILY AGITATED , BLUNTED AFFECT, FORGETFUL. NO VERBALIZATION OF THOUGHTS AND FEELINGS. SAFETY PRECAUTIONS IN PLACE. WILL CONTINUE TO MONITOR Q15MIN ROUNDS FOR SAFETY AND BEHAVIOR.
[2021-12-19] MEDS: PANTOPRAZOLE 40 MG TABLET.DR PO SCH (07:34)
[2021-12-19] MEDS: LEVOTHYROXINE SODIUM 50 MCG TABLET PO SCH (07:34)
[2021-12-19 08:00] VITALS: BP 99/59
[2021-12-19] MEDS: BENZTROPINE MESYLATE (1 MG) 1 MG TABLET PO SCH ×3 (08:36→17:25)
[2021-12-19] MEDS: HALOPERIDOL LACTATE 10 MG/5 ML UDC PO SCH ×3 (08:36→17:25)
--- NOTE | 2021-12-19 10:03 | NUR ---
RN OPENING NOTE PATIENT AWAKE IN BED RESTING, A/O X 2. NO S/S OF PAIN NOTED AT THIS TIME. ON ROOM AIR, NO DISTRESS OR SHORTNESS OF BREATH NOTED. PATIENT IS COOPERATIVE AND COMPLIANT WITH MEDICATION. PATIENT DENIES SUICIDE IDEATION AND HOMICIDAL IDEATION AT THIS TIME. PATIENT HAS NO NEEDS AT THIS TIME. PATIENT EDUCATED ON THE USE OF THE CALL CASTILLO. FALL AND SAFETY MEASURES IN PLACE, BED ALARM ON, BED IN LOW AND LOCK POSITION, CALL LIGHT AND TABLE WITHIN EASY REACH, SIDE RAILS UP X2. WILL CONTINUE TO MONITOR Q15 MIN. WITH THE HELP OF STAFF TO MAINTAIN SAFETY.
[2021-12-19 16:00] VITALS: BP 105/60
--- NOTE | 2021-12-19 18:47 | NUR ---
RN CLOSING NOTE PATIENT AWAKE IN BED RESTING, A/O X 2. NO S/S OF PAIN NOTED AT THIS TIME. ON ROOM AIR, NO DISTRESS OR SHORTNESS OF BREATH NOTED. PATIENT IS COOPERATIVE AND COMPLIANT WITH MEDICATION. ALL SCHEDULE MEDICATIONS ADMINISTERED. PATIENT DENIES SUICIDE IDEATION AND HOMICIDAL IDEATION AT THIS TIME. PATIENT HAS NO NEEDS AT THIS TIME. PATIENT EDUCATED ON THE USE OF THE CALL CASTILLO. FALL AND SAFETY MEASURES IN PLACE, BED ALARM ON, BED IN LOW AND LOCK POSITION, CALL LIGHT AND TABLE WITHIN EASY REACH, SIDE RAILS UP X2. 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
[2021-12-19 21:02] VITALS: BP 131/62
[2021-12-19] MEDS: OLANZAPINE 2.5 MG TABLET PO SCH (21:24)
[2021-12-20 08:00] VITALS: BP 122/79
[2021-12-20] MEDS: PANTOPRAZOLE 40 MG TABLET.DR PO SCH (08:27)
[2021-12-20] MEDS: LEVOTHYROXINE SODIUM 50 MCG TABLET PO SCH (08:27)
[2021-12-20] MEDS: HALOPERIDOL LACTATE 10 MG/5 ML UDC PO SCH ×3 (08:27→17:45)
[2021-12-20] MEDS: BENZTROPINE MESYLATE (1 MG) 1 MG TABLET PO SCH ×3 (08:29→17:45)
[2021-12-20] MEDS: OLANZAPINE 2.5 MG TABLET PO SCH ×2 (11:47→17:45)
[2021-12-20 16:00] VITALS: BP 117/61
[2021-12-20 20:00] VITALS: BP 127/58
--- NOTE | 2021-12-21 06:17 | NUR ---
GPS NURSES CLOSING NOTES: PATIENT IS CURRENTLY LAYING ON BED, ASLEEP. PATIENT SLEPT 9HRS THIS SHIFT. NO S/S OF DISTRESS. RESPIRATION EVEN AND UNLABORED WITH EQUAL RISE AND FALL OF THE CHEST, ON ROOM AIR. ALL PATIENT CARE NEEDS HAVE BEEN MET ANTICIPATED. WILL CONTINUE TO MONITOR Q15 FOR SAFETY, MOOD AND BEHAVIOR AND ENDORSE TO AM SHIFT.
[2021-12-21] MEDS: PANTOPRAZOLE 40 MG TABLET.DR PO SCH (07:30)
[2021-12-21] MEDS: LEVOTHYROXINE SODIUM 50 MCG TABLET PO SCH (07:30)
[2021-12-21 08:00] VITALS: BP 130/70
[2021-12-21] MEDS: BENZTROPINE MESYLATE (1 MG) 1 MG TABLET PO SCH ×3 (09:44→17:28)
[2021-12-21] MEDS: OLANZAPINE 2.5 MG TABLET PO SCH ×2 (09:44→17:25)
[2021-12-21] MEDS: HALOPERIDOL LACTATE 10 MG/5 ML UDC PO SCH ×3 (09:44→17:25)
[2021-12-21 16:00] VITALS: BP 138/52
[2021-12-21] MEDS: ACETAMINOPHEN 325 MG TABLET PO PRN (19:52)
--- NOTE | 2021-12-21 19:53 | NUR ---
GPS RN OPENING NOTES: RECEIVED PATIENT IN BED, AWAKE, A/O X2. PASSIVE, WITHDRAWN, ISOLATIVE. PATIENT C/O HEADACHE, TYLENOL 650MG GIVEN PO PRN. DENIES SI, HI AND PAIN AT THIS TIME. NO S/S OF DISTRESS. RESPIRATION EVEN AND UNLABORED WITH EQUAL RISE AND FALL OF THE CHEST, ON ROOM AIR. BED IN LOWEST POSITION AND LOCKED, SIDE RAILS UP X2 FOR SAFETY. WILL CONTINUE TO MONITOR Q15 FOR MOOD, SAFETY AND BEHAVIOR.
[2021-12-21 20:09] VITALS: BP 105/58
[2021-12-22 08:00] VITALS: BP 151/68
[2021-12-22] MEDS: LEVOTHYROXINE SODIUM 50 MCG TABLET PO SCH (08:23)
[2021-12-22] MEDS: BENZTROPINE MESYLATE (1 MG) 1 MG TABLET PO SCH ×3 (08:23→16:48)
[2021-12-22] MEDS: HALOPERIDOL LACTATE 10 MG/5 ML UDC PO SCH ×3 (08:23→16:47)
[2021-12-22] MEDS: PANTOPRAZOLE 40 MG TABLET.DR PO SCH (08:23)
[2021-12-22] MEDS: OLANZAPINE 2.5 MG TABLET PO SCH ×2 (08:33→20:49)
[2021-12-22 16:00] VITALS: BP 114/56
[2021-12-22 20:00] VITALS: BP_SYST 121; BP_SYST 131; BP_DIAS 56
[2021-12-23 08:00] VITALS: BP 139/60
[2021-12-23] MEDS: BENZTROPINE MESYLATE (1 MG) 1 MG TABLET PO SCH ×3 (08:10→16:24)
[2021-12-23] MEDS: OLANZAPINE 2.5 MG TABLET PO SCH ×2 (08:10→16:24)
[2021-12-23] MEDS: LEVOTHYROXINE SODIUM 50 MCG TABLET PO SCH (08:10)
[2021-12-23] MEDS: PANTOPRAZOLE 40 MG TABLET.DR PO SCH (08:10)
[2021-12-23] MEDS: HALOPERIDOL LACTATE 10 MG/5 ML UDC PO SCH ×3 (08:10→16:24)
--- NOTE | 2021-12-23 09:40 | NUR ---
RN Notes: Received pt. asleep in bed, breathing is even and unlabored. Ate 100% for breakfast, compliant on meds. Pt. is suspicious, paranoid that somebody is taking her water and isolates in her room. encouraged to verbalize feelings and motivated to attend group activity. Needs attended and will continue to monitor for safety.
[2021-12-23 16:00] VITALS: BP 136/94
--- NOTE | 2021-12-23 19:30 | NUR ---
GPS RN NOTE, RECEIVED PATIENT AWAKE AND IN BED, NO S/S OR COMPLAINTS OF PAIN AT THIS TIME. PATIENT IS DISPLAYING NO S/S OF APPARENT DISTRESS AT THIS TIME. PATIENT BREATHING IS UNLABORED WITH EQUAL RISE AND FALL OF THE CHEST. PATIENT IS ALERT AND ORIENTED X 2 ON ROOM AIR WITH A SPO2 95%. PATIENT IS COMPLIANT WITH MEDICATIONS, ANXIOUS, PARANOID, DELUSIONAL, AND IS COOPERATIVE. PATIENT DENIES SUICIDAL AND HOMICIDAL IDEATIONS AT THIS TIME. PATIENT ASSISTED WITH TURNING AND REPOSITIONING Q2HR AND PRN FOR COMFORT AND CIRCULATION. PATIENT HAS NO NEEDS AT THIS TIME. PATIENT EDUCATED ON THE USE OF THE CALL CASTILLO. PATIENT BED SIDE RAILS UP X 2 FOR SAFETY. PATIENT BED IS LOCKED, LOW, WITH BED ALARM ON. WILL CONTINUE TO MONITOR THIS PATIENT Q15 MINUTES WITH THE HELP OF STAFF TO MAINTAIN SAFETY.
[2021-12-23 20:00] VITALS: BP 130/52
[2021-12-24 08:00] VITALS: BP 130/65
[2021-12-24] MEDS: PANTOPRAZOLE 40 MG TABLET.DR PO SCH (08:24)
[2021-12-24] MEDS: HALOPERIDOL LACTATE 10 MG/5 ML UDC PO SCH ×3 (08:24→16:16)
[2021-12-24] MEDS: OLANZAPINE 2.5 MG TABLET PO SCH ×2 (08:24→16:16)
[2021-12-24] MEDS: BENZTROPINE MESYLATE (1 MG) 1 MG TABLET PO SCH ×3 (08:24→16:16)
[2021-12-24] MEDS: LEVOTHYROXINE SODIUM 50 MCG TABLET PO SCH (08:24)
--- NOTE | 2021-12-24 10:00 | NUR ---
RN Notes: Received pt. asleep in bed, breathing is even and unlabored. Ate 100% for breakfast, compliant on meds. Pt. is suspicious, isolates in her room. Encouraged to verbalize feelings and motivated to attend group activity. Needs attended and will continue to monitor for safety.
[2021-12-24 16:00] VITALS: BP 115/59
[2021-12-24] MEDS: ACETAMINOPHEN 325 MG TABLET PO PRN (17:20)
--- NOTE | 2021-12-24 19:30 | NUR ---
GPS RN NOTE, RECEIVED PATIENT AWAKE AND IN BED, NO S/S OR COMPLAINTS OF PAIN AT THIS TIME. PATIENT IS DISPLAYING NO S/S OF APPARENT DISTRESS AT THIS TIME. PATIENT BREATHING IS UNLABORED WITH EQUAL RISE AND FALL OF THE CHEST. PATIENT IS ALERT AND ORIENTED X 2 ON ROOM AIR WITH A SPO2 95%. PATIENT IS COMPLIANT WITH MEDICATIONS, CALM, PARANOID, DELUSIONAL, AND IS COOPERATIVE. PATIENT DENIES SUICIDAL AND HOMICIDAL IDEATIONS AT THIS TIME. PATIENT ASSISTED WITH TURNING AND REPOSITIONING Q2HR AND PRN FOR COMFORT AND CIRCULATION. PATIENT HAS NO NEEDS AT THIS TIME. PATIENT EDUCATED ON THE USE OF THE CALL CASTILLO. PATIENT BED SIDE RAILS UP X 2 FOR SAFETY. PATIENT BED IS LOCKED, LOW, WITH BED ALARM ON. WILL CONTINUE TO MONITOR THIS PATIENT Q15 MINUTES WITH THE HELP OF STAFF TO MAINTAIN SAFETY.
[2021-12-24 20:38] VITALS: BP 145/74
[2021-12-25 08:00] VITALS: BP 134/84
[2021-12-25] MEDS: LEVOTHYROXINE SODIUM 50 MCG TABLET PO SCH (08:16)
[2021-12-25] MEDS: PANTOPRAZOLE 40 MG TABLET.DR PO SCH (08:16)
[2021-12-25] MEDS: HALOPERIDOL LACTATE 10 MG/5 ML UDC PO SCH ×3 (08:16→16:16)
[2021-12-25] MEDS: BENZTROPINE MESYLATE (1 MG) 1 MG TABLET PO SCH ×3 (08:17→16:16)
[2021-12-25] MEDS: OLANZAPINE 2.5 MG TABLET PO SCH ×2 (08:17→16:16)
[2021-12-25 16:00] VITALS: BP 143/72
--- NOTE | 2021-12-25 19:30 | NUR ---
GPS RN NOTE, RECEIVED PATIENT AWAKE AND IN BED, NO S/S OR COMPLAINTS OF PAIN AT THIS TIME. PATIENT IS DISPLAYING NO S/S OF APPARENT DISTRESS AT THIS TIME. PATIENT BREATHING IS UNLABORED WITH EQUAL RISE AND FALL OF THE CHEST. PATIENT IS ALERT AND ORIENTED X 2 ON ROOM AIR WITH A SPO2 96%. PATIENT IS COMPLIANT WITH MEDICATIONS, CALM, PARANOID, DELUSIONAL, AND IS COOPERATIVE. PATIENT STATES, " THAT MY ARMS AND HANDS ARE NOT MY OWN ". PATIENT DENIES SUICIDAL AND HOMICIDAL IDEATIONS AT THIS TIME. PATIENT ASSISTED WITH TURNING AND REPOSITIONING Q2HR AND PRN FOR COMFORT AND CIRCULATION. PATIENT HAS NO NEEDS AT THIS TIME. PATIENT EDUCATED ON THE USE OF THE CALL CASTILLO. PATIENT BED SIDE RAILS UP X 2 FOR SAFETY. PATIENT BED IS LOCKED, LOW, WITH BED ALARM ON. WILL CONTINUE TO MONITOR THIS PATIENT Q15 MINUTES WITH THE HELP OF STAFF TO MAINTAIN SAFETY.
[2021-12-25 20:17] VITALS: BP_SYST 117; BP_SYST 138; BP_DIAS 52; BP_DIAS 99
[2021-12-26] MEDS: PANTOPRAZOLE 40 MG TABLET.DR PO SCH (07:16)
[2021-12-26] MEDS: LEVOTHYROXINE SODIUM 50 MCG TABLET PO SCH (07:16)
[2021-12-26 08:00] VITALS: BP 119/66
[2021-12-26] MEDS: BENZTROPINE MESYLATE (1 MG) 1 MG TABLET PO SCH ×3 (08:14→16:22)
[2021-12-26] MEDS: HALOPERIDOL LACTATE 10 MG/5 ML UDC PO SCH ×3 (08:15→16:22)
[2021-12-26] MEDS: OLANZAPINE 2.5 MG TABLET PO SCH ×2 (08:15→16:22)
[2021-12-26 16:00] VITALS: BP 120/59
[2021-12-26 20:00] VITALS: BP 109/59
[2021-12-26 20:37] VITALS: BP 109/59
[2021-12-27] MEDS: PANTOPRAZOLE 40 MG TABLET.DR PO SCH (07:33)
[2021-12-27] MEDS: LEVOTHYROXINE SODIUM 50 MCG TABLET PO SCH (07:33)
[2021-12-27 08:00] VITALS: BP 145/76
[2021-12-27] MEDS: OLANZAPINE 2.5 MG TABLET PO SCH (08:07)
[2021-12-27] MEDS: BENZTROPINE MESYLATE (1 MG) 1 MG TABLET PO SCH ×2 (08:07→12:36)
--- NOTE | 2021-12-27 08:08 | NUR ---
SW Discharge Note: Patient will be discharged to [facility] [address] [place] [address] ([phone]). Please arrange ambulance transportation at 1PM. Spoke with Julia, Admin Coordinator at the facility who states they are ready to accept the patient today. SW left pts cousin Arcadio ([phone]) a voicemail of pt discharge day. Patient is alert and oriented x2, is unable to plan for self-care at this time, however, is willing to accept care at [facility]. Patient denies any suicidal or homicidal ideation. Patient will follow-up at the [place] [address] [place] [address]; ([phone]) and (Special Ed Assistant) Dr. Hunt [address] [address]; ([phone]. Patient presents with euthymic mood and congruent affect.
[2021-12-27] MEDS: HALOPERIDOL LACTATE 10 MG/5 ML UDC PO SCH ×2 (08:09→12:36)
--- NOTE | 2021-12-27 10:35 | NUR ---
RN-CO: PATIENT IS CALM AND COOPERATIVE TO CARE. NO ACUTE DISTRESS, DENIED SUICIDAL AND HOMICIDAL IDEATION. SHE DENIED AUDITORY AND VISUAL HALLUCINATION. MEDICALLY CLEARED FOR DISCHARGE BY DR DENTON. DR DUEÑAS ORDERED TO DISCONTINUE HOLD AND DC PATIENT TO SNF. ALL BELONGINGS (CLOTHES ONLY) WILL BE GIVEN BACK TO THE PATIENT. REPORT WILL BE CALLED TO [facility]. PT REFUSED SKIN REASSESSMENT. SHE VERBALLY AGREED TO ALL DISCHARGE PAPERS AFTER I DISCUSSED IT TO HER BUT SHE REFUSED TO SIGN.
--- NOTE | 2021-12-27 10:37 | NUR ---
RN-CO; Patient's cousin john [phone] is aware of the discharge and agreeable to patient's placement.
--- NOTE | 2021-12-27 15:07 | NUR ---
RN-CO; AMBULANCE IS HERE FOR [facility].
== END 2021-12-27 15:11 | DRG 885 ==
LOC: ER 18:14 → GPS 12-11 00:06
PROVIDERS: ADMIT Psychiatry & Neurology Psychiatry; ATTEND Internal Medicine
DX: F25.9 Schizoaffective disorder, unspecified (principal); E11.9 Type 2 diabetes mellitus without complications; E03.9 Hypothyroidism, unspecified; Z87.891 Personal history of nicotine dependence; I69.398 Other sequelae of cerebral infarction; E78.5 Hyperlipidemia, unspecified; K21.9 Gastro-esophageal reflux disease without esophagitis; F41.9 Anxiety disorder, unspecified; F32.9 Major depressive disorder, single episode, unspecified; F29 Unspecified psychosis not due to a substance or known physiological condition; Z73.6 Limitation of activities due to disability; I10 Essential (primary) hypertension; Z79.890 Hormone replacement therapy; Z91.81 History of falling; R53.1 Weakness; R27.8 Other lack of coordination; G31.84 Mild cognitive impairment of uncertain or unknown etiology
CPT/HCPCS: 36415; 70450-TC; 71045-TC; 80048-TC; 80061-TC; 80076-TC; 81001; 82962-TC; 85025-TC; 87081-TC; 97116-TC; 97530-TC; C9803; G0480

== ENCOUNTER 2023-08-25 15:07 | Emergency (ER) | payer MEDICARE, OTHER ==
[~2023-08-25] VITALS: Ht 170.2 cm; Wt 82.1 kg
[~2023-08-25 15:07] MED LIST changes: +CRAN425C6 PO; +OMEP20CA15 PO; +ZOLP10TA2 PO
[2023-08-25 15:26] VITALS: TEMP 98.5
[2023-08-25 16:29] LABS: BASOPHILS % (AUTO) 0.3 % (0.0-2.0); EOSINOPHILS # (AUTO) 0.1 K/uL (0.0-0.7); EOSINOPHILS % (AUTO) 1.5 % (0.0-6.0); HEMATOCRIT 42 % (33-45); HEMOGLOBIN 13.8 g/dL (11.5-14.8); LYMPHOCYTES # (AUTO) 1.5 K/uL (0.8-4.8); LYMPHOCYTES % (AUTO) 16.9 % (20.0-44.0); MEAN CORPUSCULAR HEMOGLOBIN 29 PG (26.0-33.0); MEAN CORPUSCULAR HGB CONC 33 g/dl (31.0-36.0); MEAN CORPUSCULAR VOLUME 88 fL (82-100); MONOCYTES # (AUTO) 0.8 K/uL (0.1-1.30); NEUTROPHILS # (AUTO) 6.6 K/uL (1.8-8.9); NEUTROPHILS % (AUTO) 72.3 % (43.0-81.0); PLATELET COUNT (AUTO) 297 K/uL (150-450); RED BLOOD CELL COUNT(AUTO) 4.74 MIL/uL (4.0-5.2); RED CELL DISTRIBUTION WIDTH 14.8 % (11.5-15.0); WHITE BLOOD COUNT (AUTO) 9.1 K/uL (4.3-11.0)
[2023-08-25] MEDS ORDERED: PANT40TA49 PO (16:29)
[2023-08-25] MEDS ORDERED: QUET100T PO (16:29)
[2023-08-25] MEDS ORDERED: HALO50AM2 IM (16:29)
[2023-08-25] MEDS ORDERED: QUET50TA PO (16:29)
[2023-08-25] MEDS ORDERED: LEVO75TA7 PO (16:29)
[2023-08-25] MEDS ORDERED: BENZ1TAB7 PO (16:29)
[2023-08-25] MEDS ORDERED: CLON0.5T4 PO (16:29)
[2023-08-25 16:32] LABS: APPEARANCE,URINE Clear (CLEAR); BILIRUBIN,URINE Negative (NEGATIVE); BLOOD, URINE Negative Ery/uL (NEGATIVE); COLOR,URINE YELLOW (YELLOW); KETONES,URINE Negative (NEGATIVE); LEUKOCYTE ESTERASE ,URINE Moderate (NEGATIVE); NITRITE, URINE Negative (NEGATIVE); PROTEIN,URINE Negative (NEGATIVE); UGLUCOSE Negative (NEGATIVE); UROBILINOGEN,URINE 0.2 EU/dL (0.2)
[2023-08-25 16:38] LABS: CALCIUM, SERUM 9.6 mg/dL (8.5-10.1); CARBON DIOXIDE 27 mmol/L (21-32); CHLORIDE 101 mmol/L (98-107); CREATININE 1.2 mg/dL (0.6-1.3); GLUCOSE 114 mg/dL (74-106); POTASSIUM 3.7 mmol/L (3.5-5.1); SODIUM SERUM 136 mmol/L (136-145); UREA NITROGEN, BLOOD 20 mg/dL (7-18)
[2023-08-25] MEDS ORDERED: HALOPERIDOL LACTATE INJ 5 MG/ML VIAL ONE (16:39)
[2023-08-25] MEDS: HALOPERIDOL LACTATE INJ 5 MG/ML VIAL IM ONE (16:40)
[2023-08-25 16:43] LABS: ACETAMINOPHEN <10 ug/ml (10-30); ALANINE AMINOTRANSFERASE 18 U/L (12-78); ALBUMIN 4.1 g/dL (3.4-5.0); ALCOHOL, BLOOD < 3 mg/dL (0-10); ALKALINE PHOSPHATASE 92 U/L (46-116); ASPARTATE AMINOTRANSFERASE 19 U/L (15-37); BILIRUBIN,DIRECT 0.2 mg/dL (0.0-0.2); BILIRUBIN,TOTAL 0.8 mg/dL (0.2-1.0); SALICYLATE 0.5 mg/dL (2.8-20.0); TOTAL PROTEIN, SERUM 8.1 g/dL (6.4-8.2)
[2023-08-25 16:44] LABS: AMPHETAMINE, URINE NEGATIVE (NEGATIVE); BARBITURATE, URINE NEGATIVE (NEGATIVE); BENZODIAZEPINE, URINE NEGATIVE (NEGATIVE); CANNABINOID, URINE NEGATIVE (NEGATIVE); COCCAINE, URINE NEGATIVE (NEGATIVE); OPIATE, URINE NEGATIVE (NEGATIVE); PHENCYCLIDINE SCREEN,URINE NEGATIVE (NEGATIVE)
[2023-08-25 16:47] LABS: ADD URINE CULTURE YES; BACTERIA,URINE 1+ /HPF (None Seen); RBC,URINE NONE SEEN /HPF (0-2)
[2023-08-25] MEDS ORDERED: CEFTRIAXONE 1GM BAG (ER ONLY) 50 ML IV ONE (18:04)
[2023-08-25 18:22] LABS: ANISOCYTOSIS 1+; BAND % (MANUAL) 2 % (0.0-5.0); EOSINOPHILS % (MANUAL) 2 % (0-4); LYMPHOCYTES % (MANUAL) 17 % (16-48); MONOCYTES % (MANUAL) 3 % (0-11.0); NEUTROPHILS % (MANUAL) 76 (42-76); PLATELET ESTIMATE ADEQUATE
[2023-08-25 18:23] LABS: OVALOCYTES 1+; ROULEAUX 1+; TEAR DROP CELLS RARE
[2023-08-25] MEDS: CEFTRIAXONE 1GM BAG (ER ONLY) 1 GM/50 ML PIGGYBACK IV ONE (18:28)
[2023-08-25 19:16] VITALS: O2SAT 97
[2023-08-25] MEDS ORDERED: hydrALAZINE HCL IV 20 MG VIAL ONE (20:00)
[2023-08-25 20:03] VITALS: BP 177/92
[2023-08-25] MEDS: hydrALAZINE HCL IV 20 MG VIAL IV ONE (20:03)
== END 2023-08-25 21:41 ==
LOC: ER 15:18
DX: N39.0 Urinary tract infection, site not specified (principal); R45.1 Restlessness and agitation; I10 Essential (primary) hypertension; E78.5 Hyperlipidemia, unspecified; E11.9 Type 2 diabetes mellitus without complications; K21.9 Gastro-esophageal reflux disease without esophagitis; F20.9 Schizophrenia, unspecified; F31.9 Bipolar disorder, unspecified; F41.9 Anxiety disorder, unspecified; E03.9 Hypothyroidism, unspecified; Z79.899 Other long term (current) drug therapy; Z20.822 Contact with and (suspected) exposure to COVID-19
CPT/HCPCS: 99285; 96372; 96365; 96375; 85025; 80048; 87086; 80076; 85007; 81001; 36415; 87426; 80143; 80320; 80307; J1630; J0360; J7030; J0696; G0480

== ENCOUNTER 2024-04-24 20:02 | Inpatient (IN) | payer MEDICARE, OTHER ==
[~2024-04-24] VITALS: Ht 152.4 cm; Wt 80.3 kg
[~2024-04-24 20:02] MED LIST changes: +BENZ1TAB7 PO; +CLON0.5T4 PO; +HALO50AM2 IM; -LEVO100T PO; +LEVO75TA7 PO; -OMEP20CA15 PO; +PANT40TA49 PO; +QUET100T PO; +QUET50TA PO
[2024-04-24 20:39] LABS: BASOPHILS % (AUTO) 0.3 % (0.0-2.0); EOSINOPHILS # (AUTO) 0.1 K/uL (0.0-0.7); EOSINOPHILS % (AUTO) 0.9 % (0.0-6.0); HEMATOCRIT 37 % (33-45); HEMOGLOBIN 12.7 g/dL (11.5-14.8); LYMPHOCYTES # (AUTO) 0.4 K/uL (0.8-4.8); LYMPHOCYTES % (AUTO) 5.6 % (20.0-44.0); MEAN CORPUSCULAR HEMOGLOBIN 30 PG (26.0-33.0); MEAN CORPUSCULAR HGB CONC 34 g/dl (31.0-36.0); MEAN CORPUSCULAR VOLUME 87 fL (82-100); MONOCYTES # (AUTO) 0.6 K/uL (0.1-1.30); MONOCYTES % (AUTO) 8.1 % (2.0-12.0); NEUTROPHILS # (AUTO) 6.3 K/uL (1.8-8.9); NEUTROPHILS % (AUTO) 85.1 % (43.0-81.0); PLATELET COUNT (AUTO) 201 K/uL (150-450); RED BLOOD CELL COUNT(AUTO) 4.31 MIL/uL (4.0-5.2); RED CELL DISTRIBUTION WIDTH 14.2 % (11.5-15.0); WHITE BLOOD COUNT (AUTO) 7.4 K/uL (4.3-11.0)
[2024-04-24 20:50] LABS: APPEARANCE,URINE CLEAR (CLEAR); BILIRUBIN,URINE NEGATIVE (NEGATIVE); BLOOD, URINE NEGATIVE Ery/uL (NEGATIVE); COLOR,URINE YELLOW (YELLOW); KETONES,URINE NEGATIVE (NEGATIVE); LEUKOCYTE ESTERASE ,URINE NEGATIVE (NEGATIVE); NITRITE, URINE NEGATIVE (NEGATIVE); PH,URINE 7.5 (5.0-8.0); PROTEIN,URINE NEGATIVE (NEGATIVE); UGLUCOSE NEGATIVE (NEGATIVE); UROBILINOGEN,URINE 0.2 EU/dL (0.2)
[2024-04-24 20:52] LABS: INR 1.03 (0.91-1.10); PROTHROMBIN TIME 10.9 SECS (9.2-11.1)
[2024-04-24 21:03] LABS: LACTIC ACID 1.7 mmol/L (0.4-2.0)
[2024-04-24 21:22] LABS: CALCIUM, SERUM 9.2 mg/dL (8.5-10.1); CARBON DIOXIDE 25 mmol/L (21-32); CHLORIDE 104 mmol/L (98-107); CREATININE 1.1 mg/dL (0.6-1.3); GLUCOSE 118 mg/dL (74-106); POTASSIUM 3.7 mmol/L (3.5-5.1); SODIUM SERUM 142 mmol/L (136-145); UREA NITROGEN, BLOOD 24 mg/dL (7-18)
[2024-04-24] MEDS ORDERED: ACETAMINOPHEN ES 500 MG TABLET ONE (21:25)
[2024-04-24] MEDS ORDERED: VANCOMYCIN 1 GM /D5W 250 ML PB IV ONE (21:26)
[2024-04-24] MEDS ORDERED: CEFEPIME 1 GM VIAL ONE (21:26)
[2024-04-24 21:29] LABS: ALANINE AMINOTRANSFERASE 13 U/L (12-78); ALBUMIN 3.6 g/dL (3.4-5.0); ALKALINE PHOSPHATASE 84 U/L (46-116); ASPARTATE AMINOTRANSFERASE 16 U/L (15-37); BILIRUBIN,DIRECT 0.2 mg/dL (0.0-0.2); BILIRUBIN,TOTAL 1.2 mg/dL (0.2-1.0); TOTAL PROTEIN, SERUM 7.2 g/dL (6.4-8.2)
[2024-04-24] MEDS: CEFEPIME 1 GM in IV D5W 50 ML IV ONE (21:30)
[2024-04-24] MEDS: ACETAMINOPHEN ES 500 MG TABLET PO ONE (21:30)
[2024-04-24] MEDS: IV NS 0.9% 1,000 ML BAG IV ONE (21:30)
[2024-04-24] MEDS: VANCOMYCIN 1 GM in IV D5W 250 ML IV ONE (22:00)
[2024-04-24] MEDS ORDERED: MAGNESIUM HYDROXIDE 30 ML UDC PO PRN (22:00)
[2024-04-24] MEDS ORDERED: MAG HYDROX/AL HYDROX/SIMETH 30 ML UDC PO PRN (22:00)
[2024-04-24] MEDS ORDERED: ONDANSETRON HCL/PF 4 MG/2 ML VIAL IVP PRN (22:00)
[2024-04-24] MEDS ORDERED: Z GUARD REMEDY 4 OZ OINT TP PRN (22:00)
[2024-04-25] MEDS ORDERED: BISACODYL SUPP (10 MG) 10 MG/SUPP.RECT SUPP.RECT RC PRN
[2024-04-25 01:09] VITALS: BP 143/89; TEMP 98.8; O2SAT 97
[2024-04-25] MEDS: IV NS 0.9% 1,000 ML IV PRN ×2 (02:42→15:33)
[2024-04-25] MEDS: DILTIAZEM HCL 25 MG IV ONE (02:43)
[2024-04-25] MEDS: DILTIAZEM HCL 50 MG IV IV ONE (02:51)
[2024-04-25 04:00] VITALS: BP 101/75; TEMP 99.2; O2SAT 96
[2024-04-25] MEDS: LEVOTHYROXINE SODIUM 75 MCG TABLET PO SCH (07:55)
[2024-04-25] MEDS: PANTOPRAZOLE 40 MG TABLET.DR PO SCH (07:55)
[2024-04-25 08:00] VITALS: BP 112/60; TEMP 99.7; O2SAT 96
[2024-04-25] MEDS ORDERED: MAG30ORA PO (08:14)
[2024-04-25] MEDS ORDERED: HALO5TAB PO (08:14)
[2024-04-25] MEDS ORDERED: DOCU100T2 PO (08:14)
[2024-04-25] MEDS ORDERED: LORA-258 PO (08:14)
[2024-04-25] MEDS ORDERED: GUAI100S9 PO (08:14)
[2024-04-25] MEDS ORDERED: NUT.237L28 PO (08:14)
[2024-04-25] MEDS ORDERED: LEVO100T PO (08:14)
[2024-04-25] MEDS ORDERED: TEMA7.5C PO (08:14)
[2024-04-25] MEDS: QUETIAPINE FUMARATE 100 MG TABLET PO SCH (08:50)
[2024-04-25] MEDS: BENZTROPINE MESYLATE (1 MG) 1 MG TABLET PO SCH (08:50)
[2024-04-25] MEDS: clonazePAM 0.5 MG TABLET PO SCH (08:50)
[2024-04-25] MEDS ORDERED: Medication Not On Formulary EA (Cranberry Extract (Cranberry) 425 MG) PO SCH (09:00)
[2024-04-25 12:00] VITALS: BP 106/56; TEMP 99.1; O2SAT 97
[2024-04-25 13:52] LABS: BASOPHILS % (AUTO) 0.4 % (0.0-2.0); EOSINOPHILS % (AUTO) 0.1 % (0.0-6.0); HEMATOCRIT 35 % (33-45); HEMOGLOBIN 11.8 g/dL (11.5-14.8); LYMPHOCYTES # (AUTO) 0.5 K/uL (0.8-4.8); MEAN CORPUSCULAR HEMOGLOBIN 30 PG (26.0-33.0); MEAN CORPUSCULAR HGB CONC 34 g/dl (31.0-36.0); MEAN CORPUSCULAR VOLUME 87 fL (82-100); MONOCYTES # (AUTO) 0.7 K/uL (0.1-1.30); MONOCYTES % (AUTO) 16.7 % (2.0-12.0); NEUTROPHILS % (AUTO) 71.8 % (43.0-81.0); PLATELET COUNT (AUTO) 160 K/uL (150-450); RED CELL DISTRIBUTION WIDTH 14.5 % (11.5-15.0); WHITE BLOOD COUNT (AUTO) 4.2 K/uL (4.3-11.0)
[2024-04-25] MEDS ORDERED: ACETAMINOPHEN 325 MG TABLET PO PRN (15:00)
[2024-04-25] MEDS ORDERED: MAGNESIUM HYDROXIDE 30 ML UDC PO PRN (15:00)
[2024-04-25 16:00] VITALS: BP 140/74; TEMP 99.1; O2SAT 96
[2024-04-25] MEDS: GLUCERNA SHAKE 237 ML CAN PO SCH (16:21)
[2024-04-25 16:47] LABS: ALBUMIN 2.9 g/dL (3.4-5.0)
[2024-04-25] MEDS ORDERED: HALOPERIDOL 5 MG TABLET PO SCH (17:00)
[2024-04-25 17:06] LABS: CREATININE 0.8 mg/dL (0.6-1.3); MAGNESIUM 1.7 mg/dL (1.8-2.4); PHOSPHORUS 3.1 mg/dL (2.5-4.9)
[2024-04-25 18:00] LABS: NT-PRO BNP 509 pg/mL (0-125)
[2024-04-25 19:30] LABS: ANISOCYTOSIS 1+; LYMPHOCYTES % (MANUAL) 6 % (16-48); MONOCYTES % (MANUAL) 14 % (0-11.0); NEUTROPHILS % (MANUAL) 80 (42-76); PLATELET ESTIMATE ADEQUATE
[2024-04-25 20:00] VITALS: BP 133/64; TEMP 101; O2SAT 95
[2024-04-25] MEDS: ACETAMINOPHEN 325 MG TABLET PO PRN (21:35)
[2024-04-25] MEDS ORDERED: QUETIAPINE FUMARATE 25 MG TABLET PO SCH (22:00)
[2024-04-25] MEDS ORDERED: DILTIAZEM HCL 50 MG IV IV ONE (23:35)
[2024-04-25] MEDS: DILTIAZEM HCL 25 MG IV IV ONE (23:42)
[2024-04-26] VITALS: BP 106/60; TEMP 98; O2SAT 95
[2024-04-26 04:00] VITALS: BP 123/62; TEMP 98.2; O2SAT 95
[2024-04-26 08:00] VITALS: BP 122/64; TEMP 98.6; O2SAT 97
[2024-04-26] MEDS: PANTOPRAZOLE 40 MG TABLET.DR PO SCH (08:32)
[2024-04-26] MEDS: DOCUSATE SODIUM 100 MG CAPSULE PO SCH (08:32)
[2024-04-26] MEDS: LEVOTHYROXINE SODIUM 100 MCG TABLET PO SCH (08:32)
[2024-04-26 12:00] VITALS: BP 122/56; TEMP 98.4; O2SAT 97
[2024-04-26 16:00] VITALS: BP 120/62; TEMP 99.3; O2SAT 98
[2024-04-26 20:00] VITALS: BP 129/64; TEMP 99.3; O2SAT 96
[2024-04-27] VITALS: BP 125/66; TEMP 99; O2SAT 98
[2024-04-27] MEDS: TEMAZEPAM 7.5 MG CAPSULE PO PRN (01:09)
[2024-04-27 04:00] VITALS: BP 129/77; TEMP 99.3; O2SAT 99
[2024-04-27 08:00] VITALS: BP 126/65; TEMP 98.2; O2SAT 98
[2024-04-27] MEDS ORDERED: BENZ1TAB7 PO (13:28)
[2024-04-27] MEDS ORDERED: Quetiapine Fumarate PO (13:28)
[2024-05-08] MEDS ORDERED: HALOPERIDOL DECANOATE IM 100 MG/ML AMPUL IM SCH (09:00)
== END 2024-04-27 16:18 | DRG 865 ==
LOC: ER 20:08 → MED 23:01 → TELE 23:31 → TELE-TD 04-25 01:59 → MEDSG1 04-25 10:55 → TELE1 04-25 11:20 → MEDSG1 04-26 10:00
PROVIDERS: ADMIT Nurse Practitioner Family; ATTEND Nurse Practitioner Acute Care
DX: B34.9 Viral infection, unspecified (principal); G93.41 Metabolic encephalopathy; E03.9 Hypothyroidism, unspecified; F41.9 Anxiety disorder, unspecified; G20.A1 Parkinson's disease without dyskinesia, without mention of fluctuations; E66.9 Obesity, unspecified; Z68.34 Body mass index [BMI] 34.0-34.9, adult; Z20.822 Contact with and (suspected) exposure to COVID-19; I10 Essential (primary) hypertension; I69.398 Other sequelae of cerebral infarction; E78.5 Hyperlipidemia, unspecified; K21.9 Gastro-esophageal reflux disease without esophagitis; F20.9 Schizophrenia, unspecified; F32.9 Major depressive disorder, single episode, unspecified; Z98.891 History of uterine scar from previous surgery; Z79.890 Hormone replacement therapy; Z79.899 Other long term (current) drug therapy; E11.65 Type 2 diabetes mellitus with hyperglycemia; Z87.891 Personal history of nicotine dependence; E88.09 Other disorders of plasma-protein metabolism, not elsewhere classified; R00.0 Tachycardia, unspecified; T50.Z95A Adverse effect of other vaccines and biological substances, initial encounter; Y92.129 Unspecified place in nursing home as the place of occurrence of the external cause
CPT/HCPCS: 36415; 71045-TC; 71250-TC; 80048-TC; 80076-TC; 82040-TC; 83605-TC; 83735-TC; 83880; 84100-TC; 84484-TC; 85025-TC; 85730-TC; 87040-TC; 93307-TC; 94799-TC; A4223; G0378; J0692; J1631; J3370; J3490; J7030; J7040; J7060

== ENCOUNTER 2025-02-14 12:25 | Inpatient (IN) | payer MEDICARE, OTHER ==
[~2025-02-14] VITALS: Ht 160 cm; Wt 79.8 kg
[~2025-02-14 12:25] MED LIST changes: +DOCU100T2 PO; +GUAI100S9 PO; +HALO5TAB PO; +LEVO100T PO; -LEVO75TA7 PO; +LORA-258 PO; +MAG30ORA PO; +NUT.237L28 PO; -QUET100T PO; -QUET50TA PO; +Quetiapine Fumarate PO; +TEMA7.5C PO; -ZOLP10TA2 PO
[2025-02-14 13:56] LABS: PLATELET COUNT (AUTO) 279 K/uL (150-450); RED BLOOD CELL COUNT(AUTO) 4.62 MIL/uL (4.0-5.2); RED CELL DISTRIBUTION WIDTH 14.2 % (11.5-15.0); WHITE BLOOD COUNT (AUTO) 9.2 K/uL (4.3-11.0)
[2025-02-14 14:10] LABS: ASPARTATE AMINOTRANSFERASE 26 U/L (15-37); CALCIUM, SERUM 9.1 mg/dL (8.5-10.1); CREATININE 1.1 mg/dL (0.6-1.3); SODIUM SERUM 138 mmol/L (136-145); TOTAL PROTEIN, SERUM 7.4 g/dL (6.4-8.2); UREA NITROGEN, BLOOD 22 mg/dL (7-18)
[2025-02-14 14:35] LABS: ALCOHOL, BLOOD < 3 mg/dL (0-10)
[2025-02-14 15:03] LABS: APPEARANCE,URINE CLEAR (CLEAR); BLOOD, URINE Negative Ery/uL (NEGATIVE); LEUKOCYTE ESTERASE ,URINE Trace (NEGATIVE); UGLUCOSE Negative (NEGATIVE)
[2025-02-14] MEDS ORDERED: QUET100T PO (15:08)
[2025-02-14] MEDS ORDERED: HYDR-500 PO (15:08)
[2025-02-14] MEDS ORDERED: BENZ1TAB7 PO (15:08)
[2025-02-14 15:16] LABS: NITRITE, URINE NEGATIVE (NEGATIVE)
[2025-02-14 15:18] LABS: ADD URINE CULTURE NO
[2025-02-14 15:19] LABS: SQUAMOUS EPITHELIAL CELL,UR Few /HPF (None Seen)
[2025-02-14 15:33] LABS: AMPHETAMINE, URINE NEGATIVE (NEGATIVE); BARBITURATE, URINE NEGATIVE (NEGATIVE); BENZODIAZEPINE, URINE NEGATIVE (NEGATIVE); CANNABINOID, URINE NEGATIVE (NEGATIVE); COCCAINE, URINE NEGATIVE (NEGATIVE); OPIATE, URINE NEGATIVE (NEGATIVE)
[2025-02-14] MEDS ORDERED: ACETAMINOPHEN 325 MG TABLET PO PRN (17:00)
[2025-02-14] MEDS ORDERED: ZOLPIDEM TARTRATE 5 MG TABLET PO PRN (17:00)
[2025-02-14] MEDS ORDERED: MAG HYDROX/AL HYDROX/SIMETH 30 ML UDC PO PRN (17:00)
[2025-02-14] MEDS ORDERED: MAGNESIUM HYDROXIDE 30 ML UDC PO PRN (17:00)
[2025-02-14] MEDS: BLOOD SUGAR DIAGNOSTIC 1 EACH STRIP IN ONE (17:18)
[2025-02-14 20:06] VITALS: BP 108/57; TEMP 98; O2SAT 97
[2025-02-15] MEDS: PANTOPRAZOLE 40 MG TABLET.DR PO SCH (07:30)
[2025-02-15] MEDS: LEVOTHYROXINE SODIUM 100 MCG TABLET PO SCH (07:30)
[2025-02-15 08:00] VITALS: BP 116/56; TEMP 98.2; O2SAT 95
[2025-02-15 16:00] VITALS: BP 124/98; TEMP 98.5; O2SAT 95
[2025-02-15] MEDS: BENZTROPINE MESYLATE (1 MG) 1 MG TABLET PO SCH (16:53)
[2025-02-15] MEDS: HALOPERIDOL 5 MG TABLET PO SCH (16:54)
[2025-02-15 19:50] VITALS: BP 122/90; TEMP 98; O2SAT 97
[2025-02-15] MEDS: PERMETHRIN 5% CRM 60 GM TUBE TP ONE (20:10)
[2025-02-15] MEDS: LITHIUM CARBONATE 150 MG CAPSULE PO SCH (20:19)
[2025-02-15 21:14] VITALS: BP 122/90; TEMP 98.5; O2SAT 97
[2025-02-16 08:00] VITALS: BP 130/82; TEMP 98.1; O2SAT 98
[2025-02-16] MEDS: LORAZEPAM 1 MG TABLET PO PRN (09:33)
[2025-02-16 16:00] VITALS: BP 128/76; TEMP 98.2; O2SAT 97
[2025-02-17 08:00] VITALS: BP 118/82; TEMP 97.9; O2SAT 98
[2025-02-17] MEDS: OLANZAPINE 10 MG VIAL IM ONE (08:25)
[2025-02-17] MEDS: HALOPERIDOL 5 MG TABLET PO SCH (13:00)
[2025-02-17 16:00] VITALS: BP 122/89; TEMP 98.1; O2SAT 97
[2025-02-17 19:38] VITALS: BP 113/56; TEMP 98.2; O2SAT 98
[2025-02-18 08:00] VITALS: BP 122/79; TEMP 98.7; O2SAT 98
[2025-02-18] MEDS: OLANZAPINE 10 MG VIAL IM ONE (10:03)
[2025-02-18 16:00] VITALS: BP 120/83; TEMP 98.2; O2SAT 99
[2025-02-18] MEDS: OLANZAPINE ZYDIS 5 MG TAB.RAPDIS PO SCH (16:51)
[2025-02-19 08:00] VITALS: BP 151/104; TEMP 98.7; O2SAT 98
[2025-02-19 16:00] VITALS: BP 138/89; TEMP 98.2; O2SAT 99
[2025-02-20 22:00] VITALS: BP 123/70; TEMP 98; O2SAT 98
[2025-02-21 08:00] VITALS: BP 124/82; TEMP 98.1; O2SAT 96
[2025-02-21] MEDS: HALOPERIDOL 5 MG TABLET PO SCH (11:00)
[2025-02-21] MEDS: HALOPERIDOL LACTATE INJ 5 MG/ML VIAL IM PRN (11:56)
[2025-02-21 20:40] VITALS: BP 125/74; TEMP 98; O2SAT 96
[2025-02-22 16:00] VITALS: BP 106/59; TEMP 98.7; O2SAT 97
[2025-02-22 21:00] VITALS: BP 115/65; TEMP 98; O2SAT 97
[2025-02-22] MEDS: PERMETHRIN 5% CRM 60 GM TUBE TP ONE (21:20)
[2025-02-23 08:00] VITALS: BP 110/52; TEMP 97.9; O2SAT 95
[2025-02-23 08:02] VITALS: BP 110/52; TEMP 100; O2SAT 95
[2025-02-23 16:00] VITALS: BP 122/62; TEMP 98.4; O2SAT 99
[2025-02-23 20:04] VITALS: BP 135/71; TEMP 98.5; O2SAT 96
[2025-02-24] MEDS: HALOPERIDOL DECANOATE IM 100 MG/ML AMPUL IM SCH (17:08)
[2025-02-24 20:00] VITALS: BP 142/76; TEMP 98.3; O2SAT 99
[2025-02-24 20:08] VITALS: BP 142/76; TEMP 97.8; O2SAT 99
[2025-02-25 08:12] VITALS: BP 121/77; TEMP 97.9; O2SAT 98
[2025-02-25] MEDS ORDERED: HALOPERIDOL LACTATE INJ 5 MG/ML VIAL IM PRN (10:30)
[2025-02-25] MEDS: NEOMY SULF/BACITRA/POLYMYXIN B 3.5 GM TUBE RIGHTEYE SCH (13:08)
[2025-02-25 16:03] VITALS: BP 126/87; TEMP 97.9; O2SAT 96
[2025-02-25] MEDS: HALOPERIDOL 5 MG TABLET PO SCH (16:43)
[2025-02-25 20:53] VITALS: BP 151/79; TEMP 97.9; O2SAT 96
[2025-02-26 08:00] VITALS: BP 130/69; TEMP 98.7; O2SAT 98
[2025-02-26 16:00] VITALS: BP_SYST 134; BP_SYST 141; BP_DIAS 70; BP_DIAS 85; TEMP 97.8; TEMP 98.7; O2SAT 100; O2SAT 96
[2025-02-26 19:44] VITALS: BP 106/72; TEMP 97.7; O2SAT 100
[2025-02-27 08:00] VITALS: BP 141/68; TEMP 97.7; O2SAT 98
[2025-02-27] MEDS ORDERED: OLANZAPINE 10 MG VIAL IM PRN (10:00)
[2025-02-27] MEDS: OLANZAPINE ZYDIS 5 MG TAB.RAPDIS PO SCH (10:41)
[2025-02-27 16:07] VITALS: BP 131/66; TEMP 98; O2SAT 97
[2025-02-27 20:00] VITALS: BP 124/59; TEMP 97.5; O2SAT 93
[2025-02-28 08:00] VITALS: BP 133/72; TEMP 97.8; O2SAT 98
[2025-02-28 16:08] VITALS: BP 114/62; TEMP 99.8; O2SAT 97
[2025-02-28 20:55] VITALS: BP 119/69; TEMP 98.2; O2SAT 98
[2025-03-01 07:00] VITALS: BP 108/58; TEMP 97.5; O2SAT 94
[2025-03-01] MEDS: GLUCERNA SHAKE 237 ML CAN PO SCH (11:56)
[2025-03-01 16:00] VITALS: BP 121/72; TEMP 97.7; O2SAT 96
[2025-03-01 20:00] VITALS: BP 123/47; TEMP 97.9; O2SAT 97
[2025-03-02 08:00] VITALS: BP 114/56; TEMP 97.8; O2SAT 97
[2025-03-02 16:03] VITALS: BP 122/66; TEMP 98; O2SAT 96
[2025-03-02 20:47] VITALS: BP 99/60; TEMP 98.1; O2SAT 95
[2025-03-02 21:00] VITALS: BP 110/60; TEMP 98; O2SAT 98
[2025-03-03 08:00] VITALS: BP 100/76; TEMP 98.1; O2SAT 98
== END 2025-03-03 15:27 | DRG 885 ==
LOC: ER 12:40 → GPS 16:22
PROVIDERS: ADMIT Psychiatry & Neurology Psychiatry; ATTEND Internal Medicine
DX: F25.0 Schizoaffective disorder, bipolar type (principal); F03.92 Unspecified dementia, unspecified severity, with psychotic disturbance; F03.911 Unspecified dementia, unspecified severity, with agitation; F03.918 Unspecified dementia, unspecified severity, with other behavioral disturbance; F29 Unspecified psychosis not due to a substance or known physiological condition; I10 Essential (primary) hypertension; K21.9 Gastro-esophageal reflux disease without esophagitis; Z79.899 Other long term (current) drug therapy; Z86.73 Personal history of transient ischemic attack (TIA), and cerebral infarction without residual deficits; Z91.148 Patient's other noncompliance with medication regimen for other reason; R53.1 Weakness; E03.9 Hypothyroidism, unspecified; Z98.891 History of uterine scar from previous surgery; Z79.890 Hormone replacement therapy; Z73.6 Limitation of activities due to disability; E66.9 Obesity, unspecified; E78.5 Hyperlipidemia, unspecified; H10.9 Unspecified conjunctivitis; E11.9 Type 2 diabetes mellitus without complications; Z68.31 Body mass index [BMI] 31.0-31.9, adult; B86 Scabies
CPT/HCPCS: 36415; 70450-TC; 80048-TC; 80076-TC; 80178-TC; 81001; 82962-TC; 85025-TC; 87081-TC; 97116-TC; 97530-TC; G0480; J1200; J1630; J1631; J3490; Q0163